=== PATIENT | female | born 1965 | race Caucasian/White ===

== ENCOUNTER → 2018-03-16 11:47 | Outpatient (CLI) | payer BC, SELFPAY ==
[2018-01-18 15:53] VITALS: BMI 39.4
[2018-03-16 13:24] LABS: AST(SGOT) 18 U/L (15-37); Alanine Aminotransfer ALT/SGPT 27 U/L (13-56); Albumin, Serum 3.9 g/dL (3.2-5.0); Alkaline Phosphatase 137 U/L (45-117); Anion Gap 9 (5-15); BUN 11 mg/dL (7-18); BUN/Creat Ratio 13.7 RATIO (10-20); Calcium,Total 8.8 mg/dL (8.5-10.1); Chloride 105 mmol/L (98-107); Cholesterol 207 mg/dL (200); EST Glomerular Filtration Rate 80 mL/min (>60); Est Glom Filt Rate - Afr Amer 97 mL/min (>60); Globulin 3.9 g/dL (2.2-4.2); Glucose 82 mg/dL (74-106); High Density Lipoprotein 56 mg/dL; Potassium 3.7 mmol/L (3.5-5.1); Protein, Total 7.8 g/dL (6.4-8.2); Sodium Level 142 mmol/L (136-145); Thyroid Stim Hormone (TSH) 2.47 uIU/mL (0.358-3.74); Triglycerides 180 mg/dL; Very Low Density Lipoprotein 36 mg/dL (5-40)
== END ==
PROVIDERS: Family Provider Family Medicine; PCP Family Medicine; Referring Provider Family Medicine; Visit Provider Family Medicine
DX: E78.00 Pure hypercholesterolemia, unspecified (principal); E03.9 Hypothyroidism, unspecified
CPT/HCPCS: 36415; 80053; 80061; 84443

== ENCOUNTER → 2018-03-29 14:42 | Outpatient (CLI) | payer BC, SELFPAY ==
--- NOTE | 2018-03-29 14:44 | BI_ITS ---
MAMMOGRAPHY - BILATERAL SCREENING REASON FOR EXAM: Female, 52 years old. Routine annual screening examination. PERTINENT HISTORY: Non-contributory. TECHNIQUE: Digital bilateral breast yesica (3D mammographic acquisition) in the CC and MLO projections. 2-D mediolateral oblique (MLO) and craniocaudad (CC) views of both breasts were obtained. CAD: Full Field Digital Mammography with Computer Added Detection was performed. COMPARISON: Comparison is made with prior outside examination dated April 06, 2010. FINDINGS: Breast Composition: There are scattered areas of fibroglandular density. There are no dominant masses or suspicious calcifications. Stable small bilateral axillary lymph nodes. No other significant abnormalities are identified. There has been no significant change since the prior study. BI/SCREENING MAMM (CAD), BILAT IMPRESSION: Stable bilateral screening mammogram. Yearly follow-up mammogram recommended. (A) ASSESSMENT CATEGORY: BIRADS Category 2: Benign. A letter regarding these results will be sent to the patient by the facility within 30 days. Approximately 10% of breast cancers are not detected by mammography. A normal mammogram should not delay biopsy of a clinically suspicious abnormality. [id number] Electronically Signed: Nikita Bean MD at 8:51 EST Tel [phone], Service support ,
== END ==
PROVIDERS: Family Provider Family Medicine; PCP Family Medicine; Visit Provider Family Medicine
DX: Z12.31 Encounter for screening mammogram for malignant neoplasm of breast (principal)
CPT/HCPCS: 77063; 77067

== ENCOUNTER → 2018-04-20 10:47 | Outpatient (CLI) | payer BC, SELFPAY ==
[2018-04-20 10:09] VITALS: BMI 38.4
--- NOTE | 2018-04-20 10:51 | RAD_ITS ---
STUDY: X-RAY - LEFT WRIST REASON FOR EXAM: Female, 52 years old. Pain following a fall. TECHNIQUE: 3 view(s) of the wrist were obtained. COMPARISON: None. FINDINGS: Nondisplaced comminuted fracture of the distal radial metaphysis with extension to the articular surface. Normal radiocarpal articulation. Normal distal radioulnar articulation. Normal carpal bones. Normal carpal articulations. Normal carpometacarpal articulation of the thumb. Normal second through fifth carpometacarpal articulations. Normal visualized metacarpal bones. Soft tissue swelling. RAD/Wrist min 3 Views IMPRESSION: Nondisplaced comminuted fracture of the distal radial metaphysis with extension of the articular surface. Soft tissue swelling. Electronically Signed: Nikita Bean MD at 11:16 EST , Service support ,
== END ==
PROVIDERS: Family Provider Family Medicine; PCP Family Medicine; Referring Provider Nurse Practitioner Family; Visit Provider Nurse Practitioner Family
DX: S69.92XA Unspecified injury of left wrist, hand and finger(s), initial encounter (principal); W19.XXXA Unspecified fall, initial encounter
CPT/HCPCS: 73110

== ENCOUNTER → 2018-04-24 09:34 | Outpatient (CLI) | payer BC, SELFPAY ==
[2018-04-24 08:17] VITALS: BMI 40.7
--- NOTE | 2018-04-24 09:37 | RAD_ITS ---
STUDY: X-RAY - LEFT RADIUS AND ULNA REASON FOR EXAM: Injury. TECHNIQUE: 2 view(s) of the forearm. COMPARISON: Radiographs 04/20/2018. FINDINGS: There is mild soft tissue swelling of the distal forearm. There is a nondisplaced slightly impacted fracture of the distal radius with a longitudinal extension into the distal radial diametaphysis. Normal visualized ulna. RAD/Forearm 2 Views IMPRESSION: Distal radial fracture. Electronically Signed: Cooper Bustillo MD at 15:21 EST Tel , Service support ,
--- NOTE | 2018-04-24 09:37 | RAD_ITS ---
STUDY: X-RAY - LEFT WRIST REASON FOR EXAM: Female, 52 years old. Follow-up fracture. TECHNIQUE: 2 view(s) of the wrist were obtained. COMPARISON: 04/20/2018. FINDINGS: No change in the distal radial metaphyseal fracture seen on previous exam. No displacement of fragments. No angulation or impaction. Essentially anatomic appearance of the bones. RAD/Wrist min 3 Views IMPRESSION: Stable distal radial fracture with no significant deformity. Electronically Signed: Epi Suarez MD at 11:32 EST , Service support ,
--- NOTE | 2018-04-30 15:24 | RAD_ITS ---
STUDY: X-RAY - LEFT ELBOW REASON FOR EXAM: Female, 52 years old. Wrist pain. History of a recent wrist fracture. TECHNIQUE: 2 view(s) of the elbow. COMPARISON: None. FINDINGS: Normal visualized humerus, radius and ulna. Normal radiocapitellar and ulnotrochlear articulations. The soft tissue structures are unremarkable. RAD/Elbow 2 Views IMPRESSION: Normal x-ray examination of the elbow. Electronically Signed: Frederick Shea MD at 7:11 EST , Service support ,
== END ==
PROVIDERS: Family Provider Family Medicine; PCP Family Medicine; Referring Provider Orthopaedic Surgery; Visit Provider Orthopaedic Surgery
DX: S62.102A Fracture of unspecified carpal bone, left wrist, initial encounter for closed fracture (principal)
CPT/HCPCS: 73070; 73090; 73110

== ENCOUNTER → 2018-05-03 10:01 | Outpatient (CLI) | payer BC, SELFPAY ==
[2018-04-24 08:17] VITALS: BMI 40.7
--- NOTE | 2018-05-03 10:02 | RAD_ITS ---
STUDY: X-RAY - LEFT WRIST REASON FOR EXAM: Pain. TECHNIQUE: 3 view(s) of the wrist were obtained. COMPARISON: Radiographs 04/24/2018. FINDINGS: There is a nondisplaced distal radial fracture without interval change. Normal radiocarpal articulation. Normal distal radioulnar articulation. Normal carpal bones. Normal carpal articulations. Normal carpometacarpal articulation of the thumb. Normal second through fifth carpometacarpal articulations. Normal visualized metacarpal bones. There is an overlying cast. RAD/Wrist min 3 Views IMPRESSION: Nondisplaced distal radial fracture. Electronically Signed: Cooper Bustillo MD at 13:38 EST Tel , Service support ,
== END ==
PROVIDERS: Family Provider Family Medicine; PCP Family Medicine; Referring Provider Orthopaedic Surgery; Visit Provider Orthopaedic Surgery
DX: S52.502A Unspecified fracture of the lower end of left radius, initial encounter for closed fracture (principal)
CPT/HCPCS: 73110

== ENCOUNTER → 2018-05-17 10:15 | Outpatient (CLI) | payer BC, SELFPAY ==
[2018-05-03 10:17] VITALS: BMI 40.7
--- NOTE | 2018-05-17 10:16 | RAD_ITS ---
STUDY: X-RAY - LEFT WRIST REASON FOR EXAM: Female, 52 years old. Follow-up TECHNIQUE: 3 view(s) of the wrist were obtained. COMPARISON: May 03, 2018 FINDINGS: The fiberglass cast externally stabilized and the previously noted fracture of the distal radius has been removed. There is evidence of healing of nondisplaced fracture of the distal radius. The distal ulna and carpal bones remain within normal limits. There are degenerative changes of the first carpometacarpal joint. RAD/Wrist min 3 Views IMPRESSION: A healing nondisplaced fracture of the distal radius. Degenerative changes involving the first carpometacarpal joint. Electronically Signed: Nabor Rivera MD at 5:07 EST Tel , Service support ,
== END ==
PROVIDERS: Family Provider Family Medicine; PCP Family Medicine; Referring Provider Orthopaedic Surgery; Visit Provider Orthopaedic Surgery
DX: S52.502A Unspecified fracture of the lower end of left radius, initial encounter for closed fracture (principal)
CPT/HCPCS: 73110

== ENCOUNTER → 2018-06-07 10:20 | Outpatient (CLI) | payer BC, SELFPAY ==
[2018-06-07 10:15] VITALS: BMI 40.7
--- NOTE | 2018-06-07 10:23 | RAD_ITS ---
STUDY: X-RAY - LEFT WRIST REASON FOR EXAM: Fracture follow-up. TECHNIQUE: 3 view(s) of the wrist were obtained. COMPARISON: Radiographs 05/17/2018. FINDINGS: There is a healing nondisplaced fracture of the distal radius. Normal radiocarpal articulation. Normal distal radioulnar articulation. Normal carpal bones. Normal carpal articulations. Normal carpometacarpal articulation of the thumb. Normal second through fifth carpometacarpal articulations. Normal visualized metacarpal bones. The soft tissue structures are unremarkable. RAD/Wrist min 3 Views IMPRESSION: Healing nondisplaced fracture of the distal radius. Electronically Signed: Cooper Bustillo MD at 15:14 EDT Tel , Service support ,
== END ==
PROVIDERS: Family Provider Family Medicine; PCP Family Medicine; Referring Provider Orthopaedic Surgery; Visit Provider Orthopaedic Surgery
DX: S52.502A Unspecified fracture of the lower end of left radius, initial encounter for closed fracture (principal); X58.XXXA Exposure to other specified factors, initial encounter; Y93.9 Activity, unspecified; Y92.9 Unspecified place or not applicable; Y99.9 Unspecified external cause status
CPT/HCPCS: 73110

== ENCOUNTER 2018-07-10 08:30 | Outpatient (RCR) | payer BC, SELFPAY ==
[2018-06-07 10:15] VITALS: BMI 40.7
--- NOTE | 2018-06-08 10:26 | HP.OTEVAL ---
Patient's Visit Information DEE MARLEY is a 52 year old F, referred to Occupational Therapy by Tyler Sheehan DO, with a diagnosis of left distal radius fx.. Date of Evaluation: 06/08/18 Occupational Therapist: MARY Gutierrez/Crissy, CHT - Subjective Subjective: This 52 year old female was seen for initial OT eval following a left distal radius fx. Pt states she had the fall on 04/20/18. PT did go to work and then they sent her home and she went to see her and refered to Dr. Clinton pt was casted until Apr, and did use wrist brace on for 2 weeks - ADLs Dressing: Pants, Socks, Shoes Fasteners: Tie shoes, Buttons, Zippers Eating: Cut food Bathing: Handle washcloth & soap Kitchen: Chop with knife, Peel fruits & vegetables, Open jars, Open bottle caps, Pour from pitcher, Take dish out of oven - Pain left wrist 3 - ROM Forearm: Right/left WNL Wrist: right 65/70 left 45/25 - Strength Corporate Director: right 50# left NT Lateral Pinch: right 14# left 8# Tripod Pinch: right 20# left 7# - Sensation Sensation Comments: sensation is tested at 2.83 bilateral - Quick DASH-Disab of Arm,Shoulder& Hand Quick DASH Score: 50.0000 - Goals Goal:: PT will demo an increase in digital content manager strength by 20# to increase independent with basic occupations of daily living to return pt to PLOF by D/C. Pt will demo an increase in lateral and tripod pinch by 2# to increase pts independent with opening baggies, containers at PLOF by D/C. Goal:: Pt will demo an increase in wrist ROM equal to unaffected wrist to return pt to PLOF with grooming, dressing and home mtg tasks by D/C. Goal:: Pt will demo understanding of joint protection and ergonomics when performing BADLs and IADLs by d/c - Rehabilitation General Assessment: Pt currently limited with functional ROM and strength decreasing pts ind with ADLs and IADLs. Pt would benefit from skilled OT services 2x week for 6 weeks to return pt to PLOF. Rehabilitation Potential: Good - Anticipated Interventions Anticipated Interventions: A/AAROM/PROM, Strengthening, Modalities, Orthoses, Joint Protection/Energy Conservation, Ergonomic Education - Visit Plan Frequency: 2x /Week Duration: 6 Weeks TEXT: Thank you for the opportunity to evaluate your patient. For Medicare and Medicare HMO plans, please review the plan of care and approve it. It will need to be FAXED BACK to us at [phone] for Medicare purposes. Please let me know if there are questions or concerns regarding this plan of care. Physician Signature: Date:
--- NOTE | 2018-06-27 08:15 | HP.OTREVAL ---
Tyler Sheehan, DO, It has been my pleasure to treat DEE MARLEY over the last 3 visits for left distal radius fx.. Please see the progress note below for an update on the occupational therapy plan of care! Subjective: pt states she feels her ROM is returning well- states she still has a funny feeling along the radial side of her thumb from CMC distal (numbness) only when she touches the radial side of her thumb. Objective/Function: wrist ext 60/50. with passive stretch pt demo 60* flex. pt cont. to gain ROM. left mycology teacher 15#. left lateral pinch 10#. left tripod pinch 8#. pt states she is using her left hand for more daily occupations- pt demo good gains in ROM but would benefit from PRE if approved by dr. pt has total therapy visits approved at this time. Plan Frequency: 2x /Week Duration: 6 Weeks Plan: cont with ROM and new measurments- pt to see next mon. will ask for ok for PRE Goals - Goals Goal:: PT will demo an increase in mycology teacher strength by 20# to increase independent with basic occupations of daily living to return pt to PLOF by D/C. Pt will demo an increase in lateral and tripod pinch by 2# to increase pts independent with opening baggies, containers at PLOF by D/C. Goal:: Pt will demo an increase in wrist ROM equal to unaffected wrist to return pt to PLOF with grooming, dressing and home mtg tasks by D/C. Goal:: Pt will demo understanding of joint protection and ergonomics when performing BADLs and IADLs by d/c Anticipated Interventions Anticipated Interventions: A/AAROM/PROM, Strengthening, Modalities, Orthoses, Joint Protection/Energy Conservation, Ergonomic Education Please do not hesitate to contact me at [phone] by phone or if you have questions or concerns regarding this new plan of care! Sincerely, Korina Saeed, FLORINAR/L, CHT
--- NOTE | 2018-10-17 16:18 | HP.OTDCSUM_ITS ---
HP - OT D/C Summary It has been my pleasure to treat DEE MARLEY under orders from Tyler Sheehan DO, for the diagnosis of left distal radius fx. for a total of 6 visit(s). Please see the following information for a summary of their discharge status. - Overall Improvement % Improvement: 95 - Objective Objective/Function: left 40#. left lateral pinch 14#. left tripod pinch 12#. left 55/45. left forearm sup/pron WNL - Goals Patient Goals: Regain Mobility, Regain Strength, Return to Work, Use Hand/Wrist/Arm Normally Again Goal:: PT will demo an increase in overlock sewing machine operator strength by 20# to increase independent with basic occupations of daily living to return pt to PLOF by D/C. Pt will demo an increase in lateral and tripod pinch by 2# to increase pts independent with opening baggies, containers at PLOF by D/C. Goal:: Pt will demo an increase in wrist ROM equal to unaffected wrist to return pt to PLOF with grooming, dressing and home mtg tasks by D/C. Goal:: Pt will demo understanding of joint protection and ergonomics when performing BADLs and IADLs by d/c - Plan Plan: cont with BTE - D/C Information Discharge Comments: pt has not scheduled further apts and due to time lapse in care pt D/C 10/17/18 If there are questions or concerns regarding this patient's occupational therapy, please fell free to call me at [phone]. Thank you for the referral of this patient. Sincerely, Korina Saeed, OTR/L, CHT
== END 2018-07-10 19:00 | disposition home or self-care (01) ==
LOC: OT 08:30
PROVIDERS: Family Provider Family Medicine; PCP Family Medicine; Referring Provider Orthopaedic Surgery; Visit Provider Orthopaedic Surgery
DX: S52.509D Unspecified fracture of the lower end of unspecified radius, subsequent encounter for closed fracture with routine healing (principal)
CPT/HCPCS: 97110; 97140; 97166; 97530

== ENCOUNTER → 2019-02-04 13:00 | Outpatient (CLI) | payer BC, SELFPAY ==
[2019-01-30 16:43] VITALS: BMI 40.7
--- NOTE | 2019-02-04 13:01 | US_ITS ---
STUDY: ULTRASOUND OF THE FEMALE PELVIS - COMPLETE REASON FOR EXAM: Female, 53 years old. Postmenopausal bleeding. LMP: Postmenopausal. TECHNIQUE: Transvaginal TECHNICAL QUALITY: Adequate. COMPARISON: None. FINDINGS: The uterus is anteverted and is in a midline position. The uterus measures 8.8 x 5.8 x 4.6 cm. Normal uterine cervix. The endometrium measures 26.8 mm in thickness, and is heterogeneous (striated). There is no demonstrated endometrial mass. There is no demonstrated myometrial mass. I.U.D. - The patient does not have an I.U.D. The bilateral ovaries are not visualized. There is no fluid in the cul-de-sac. US/Transvaginal Non- IMPRESSION: Significant thickening of the endometrium with heterogeneous appearance raising the concern of endometrial hyperplasia versus carcinoma. Clinical correlation recommended along with SENIOR MICROSOFT CONSULTANT consultation. Nonvisualized bilateral ovaries. If indicated, these findings may be more adequately characterized with MRI of the pelvis in nonacute setting. Electronically Signed: Tiffany Martinez MD at 5:56 EST , Service support ,
== END ==
PROVIDERS: Family Provider Family Medicine; PCP Family Medicine; Referring Provider Family Medicine; Visit Provider Family Medicine
DX: N95.0 Postmenopausal bleeding (principal)
CPT/HCPCS: 76830

== ENCOUNTER → 2019-02-15 09:59 | Outpatient (CLI) | payer BC, SELFPAY ==
[2019-01-30 16:43] VITALS: BMI 40.7
[2019-02-15 12:37] LABS: AST(SGOT) 20 U/L (15-37); Alanine Aminotransfer ALT/SGPT 31 U/L (13-56); Albumin, Serum 3.7 g/dL (3.2-5.0); Alkaline Phosphatase 123 U/L (45-117); Anion Gap 7 (5-15); BUN 10 mg/dL (7-18); BUN/Creat Ratio 13.1 RATIO (10-20); Calcium,Total 8.7 mg/dL (8.5-10.1); Chloride 106 mmol/L (98-107); Cholesterol 195 mg/dL (200); Creatinine, Serum 0.76 mg/dL (0.55-1.02); EST Glomerular Filtration Rate 85 mL/min (>60); Est Glom Filt Rate - Afr Amer 103 mL/min (>60); Globulin 3.7 g/dL (2.2-4.2); Glucose 85 mg/dL (74-106); High Density Lipoprotein 60 mg/dL; Potassium 3.6 mmol/L (3.5-5.1); Protein, Total 7.4 g/dL (6.4-8.2); Sodium Level 140 mmol/L (136-145); Thyroid Stim Hormone (TSH) 3.46 uIU/mL (0.358-3.74); Triglycerides 216 mg/dL; Very Low Density Lipoprotein 43 mg/dL (5-40)
== END ==
PROVIDERS: Family Provider Family Medicine; PCP Family Medicine; Referring Provider Family Medicine; Visit Provider Family Medicine
DX: E78.00 Pure hypercholesterolemia, unspecified (principal); E03.9 Hypothyroidism, unspecified
CPT/HCPCS: 36415; 80053; 80061; 84443

== ENCOUNTER → 2019-04-01 15:37 | Outpatient (CLI) | payer BC, SELFPAY ==
[2019-01-30 16:43] VITALS: BMI 40.7
--- NOTE | 2019-04-01 15:38 | BI_ITS ---
MAMMOGRAPHY - BILATERAL SCREENING REASON FOR EXAM: Female, 53 years old. Routine annual screening examination. PERTINENT HISTORY: Non-contributory. TECHNIQUE: Digital bilateral breast lili (3D mammographic acquisition) in the CC and MLO projections. 2-D mediolateral oblique (MLO) and craniocaudad (CC) views of both breasts were obtained. CAD: Full Field Digital Mammography with Computer Added Detection was performed. COMPARISON: Comparison is made with prior study dated March 29, 2018. FINDINGS: Breast Composition: There are scattered areas of fibroglandular density. There are no dominant masses or suspicious calcifications. Stable benign-appearing bilateral axillary lymph nodes. No other significant abnormalities are identified. There has been no significant change since the prior study. BI/SCREEN MAMM (CAD) W/LILI BILAT IMPRESSION: Stable bilateral screening mammogram. Yearly follow-up mammogram recommended. (A) ASSESSMENT CATEGORY: BIRADS Category 2: Benign. A letter regarding these results will be sent to the patient by the facility within 30 days. Approximately 10% of breast cancers are not detected by mammography. A normal mammogram should not delay biopsy of a clinically suspicious abnormality. [id number] Electronically Signed: Nikita Bean, at 8:26 EST , Service support ,
== END ==
PROVIDERS: Family Provider Family Medicine; PCP Family Medicine; Referring Provider Family Medicine; Visit Provider Family Medicine
DX: Z12.31 Encounter for screening mammogram for malignant neoplasm of breast (principal)
CPT/HCPCS: 77063; 77067

== ENCOUNTER → 2019-04-03 13:49 | Outpatient (CLI) | payer BC, SELFPAY ==
[2019-04-03 10:36] VITALS: BMI 43.4
--- NOTE | 2019-04-03 15:31 | RAD_ITS ---
STUDY: X-RAY - RIGHT ANKLE REASON FOR EXAM: Female, 53 years old. Right ankle pain for 2 weeks. No known injury. TECHNIQUE: view(s) of the ankle. COMPARISON: None. FINDINGS: Normal visualized distal tibia and fibula. Normal medial and lateral malleoli. Normal tibiotalar articulation and ankle mortise. Inferior calcaneal spur. The visualized subtalar, talonavicular, calcaneocuboid and tarsal articulations are normal. The soft tissue structures are unremarkable. RAD/Ankle min 3 Views IMPRESSION: No acute abnormality of the right ankle. Electronically Signed: Israel Joel MD at 16:49 EST , Service support ,
[2019-04-05 15:16] LABS: HPV APTIMA, High Risk Negative (Negative)
== END ==
PROVIDERS: Family Provider Family Medicine; PCP Family Medicine; Referring Provider Family Medicine; Visit Provider Nurse Practitioner Women's Health
DX: M21.6X1 Other acquired deformities of right foot (principal); Z12.4 Encounter for screening for malignant neoplasm of cervix
CPT/HCPCS: 73610; 87624; 88175; G0145

== ENCOUNTER 2019-04-30 05:40 | Day surgery (SDC) | payer BC, SELFPAY ==
[2019-04-15 09:42] VITALS: BMI 40.7
--- NOTE | 2019-04-15 09:42 | HP_ITS ---
Intake Vital Signs 04/15/19 BMI 40.7 04/15/19 Height 5 ft 4 in 04/15/19 Weight: 248 lb 04/15/19 BMI 42.5 04/15/19 BP 139/101 H 04/15/19 Blood Pressure Location Rt brachial 04/15/19 Position Sitting 04/15/19 Respiration 18 04/15/19 Pulse 65 04/15/19 Pulse Source Monitor 04/15/19 Temp 98.1 F 04/15/19 Temp Source Oral 04/15/19 Pulse Oximetry (%) 97 04/15/19 Oxygen Delivery Method room air Intake Visit Reasons: fam. hx malig neopl. digestive organs-egd/c-scope Chief Complaint: c-scope consult Clerk Of Superior Court Required: No Is patient in pain?: No Allergies Penicillins Allergy (Severe, Verified 04/15/19 09:39) Unknown latex Allergy (Intermediate, Verified 04/15/19 09:39) Unknown Medications multivitamin 1 tab PO DAILY 01/18/18 [History Confirmed 04/15/19] furosemide 20 mg tablet 20 mg PO DAILY PRN tab 01/30/19 [History Confirmed 04/15/19] atorvastatin 20 mg tablet 20 mg PO DAILY #90 tab 03/18/19 [Rx Confirmed 04/15/19] levothyroxine 25 mcg tablet 25 mcg PO DAILY #90 tab 03/18/19 [Rx Confirmed 04/15/19] cholecalciferol (vitamin D3) 2,000 unit tablet 2,000 unit PO DAILY 04/03/19 [History Confirmed 04/15/19] famotidine 20 mg tablet 20 mg PO DAILY 04/03/19 [History Confirmed 04/15/19] [facility] Medical History (Updated 04/15/19 @ 09:37 by Nikky Jain) Family history of colon cancer (Chronic) Ankle pain, right (Acute) Thickened endometrium (Acute) Post-menopause bleeding (Chronic) BV (bacterial vaginosis) (Acute) Hypothyroid (Chronic) Gastritis (Resolved) High cholesterol (Chronic) Gastrointestinal complaints (Chronic) Family history of colon cancer (Acute) Fracture of left wrist (Acute) Surgical History History of tonsillectomy (Acute) Family History Father Arthritis Myocardial infarction Heart disease Mother Myocardial infarction Heart disease Osteoporosis Brother Colon cancer Sister Depression Suicide attempt Grandmother CVA (cerebral vascular accident) Uncle Melanoma Lung cancer Social History (Updated 04/15/19 @ 09:42 by Carlton Mckeon MD) Smoking Status: Never smoker alcohol intake: never substance use type: does not use caffeine: No what type of physical activity do you participate in: none seatbelt use: always do you feel safe at home: Yes additional social history: -Patient works at [employer] HPI HPI HPI: DEE MARLEY, is a 53 F who presents to the office today for HPI HPI Surgical H&P: Yes HPI: DEE MARLEY, is a 53 F who presents to the office today for screening colonoscopy. The patient has never had a colonoscopy in the past. She reports that her brother was recently diagnosed with stage IV colon cancer. He was 67 years old at diagnosis. She has no other family history of colon cancer. She denies any abdominal pain or blood in her stool. ROS General General: No weight change, appetite, fatigue, colon cancer, breast cancer or weakness HEENT HEENT: No difficulty swallowing, eye injury, eye surgery, swollen glands or hoarseness Endo Endocrine: No thyroid disease, diabetes mellitus, thyroid cancer, Hair loss, heat intolerance or cold intolerance Skin Skin: No rash or changing moles Breast Breast: No left breast lump, right breast lump, nipple discharge, breast pain, abnormal mammogram, abnormal US or breast enlargement Musc Musculoskeletal: Yes arthritis; no back problems, rheumatoid arthritis, gout or joint pain Cardio Cardiovascular: No murmur, pacemaker, heart disease, atrial fibrillation, high blood pressure, heart attack, heart stent, palpitations, shortness of breat with exertion or chest pain Psych Psychiatric: No depression, anxiety or hearing voices Resp Respiratory: No shortness of breath, No sleep apnea, No cough, No COPD, No asthma, No emphysema, No wheezing Gastro Gastrointestinal: No abdominal pain, No nausea or vomiting, No diarrhea, No constipation, No blood in stool, Yes acid reflux, Yes hemorrhoids, No ulcers, No gallbladder problem, No black,tarry stools Connor Hematologic: No blood thinners, No blood disorders, No bleeding, No anemia, No blood clots Neuro Neurologic: No system reviewed and no additional complaints, except as docu, No as per HPI, No abnormal walking, No abnormal hearing, No abnormal movements, No abnormal speech, No behavioral changes, No burning sensations, No confusion, No seizure-like activity, No unsteadiness, No dizziness, No localized weakness, No frequent falls, No headache(s), No lack of coordination, No loss of vision, No memory loss, No numbness, No other visual disturbances, No radiating pain, No restless legs, No sensory deficit, No fainting, No tingling, No tremor(s), No weakness, No other Exam Const General: cooperative Orientation: alert, oriented x3 Chest Breast Palpation: No nipple discharge Resp Effort & Inspection: normal respiratory effort Auscultation: clear to auscultation bilaterally Cardio Rate: regular rate Rhythm: regular rhythm Heart Sounds: no murmurs GI Inspection: non-distended Palpation: soft, nontender Assessment & Plan Problems 1. Family history of colon cancer Z80.0 2. Screen for colon cancer Z12.11 Plan Patient has a family history of colon cancer in her brother at age 67. Patient has never had a colonoscopy in the past. She denies any abdominal pain or blood in her stool. I will plan for screening colonoscopy. Due to the patient's brother's age at diagnosis she should still be on a 10-year interval if nothing is found. I explained endoscopy in detail to the patient. I explained the risks including but not limited to stroke or heart attack with anesthesia, perforation of the GI tract, bleeding, infection. I explained that any of these could necessitate further emergency surgery. The patient understands and all questions were answered sufficiently. The patient wishes to proceed with procedure. Carlton Mckeon MD Pager: [facility] [address] [place] [address], [address] [place] [address] Office: Orders Orders: Colonoscopy Today Z80.0 Coding Level of Care Code Off vis,new,level 3 Diagnoses Family history of colon cancer Z80.0 Screen for colon cancer Z12.11 04/15/19 0942 <Electronically signed by Carlton lyles MD> Date _ Carlton Mckeon MD
[2019-04-25 15:04] VITALS: BMI 40.7
[2019-04-30] VITALS (7 sets, daily range): BP systolic 119–136; BP diastolic 62–86; PULSE 61–73; RESP 16–18; TEMP 36.3–36.6; O2SAT 98–100; BMI 40.6
--- NOTE | 2019-04-30 | IMM_PTH ---
PATIENT: DEE MARLEY LOC: [facility] [place] U#:[id number] AGE/SX: 53/F ROOM: RE04/30/[address]: Dr. Gege Amin MD : 1965 BED: DIS: 04/30/2019 SPEC #: [id number] RECD: 05/01/19 12:50 STATUS: LINH REQ #: [id number] CONSUELO: 04/30/19 00:[address]: Gege Amin DEPT: IMMUNOHISTOCHEMISTRY RECD BY: Anushka Hernández ENTERED: 05/01/19 12:51 SP TYPE: IMMUNO OTHR DR: Dr. Avila Romo, DO Tissues: Endometrium, NOS Procedures: MSH2 (add) MLH-1 (add) MSH6 (add) Anti-PMS2 (add) CEA (add) KI-67 (add) P53 (add) Vimentin (add) Pankeratin (add) ER (initial) PHYSICIAN & INSTITUTION [facility] [id number] SPECIMEN INFORMATION: Tissue Source: Endometrial contents Clinical Info: Thickened endometrium; postmenopausal bleeding Specimen Number: [id number] CPT code: 21912, 65651 x10 METHODOLOGY: Deparaffinized sections of prefer/formalin-fixed tissue or PAP/DQ stained slides are incubated with monoclonal/polyclonal antibodies/oligonucleotide probes. Localization is made via biotin free immunoperoxidase method. Appropriate controls are performed and reacted as expected. Results on target cell population are indicated in the following table: RESULTS: ANTIBODY / CLONE RESULT ER (6F11) positive AE1-3 (AE1/AE3/PCK26) positive Vimentin (V9) positive CK19 (A53-B/A2.26) positive CEA (11-7/TF-3HB-1) negative MLH1 (M1) positive MSH2 (25D12) positive MSH6 (44) positive PMS2 (WHH4510) positive P53 (DO-7) negative Ki-67 (30-9) positive, low These tests were developed and their performance characteristics determined by [facility]. They may not have been cleared or approved by the U.S. Food and Drug Administration. The FDA has determined that such clearance or approval is not necessary. The above immunohistochemical/dualISH markers are ordered and reviewed by the Pathologist. INTERPRETATION: Endometrium, curettage: Endometrial adenocarcinoma. No evidence of microsatellite instability. AM:rachel 05/02/19
--- NOTE | 2019-04-30 03:29 | HP.PCM_ITS ---
- Problem List (1) Thickened endometrium Status: Acute (2) Post-menopause bleeding Status: Chronic Comment: Plan D&C, hysteroscopy with Dr. Amin Referred Dr. Bob Romo History and Physical Date of Admission: 04/30/19 Intake Vital Signs 04/25/19 Height 5 ft 4 in 04/25/19 Weight: 246 lb 8 oz 04/25/19 BMI 42.3 04/25/19 BP 128/82 H Intake Visit Reasons: Hysteroscopy DC/Symphion Chief Complaint: Preop D&C with symphion Director Sales Support Required: No Is patient in pain?: No Allergies Penicillins Allergy (Severe, Verified 04/25/19 15:04) Unknown latex Allergy (Intermediate, Verified 04/25/19 15:04) Unknown Medications multivitamin 1 tab PO DAILY 01/18/18 [History Confirmed 04/24/19] furosemide 20 mg tablet 20 mg PO DAILY PRN tab 01/30/19 [History Confirmed 04/25/19] atorvastatin 20 mg tablet 20 mg PO DAILY #90 tab 03/18/19 [Rx Confirmed 04/25/19] levothyroxine 25 mcg tablet 25 mcg PO DAILY #90 tab 03/18/19 [Rx Confirmed 04/25/19] cholecalciferol (vitamin D3) 50 mcg (2,000 unit) tablet 2,000 unit PO DAILY 04/03/19 [History Confirmed 04/25/19] famotidine 20 mg tablet 20 mg PO DAILY 04/03/19 [History Confirmed 04/25/19] Is last menstrual period known: No Post menopausal: No Patient : No : No PFSH Medical History Family history of colon cancer (Chronic) Ankle pain, right (Acute) Thickened endometrium (Acute) Post-menopause bleeding (Chronic) BV (bacterial vaginosis) (Acute) Hypothyroid (Chronic) Gastritis (Resolved) High cholesterol (Chronic) Gastrointestinal complaints (Chronic) Family history of colon cancer (Acute) Fracture of left wrist (Acute) Surgical History History of tonsillectomy (Acute) Family History Father Arthritis Myocardial infarction Heart disease Mother Myocardial infarction Heart disease Osteoporosis Brother Colon cancer Sister Depression Suicide attempt Grandmother CVA (cerebral vascular accident) Uncle Melanoma Lung cancer Social History (Updated 04/30/19 @ 02:27 by Gege Amin MD) Smoking Status: Never smoker alcohol intake: never substance use type: does not use caffeine: No what type of physical activity do you participate in: none seatbelt use: always do you feel safe at home: Yes additional social history: -Patient works at [employer] HPI Hysteroscopy DC/Symphion: Details: DEE MARLEY is a 53 year old who presents for postmenopausal bleeding and thickened endometrium, cervical stenosis. Female Reproductive History Menopausal Symptoms: No night sweats Pregancy History 0 Elective abortions Hx Para Spontaneous abortions Hx # Term Pregnancies Ectopic pregnancies Hx # Pregnancies Multiple births # of living children ROS Const Constitutional: Denies fatigue, night sweats, weight gain or weight loss ENT ENT: Reports system reviewed and no additional complaints, except as docu Cardio Card: Denies chest pain Resp Resp: Denies cough or dyspnea GI GI: Reports as per HPI; denies abdominal pain, constipation, nausea or vomiting : Denies nipple discharge, urinary frequency, urinary incontinence, urinary hesitancy, urinary urgency, vaginal discharge, vaginal dryness, vaginal odor or vaginal itching Musc Musc: Denies joint pain, back pain or muscle weakness Skin Skin/Breast: Denies hair loss, change in hair, dry skin, breast lump, breast pain, breast skin changes or nipple discharge Neuro Neuro: Reports system reviewed and no additional complaints, except as docu Psych Psych: Reports system reviewed and no additional complaints, except as docu Endo Endo: Denies cold intolerance, excessive sweating, heat intolerance or increased thirst Connor/Lymph Hematologic/Lymphatic: Denies easy bleeding, Denies easy bruising, Denies enlarged lymph nodes Exam Const General: cooperative, healthy appearing, comfortable, no acute distress, well developed Orientation: alert HENMT Head: normal to inspection, normocephalic Ears: hearing grossly normal bilaterally, external ears normal Nose: external nose normal, nares normal Face and sinus: normal facial exam Neck Neck: normal visual inspection, no lymphadenopathy Thyroid: thyroid normal Chest Chest palpation & inspection: normal inspection of the chest Resp Effort & Inspection: normal respiratory effort Auscultation: clear to auscultation bilaterally Cardio Rate: regular rate Rhythm: regular rhythm Heart Sounds: S1 normal, S2 normal GI Inspection: normal to inspection, non-distended Palpation: soft, no hepatosplenomegaly Musc Other: gross motor intact no deficits, full bilateral strength Skin General: no rashes or lesions noted Neuro General: alert, awake, moves all extremities, no focal motor deficits Motor: muscle tone normal throughout Extrem General: normal to inspection, no pedal edema Psych Appearance: grossly normal Mental Status: mental status grossly normal Affect: normal affect Speech and Movement: speech and movement normal Assessment & Plan Problems 1. Thickened endometrium R93.89 2. Post-menopause bleeding N95.0 Plan D&C, hysteroscopy with Dr. Amin Referred Dr. Bob Romo Plan After discussing the patient's diagnosis and treatment plan options, patient wishes to proceed with surgical management. I have discussed with the patient the risks, benefits, and alternatives of the procedure which include but are not limited to risks of anesthesia, bleeding, infection, possible damage to bowel, bladder, or surrounding vasculature which could lead to additional surgery to evaluate any complications. Patient agrees to procedure and wishes to proceed. Coding Level of Care Code Off vis,est,level 4 Diagnoses Thickened endometrium R93.89 Post-menopause bleeding N95.0 UPDATE- I have seen the patient and performed any clinically relevant updates to the history and physical exam. Gege Amin MD
[2019-04-30 06:08] LABS: Internal QC Validated? YES +Cl - CLEAR BKGD; Pregnancy, Urine Negative Negative
[2019-04-30] MEDS: Lactated Ringers 1,000 ML 125 ML IV ×2 (06:15→08:36)
[2019-04-30 06:21] LABS: Hematocrit 43.6 % (37-47); Hemoglobin 14.5 g/dL (12.0-15.0); Mean Corp Hgb Conc 33.3 g/dL (32-36); Mean Corpuscular Hgb 30.7 pg (27.0-32.0); Mean Corpuscular Volume 92.2 fL (81-99); Mean Platelet Vol. 9.1 fl (6.2-12.0); Platelet Count 275 K/mm3 (150-450); RBC Distribution Width CV 12.3 % (11.6-14.6); RBC Distribution Width SD 41.9 fl (35.1-43.9); Red Blood Count 4.73 M/mm3 (4.2-5.4); White Blood Count 6.6 K/mm3 (4.4-11.0)
--- NOTE | 2019-04-30 07:30 | EMB_PTH ---
PATIENT: DEE MARLEY LOC: [facility] [place] U#:[id number] AGE/SX: 53/F ROOM: RE04/30/[address]: Dr. Gege Amin MD : 1965 BED: DIS: 04/30/2019 SPEC #: [id number] RECD: 04/30/19 13:59 STATUS: LINH MICAHRalph #: [id number] CONSUELO: 04/30/19 07:[address]: Gege Amin DEPT: SURGICAL PATHOLOGY RECD BY: Maximo Carr ENTERED: 04/30/19 14:30 SP TYPE: ENDOM BX/C OTHR DR: Dr. Avila Romo, DO Tissues: Endometrium, NOS Procedures: Surgery Specimen Level IV HEADER OPERATION: Hysteroscopy, D & C Symphion PRE-OP DIAGNOSIS: Thickened endometrium R93.89, postmenopause bleeding N95.0 TISSUE SUBMITTED: Endometrial contents MICROSCOPIC DIAGNOSIS Endometrium, curettings: Endometrial adenocarcinoma, FIGO grade 1-2. See comment. AM:rachel 05/01/19 COMMENT Immunohistochemistry ([id number]) supports the above diagnosis. Case has been reviewed in consultation with Dr. Perez who concurs with the above diagnosis. IDC:HÉCTOR MICROSCOPIC DESCRIPTION Slides are reviewed. GROSS DESCRIPTION Received in fixative is one container labeled with the patient's name and designated endometrial contents. The specimen consists of multiple irregular fragments of malik soft tissue mixed with mucoid tissue that in aggregate measure 5 x 3 x 1.2 cm. The entire specimen is submitted in seven cassettes. / HÉCTOR:rachel 04/30/19 TC:0 CPT: 25428
--- NOTE | 2019-04-30 08:19 | PCM.OPRPT ---
Problem List (1) Thickened endometrium Status: Acute (2) Post-menopause bleeding Status: Chronic Comment: Plan D&C, hysteroscopy with Dr. Amin Referred Dr. Bob Romo Report of Operation Date of Procedure: 04/30/19 Pre-Operative Diagnosis: thickened endometrial lining Post-Operative Diagnosis: same Surgery/Procedure Performed:: d and c hysterosocpy symphion Description of Surgical Findings:: very thickened irregular lining filled with tissue Type of Anesthesia:: Local MAC Special Medications: none Specimen's removed: none Drains: none Estimated Blood Loss (mL): minimal Fluids Replaced: crystalloid Description of Procedure: Patient was taken to the OR and placed under MAC local anesthesia was prepped and draped in normal sterile fashion in the dorsolithotomy position. A cervical block was performed and cervix dilated to allow passage of a symphion resectoscope instrument. Progressive passes were made with the symphion to clear the uterine lining and remove the visible abnormalities. The lining was incredibly thickened and abnormal appearing with some fibrous components to it. Minimal blood loss was seen. Large amount of tissue was removed. A direct curettage was performed afterwards then. Fluid balance was 1250 cc. All instruments removed from the vagina and the patient was awoken and taken recovery in stable condition Grafts/Implants Used: none - Complications none - Admit VTE Documentation VTE Present on Admission: No Multi Select Codes - Urinary/Genital Urinary/Genital CPT Codes: 59033 Hysteroscopic myomectomy - resection of thick fibrous tissue with symphion device
--- NOTE | 2019-04-30 08:24 | PCM.DC.D&C ---
Discharge Diet: No Restrictions Discharge Activity: Return to Normal Activity, May Shower, May Take a Tub Bath Allergies/Adverse Reactions: Allergies Penicillins Allergy (Severe, Verified 04/30/19 06:04) Unknown latex Allergy (Intermediate, Verified 04/30/19 06:04) Unknown Medications to take at Discharge multivitamin 1 tab PO DAILY 01/18/18 furosemide 20 mg tablet 20 mg PO DAILY PRN tab 01/30/19 atorvastatin 20 mg tablet 20 mg PO DAILY #90 tab 03/18/19 levothyroxine 25 mcg tablet 25 mcg PO DAILY #90 tab 03/18/19 cholecalciferol (vitamin D3) 50 mcg (2,000 unit) tablet 2,000 unit PO DAILY 04/03/19 famotidine 20 mg tablet 20 mg PO DAILY 04/03/19 Primary Care Physician: Avila Romo DO [Primary Care Provider] - Test Results: Test results from this visit will be discussed in further detail at your follow-up appointment, if applicable. Please Follow Up With: Gege Amin MD - [phone]
== END 2019-04-30 09:30 | disposition home or self-care (01) ==
LOC: SDC 05:41 → AC 05:42
PROVIDERS: PCP Family Medicine; Referring Provider Obstetrics & Gynecology; Visit Provider Obstetrics & Gynecology
PROC: 0UB98ZZ Excision of Uterus, Via Natural or Artificial Opening Endoscopic (ICD-10-PCS; CPT 58558; principal; 2019-04-30 07:15)
DX: C54.1 Malignant neoplasm of endometrium (principal); E03.9 Hypothyroidism, unspecified; E78.00 Pure hypercholesterolemia, unspecified; K21.9 Gastro-esophageal reflux disease without esophagitis; Z86.2 Personal history of diseases of the blood and blood-forming organs and certain disorders involving the immune mechanism; Z87.19 Personal history of other diseases of the digestive system; Z79.899 Other long term (current) drug therapy
CPT/HCPCS: 00952; 58558; 81025; 85027; 86850; 86900; 86901; 88305; 88341; 88342; J7120

== ENCOUNTER 2019-05-10 07:27 | Day surgery (SDC) | payer BC, SELFPAY ==
[2019-04-15 09:42] VITALS: BMI 40.7
--- NOTE | 2019-04-15 10:54 | HP_ITS ---
Intake Vital Signs 04/15/19 BMI 40.7 04/15/19 Height 5 ft 4 in 04/15/19 Weight: 248 lb 04/15/19 BMI 42.5 04/15/19 BP 139/101 H 04/15/19 Blood Pressure Location Rt brachial 04/15/19 Position Sitting 04/15/19 Respiration 18 04/15/19 Pulse 65 04/15/19 Pulse Source Monitor 04/15/19 Temp 98.1 F 04/15/19 Temp Source Oral 04/15/19 Pulse Oximetry (%) 97 04/15/19 Oxygen Delivery Method room air Intake Visit Reasons: fam. hx malig neopl. digestive organs-egd/c-scope Chief Complaint: c-scope consult Toe Closing Machine Tender Required: No Is patient in pain?: No Allergies Penicillins Allergy (Severe, Verified 04/15/19 09:39) Unknown latex Allergy (Intermediate, Verified 04/15/19 09:39) Unknown Medications multivitamin 1 tab PO DAILY 01/18/18 [History Confirmed 04/15/19] furosemide 20 mg tablet 20 mg PO DAILY PRN tab 01/30/19 [History Confirmed 04/15/19] atorvastatin 20 mg tablet 20 mg PO DAILY #90 tab 03/18/19 [Rx Confirmed 04/15/19] levothyroxine 25 mcg tablet 25 mcg PO DAILY #90 tab 03/18/19 [Rx Confirmed 04/15/19] cholecalciferol (vitamin D3) 2,000 unit tablet 2,000 unit PO DAILY 04/03/19 [History Confirmed 04/15/19] famotidine 20 mg tablet 20 mg PO DAILY 04/03/19 [History Confirmed 04/15/19] FOR[facility]LY [facility], [facility] Medical History (Updated 04/15/19 @ 09:37 by Nikky Jain) Family history of colon cancer (Chronic) Ankle pain, right (Acute) Thickened endometrium (Acute) Post-menopause bleeding (Chronic) BV (bacterial vaginosis) (Acute) Hypothyroid (Chronic) Gastritis (Resolved) High cholesterol (Chronic) Gastrointestinal complaints (Chronic) Family history of colon cancer (Acute) Fracture of left wrist (Acute) Surgical History History of tonsillectomy (Acute) Family History Father Arthritis Myocardial infarction Heart disease Mother Myocardial infarction Heart disease Osteoporosis Brother Colon cancer Sister Depression Suicide attempt Grandmother CVA (cerebral vascular accident) Uncle Melanoma Lung cancer Social History (Updated 04/15/19 @ 09:42 by Carlton Mckoen MD) Smoking Status: Never smoker alcohol intake: never substance use type: does not use caffeine: No what type of physical activity do you participate in: none seatbelt use: always do you feel safe at home: Yes additional social history: -Patient works at [employer] HPI HPI HPI: DEE MARLEY, is a 53 F who presents to the office today for HPI HPI Surgical H&P: Yes HPI: DEE MARLEY, is a 53 F who presents to the office today for screening colonoscopy. The patient has never had a colonoscopy in the past. She reports that her brother was recently diagnosed with stage IV colon cancer. He was 67 years old at diagnosis. She has no other family history of colon cancer. She denies any abdominal pain or blood in her stool. ROS General General: No weight change, appetite, fatigue, colon cancer, breast cancer or weakness HEENT HEENT: No difficulty swallowing, eye injury, eye surgery, swollen glands or hoarseness Endo Endocrine: No thyroid disease, diabetes mellitus, thyroid cancer, Hair loss, heat intolerance or cold intolerance Skin Skin: No rash or changing moles Breast Breast: No left breast lump, right breast lump, nipple discharge, breast pain, abnormal mammogram, abnormal US or breast enlargement Musc Musculoskeletal: Yes arthritis; no back problems, rheumatoid arthritis, gout or joint pain Cardio Cardiovascular: No murmur, pacemaker, heart disease, atrial fibrillation, high blood pressure, heart attack, heart stent, palpitations, shortness of breat with exertion or chest pain Psych Psychiatric: No depression, anxiety or hearing voices Resp Respiratory: No shortness of breath, No sleep apnea, No cough, No COPD, No asthma, No emphysema, No wheezing Gastro Gastrointestinal: No abdominal pain, No nausea or vomiting, No diarrhea, No constipation, No blood in stool, Yes acid reflux, Yes hemorrhoids, No ulcers, No gallbladder problem, No black,tarry stools Connor Hematologic: No blood thinners, No blood disorders, No bleeding, No anemia, No blood clots Neuro Neurologic: No system reviewed and no additional complaints, except as docu, No as per HPI, No abnormal walking, No abnormal hearing, No abnormal movements, No abnormal speech, No behavioral changes, No burning sensations, No confusion, No seizure-like activity, No unsteadiness, No dizziness, No localized weakness, No frequent falls, No headache(s), No lack of coordination, No loss of vision, No memory loss, No numbness, No other visual disturbances, No radiating pain, No restless legs, No sensory deficit, No fainting, No tingling, No tremor(s), No weakness, No other Exam Const General: cooperative Orientation: alert, oriented x3 Chest Breast Palpation: No nipple discharge Resp Effort & Inspection: normal respiratory effort Auscultation: clear to auscultation bilaterally Cardio Rate: regular rate Rhythm: regular rhythm Heart Sounds: no murmurs GI Inspection: non-distended Palpation: soft, nontender Assessment & Plan Problems 1. Family history of colon cancer Z80.0 2. Screen for colon cancer Z12.11 Plan Patient has a family history of colon cancer in her brother at age 67. Patient has never had a colonoscopy in the past. She denies any abdominal pain or blood in her stool. I will plan for screening colonoscopy. Due to the patient's brother's age at diagnosis she should still be on a 10-year interval if nothing is found. I explained endoscopy in detail to the patient. I explained the risks including but not limited to stroke or heart attack with anesthesia, perforation of the GI tract, bleeding, infection. I explained that any of these could necessitate further emergency surgery. The patient understands and all questions were answered sufficiently. The patient wishes to proceed with procedure. Carlton Mckeon MD Pager: [facility] [address] [place] [address], [address] [place] [address] Office: Orders Orders: Colonoscopy Today Z80.0 Coding Level of Care Code Off vis,new,level 3 Diagnoses Family history of colon cancer Z80.0 Screen for colon cancer Z12.11 04/15/19 0942 <Electronically signed by Carlton lyles MD> Date _ Carlton Mckeon MD I have re-examined the patient. There are no clinical changes since date of exam.
[2019-05-03 16:13] VITALS: BMI 40.6
[2019-05-10] VITALS (7 sets, daily range): BP systolic 102–141; BP diastolic 61–81; PULSE 59–90; RESP 16–20; TEMP 36.3–36.9; O2SAT 97–100; BMI 40.1
[2019-05-10 07:54] LABS: Internal QC Validated? YES +Cl - CLEAR BKGD; Pregnancy, Urine Negative Negative
[2019-05-10] MEDS: Lactated Ringers 1,000 ML 100 ML IV (08:11)
--- NOTE | 2019-05-10 08:33 | OP.COLON_ITS ---
Patient Name: Julieth Alicia Procedure Date: 05/10/2019 8:01 AM Date of : 1965 Age: 53 Procedure: Colonoscopy Indications: Screening in patient at increased risk: Colorectal cancer in brother 60 or older Providers: Carlton Mckeon MD Referring MD: Avila Romo Medicines: Monitored Anesthesia Care Patient Profile: This is a 53 year old female. Refer to note in patient chart for documentation of history and physical. Last Colonoscopy: none. The patient's first colonoscopy is today. Complications: No immediate complications. Estimated blood loss: None. Procedure: Pre-Anesthesia Assessment: - Prior to the procedure, a History and Physical was performed, and patient medications and allergies were reviewed. The patient's tolerance of previous anesthesia was also reviewed. The risks and benefits of the procedure and the sedation options and risks were discussed with the patient. All questions were answered, and informed consent was obtained. Prior Anticoagulants: The patient has taken no previous anticoagulant or antiplatelet agents. ASA Grade Assessment: I - A normal, healthy patient. After reviewing the risks and benefits, the patient was deemed in satisfactory condition to undergo the procedure. After I obtained informed consent, the scope was passed under direct vision. Throughout the procedure, the patient's blood pressure, pulse, and oxygen saturations were monitored continuously. The colonoscope was introduced through the anus and advanced to the cecum, identified by appendiceal orifice and ileocecal valve. The colonoscopy was performed without difficulty. The patient tolerated the procedure well. The quality of the bowel preparation was good. Scope In: 8:16:32 AM Scope Withdrawal Time 0 hours 6 minutes 21 seconds Scope Out: 8:27:33 AM Total Procedure Duration Time 0 hours 11 minutes 1 second Findings: The entire examined colon appeared normal on direct and retroflexion views. Impression: - The entire examined colon is normal on direct and retroflexion views. - No specimens collected. Recommendation: - Discharge patient to home. - Resume previous diet. - Continue present medications. - Repeat colonoscopy in 10 years for screening purposes. Procedure Code(s): --- Professional --- 26759, Colonoscopy, flexible; diagnostic, including collection of specimen(s) by brushing or washing, when performed (separate procedure) Diagnosis Code(s): --- Professional --- Z80.0, Family history of malignant neoplasm of digestive organs CPT copyright 2017 [employer]. All rights reserved. The codes documented in this report are preliminary and upon video effects editor review may be revised to meet current compliance requirements. Carlton Mckeon MD 05/10/2019 8:32:57 AM This report has been signed electronically. Number of Addenda: 0 Note Initiated On: 05/10/2019 8:01 AM
--- NOTE | 2019-05-10 08:33 | OP.CCLET_ITS ---
05/10/2019 Avila Romo Re : Colonoscopy procedure for Julieth Alicia Dear Dr. Romo This procedure was performed on Friday, May 10, 2019. My impressions and recommendations are as follows: Impressions : - The entire examined colon is normal on direct and retroflexion views. - No specimens collected. Recommendations : - Discharge patient to home. - Resume previous diet. - Continue present medications. - Repeat colonoscopy in 10 years for screening purposes. My findings are described in the full procedure note, which is enclosed. If I can be of further assistance, please feel free to contact me at Doctor phone number(s): , Work: . Sincerely, Carlton Mckeon MD 05/10/2019 8:32:57 AM This report has been signed electronically.
== END 2019-05-10 10:01 | disposition home or self-care (01) ==
LOC: EN 07:28 → AC 07:29
PROVIDERS: Anesthesiology; PCP Family Medicine; Referring Provider Family Medicine; Visit Provider Surgery
PROC: 0DJD8ZZ Inspection of Lower Intestinal Tract, Via Natural or Artificial Opening Endoscopic (ICD-10-PCS; CPT 45378; principal; 2019-05-10 08:25)
DX: Z12.11 Encounter for screening for malignant neoplasm of colon (principal); Z80.0 Family history of malignant neoplasm of digestive organs; E03.9 Hypothyroidism, unspecified; E78.00 Pure hypercholesterolemia, unspecified; K21.9 Gastro-esophageal reflux disease without esophagitis; Z86.2 Personal history of diseases of the blood and blood-forming organs and certain disorders involving the immune mechanism; Z87.19 Personal history of other diseases of the digestive system; Z79.899 Other long term (current) drug therapy
CPT/HCPCS: 45378; 81025; J7120; A4216

== ENCOUNTER → 2019-12-05 | Outpatient (CLI) | payer BC, SELFPAY ==
[2019-10-15 16:14] VITALS: BMI 40.1
== END | disposition home or self-care (01) ==
LOC: LABSPEC 16:47
PROVIDERS: Referring Provider Family Medicine; Visit Provider Family Medicine
DX: Z11.59 Encounter for screening for other viral diseases (principal)
CPT/HCPCS: 87635; U0003

== ENCOUNTER → 2019-12-19 | Outpatient (CLI) | payer BC, SELFPAY ==
[2019-10-15 16:14] VITALS: BMI 40.1
== END | disposition home or self-care (01) ==
LOC: LABSPEC 11:23
PROVIDERS: Visit Provider Family Medicine
DX: Z11.59 Encounter for screening for other viral diseases (principal)
CPT/HCPCS: 87635; U0003

== ENCOUNTER → 2020-01-02 | Outpatient (CLI) | payer BC, SELFPAY ==
[2019-10-15 16:14] VITALS: BMI 40.1
== END | disposition home or self-care (01) ==
LOC: LABSPEC 01-03 07:47
PROVIDERS: Referring Provider Family Medicine; Visit Provider Family Medicine
DX: Z11.59 Encounter for screening for other viral diseases (principal)
CPT/HCPCS: 87635; U0003

== ENCOUNTER → 2020-01-16 | Outpatient (CLI) | payer BC, SELFPAY ==
[2019-10-15 16:14] VITALS: BMI 40.1
== END | disposition home or self-care (01) ==
LOC: LABSPEC 09:46
PROVIDERS: Referring Provider Family Medicine; Visit Provider Family Medicine
DX: Z03.818 Encounter for observation for suspected exposure to other biological agents ruled out (principal)
CPT/HCPCS: 87635; U0003

== ENCOUNTER → 2020-01-30 | Outpatient (CLI) | payer BC, SELFPAY ==
[2019-10-15 16:14] VITALS: BMI 40.1
== END | disposition home or self-care (01) ==
LOC: LABSPEC 12:30
PROVIDERS: Referring Provider Family Medicine; Visit Provider Family Medicine
DX: Z03.818 Encounter for observation for suspected exposure to other biological agents ruled out (principal)
CPT/HCPCS: 87635; U0003

== ENCOUNTER → 2020-06-09 15:39 | Outpatient (CLI) | payer BC, SELFPAY ==
[2020-06-09 15:11] VITALS: BMI 43.6
[2020-06-09 16:47] LABS: Absolute Lymphocyte Count 1.65 X10^3/uL (0.83-4.51); Absolute Neutrophil Count 5.4 X10^3/uL (2.0-7.7); Basophil# 0.02 X10^3/uL; Basophil% 0.3 % (0-1); Eosinophil# 0.09 X10^3/uL; Eosinophils% 1.2 % (0-5); Hematocrit 41.1 % (37-47); Hemoglobin 13.5 g/dL (12.0-15.0); Lymphocyte # 1.65 X10^3/ul (4.0); Lymphocyte % 21.2 % (19-41); Mean Corp Hgb Conc 32.8 g/dL (32-36); Mean Corpuscular Volume 94.3 fL (81-99); Mean Platelet Vol. 9.4 fl (6.2-12.0); Monocyte# 0.62 X10^3/uL; NRBC Flagged by Analyzer 0 % (0-5); Neutrophil # 5.35 X10^3/uL (2.7-7.7); Neutrophil % 68.8 % (47-70); Platelet Count 301 K/mm3 (150-450); RBC Distribution Width CV 12.4 % (11.6-14.6); RBC Distribution Width SD 43.3 fl (35.1-43.9); Red Blood Count 4.36 M/mm3 (4.2-5.4); White Blood Count 7.8 K/mm3 (4.4-11.0)
[2020-06-09 17:13] LABS: Anion Gap 5 (5-15); BUN 12 mg/dL (7-18); BUN/Creat Ratio 15.6 RATIO (10-20); Chloride 105 mmol/L (98-107); Cholesterol 214 mg/dL (200); Creatinine, Serum 0.77 mg/dL (0.55-1.02); EST Glomerular Filtration Rate 84 mL/min (>60); Est Glom Filt Rate - Afr Amer 101 mL/min (>60); Glucose 88 mg/dL (74-106); High Density Lipoprotein 65 mg/dL; Potassium 3.5 mmol/L (3.5-5.1); Sodium Level 141 mmol/L (136-145); Thyroid Stim Hormone (TSH) 3.81 uIU/mL (0.358-3.74); Triglycerides 241 mg/dL; Very Low Density Lipoprotein 48 mg/dL (5-40)
== END ==
PROVIDERS: PCP Family Medicine; Referring Provider Physician Assistant; Visit Provider Physician Assistant
DX: E03.9 Hypothyroidism, unspecified (principal); E78.00 Pure hypercholesterolemia, unspecified
CPT/HCPCS: 36415; 80048; 80061; 84443; 85025

== ENCOUNTER → 2020-12-31 11:56 | Outpatient (CLI) | payer BC, SELFPAY ==
[2020-12-31 14:53] LABS: Absolute Lymphocyte Count 1.59 X10^3/uL (0.83-4.51); Absolute Neutrophil Count 4.4 X10^3/uL (2.0-7.7); Basophil# 0.03 X10^3/uL; Basophil% 0.5 % (0-1); Eosinophil# 0.08 X10^3/uL; Eosinophils% 1.2 % (0-5); Hematocrit 41.8 % (37-47); Hemoglobin 13.7 g/dL (12.0-15.0); Lymphocyte # 1.59 X10^3/ul (0.83-4.51); Lymphocyte % 24.5 % (19-41); Mean Corp Hgb Conc 32.8 g/dL (32-36); Mean Corpuscular Hgb 30.6 pg (27.0-32.0); Mean Corpuscular Volume 93.5 fL (81-99); Mean Platelet Vol. 9.6 fl (6.2-12.0); Monocyte# 0.34 X10^3/uL; Monocyte% 5.2 % (0-10); NRBC Flagged by Analyzer 0 % (0-5); Neutrophil # 4.43 X10^3/uL (2.7-7.7); Neutrophil % 68.3 % (47-70); Platelet Count 306 K/mm3 (150-450); RBC Distribution Width CV 12.6 % (11.6-14.6); RBC Distribution Width SD 43.3 fl (35.1-43.9); Red Blood Count 4.47 M/mm3 (4.2-5.4); White Blood Count 6.5 K/mm3 (4.4-11.0)
[2020-12-31 15:01] LABS: Erythrocyte Sedimentation Rate 14 mm/hr (0-30)
[2020-12-31 15:08] LABS: Vitamin D,25 Hydroxy 40.3 ng/mL
[2020-12-31 15:10] LABS: ALB/GLOB Ratio 0.9 RATIO (0.9-2.4); AST(SGOT) 13 U/L (15-37); Alanine Aminotransfer ALT/SGPT 28 U/L (13-56); Albumin, Serum 3.7 g/dL (3.2-5.0); Alkaline Phosphatase 126 U/L (45-117); Anion Gap 4 (5-15); BUN 10 mg/dL (7-18); BUN/Creat Ratio 14.1 RATIO (10-20); CRP 6.22 mg/L (0.0-3.0); Chloride 106 mmol/L (98-107); Creatinine, Serum 0.71 mg/dL (0.55-1.02); EST Glomerular Filtration Rate 92 mL/min (>60); Est Glom Filt Rate - Afr Amer 111 mL/min (>60); Globulin 3.9 g/dL (2.2-4.2); Glucose 98 mg/dL (74-106); Potassium 3.4 mmol/L (3.5-5.1); Protein, Total 7.6 g/dL (6.4-8.2); Rheumatoid Factor < 10.0 IU/mL (<15); Sodium Level 139 mmol/L (136-145); Uric Acid 5.1 mg/dL (2.6-6.0)
[2020-12-31 15:13] LABS: Hemoglobin A1c 5.5 % (3.8-5.6)
[2021-01-05 08:06] LABS: CCP IgG Antibodies 7 units (0-19)
[2021-01-05 17:08] LABS: ANTINUCLEAR ANTIBODIES DIRECT Negative (Negative)
== END ==
PROVIDERS: PCP Family Medicine; Referring Provider Podiatrist; Visit Provider Podiatrist
DX: M19.071 Primary osteoarthritis, right ankle and foot (principal); M19.072 Primary osteoarthritis, left ankle and foot; M76.821 Posterior tibial tendinitis, right leg
CPT/HCPCS: 36415; 80053; 82306; 83036; 84550; 85025; 85652; 86038; 86140; 86200; 86431

== ENCOUNTER → 2021-08-02 | Outpatient (CLI) | payer OTHER, SELFPAY ==
[2021-08-02 15:48] LABS: AST(SGOT) 17 U/L (15-37); Alanine Aminotransfer ALT/SGPT 25 U/L (13-56); Albumin, Serum 3.7 g/dL (3.2-5.0); Alkaline Phosphatase 121 U/L (45-117); Anion Gap 7 (5-15); BUN 11 mg/dL (7-18); BUN/Creat Ratio 15.1 RATIO (10-20); Calcium,Total 8.9 mg/dL (8.5-10.1); Chloride 107 mmol/L (98-107); Cholesterol 176 mg/dL (200); Creatinine, Serum 0.73 mg/dL (0.55-1.02); EST Glomerular Filtration Rate 88 mL/min (>60); Est Glom Filt Rate - Afr Amer 107 mL/min (>60); Globulin 3.7 g/dL (2.2-4.2); Glucose 93 mg/dL (74-106); High Density Lipoprotein 60 mg/dL; Potassium 3.7 mmol/L (3.5-5.1); Protein, Total 7.4 g/dL (6.4-8.2); Sodium Level 141 mmol/L (136-145); Thyroid Stim Hormone (TSH) 1.49 uIU/mL (0.358-3.74); Triglycerides 146 mg/dL; Very Low Density Lipoprotein 29 mg/dL (5-40)
== END | disposition home or self-care (01) ==
LOC: BIMLAB 12:16
PROVIDERS: PCP Family Medicine; Referring Provider Family Medicine; Visit Provider Family Medicine
DX: E03.9 Hypothyroidism, unspecified (principal); E78.00 Pure hypercholesterolemia, unspecified
CPT/HCPCS: 36415; 80053; 80061; 84443

== ENCOUNTER → 2022-01-04 | Outpatient (CLI) | payer OTHER, SELFPAY ==
--- NOTE | 2022-01-04 16:35 | RAD_ITS ---
STUDY: X-RAY - RIGHT KNEE REASON FOR EXAM: Female, 56 years old. Right knee pain. TECHNIQUE: 4 view(s) of the knee. COMPARISON: None. FINDINGS: Normal visualized distal femur. Normal visualized proximal tibia and fibula. Normal proximal tibiofibular articulation. There is no acute fracture, dislocation or destructive osseous pathology. There is moderate degenerative arthrosis of the medial femorotibial compartment with moderate joint space narrowing. Normal lateral femorotibial compartment. There is mild degenerative arthrosis of the patellofemoral articulation. There is no demonstrated joint effusion. The soft tissue structures are unremarkable. RAD/Knee 4 or More Views IMPRESSION: Degenerative arthrosis. Electronically Signed: Adi Dickinson DO at 18:57 EDT ,
== END | disposition home or self-care (01) ==
PROVIDERS: PCP Family Medicine; Referring Provider Nurse Practitioner Family; Visit Provider Nurse Practitioner Family
DX: M25.561 Pain in right knee (principal)
CPT/HCPCS: 73564

== ENCOUNTER → 2022-12-13 | Outpatient (CLI) | payer OTHER, SELFPAY ==
[2022-12-13 12:52] LABS: ALB/GLOB Ratio 0.9 RATIO (0.9-2.4); AST(SGOT) 13 U/L (15-37); Alanine Aminotransfer ALT/SGPT 28 U/L (13-56); Albumin, Serum 3.6 g/dL (3.2-5.0); Alkaline Phosphatase 122 U/L (45-117); Anion Gap 7 (5-15); BUN 15 mg/dL (7-18); BUN/Creat Ratio 20.6 RATIO (10-20); Calcium,Total 9.1 mg/dL (8.5-10.1); Chloride 106 mmol/L (98-107); Cholesterol 184 mg/dL (200); Creatinine, Serum 0.73 mg/dL (0.55-1.02); EST Glomerular Filtration Rate 88 mL/min (>60); Est Glom Filt Rate - Afr Amer 107 mL/min (>60); Globulin 3.9 g/dL (2.2-4.2); Glucose 94 mg/dL (74-106); High Density Lipoprotein 60 mg/dL; Potassium 4.5 mmol/L (3.5-5.1); Protein, Total 7.5 g/dL (6.4-8.2); Sodium Level 139 mmol/L (136-145); Thyroid Stim Hormone (TSH) 2.47 uIU/mL (0.358-3.74); Triglycerides 232 mg/dL; Very Low Density Lipoprotein 46 mg/dL (5-40)
== END | disposition home or self-care (01) ==
LOC: BIMLAB 10:42
PROVIDERS: PCP Family Medicine; Visit Provider Family Medicine
DX: E78.00 Pure hypercholesterolemia, unspecified (principal); E03.9 Hypothyroidism, unspecified
CPT/HCPCS: 36415; 80053; 80061; 84443

== ENCOUNTER → 2023-02-10 | Outpatient (CLI) | payer OTHER, SELFPAY ==
--- NOTE | 2023-02-10 11:06 | BI_ITS ---
MAMMOGRAPHY - BILATERAL SCREENING REASON FOR EXAM: Female, 57 years old. Routine annual screening examination. PERTINENT HISTORY: Non-contributory. TECHNIQUE: Digital bilateral breast lili (3D mammographic acquisition) in the CC and MLO projections. 2-D mediolateral oblique (MLO) and craniocaudad (CC) views of both breasts were obtained. CAD: Full Field Digital Mammography with Computer Added Detection was performed. COMPARISON: Comparison is made with prior studies generated 2019 and March 29, 2007. FINDINGS: Breast Composition: There are scattered areas of fibroglandular density. There are no dominant masses or suspicious calcifications. Stable fat-containing bilateral axillary lymph nodes. No other significant abnormalities are identified. There has been no significant change since the prior study. BI/SCRN MAMM (CAD)W/LILI BILAT IMPRESSION: Stable bilateral screening mammogram. Yearly follow-up mammogram recommended. (A) ASSESSMENT CATEGORY: BIRADS Category 2: Benign. A letter regarding these results will be sent to the patient by the facility within 30 days. Approximately 10% of breast cancers are not detected by mammography. A normal mammogram should not delay biopsy of a clinically suspicious abnormality. [id number] Electronically Signed: Nikita Bean MD at 9:49 EST ,
== END | disposition home or self-care (01) ==
LOC: OPBI 11:02
PROVIDERS: PCP Family Medicine; Referring Provider Family Medicine; Visit Provider Family Medicine
DX: Z12.31 Encounter for screening mammogram for malignant neoplasm of breast (principal)
CPT/HCPCS: 77063; 77067

== ENCOUNTER → 2023-04-07 | Outpatient (CLI) | payer OTHER, SELFPAY ==
--- OUTSIDE RECORDS SUMMARY | 2023-04-07 07:08 | XMS RPT_ITS | CCD ---
Author Name Unknown Address [address] [place] [address] Organization [facility] Care Team Providers Care Log Rafter Name Role Phone KASHIF ARNETT Unavailable Unavailable KRISTI ROMO Unavailable Unavailable KASHIF ARNETT Unavailable Unavailable KRISTI ROMO Unavailable Unavailable Kristi Romo R Primary Care Provider Allergies Allergy Classification Reported Allergen(s) Allergy Type Date of Onset Reaction(s) Facility (1 source) Latex Propensity to adverse reactions to drug 05-06-2019 [place] (1 source) Penicillins Propensity to adverse reactions to drug 05-06-2019 [place] Medications Current Medications Medication Drug Class(es) Dates Sig (Normalized) Sig (Original) ALPRAZolam 0.25 mg disintegrating oral tablet (1 source) Benzodiazepine Start: 05-21-2019 ALPRAZolam (NIRAVAM) dissolvable tablet 0.25 mg atorvastatin 20 mg oral tablet (1 source) HMG-CoA Reductase Inhibitor take 1 tablet by mouth once daily atorvastatin (LIPITOR) 20 MG tablet Take 20 mg by mouth daily 0 Active calcium chloride 0.0014 meq/ml / potassium chloride 0.004 meq/ml / sodium chloride 0.103 meq/ml / sodium lactate 0.028 meq/ml injectable solution (1 source) Start: 05-21-2019 lactated ringers infusion cholecalciferol 2000 unt oral capsule (1 source) Vitamin D Cholecalciferol (VITAMIN D3) 50 MCG (1999) CAPS Take by mouth 0 Active 1 ml diphenhydrAMINE hydrochloride 50 mg/ml cartridge (1 source) Histamine-1 Receptor Antagonist Start: 05-21-2019 End: 05-21-2019 diphenhydrAMINE (BENADRYL) injection 12.5 mg famotidine 20 mg oral tablet (2 sources) Histamine-2 Receptor Antagonist Start: 05-21-2019 famotidine (PEPCID) tablet 20 mg Completed/Discontinued Medications Medication Drug Class(es) Dates Sig (Normalized) Sig (Original) acetaminophen 500 mg oral tablet (1 source) Start: 05-21-2019 End: 05-21-2019 acetaminophen (TYLENOL) tablet 1,000 mg gabapentin 300 mg oral capsule (1 source) Anti-epileptic Agent Start: 05-21-2019 End: 05-21-2019 gabapentin (NEURONTIN) capsule 300 mg Problems Active Problems Problem Classification Problem Date Documented Da te Episodic/Chronic Residual codes; unclassified (1 source) H/O: hysterectomy; Translations: [S/P hysterectomy] Episodic Past or Other Problems Problem Classification Problem Date Documented Da te Episodic/Chronic Other gastrointestinal disorders (2 sources) Diarrhea, unspecified; Translations: [Diarrhea, unspecified] Onset: 12-14-2016 Episodic Results Test Name Value Interpretation Reference Range [facility] Vital Signs Date Time Vital Sign Value Performing Clinician Faci litarron 05-21-2019 13:30-0500 BP Diastolic 76 mm[Hg] Micheal JorgensenPratik [place] 05-21-2019 13:30-0500 BP Systolic 133 mm[Hg] Micheal JorgesnenArrayCommPratik [place] 05-21-2019 13:30-0500 Pulse (Heart Rate) 73 /min Micheal Beauchamp [place], [place] 05-21-2019 13:30-0500 Pulse Oximetry 94 % Micheal JorgensenArrayCommPratik [place] 05-21-2019 13:30-0500 Respiratory Rate 16 /min [place] 05-21-2019 11:15-0500 Body Temperature 98.49 [degF] Micheal Shine [place] 05-21-2019 05:52-0500 BMI (Body Mass Index) 41.2 kg/m2 Micheal Jorgensen[place]Comm[place]atik [place] 05-21-2019 05:52-0500 Body weight 108.86 kg Micheal JorgensenArrayCommPratik [place] 05-21-2019 05:52-0500 Height 162.6 cm Micheal JorgensenPratik [place] Encounters Encounter Date Encounter Type Care Provider Facility Start: 05-21-2019 End: 05-21-2019 Subsequent hospital visit by physician Micheal Shine Work Phone: [facility] General Surgery Procedures Date Procedure Procedure Detail Performing Clinician Start: 05-21-2019 OPERATIVE REPORT 3m Sca nning Start: 05-21-2019 Ecg routine ecg w/le ast 12 lds w/i&r Renaldo R Carmona Work Phone: Start: 05-21-2019 Basic metabolic pane l calcium total Renaldo R Carmona Work Phone: Start: 05-21-2019 Blood typing serolog ic abo Micheal Shine Work Phone: Start: 05-21-2019 Urine test visual color cmprsn meths Renaldo R Carmona Work Phone: Plan of Treatment Date Care Activity Detail Author Start: 05-20-2020 Creatinine monitoring Creatinine mon itoring [place] Start: 05-20-2020 Potassium monitoring Potassium monit [place]ing [place] Start: 06-11-2019 End: 06-11-2019 Office Visit 06/11/2019 Office Visit Gynecologic Oncology Micheal Shine MD [address] [place] [address] [facility] [place] 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 Start: 11-18-2018 Influenza vaccination Flu vaccine (# 1) [place] Start: 08-17-2017 Breast cancer screen Breast cancer s creen [place] Start: 08-17-2017 Colon cancer screen colonoscopy Colon cancer screen colonoscopy [place] Start: 08-17-2017 Shingles Vaccine (1 of 2) Shingles Vaccine (1 of 2) [place] Start: 2007 Diabetes screen Diabetes screen [place], [place] Start: 08-17-1988 Cervical cancer screen Cervical canc er screen [place] Start: 08-17-1982 HIV screen HIV screen [place], [place] Start: 08-17-1978 DTaP/Tdap/Td vaccine (1 - Tdap) DTaP/Tdap/Td vaccine (1 - Tdap) [place] Start: 08-17-1977 Lipid screen Lipid screen [place], [place] End: 05-21-2019 Blood glucose - POCT Blood glucose - POCT Point of Care Testing STAT One Time for 1 Occurrences starting 05/21/2019 until 05/21/2019 [place] Payers Date Payer Category Payer Unknown BCBS BCBS - [place] P PO xxxxxxxxxxxx 2019-Present [address] [place] [address] xxxxxxxxxxxx [id number] 2016 Unknown [id number] Social History Date Type Detail Facility Start: 05-21-2019 Tobacco smoking stat [facility] Never smoker [place] Start: 05-21-2019 Alcohol intake Ex-drinker (finding) [place] Sex Assigned At Not on file [place] Progress note 02-01-2021 Note Date & Type Note Facility 02-01-2021 Note HNO ID: [id number] Author: RT Tunde(Romeo) Service: ? Author Type: Technologist Type: Progress Notes Filed: 02/01/2021 8:16 AM Note Text: Radiology Service Progress Note PATIENT NAME: Julieth Marley DATE OF SERVICE: February 01, 2021 TIME: 8:16 AM PATIENT IDENTITY VERIFICATION COMPLETED USING TWO (2) IDENTIFIERS: Name and Date of confirmed by patient verbally. FALL SCREENING: Has the patient had 2 falls in the last year or 1 fall with injury or currently using an Ambulatory Assistive Device (Walker, Cane, Wheelchair, Crutches, etc.)? No PATIENT GENDER DATA: Female. status: : No status: NO. 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 Julieth Marley Date of : 1965 [id number] ? Pre-operative Diagnosis: Endometrial cancer, BMI >40 ? Post-operative Diagnosis: Same ? Procedure: Robotic hysterectomy, bilateral salpingo-oophorectomy, bilateral pelvic sentinel lymphadenectomy ? Anesthesia: General and TAP block ? Surgeons/Assistants: Amelie Jorgensen ? Estimated Blood Loss: 50 ? Complications: None apparent ? Specimens: Was Obtained: pelvic washing, uterus/cervix/bilateral tubes and ovaries, bilateral pelvic sentinel lymph nodes Disposition: Stable to the PACU. Findings: Grossly normal external genitalia, vagina and cervix. The uterus was normal size. There was no obvious extra-uterine spread of disease. Grossly normal upper abdomen. Tubes and ovaries were normal in appearance. Bilateral pelvic sentinel lymph nodes were identified that were grossly normal in appearance. Description of procedure: After informed, written consent was obtained, the patient was identified in the preoperative holding (more content not included)... Discharge Instructions * Instructions* Patrick Pina MD - 05/21/2019 Please follow your post operative care instructions given to you by your Slab Miller Operator Oncologist's office at your pre operative visit. Please call the office with questions or concerns and be sure to follow up at your scheduled post operative visit. documented in this encounter History of Present Illness * Angelina Mcpherson RN - 05/21/2019 2:00 PM EST D/C instructions reviewed with the patient. Instructed to read instructions given to her from Dr. Galindo office when she gets home. Pt did verbalize understanding. * Angelina Mcpherson RN - 05/21/2019 12:04 PM EST Family at bedside. * Matilde Pickett RN - 05/21/2019 11:28 AM EST Pt assisted up to bathroom with stand by assist. Pt voided small amount. Scant vaginal bleeding noted. Water and dianelys vilma given to pt. Family called back to bedside. * Angelina Mcpherson RN - 05/21/2019 9:46 AM EST Pts boyfrienwolfgang Bender updated documented in this encounter Assessments Diagnosis S/P hysterectomy- Primary Acquired absence of both cervix and uterus Additional Source Comments INFORMATION SOURCE (unrecogn ized section and content) DATE CREATED AUTHOR AUTHOR'S ORGANIZ ATION 05/28/2019 [facility] DATE CREATED AUTHOR AUTHOR'S ORGANIZ ATION 10/07/2019 [facility] DATE CREATED AUTHOR AUTHOR'S ORGANIZ ATION 04/26/2021 [facility] FOR RECORDS PERTAINING TO PATIENTS WHO ARE OR HAVE BEEN ENROLLED IN A CHEMICAL DEPENDENCY/SUBSTANCEABUSE PROGRAM, SOME INFORMATION MAY BE OMITTED. This clinical summary was aggregated from multiple sources. Caution should be exercised in using it in the provision of clinical care. This summary normalizes information from multiple sources, and as a consequence, information in this document may materially change the coding, format and clinical context of patient data. In addition, data may be omitted in some cases. CLINICAL DECISIONS SHOULD BE BASED ON THE PRIMARY CLINICAL RECORDS. [employer] [facility]. provides no warranty or guarantee of the accuracy or completeness of information in this document.
--- NOTE | 2023-04-07 15:57 | STRESSREP_ITS ---
Stress Test Report Exercise myocardial perfusion stress test. 57-year-old lady with a history of chest pain Stress protocol: Resting EKG demonstrates normal sinus rhythm with a rate of 71 bpm resting blood pressure is 122/84 mmHg. The patient exercised according to the regular Miguel protocol for a total duration of 3 minutes attaining a maximum heart rate of 153 bpm which was 92% of maximum predicted heart rate; the maximum workload was 4.6 metabolic equivalents. At rest there were no ST or T wave changes noted to suggest ischemia and at peak exercise upsloping ST changes only were noted which did not meet the criteria for ischemia. No clinical angina was noted the test was terminated due to the target heart rate being achieved/fatigue. The peak b lood pressure was 204/90 mmHg. Rate-pressure product was 31,200. Hypertensive response to exercise was noted even at a low workload Myocardial perfusion protocol. 14.9 mCi of technetium 99m sestamibi was injected at rest. The patient exercised according to regular Miguel protocol for total duration of 3 minutes and at peak exercise 44.4 mCi of technetium 99m sestamibi was injected stress images were obtained stress and rest images were reconstructed in comparing the short axis vertical long and horizontal long axis. Gated images were also obtained. Perfusion SPECT analysis: Review of the stress images demonstrate normal uptake of tracer noted in all areas of the myocardium. The resting images similarly demonstrate normal uptake of tracer noted in all areas of the myocardium. No areas of reversibility are noted to suggest ischemia no previous infarct was noted. Gated SPECT analysis: The gated ejection fraction is 76%. Conclusion: Normal exercise myocardial perfusion stress test at a low workload Preserved ejection fraction. Hypertensive response to exercise in the low workload may affect sensitivity for detection of ischemia
== END | disposition home or self-care (01) ==
LOC: CVS 07:05
PROVIDERS: PCP Family Medicine; Referring Provider Physician Assistant; Visit Provider Physician Assistant
DX: R06.09 Other forms of dyspnea (principal)
CPT/HCPCS: 78452; 93017; A9500; A4216

== ENCOUNTER → 2023-07-28 | Outpatient (CLI) | payer OTHER, SELFPAY | END | disposition home or self-care (01) | LOC: LABSPEC 13:06 | PROVIDERS: PCP Family Medicine; Referring Provider Physician Assistant; Visit Provider Physician Assistant | DX: R19.7 Diarrhea, unspecified (principal) | CPT/HCPCS: 87177; 87209; 87493; 87506 ==

== ENCOUNTER → 2023-10-06 | Outpatient (CLI) | payer OTHER, SELFPAY ==
--- NOTE | 2023-10-06 13:01 | ECHOD_ITS ---
Reason For Study: SHORTNESS OF BREATH Procedure This was a 2D Doppler, Color Flow transthoracic echocardiogram. Exam performed in department. Left Ventricle Normal LV size. Left ventricular systolic function is normal. The left ventricular ejection fraction is 60 %. No regional wall motion abnormalities noted. Right Ventricle Normal RV size. Normal systolic function. Atria Normal left atrium. Normal right atrium. Mitral Valve Normal mitral valve. Tricuspid Valve Normal tricuspid valve. Mild tricuspid valve insufficiency. Pulmonary artery systolic pressure is 22 mmHg. Aortic Valve Trisinus/trileaflet aortic valve. Pulmonic Valve Normal pulmonic valve. Great Vessels Normal aortic root. The pulmonary artery is normal size. Inferior vena cava collapse with respiration. Pericardium/Pleural No pericardial effusion. MMode/2D Measurements & Calculations LVIDd: 4.9 cm IVSd: 0.85 cm LVOT diam: 1.9 cm LVIDs: 2.6 cm LVPWd: 1.0 cm LVOT area: 2.9 cm2 RVDd: 3.3 cm FS: 46.4 % Ao root diam: 2.6 cm LAV(MOD-bp): 60.6 ml LVAd ap4: 22.0 cm2 LAV(MOD-bp) Indexed: 28.3 ml/m2 LVLd ap4: 7.3 cm LAV(MOD-sp2): 68.7 ml EDV(MOD-sp4): 54.4 ml LAV(MOD-sp4): 51.5 ml EDV(sp4-el): 56.7 ml LVAs ap4: 12.1 cm2 LVLs ap4: 5.7 cm ESV(MOD-sp4): 21.5 ml ESV(sp4-el): 21.8 ml EF(MOD-sp4): 60.5 % EF(sp4-el): 61.6 % LVAd ap2: 24.9 cm2 SV(MOD-sp4): 32.9 ml SV(MOD-sp2): 38.5 ml LVLd ap2: 7.7 cm EDV(MOD-sp2): 65.1 ml EDV(sp2-el): 68.1 ml LVAs ap2: 14.0 cm2 LVLs ap2: 6.3 cm ESV(MOD-sp2): 26.6 ml ESV(sp2-el): 26.4 ml EF(MOD-sp2): 59.1 % SV(sp4-el): 34.9 ml LA dimension(2D): 4.1 cm LA A4 area: 18.9 cm2 RA A4 area: 10.7 cm2 TAPSE: 2.0 cm Time Measurements MV dec time: 0.18 sec Doppler Measurements & Calculations MV E max jose: 87.5 cm/sec Lat Peak E' Jose: 13.5 cm/sec Med Peak E' Jose: 11.0 cm/sec MV A max jose: 78.3 cm/sec E/E' lat: 6.5 E/E' med: 7.9 MV E/A: 1.1 Ao V2 max: 150.2 cm/sec LV V1 max: 134.9 cm/sec MV dec slope: 496.5 cm/sec2 Ao max P.0 mmHg LV V1 max P.3 mmHg Ao V2 mean: 100.8 cm/sec LV V1 mean P.5 mmHg Ao mean P.6 mmHg LV V1 mean: 87.1 cm/sec Ao V2 VTI: 29.6 cm LV V1 VTI: 28.4 cm AV (velocity ratio): 0.96 MAGGI(I,D): 2.8 cm2 MAGGI(V,D): 2.6 cm2 SV(LVOT): 83.0 ml PA V2 max: 106.2 cm/sec TR max jose: 218.6 cm/sec PA max PG (full): 1.8 mmHg TR max P.1 mmHg ECHO/Echo Complete Interpretation Summary Normal LV size. Left ventricular systolic function is normal. The left ventricular ejection fraction is 60 %. Structurally normal valves. Ordering Physician: Ariel Vivar Referring Physician: Bob Romo M.D. Performed By: Sandrita Zavala RDCS
== END | disposition home or self-care (01) ==
LOC: CVS 13:01
PROVIDERS: PCP Family Medicine; Referring Provider Internal Medicine Cardiovascular Disease; Visit Provider Internal Medicine Cardiovascular Disease
DX: R06.02 Shortness of breath (principal)
CPT/HCPCS: 93306

== ENCOUNTER → 2023-11-06 | Outpatient (CLI) | payer OTHER, SELFPAY ==
[2023-11-06 16:47] LABS: Hematocrit 36.8 % (37-47); Hemoglobin 12.1 g/dL (12.0-15.0); Mean Corp Hgb Conc 32.9 g/dL (32-36); Mean Corpuscular Hgb 32.3 pg (27.0-32.0); Mean Corpuscular Volume 98.1 fL (81-99); Mean Platelet Vol. 8.9 fl (6.2-12.0); Platelet Count 200 K/mm3 (150-450); RBC Distribution Width CV 12.6 % (11.6-14.6); RBC Distribution Width SD 45.2 fl (35.1-43.9); Red Blood Count 3.75 M/mm3 (4.2-5.4)
[2023-11-06 17:33] LABS: AST(SGOT) 21 U/L (15-37); Alanine Aminotransfer ALT/SGPT 26 U/L (13-56); Albumin, Serum 3.5 g/dL (3.2-5.0); Alkaline Phosphatase 135 U/L (45-117); Anion Gap 5 (5-15); BUN 14 mg/dL (7-18); BUN/Creat Ratio 20.4 RATIO (10-20); Chloride 107 mmol/L (98-107); Creatinine, Serum 0.69 mg/dL (0.55-1.02); EST Glomerular Filtration Rate 94 mL/min (>60); Est Glom Filt Rate - Afr Amer 114 mL/min (>60); Globulin 3.4 g/dL (2.2-4.2); Glucose 101 mg/dL (74-106); Potassium 3.5 mmol/L (3.5-5.1); Protein, Total 6.9 g/dL (6.4-8.2); Sodium Level 142 mmol/L (136-145)
== END | disposition home or self-care (01) ==
PROVIDERS: PCP Family Medicine; Referring Provider Obstetrics & Gynecology; Visit Provider Obstetrics & Gynecology
DX: C54.1 Malignant neoplasm of endometrium (principal); Z92.3 Personal history of irradiation
CPT/HCPCS: 36415; 80053; 85027

== ENCOUNTER → 2023-12-28 | Outpatient (CLI) | payer OTHER, SELFPAY ==
[2023-12-28 14:58] LABS: Absolute Lymphocyte Count 0.36 X10^3/uL (0.83-4.51); Absolute Neutrophil Count 3.7 X10^3/uL (2.0-7.7); Basophil# 0.02 X10^3/uL; Basophil% 0.4 % (0-1); Eosinophil# 0.09 X10^3/uL; Hematocrit 38.8 % (37-47); Hemoglobin 12.3 g/dL (12.0-15.0); Lymphocyte # 0.36 X10^3/ul (0.83-4.51); Mean Corp Hgb Conc 31.7 g/dL (32-36); Mean Corpuscular Hgb 31.1 pg (27.0-32.0); Mean Platelet Vol. 8.7 fl (6.2-12.0); Monocyte# 0.32 X10^3/uL; Monocyte% 7.1 % (0-10); NRBC Flagged by Analyzer 0 % (0-5); Neutrophil # 3.71 X10^3/uL (2.7-7.7); Neutrophil % 82.3 % (47-70); POSITIVE DIFFERENTIAL YES; Platelet Count 230 K/mm3 (150-450); RBC Distribution Width CV 12.8 % (11.6-14.6); RBC Distribution Width SD 45.8 fl (35.1-43.9); Red Blood Count 3.96 M/mm3 (4.2-5.4); White Blood Count 4.5 K/mm3 (4.4-11.0)
[2023-12-28 15:26] LABS: ALB/GLOB Ratio 1.1 RATIO (0.9-2.4); AST(SGOT) 23 U/L (15-37); Alanine Aminotransfer ALT/SGPT 33 U/L (13-56); Albumin, Serum 3.8 g/dL (3.2-5.0); Alkaline Phosphatase 117 U/L (45-117); Anion Gap 6 (5-15); BUN 14 mg/dL (7-18); Calcium,Total 9.6 mg/dL (8.5-10.1); Chloride 105 mmol/L (98-107); Creatinine, Serum 0.74 mg/dL (0.55-1.02); EST Glomerular Filtration Rate 87 mL/min (>60); Est Glom Filt Rate - Afr Amer 105 mL/min (>60); Globulin 3.6 g/dL (2.2-4.2); Glucose 96 mg/dL (74-106); Potassium 3.6 mmol/L (3.5-5.1); Protein, Total 7.4 g/dL (6.4-8.2); Sodium Level 138 mmol/L (136-145)
[2023-12-30 08:19] LABS: Cancer Antigen 125 5.8 U/mL (0.0-38.1)
== END | disposition home or self-care (01) ==
LOC: LAB 14:02
PROVIDERS: PCP Family Medicine; Referring Provider Nurse Practitioner Family; Visit Provider Nurse Practitioner Family
DX: C54.1 Malignant neoplasm of endometrium (principal)
CPT/HCPCS: 36415; 80053; 85025; 86304

== ENCOUNTER → 2024-02-27 | Outpatient (CLI) | payer BC, SELFPAY ==
[2024-02-27 15:43] LABS: Mucous, Urine 0 SEEN /hpf (<or=2+); Red Blood Cells-Urine 0 SEEN /hpf (0-5)
[2024-02-27 17:24] LABS: Color, Urine Yellow (Yellow); Glucose, Dipstick Normal (Normal); Ketone-Dipstick Negative (Negative); Leukocyte Esterase-Dipstick 25 /ul (Negative); Nitrite-Dipstick Negative (Negative); Occult Blood-Urine Negative /ul (Negative); Protein-Dipstick Negative (Negative); Specific Gravity, Urine 1.015 (1.002-1.030); Urine Bilirubin Dipstick Negative (Negative); Urine Clarity Sl. Cloudy (Clear); Urine Urobilinogen Normal (Normal)
[2024-02-27 17:38] LABS: Cholesterol 189 mg/dL (200); High Density Lipoprotein 54 mg/dL; Triglycerides 236 mg/dL; Very Low Density Lipoprotein 47 mg/dL (5-40)
[2024-02-27 17:56] LABS: Bacteria RARE /hpf (None Seen); Squamous Epithelial Cells - UA 0-5 SEEN /hpf (5-10); White Blood Cells 10-25 SEEN /hpf (0-5)
== END | disposition home or self-care (01) ==
LOC: BIMLAB 15:29
PROVIDERS: PCP Family Medicine; Referring Provider Family Medicine; Visit Provider Family Medicine
DX: E03.9 Hypothyroidism, unspecified (principal); R30.0 Dysuria; E78.00 Pure hypercholesterolemia, unspecified
CPT/HCPCS: 36415; 80061; 81001; 84443

== ENCOUNTER → 2024-07-08 | Outpatient (CLI) | payer BC, SELFPAY ==
[2024-07-08 10:36] LABS: Absolute Lymphocyte Count 0.57 X10^3/uL (0.83-4.51); Absolute Neutrophil Count 3.8 X10^3/uL (2.0-7.7); Basophil# 0.02 X10^3/uL; Basophil% 0.4 % (0-1); Eosinophil# 0.07 X10^3/uL; Eosinophils% 1.4 % (0-5); Hematocrit 36.6 % (37-47); Hemoglobin 12.5 g/dL (12.0-15.0); Lymphocyte # 0.57 X10^3/ul (0.83-4.51); Lymphocyte % 11.8 % (19-41); Mean Corp Hgb Conc 34.2 g/dL (32-36); Mean Corpuscular Hgb 31.5 pg (27.0-32.0); Mean Corpuscular Volume 92.2 fL (81-99); Mean Platelet Vol. 8.9 fl (6.2-12.0); Monocyte# 0.41 X10^3/uL; Monocyte% 8.5 % (0-10); NRBC Flagged by Analyzer 0 % (0-5); Neutrophil # 3.75 X10^3/uL (2.7-7.7); Neutrophil % 77.3 % (47-70); POSITIVE DIFFERENTIAL YES; Platelet Count 235 K/mm3 (150-450); RBC Distribution Width CV 13.2 % (11.6-14.6); RBC Distribution Width SD 44.4 fl (35.1-43.9); Red Blood Count 3.97 M/mm3 (4.2-5.4); White Blood Count 4.9 K/mm3 (4.4-11.0)
[2024-07-08 12:42] LABS: ALB/GLOB Ratio 1.4 RATIO (0.9-2.4); AST(SGOT) 19 U/L (<=31); Alanine Aminotransfer ALT/SGPT 16 U/L (<=34); Alkaline Phosphatase 128 U/L (35-104); Anion Gap 11 (5-15); BUN 14 mg/dL (4-19); BUN/Creat Ratio 18.9 RATIO (10-20); Calcium,Total 9.4 mg/dL (7.6-11.0); Carbon Dioxide 25.7 mmol/L (21.0-32.0); Chloride 105 mmol/L (98-108); Creatinine, Serum 0.74 mg/dL (0.70-1.20); EST Glomerular Filtration Rate 95 (>60); Globulin 2.8 g/dL (2.2-4.2); Glucose 105 mg/dL (70-99); Potassium 4.1 mmol/L (3.3-5.1); Protein, Total 6.8 g/dL (5.9-8.4); Sodium Level 142 mmol/L (133-145); Total Bilirubin 0.31 mg/dL (0.00-1.30)
[2024-07-09 04:07] LABS: Cancer Antigen 125 3.2 U/mL (0.0-38.1)
== END | disposition home or self-care (01) ==
PROVIDERS: PCP Family Medicine; Referring Provider Nurse Practitioner Family; Visit Provider Nurse Practitioner Family
DX: C54.1 Malignant neoplasm of endometrium (principal)
CPT/HCPCS: 36415; 80053; 85025; 86304

== ENCOUNTER → 2024-08-14 | Outpatient (CLI) | payer BC, SELFPAY ==
[2024-08-14 17:13] LABS: Absolute Lymphocyte Count 0.62 X10^3/uL (0.83-4.51); Absolute Neutrophil Count 4.7 X10^3/uL (2.0-7.7); Basophil# 0.03 X10^3/uL; Basophil% 0.5 % (0-1); Eosinophil# 0.17 X10^3/uL; Eosinophils% 2.8 % (0-5); Hematocrit 38.4 % (37-47); Hemoglobin 12.7 g/dL (12.0-15.0); Lymphocyte # 0.62 X10^3/ul (0.83-4.51); Lymphocyte % 10.3 % (19-41); Mean Corp Hgb Conc 33.1 g/dL (32-36); Mean Corpuscular Hgb 31.6 pg (27.0-32.0); Mean Corpuscular Volume 95.5 fL (81-99); Mean Platelet Vol. 9.1 fl (6.2-12.0); Monocyte# 0.45 X10^3/uL; Monocyte% 7.5 % (0-10); NRBC Flagged by Analyzer 0 % (0-5); Neutrophil # 4.72 X10^3/uL (2.7-7.7); Neutrophil % 78.6 % (47-70); Platelet Count 256 K/mm3 (150-450); RBC Distribution Width CV 13.2 % (11.6-14.6); RBC Distribution Width SD 46.3 fl (35.1-43.9); Red Blood Count 4.02 M/mm3 (4.2-5.4)
== END | disposition home or self-care (01) ==
LOC: LAB 15:27
PROVIDERS: PCP Family Medicine; Referring Provider Student in an Organized Health Care Education/Training Program; Visit Provider Student in an Organized Health Care Education/Training Program
DX: K62.5 Hemorrhage of anus and rectum (principal)
CPT/HCPCS: 36415; 85025

== ENCOUNTER → 2024-08-30 | Outpatient (CLI) | payer BC, SELFPAY | END | disposition home or self-care (01) | LOC: LAB 13:17 | PROVIDERS: PCP Family Medicine; Referring Provider Student in an Organized Health Care Education/Training Program; Visit Provider Student in an Organized Health Care Education/Training Program | DX: K62.5 Hemorrhage of anus and rectum (principal) | CPT/HCPCS: 83993 ==

== ENCOUNTER 2024-09-04 05:48 | Day surgery (SDC) | payer BC, SELFPAY ==
--- NOTE | 2024-08-29 13:50 | PAT.ANE_ITS ---
Pre-Assessment Diagnosis/Proposed Procedure Planned Operative Procedure(s): COLONOSCOPY Anesthesia History Anesthesia History - specification consultant: Anesthesia History - specification consultant Hx Hospitalization No 08/29/24 13:28 Any Problems With Anesthesia No 08/29/24 13:28 Cholinesterase deficiency No 08/29/24 13:28 You/Your Family Experience No 08/29/24 13:28 fever (hyperthermia) with Relationship Recent Exposure to Contagious No 05/18/20 15:50 Disease Does patient have nerve No 08/29/24 13:28 stimulator Patient instructed to have device shut off --Does patient have Pacemaker or ICD? When Was Last Pacemaker Check QUESTION #4 FULL TEXT: You/Your Family Experience fever (hyperthermia) with Anesthesia Last Oral Intake Last Oral intake: Last Oral Intake NPO since Meds taken in AM with sips of water? Meds patient instructed to take am of surgery PONV PONV - specification consultant: PONV - specification consultant Female Yes 08/29/24 13:28 HX of Motion Sickness No 08/29/24 13:28 HX of N/V After Surgery No 08/29/24 13:28 Non-Smoker Yes 08/29/24 13:28 Duration of Surgery greater No 08/29/24 13:28 than 60 minutes Number of Risk Factors 2 08/29/24 13:28 PONV Score Moderate Risk 08/29/24 13:28 Height & Weight Height & Weight: Anesthesia: Height & Weight Height 5 ft 4 in 07/08/24 10:40 Respiratory Assessment Respiratory Assessment - specification consultant: Respiratory Tract Infection Hx - specification consultant Hx Respiratory Tract Infection No 08/29/24 13:28 STOP Sleep Apnea STOP Sleep Apnea - specification consultant: STOP Sleep Apnea - specification consultant Hx Hypertension No 08/29/24 13:28 Hx Sleep Apnea No 08/29/24 13:28 CPAP BIPAP Do you snore loudly (louder No 08/29/24 13:28 than talking or can be heard Do you often feel tired/ No 08/29/24 13:28 fatigued/ sleepy during daytime? Has anyone observed you stop No 08/29/24 13:28 breathing during sleep? STOP Results Negative 08/29/24 13:28 QUESTION #5 FULL TEXT : Do you snore loudly (louder than talking or can be heard through closed doors)? 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 Specify any problems Hx of Preganancy in last 3 No 08/29/24 13:28 Months Nurse Filling Out Transfusion VCHRISTIN 08/29/24 13:28 & Questions: Date: 08/29/24 08/29/24 13:28 Time: 13:29 08/29/24 13:28 Patient unable to answer at this time (ie. confused, unrespo /Reproduction History /Reproductive History - specification consultant: /Reproductive Hx- specification consultant Hx Now No 08/29/24 13:28 Gestational Age (in weeks): EDC: Hx Hx Para Hx Section SAB No 08/29/24 13:28 [facility] Medical History (Updated 08/29/24 @ 13:28 by Gisella Enciso) Wears glasses Post-menopausal Cancer Thyroid disease Arthritis Gastric reflux Non-smoker Shortness of breath on exertion Leg cramps History of pain when walking History of edema History of echocardiogram History of stress test Cardiology follow-up encounter Diarrhea Vagina neoplasm Dyspnea on exertion Left arm pain Eczema Posterior right knee pain Fatigue Urinary incontinence Endometrial cancer Thickened endometrium BV (bacterial vaginosis) Hypothyroid Gastritis High cholesterol Home Medications ?Medication ?Instructions ?Recorded ?Last Taken ?Type multivitamin 1 tab PO DAILY 01/18/18 Unkn own History cholecalciferol (vitamin D3) 50 2,000 unit PO DAILY Unknown History mcg (2,000 unit) tablet famotidine 20 mg tablet (Pepcid) 40 mg PO QHS 04/03/19 04/30/19 05:00 History mv-min-vit C-ascorb 1 tab PO DAILY 12/13/22 Unkn own History Ry-Hoq-Bxk-herb #124 333 mg-1.7 mg chewable tablet (Airborne (ascorbate sodium)) levothyroxine 50 mcg tablet 50 mcg PO DAILY #90 tabs 0 05/17/24 Unknown Rx sertraline 50 mg tablet 50 mg PO QDAY #90 tabs 05/22 Unknown Rx vibegron 75 mg tablet (Gemtesa) 75 mg PO QDAY 07/03/24 Unknown History ezetimibe 10 mg tablet (Zetia) 10 mg PO QDAY #90 tabs 08/13/24 Unknown Rx acetaminophen 650 mg 650 mg PO Q12H PRN pain 08/18 05/14 Unknown History tablet,extended release (8 Hour Pain Reliever) coenzyme Q10 100 mg capsule 200 mg PO DAILY 08/29/24 U nknown History (CoQ-10) loperamide 2 mg capsule 4 mg PO DAILY 08/29/24 Unkno wn History (Anti-Diarrheal (loperamide)) phenazopyridine 200 mg tablet 200 mg PO TID PRN PRN bl adder 08/29/24 Unknown History muscle dysfunction Allergy/AdvReac Type Severity Reaction Status Date / Time Penicillins Allergy Severe Unknown Verified 08/29/24 13:15 latex Allergy Intermediate Unknown Verified 08/29/24 13:15 Family History Father Arthritis Myocardial infarction Heart disease Mother Myocardial infarction Heart disease Osteoporosis Brother Colon cancer Sister Depression Suicide attempt Grandmother CVA (cerebral vascular accident) Uncle Melanoma Lung cancer Surgical History (Updated 08/29/24 @ 13:28 by Gisella Enciso) Hx of colonoscopy Status post complete hysterectomy History of bilateral oophorectomy History of [facility] History of tonsillectomy Social History Smoking Status: Never smoker alcohol intake: never substance use type: does not use caffeine: No what type of physical activity do you participate in: none seatbelt use: always do you feel safe at home: Yes additional social history: -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 EF 60%. Normal function size Consult pertinent findings: Cardiology 09/06/2023. Shortness of breath. Check echocardiogram to assess ventricular function. Most likely due to physical deconditioning. Recommendation Anesthesia Recommendation Anesthesia recommendation: OPTIMIZED for anesthesia
--- OUTSIDE RECORDS SUMMARY | 2024-09-04 05:51 | XMS RPT_ITS | CCD ---
Author Organization [facility] Providers Care Customer Service Advocate Name Role Phone KASHIF ARNETT Unavailable Unavailable KRISTI DAIGLE Unavailable Unavailable KASHIF ARNETT Unavailable Unavailable KRISTI DAIGLE Unavailable Unavailable Kristi Daigle Primary Care Provider [phone] Dr. Kristi Daigle Primary Care Provider [phone] Dr. Kristi Daigle Attending Provider Dr. Kristi Daigle Referring Provider Dr. Kristi Daigle Primary Care Provider [phone] Dr. Kristi Daigle Referring Provider Lulu MARQUEZ, DIPLOMATIC OFFICER-C Ishmael Attending Provider [phone] Dr. Kristi Daigle Primary Care Provider Dr. Kristi Daigle Attending Provider Dr. Kristi Daigle Referring Provider Dr. Kristi Daigle Primary Care Provider [phone] Dr. Kristi Daigle Attending Provider Dr. Kristi Daigle Referring Provider [phone] CAROLE Del Angel Attending Provider [phone] CAROLE Del Angel Referring Provider [phone] CAROLE Del Angel Other Provider Dr. Ariel Vivar Attending Provider Kristi Daigle Primary Care Provider [phone] Rl GALLEGOS, Sravan Douglas Unavailable Beth Cox MD Unavailable KRISTI DAIGLE Primary Care Unavailable KENNY, BETH Attending Unavailable BROWN, KRISTI Primary Care Unavailable CB MAYNARD Referring Unavailable KENNY, BETH Attending Unavailable BROWN, KRISTI Primary Care Unavailable BROWN, KRISTI Primary Care Unavailable KENNY, BETH Referring Unavailable KENNY, BETH Attending Unavailable BROWN, KRISTI Primary Care Unavailable KENNY, BETH Referring Unavailable BROWN, KRISTI Primary Care Unavailable LASKEY-DANNY, SRAVAN Referring Unavailable BROWN, KRISTI Primary Care Unavailable KENNY, BETH Attending Unavailable BROWN, KRISTI Primary Care Unavailable JOSLYN-JOSE DELGADOIN Attending Unavailable TRACYKEY-DANNY, SRAVAN Admitting Unavailable BROWN, KRISTI Primary Care Unavailable KENNY, BETH Referring Unavailable BROWN, KRISTI Primary Care Unavailable KENNY, BETH Referring Unavailable KENNY, BETH Attending Unavailable BROWN, KRISTI Primary Care Unavailable KENNY, BETH Referring Unavailable KENNY, BETH Attending Unavailable BROWN, KRISTI Primary Care Unavailable KENNY, BETH Referring Unavailable BROWN, KRISTI Primary Care Unavailable KENNY, BETH Referring Unavailable BROWN, KRISTI Primary Care Unavailable KENNY, BETH Referring Unavailable BROWN, KRISTI Primary Care Unavailable KENNY, BETH Referring Unavailable KENNY, BETH Attending Unavailable BROWN, KRISTI Primary Care Unavailable KENNY, BETH Referring Unavailable BROWN, KRISTI Primary Care Unavailable KENNY, BETH Referring Unavailable BROWN, KRISTI Primary Care Unavailable KENNY, BETH Referring Unavailable KENNY, BETH Attending Unavailable BROWN, KRITSI Primary Care Unavailable KENNY, BETH Referring Unavailable KENNY, BETH Attending Unavailable BROWN, KRISTI Primary Care Unavailable JOSLYN-JOSE DELGADOIN Attending Unavailable BROWN, KRISTI Primary Care Unavailable YING, GEGE Referring Unavailable LASKEY-DANNY, SRAVAN Attending Unavailable BROWN, KRISTI Primary Care Unavailable KENNY, BETH Referring Unavailable KENNY, BETH Attending Unavailable BROWN, KRISTI Primary Care Unavailable KENNY, BETH Referring Unavailable BROWN, KRISTI Primary Care Unavailable LASKEY-JOSE DELGADOIN Attending Unavailable BROWN, KRISTI Primary Care Unavailable LASKEY-MORAKAR, SRAVAN Attending Unavailable BROWN, KRISTI Primary Care Unavailable KENNY, BETH Attending Unavailable Dr. Kristi Daigle DO Primary Care Provider Dr. Kristi Daigle DO Attending Provider [phone] Dr. Kristi Daigle DO Referring Provider Evie DIPLOMATIC OFFICER-C Magaly Attending Provider Evie DIPLOMATIC OFFICER-C, Magaly Referring Provider Dr. Best Maynard DO Attending Provider Dr. Tyler Masters MD Attending Provider Darcy Hubbard Attending Provider Darcy Hubbard Referring Provider Brown, Kristi R Primary Care Unavailable CbAriel jacobsen Attending Unavailable Brown, Kristi R Primary Care Unavailable Fabian DIPLOMATIC OFFICER, Janel Attending Unavailable Evie DIPLOMATIC OFFICER, Magaly Referring Unavailable Evie DIPLOMATIC OFFICER, Magaly Attending Unavailable Brown, Kristi R Primary Care Unavailable Brown, Kristi R Primary Care Unavailable Sravan Jorgensen Referring Unavailable Sravan Jorgensen Attending Unavailable Brown, Kristi R Primary Care Unavailable Brown, Kristi R Referring Unavailable Ariel Vivar Attending Unavailable Best Maynard Attending Unavailable Brown, Kristi R Primary Care Unavailable Brown, Kristi R Referring Unavailable Brown, Kristi R Primary Care Unavailable Darcy Hernandez Referring Unavailable Dracy Hernandez Attending Unavailable Brown, Kristi R Primary Care Unavailable Cb, Culver Referring Unavailable CbAriel jacobsen Attending Unavailable Brown, Kristi R Attending Unavailable Brown, Kristi R Referring Unavailable Brown, Kristi R Primary Care Unavailable Brown, Kristi R Primary Care Unavailable Evie DIPLOMATIC OFFICER, Magaly Referring Unavailable Evie DIPLOMATIC OFFICER, Magaly Attending Unavailable Best Maynard Attending Unavailable Brown, Kristi R Primary Care Unavailable Brown, Kristi R Attending Unavailable Brown, Kristi R Referring Unavailable Brown, Kristi R Primary Care Unavailable Arley Pham Attending Unavailable Brown, Kristi R Primary Care Unavailable Best Maynard Referring Unavailable Best Maynard Attending Unavailable Brown, Kristi R Primary Care Unavailable Tyler Masters Consulting Unavailable Brown, Kristi R Primary Care Unavailable Darcy Hernandez Referring Unavailable Darcy Hernandez Attending Unavailable Brown, Kristi R Attending Unavailable Brown, Kristi R Referring Unavailable Brown, Kristi R Primary Care Unavailable Brown, Kristi R Referring Unavailable Brown, Kristi R Attending Unavailable Brown, Kristi R Primary Care Unavailable Brown, Kristi R Primary Care Unavailable Brown, Kristi R Referring Unavailable Tyler Masters Attending Unavailable Brown, Kristi R Primary Care Unavailable Brown, Kristi R Referring Unavailable Darcy Hernandez Attending Unavailable Best Maynard Attending Unavailable Brown, Kristi R Primary Care Unavailable Kristi Daigle Referring Unavailable Kristi Daigle Referring Unavailable Magaly Case NP Attending Unavailable Kristi Daigle Primary Care Unavailable Allergies Allergy Classification Reported Allergen(s) Allergy Type Date of Onset Reaction(s) Facility Latex (11 sources) Latex Substance Allergy 7 Itching [facility] Penicillins (antibiotic) (11 sources) Penicillins Drug Allergy 5 [facility] (9 sources) Latex Propensity to adverse reactions to drug 0 Unknown [place] (2 sources) Penicillins Propensity to adverse reactions to drug 0 Unknown [place] (7 sources) Penicillins Allergy to substance 2 Unknown [facility] (20 sources) Latex Allergy to substance 7 Itching [facility] (20 sources) Penicillins Drug Allergy 5 [facility] (1 source) Latex Drug allergy (disorder) 5 [facility] Repository (1 source) Penicillins Drug allergy (disorder) 5 [facility] Rep[facility] Medications Current Medications Medication Drug Class(es) Dates Sig (Normalized) Sig (Original) 8 hr acetaminophen 650 mg extended release oral tablet (20 sources) Start: 08-29-2024 take 1 tablet by mouth every twelve hours as needed for pain Acetaminophen (8 Hour Pain Reliever) 650 mg tablet extended release Active 650 mg PO Q12H as needed for pain August 29, 2024 12:00am Start: 05-23-2023 End: 06-02-2023 take 1 tablet by mouth every six hours as needed for pain acetaminophen (Tylenol Extra Strength) 500 MG tablet Take 1 tablet (500 mg) by mouth every 6 hours as needed for mild pain (1-3) for up to 10 days. 30 tablet 0 05/23/2023 06/02/2023 Start: 05-21-2019 End: 05-21-2019 acetaminophen (TYLENOL) tabl et 1,000 mg Acetaminophen (T YLENOL ARTHRITIS PAIN PO) Take by mouth Nightly. Active Acetaminophen (T YLENOL ARTHRITIS PAIN PO) Take by mouth Nightly. 0 Active ALPRAZolam 0.25 mg disintegrating oral tablet (1 source) Benzodiazepine Start: 05-21-2019 ALPRAZolam (NIRAVAM) dissolvable tablet 0.25 mg calcium chloride 0.0014 meq/ml / potassium chloride 0.004 meq/ml / sodium chloride 0.103 meq/ml / sodium lactate 0.028 meq/ml injectable solution (1 source) Start: 05-21-2019 lactated ringers infusion cholecalciferol 0.05 mg oral tablet (20 sources) Vitamin D Start: 04-03-2019 take 1 tablet by mouth once daily Cholecalciferol (Vitamin D3) 2,000 unit tablet Active 2000 U PO DAILY April 03, 2019 1:00am take 1 tablet by carolyn th once daily cholecalciferol (Vitamin D3) 25 MCG (1000 UT) tablet Take 3,000 Units by mouth daily. Active End: 05-22-2023 cholecalciferol (Vitamin D-3 ) 50 MCG (2000 UT) capsule Take by mouth. 0 05/22/2023 Discontinued (Dose adjustment) 1 ml diphenhydrAMINE hydrochloride 50 mg/ml cartridge (1 source) Histamine-1 Receptor Antagonist Start: 05-21-2019 End: 05-21-2019 diphenhydrAMINE (BENADRYL) injection 12.5 mg ezetimibe 10 mg oral tablet (3 sources) Dietary Cholesterol Absorption Inhibitor Start: 08-13-2024 take 1 tablet by mouth once daily Ezetimibe (Zetia) 10 mg tablet Active 10 mg PO daily August 13, 2024 12:00am famotidine 20 mg oral tablet (20 sources) Histamine-2 Receptor Antagonist Start: 04-03-2019 take 2 tablets by mouth at bedtime Famotidine (Pepcid) 20 mg tablet Active 40 mg PO AT BEDTIME April 03, 2019 1:00am Start: 04-03-2019 take 1 tablet by carolyn th once daily Famotidine (Pepcid) 20 mg tablet Active 20 mg PO DAILY April 03, 2019 1:00am 2 ml fentaNYL 0.05 mg/ml injection (2 sources) Opioid Agonist Start: 05-21-2019 fentaNYL (SUBL IMAZE) injection 25 mcg Start: 05-21-2019 fentaNYL (SUBL IMAZE) injection 50 mcg 1 ml hydrALAZINE hydrochloride 20 mg/ml injection (1 source) Arteriolar Vasodilator Start: 05-21-2019 hydrALAZINE (APRESOLINE) injection 5 mg 1 ml HYDROmorphone hydrochloride 1 mg/ml cartridge (2 sources) Opioid Agonist Start: 05-21-2019 HYDROmorphone (DILAUDID) injection 0.5 mg Start: 05-21-2019 HYDROmorphone (DILAUDID) injection 0.25 mg 4 ml labetalol hydrochloride 5 mg/ml cartridge (1 source) beta-Adrenergic Cecilia Start: 05-21-2019 labetalol (NORMODYNE;TRANDATE) injection 5 mg 10 ml lidocaine hydrochloride 10 mg/ml injection (1 source) Antiarrhythmic, Amide Local Anesthetic Start: 05-21-2019 End: 05-21-2019 lidocaine PF 1 % injection 1 mL loperamide hydrochloride 2 mg oral capsule (1 source) Opioid Agonist Start: 08-29-2024 Loperamide (Anti-Diarrheal (Loperamide)) 2 mg capsule Active 4 mg PO DAILY August 29, 2024 12:00am 1 ml meperidine hydrochloride 25 mg/ml cartridge (1 source) Opioid Agonist Start: 05-21-2019 meperidine (DEMEROL) injection 12.5 mg Multiple Vitamins-Minerals (AIRBORNE PO) (1 source) Multiple Vitamin s-Minerals (AIRBORNE PO) Take by mouth as needed 0 Active Multiple Vitamins-Minerals (MULTIVITAMIN ADULT PO) (1 source) Multiple Vitamin s-Minerals (MULTIVITAMIN ADULT PO) Take by mouth 0 Active MULTIPLE VITAMINS-MINERALS ER PO (20 sources) MULTIPLE VITAMIN S-MINERALS ER PO Take by mouth if needed. Active MULTIPLE VITAMIN S-MINERALS ER PO Take by mouth if needed. 0 Active multivitamin chewable tablet (5 sources) Start: 01-18-2018 take 1 tablet by mouth once daily multivitamin chewable tablet Active 1 TABLET PO DAILY January 18, 2018 3:44pm Start: 01-18-2018 take 1 tablet by carolyn th once daily multivitamin chewable tablet Active 1 TABLET PO DAILY January 17, 2018 11:00pm Start: 01-18-2018 take 1 tablet by carolyn th once daily multivitamin chewable tablet Active 1 TABLET PO DAILY January 18, 2018 12:00am Multivitamin tablet,chewable (3 sources) Start: 01-18-2018 Multivitamin t ablet,chewable Active 1 {tbl} PO DAILY January 18, 2018 12:00am Mo-Js-Vyvn-Dibbv-Uuz-Oef-Hc1 24 (Airborne (Ascorbate Sodium)) 333-1.7 mg tablet,chewable (6 sources) Start: 12-13-2022 Qw-Xb-Lgbk-Asb xq-Kzj-Pbj-Hc124 (Airborne (Ascorbate Sodium)) 333-1.7 mg tablet,chewable Active 1 {tbl} PO DAILY December 13, 2022 12:00am Start: 12-13-2022 Ro-Rt-Icbv-Asb yt-Tcg-Oha-Hc124 (Airborne (Ascorbate Sodium)) 333-1.7 mg tablet,chewable Active {tbl} PO DAILY December 13, 2022 12:00am Start: 12-13-2022 take 1 tablet by carolyn th once daily Hj-Ib-Bsol-Qiprt-Hor-Iyj-Hc124 (Airborne (Ascorbate Sodium)) 333-1.7 mg tablet,chewable Active TABLET PO DAILY December 12, 2022 11:00pm Start: 12-13-2022 take 1 tablet by carolyn once daily Vn-Nr-Mbhm-Xfusp-Xfd-Dyu-Hc124 (Airborne (Ascorbate Sodium)) 333-1.7 mg tablet,chewable Active TABLET PO DAILY December 13, 2022 12:00am NON FORMULARY (20 sources) NON FORMULARY ev kae morning (before breakfast). airborne Active NON FORMULARY ev kae morning (before breakfast). airborne 0 Active 2 ml ondansetron 2 mg/ml injection (1 source) Serotonin-3 Receptor Antagonist Start: 05-21-2019 End: 05-21-2019 ondansetron (ZOFRAN) injection 4 mg oxyCODONE hydrochloride 5 mg oral tablet (4 sources) Opioid Agonist Start: 05-23-2023 End: 05-28-2023 take 1 tablet by mouth every six hours as needed for pain oxyCODONE (Roxicodone) 5 MG immediate release tablet Indications: Acute postoperative pain Take 1 tablet (5 mg) by mouth every 6 hours as needed for moderate pain (4-6) or severe pain (7-10) for up to 5 days. 5 tablet 0 05/23/2023 05/28/2023 Active Start: 05-21-2019 End: 05-28-2019 take 1 tablet by mouth every six hours as needed for pain, then take 1 tablet by mouth as needed for pain oxyCODONE (ROXICODONE) 5 MG immediate release tablet Indications: S/P hysterectomy Take 1 tablet by mouth every 6 hours as needed for Pain for up to 7 days. Intended supply: 3 days. Take lowest dose possible to manage pain 25 tablet 0 05/21/2019 05/28/2019 Active Start: 05-21-2019 End: 05-21-2019 oxyCODONE (ROXICODONE) immed iate release tablet 5 mg phenazopyridine hydrochloride 200 mg oral tablet (20 sources) Start: 08-29-2024 take 1 tablet by mouth three times daily as needed Phenazopyridine 200 mg tablet Active 200 mg PO 3 TIMES DAILY NEEDED as needed for bladder muscle dysfunction August 29, 2024 12:00am Start: 08-30-2023 End: 04-05-2024 take 1 tablet by mouth three times daily as needed for muscle spasms phenazopyridine (Pyridium) 200 MG tablet Take 1 tablet (200 mg) by mouth 3 times daily as needed for bladder spasms. 60 tablet 11/03/2023 04/05/2024 Discontinued (Therapy completed) Start: 08-15-2023 End: 05-22-2024 take 1 tablet by mouth three times daily as needed Phenazopyridine 200 mg tablet Discontinued 200 mg PO THREE TIMES A DAY as needed for pain August 15, 2023 12:00am May 22, 2024 5:21pm take one tab PO tid for dysuria End: 08-30-2023 Phenazopyridine HCl (AZO TAB S PO) Take by mouth as needed. 0 08/30/2023 Discontinued (Therapy completed) Phenazopyridine HCl (AZO TABS PO) Take by mouth as needed. 0 Active 1 ml promethazine hydrochloride 25 mg/ml injection (1 source) Phenothiazine Start: 05-21-2019 End: 05-21-2019 promethazine (PHENERGAN) injection 6.25 mg sertraline 50 mg oral tablet (3 sources) Serotonin Reuptake Inhibitor Start: 05-22-2024 take 1 tablet by mouth once daily Sertraline 50 mg tablet Active 50 mg PO daily May 22, 2024 1:00am 3 ml sodium chloride 9 mg/ml injection (2 sources) Start: 05-21-2019 sodium chloride flush 0.9 % injection 10 mL ubidecarenone 100 mg oral capsule (1 source) Start: 08-29-2024 Coenzyme Q10 (Coq-10) 100 mg capsule Active 200 mg PO DAILY August 29, 2024 12:00am Vibegron (3 sources) Start: 07-03-2024 take 1 tablet by mouth once daily Vibegron (Gemtesa) 75 mg tablet Active 75 mg PO daily July 03, 2024 12:00am Completed/Discontinued Medications Medication Drug Class(es) Dates Sig (Normalized) Sig (Original) atorvastatin 40 mg oral tablet (20 sources) HMG-CoA Reductase Inhibitor Start: 06-10-2020 End: 08-14-2024 take 1 tablet by mouth once daily Atorvastatin 40 mg tablet Discontinued 40 mg PO DAILY June 29, 2023 4:05pm February 27, 2024 4:22pm Start: 01-18-2018 End: 04-05-2024 take 1 tablet by mouth once daily Atorvastatin 20 mg tablet Discontinued 20 mg PO DAILY March 18, 2019 8:03pm June 09, 2020 3:45pm atropine sulfate 0.025 mg / diphenoxylate hydrochloride 2.5 mg oral tablet (20 sources) Anticholinergic, Cholinergic Muscarinic Antagonist, Antidiarrheal Start: 08-09-2023 End: 05-22-2024 take 1 tablet by mouth twice daily as needed for diarrhea Diphenoxylate-Atropine (Lomotil) 2.5-0.025 mg tablet Discontinued 1 {tbl} PO TWICE A DAY as needed for diarrhea August 09, 2023 12:00am May 22, 2024 5:21pm take one tab PO bid for diarrhea fluconazole 150 mg oral tablet (8 sources) Azole Antifungal Start: 07-27-2023 End: 09-06-2023 Fluconazole 150 mg tablet Discontinued 150 mg PO Every 3 Days July 27, 2023 12:00am September 06, 2023 3:30pm may repeat second dose 72 hrs after first dose if symptoms persist furosemide 20 mg oral tablet (20 sources) Loop Diuretic Start: 01-18-2018 End: 07-22-2021 take 1 tablet by mouth once daily as needed for edema Furosemide (Lasix) 20 mg tablet Discontinued 20 mg PO DAILY as needed for edema January 30, 2019 5:41pm July 22, 2021 4:38pm take 1 tablet by mouth twice salomon ly furosemide (LASIX) 20 MG tablet Take 20 mg by mouth 2 times daily 0 Active gabapentin 300 mg oral capsule (1 source) Anti-epileptic Agent Start: 05-21-2019 End: 05-21-2019 gabapentin (NEURONTIN) capsule 300 mg ibuprofen 600 mg oral tablet (20 sources) Nonsteroidal Anti-inflammatory Drug Start: 05-23-2023 End: 06-22-2023 take 1 tablet by mouth every six hours as needed for pain ibuprofen 600 MG tablet Take 1 tablet (600 mg) by mouth every 6 hours as needed for mild pain (1-3). 60 tablet 0 05/23/2023 06/22/2023 Start: 05-21-2019 take 1 tablet by carolyn th four times daily as needed for pain ibuprofen (ADVIL;MOTRIN) 400 MG tablet Take 1 tablet by mouth 4 times daily as needed for Pain 60 tablet 0 05/21/2019 Active Start: 04-20-2018 End: 01-30-2019 take 1 tablet by mouth three times daily as needed for pain Ibuprofen 600 mg tablet Discontinued 600 mg PO THREE TIMES A DAY as needed for pain April 20, 2018 1:00am January 30, 2019 5:41pm iopamidol (Isovue-370) 76 % injection 100 mL (2 sources) Start: 06-15-2023 End: 06-15-2023 iopamidol (Isovue-370) 76 % injection 100 mL levothyroxine sodium 0.05 mg oral tablet (20 sources) l-Thyroxi ne Start: 06-10-2020 End: 05-17-2024 take 1 tablet by mouth once daily Levothyroxine 50 mcg tablet Discontinued 50 ug PO DAILY September 22, 2023 4:33pm February 27, 2024 4:22pm Start: 01-18-2018 End: 05-19-2023 take 1 tablet by mouth once daily Levothyroxine (Synthroid) 25 mcg tablet Discontinued 25 ug PO DAILY March 18, 2019 8:03pm June 09, 2020 3:45pm meloxicam 7.5 mg oral tablet (7 sources) Nonsteroidal Anti-inflammatory Drug Start: 01-04-2022 End: 05-15-2023 take 1 tablet by mouth twice daily as needed for pain Meloxicam 7.5 mg tablet Discontinued 7.5 mg PO TWICE A DAY as needed for pain 60 January 04, 2022 12:00am May 15, 2023 3:01pm metroNIDAZOLE 0.0075 mg/mg vaginal gel (8 sources) Nitroimidazole Antimicrobial Start: 01-30-2019 End: 04-03-2019 Metronidazole (Metrogel Vaginal) 0.75 % gel Discontinued 1 NMA VAGINAL DAILY 70 5 January 30, 2019 1:00am April 03, 2019 11:33am pimecrolimus 10 mg/ml topical cream (6 sources) Calcineurin Inhibitor Immunosuppressant Start: 12-13-2022 End: 02-08-2023 Pimecrolimus (Elidel) 1 % cream Discontinued 1 NMA TOPICAL TWICE A DAY 60 December 13, 2022 12:00am February 08, 2023 4:26pm potassium chloride 20 meq extended release oral tablet (20 sources) Start: 07-28-2023 End: 08-27-2023 take 1 tablet by mouth once daily Potassium Chloride 20 mEq tablet extended release Discontinued 20 meq PO DAILY 30 30 July 28, 2023 12:00am August 26, 2023 12:00am August 27, 2023 12:06am End: 04-05-2024 potassium chloride CR (Klor- Con M20) 20 MEQ ER tablet Take 20 mEq by mouth daily. Do not crush or chew. 04/05/2024 Discontinued (Therapy completed) raNITIdine 150 mg oral tablet (20 sources) Histamine-2 Receptor Antagonist Start: 01-30-2019 End: 04-03-2019 take 1 tablet by mouth twice daily Ranitidine Hcl (Zantac) 150 mg tablet Discontinued 150 mg PO TWICE A DAY 120 February 06, 2019 9:25am April 03, 2019 3:40pm Start: 01-18-2018 End: 01-30-2019 take 1 tablet by mouth once daily Ranitidine Hcl (Zantac) 150 mg tablet Discontinued 150 mg PO DAILY 180 January 18, 2018 4:16pm January 30, 2019 5:41pm saccharomyces boulardii 250 mg oral capsule (3 sources) Start: 08-02-2023 End: 02-27-2024 take 1 capsule by mouth twice daily Saccharomyces Boulardii (Daily Probiotic (S. 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 PET/CT on 06/27/2023 reviewed, no hypermetabolic activity.Declined chemotherapy. Completed salvage radiation therapy and brachytherapy. On observation. Comes for follow up.No clincal evidence of disease. CA125 pending. possible recurrence- vaginal lesion seen on exam 05/15- immediate referral to pharmacy clerk onc for full evaluation and management.s/p hyst with Dr Jorgensen 05/09 no chemo/radtn. original recommendation to FU every 3-4 months x2 years, every 6 months for 3 years. Disorders of lipid metabolism (13 sources) Hypercholesterolemia; Translations: [Pure hypercholesterolemia, unspecified] Onset: 4 Chronic Gastritis and duodenitis (8 sources) Gastritis; Translations: [Gastritis, unspecified, without bleeding] 10-15-2019 Episodic Gastrointestinal hemorrhage (7 sources) Gastrointestinal hemorrhage; Translations: [Hemorrhage of anus and rectum] Onset: 5 08-14-2024 Episodic Genitourinary symptoms and ill-defined conditions (12 sources) Urinary incontinence; Translations: [Unspecified urinary incontinence] Onset: 5 10-19-2019 Chronic Comment on above: Dr Snyder consult Inflammatory diseases of female pelvic organs (8 sources) Bacterial vaginosis; Translations: [Acute vaginitis] 10-15-2019 Episodic Menopausal disorders (8 sources) Postmenopausal bleeding; Translations: [Postmenopausal bleeding] 10-15-2019 Chronic Comment on above: Plan D&C, hysterosco py with Dr. AminReferred Dr. 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] 05-22-2023 Episodic Other connective tissue disease (5 sources) Pain in left arm; Translations: [Pain in left arm] 02-08-2023 Episodic Other connective tissue disease (2 sources) Pain in left arm; Translations: [Pain in limb] 02-08-2023 Episodic Other connective tissue disease (6 sources) Pain in lower limb; Translations: [Pain in leg, unspecified] 07-03-2024 Episodic Other female genital disorders (1 source) Vaginal lesion; Translations: [Other specified noninflammatory disorders of vagina] 05-19-2023 Episodic Other gastrointestinal disorders (4 sources) Diarrhea, unspecified; Translations: [Diarrhea, unspecified] Onset: Episodic Other gastrointestinal disorders (8 sources) Gastrointestinal symptom; Translations: [Other specified symptoms and signs involving the digestive system and abdomen] 10-15-2019 Episodic Other gastrointestinal disorders (12 sources) Diarrhea; Translations: [Diarrhea, unspecified] 07-03-2024 Episodic Other lower respiratory disease (5 sources) Dyspnea on exertion; Translations: [Other forms of dyspnea] 02-08-2023 Episodic Other lower respiratory disease (3 sources) Dyspnea; Translations: [Shortness of breath] 09-06-2023 Episodic Other non-traumatic joint disorders (8 sources) Ankle pain; Translations: [Pain in right ankle and joints of right foot] 10-15-2019 Episodic Other non-traumatic joint disorders (8 sources) Pain in right knee; Translations: [Posterior right knee pain] Episodic Other screening for suspected conditions (not mental disorders or infectious disease) (8 sources) Endometrium thickened; Translations: [Abnormal findings on diagnostic imaging of other specified body structures] 10-15-2019 Chronic Residual codes; unclassified (1 source) H/O: hysterectomy; Translations: [S/P hysterectomy] Episodic Residual codes; unclassified (8 sources) Family history of cancer of colon; Translations: [Family history of malignant neoplasm of digestive organs] 10-15-2019 Episodic Residual codes; unclassified (1 source) Postoperative state; Translations: [Other specified postprocedural states] 06-08-2023 Episodic Residual codes; unclassified (2 sources) Personal history of irradiation; Translations: [Personal history of irradiation] Onset: 5 Episodic Secondary malignancies (5 sources) Secondary malignant neoplasm of vagina; 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] 05-19-2023 Chronic Secondary malignancies (2 sources) Secondary malignant neoplasm of genital organs; 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 (HCC)] Onset: 4 Chronic Thyroid disorders (14 sources) Hypothyroidism; Translations: [Hypothyroidism, unspecified] Onset: 4 Chronic Unclassified (2 sources) Cylinder sizing and CT SIM Onset: 4 Unclassified (2 sources) Endometrial Cancer; Translations: [Endometrial Cancer] Onset: 4 Past or Other Problems Problem Classification Problem Date Documented Date Episodic/Chronic Genitourinary symptoms and ill-defined conditions (11 sources) Dysuria; Translations: [Dysuria] Onset: 02-27-2024 04-05-2024 Episodic Malaise and fatigue (10 sources) Fatigue; Translations: [Other fatigue] Onset: 09-06-2023 Episodic Other lower respiratory disease (3 sources) Other forms of dyspnea; Translations: [Other respiratory abnormalities] Onset: 09-06-2023 02-08-2023 Episodic Other lower respiratory disease (1 source) Shortness of breath; Translations: [Shortness of breath] Onset: 10-19-2023 Episodic Other nervous system disorders (2 sources) Other acute postprocedural pain; Translations: [Other acute postprocedural pain] Onset: 05-23-2023 Episodic Residual codes; unclassified (2 sources) Other specified postprocedural states; Translations: [Other specified postprocedural states] Onset: 06-08-2023 Episodic Results Test Name Value Interpretation Reference Range Facility MR/PATRamona 08-29-2024 /[facility] Medical Records Department [address] [place] [address] PAT - Anesthesia 08/29/24 1350 MR#: [id number] Acct: [id number] Name: JULIETH MARLEY Rep #: [id number] : 1965 59 From: Rasta Nixon MD PCP: Dr. Kristi Daigle, DO Status:PRE SDC Y Race: C Location: EN Pre-Assessment Diagnosis/Proposed Procedure Planned Operative Procedure(s): COLONOSCOPY Anesthesia History Anesthesia History - rheologist: Anesthesia History - rheologist Hx Hospitalization No 08/29/24 13:28 Any Problems With Anesthesia No 08/29/24 13:28 Cholinesterase deficiency No 08/29/24 13:28 You/Your Family Experience No 08/29/24 13:28 fever (hyperthermia) with Relationship Recent Exposure to Contagious No 05/18/20 15:50 Disease Does patient have nerve No 08/29/24 13:28 stimulator Patient instructed to have device shut off --Does patient have Pacemaker or ICD? When Was Last Pacemaker Check QUESTION #4 FULL TEXT: You/Your Family Experience fever (hyperthermia) with Anesthesia Last Oral Intake Last Oral intake: Last Oral Intake NPO since Meds taken in AM with sips of water? Meds patient instructed to take am of surgery PONV PONV - rheologist: PONV - rheologist Female Yes 08/29/24 13:28 HX of Motion Sickness No 08/29/24 13:28 HX of N/V After Surgery No 08/29/24 13:28 Non-Smoker Yes 08/29/24 13:28 Duration of Surgery greater No 08/29/24 13:28 than 60 minutes Number of Risk Factors 2 08/29/24 13:28 PONV Score Moderate Risk 08/29/24 13:28 Height Weight Height Weight: Anesthesia: Height Weight Height 5 ft 4 in 07/08/24 10:40 Respiratory Assessment Respiratory Assessment - rheologist: Respiratory Tract Infection Hx - rheologist Hx Respiratory Tract Infection No 08/29/24 13:28 STOP Sleep Apnea STOP Sleep Apnea - rheologist: STOP Sleep Apnea - rheologist Hx Hypertension No 08/29/24 13:28 Hx Sleep Apnea No 08/29/24 13:28 CPAP BIPAP Do you snore loudly (louder No 08/29/24 13:28 than talking or can be heard Do you often feel tired/ No 08/29/24 13:28 fatigued/ sleepy during daytime? Has anyone observed you stop No 08/29/24 13:28 breathing during sleep? STOP Results Negative 08/29/24 13:28 QUESTION #5 FULL TEXT : Do you snore loudly (louder than talking or can be heard through closed doors)? Tobacco Use History Tobacco Use History - rheologist: Tobacco Use History - rheologist Tobacco Use Smoking Status Never smoker 08/29/24 13:28 Hx Tobacco Use No 08/29/24 13:28 Years Smoking Packs Smoked per Day Smoking Cessation Date was within the last 15 years Hx Smoking Cessation Date Hx Smoking Cessation Counseling Hematologic Medial History Hematologic Hx - rheologist: Hematologic Medical Hx - quantitative consultant Hx of Blood Transfusion No 08/29/24 13:28 Hx of Transfusion in last 3 No 08/29/24 13:28 Months Date of Last Transfusion (if within last 3 months) Ever experience any problems No 08/29/24 13:28 with transfusion(s)? Specify any problems Hx of Preganancy in last 3 No 08/29/24 13:28 Months Nurse Filling Out Transfusion VCHRISTIN 08/29/24 13:28 Questions: Date: 08/29/24 08/29/24 13:28 Time: 13:29 08/29/24 13:28 Patient unable to answer at this time (ie. confused, unrespo /Reproduction History /Reproductive History - rheologist: /Reproductive Hx- rheologist Hx Now No 08/29/24 13:28 Gestational Age (in weeks): EDC: Hx Hx Para Hx Section SAB No 08/29/24 13:28 PFSH Medical History (Updated 08/29/24 @ 13:28 by Gisella Enciso) Wears glasses Post-menopausal Cancer Thyroid disease Arthritis Gastric reflux Non-smoker Shortness of breath on exertion Leg cramps History of pain when walking History of edema History of echocardiogram History of stress test Cardiology follow-up encounter Diarrhea Vagina neoplasm Dyspnea on exertion Left arm pain Eczema Posterior right knee pain Fatigue Urinary incontinence Endometrial cancer Thickened endometrium BV (bacterial vaginosis) Hypothyroid Gastritis High cholesterol Home Medications ???Medication ???Instructions ???Recorded ???Last Taken ???Type multivitamin 1 tab PO DAILY 01/18/18 Unknown Hi story cholecalciferol (vitamin D3) 50 2,000 unit PO DAILY 04/03/19 Unkno wn History mcg (2,000 unit) tablet famotidine 20 mg tablet (Pepcid) 40 mg PO QHS 04/03/19 04/30/19 05: 00 History mv-min-vit C-ascorb 1 tab PO DAILY 12/13/22 Unknown Hi s (more content not included)... Normal [facility] Absolute lymphocyte countOrd ered By: Darcytony Hernandez on 08-14-2024 Lymphocytes Auto (Unsp spec) [#/Vol] 0.62 10*3/uL Low 0.83-4.51 [facility] Absolute neutrophil countOrd ered By: Darcytony Hernandez on 08-14-2024 Neutrophils (Bld) [#/Vol] 4.7 10*3/uL 2.0-7.7 [facility] Automated lymphocyte count a s percentage of total leukocytesOrdered By: Darcy Hernandez on 08-14-2024 Lymphocytes/100 WBC Auto (Unsp spec) 10.3 % Low 19-41 [facility] Basophil percentageOrdered B y: Darcy Hernandez on 08-14-2024 Basophils/100 WBC (Bld) 0.5 % 0-1 [facility] CBC W/Diff, Automatedon 07-19 Absolute Lymph 0.62 X10 3/uL Low 0.83-4.51 [facility] Comment on above: Performed By: #### L 100.0100 ####[facility] [address] [facility], [address] Absolute Neut 4.7 X10 3/uL Normal 2.0-7.7 [facility] Comment on above: Performed By: #### L 100.0100 ####[facility] [address] [facility] [facility] [address] [place], [address] Basophils/100 WBC (Bld) 0.5 % Normal 0-1 [facility] Comment on above: Performed By: #### L 100.0100 ####[facility] [address] [place], [address] Eosinophils/100 WBC (Bld) 2.8 % Normal 0-5 [facility] Comment on above: Performed By: #### L 100.0100 ####[facility] [address] [place], [address] Erythrocyte distribution width (RBC) [Ratio] 13.2 % Normal 11.6-14.6 [facility] Comment on above: Performed By: #### L 100.0100 ####[facility] [address] [place], [address] Hematocrit (Bld) [Volume fraction] 38.4 % Normal 37-47 [facility] Comment on above: Performed By: #### L 100.0100 ####[facility] [address] [place], [address] Hemoglobin (Bld) [Mass/Vol] 12.7 g/dL Normal 12.0-15.0 [facility] Comment on above: Performed By: #### L 100.0100 ####[facility] [address] [place], [address] IG% 0.300 Normal 0.0-0.9 [facility] Comment on above: Result Comment: IG% - Immature Granulocytes (promyelocytes, myelocytes and metamyelocytes) > 1% indicates that a LEFT SHIFT is Present. Performed By: #### L 100.0100 ####[facility] [address] [place], [address] Lymphocytes/100 WBC (Bld) 10.3 % Low 19-41 [facility] Comment on above: Performed By: #### L 100.0100 ####[facility] [address] [place], [address] MCH (RBC) [Entitic mass] 31.6 pg Normal 27.0-32.0 [facility] Comment on above: Performed By: #### L 100.0100 ####[facility] [address] [place], [address] MCHC (RBC) [Mass/Vol] 33.1 g/dL Normal 32-36 [facility] Comment on above: Performed By: #### L 100.0100 ####[facility] [address] [place], [address] MCV (RBC) [Entitic vol] 95.5 fL Normal 81-99 [facility] Comment on above: Performed By: #### L 100.0100 ####[facility] [address] [place], [address] Monocytes/100 WBC (Bld) 7.5 % Normal 0-10 [facility] Comment on above: Performed By: #### L 100.0100 ####[facility] [address] [place], [address] Neutrophils/100 WBC (Bld) 78.6 % High 47-70 [facility] Comment on above: Performed By: #### L 100.0100 ####[facility] [address] [place], [address] Nucleated RBC (Bld) [#/Vol] 0 10*3/uL Normal 0-5 [facility] Comment on above: Performed By: #### L 100.0100 ####[facility] [address] [place], [address] Platelet mean volume (Bld) [Entitic vol] 9.1 fL Normal 6.2-12.0 [facility] Comment on above: Performed By: #### L 100.0100 ####[facility] [address] [place], [address] Platelets (Bld) [#/Vol] 256 10*3/uL Normal 150-450 [facility] Comment on above: Performed By: #### L 100.0100 ####[facility] [address] [place], [address] RBC (Bld) [#/Vol] 4.02 10*6/uL Low 4.2-5.4 [facility] Comment on above: Performed By: #### L 100.0100 ####[facility] [address] [place], [address] RDW SD 46.3 fl High 35.1-43.9 [facility] Comment on above: Performed By: #### L 100.0100 ####[facility] [address] [place], [address] WBC (Bld) [#/Vol] 6.0 10*3/uL Normal 4.4-11.0 [facility] Comment on above: Performed By: #### L 100.0100 ####[facility] [address] [place], [address] Eosinophil percentageOrdered By: Darcy Hernandez on 08-14-2024 Eosinophils/100 WBC (Bld) 2.8 % 0-5 [facility] Erythrocyte distribution wid th ratioOrdered By: Darcy Hernandez on 08-14-2024 Erythrocyte distribution width (RBC) [Ratio] 13.2 % 11.6-14.6 [facility] Erythrocyte distribution wid th standard deviationOrdered By: Darcy Hernandez on 08-14-2024 Erythrocyte distribution width (RBC) [Ratio] 46.3 fl High 35.1-43.9 [facility] Gastroenterology Visit Repor ton 08-14-[address] [facility] [address] [place] [address] OFFICE VISIT Date of Service: 08/14/24 MR#: [id number] Acct: [id number] Name: JULIETH MARLEY Rep #: [id number] : 1965 Provider: CAROLE Bruce Age/Sex: 58/F [place] [facility]: Signed Intake Vital Signs 07/08/24 10:40 Height 5 ft 4 in Intake Visit Reasons: Blood in stool Chief Complaint: BRBPR Allergies Penicillins Allergy (Severe, Verified 07/08/24 10:43) Unknown latex Allergy (Intermediate, Verified 07/08/24 10:43) Unknown Medications ???Medication ???Instructions ???Recorded ???Confirmed ???Type multivitamin 1 tab PO DAILY 01/18/18 08/14/24 H istory cholecalciferol (vitamin D3) 50 2,000 unit PO DAILY 04/03/1908/14 History mcg (2,000 unit) tablet famotidine 20 mg tablet (Pepcid) 20 mg PO DAILY 04/03/19 08/14/24 H istory mv-min-vit C-ascorb tab PO DAILY 12/13/22 08/14/24 His tory So-Szf-Ngz-herb #124 333 mg-1.7 mg chewable tablet (Airborne (ascorbate sodium)) levothyroxine 50 mcg tablet 50 mcg PO DAILY #90 tabs 05/17/24 08/14/24 Rx sertraline 50 mg tablet 50 mg PO QDAY #90 tabs 05/22/24 Rx vibegron 75 mg tablet (Gemtesa) 75 mg PO QDAY 07/03/24 08/14/24 Hi story ezetimibe 10 mg tablet (Zetia) 10 mg PO QDAY #90 tabs 08/13/24 Rx PFSH Medical History Diarrhea Vagina neoplasm Dyspnea on exertion Left arm pain Eczema Posterior right knee pain Fatigue Urinary incontinence Endometrial cancer Thickened endometrium BV (bacterial vaginosis) Hypothyroid Gastritis High cholesterol Surgical History Status post complete hysterectomy History of bilateral oophorectomy History of LAVH History of tonsillectomy Family History Father Arthritis Myocardial infarction Heart disease Mother Myocardial infarction Heart disease Osteoporosis Brother Colon cancer Sister Depression Suicide attempt Grandmother CVA (cerebral vascular accident) Uncle Melanoma Lung cancer Social History Smoking Status: Never smoker alcohol intake: never substance use type: does not use caffeine: No what type of physical activity do you participate in: none seatbelt use: always do you feel safe at home: Yes additional social history: -Patient works at [employer] HPI HPI Chief Complaint: BRBPR Details: JULIETH MARLEY, is a 58 F who presents to the office today for establishment with [facility]. Pt has a PMHx of endometrial cancer s/p total hysterectomy and radiation. She is cancer free today. Pt endorsing BRPBR over the past few months. She at first thought it may have been hemorrhoids but it continued. She does not have blood with every bowel movement. When she does she will fill the bowel. She alternates between loose stools and constipation. SHe will have a bm daily but has to strain when she is constipated. She feels she may have IBS as she notices she can get loose stools when she is nervous. Of note she does recall having severe diarrhea and some bleeding during her treatment with radiation. Last colonoscopy in Apr 2019 after her diagnosis of endometrial cancer. ROS Const Constitutional: Positive for fatigue; No fever(s) or weight change ENT ENT: No difficulty swallowing Cardio Cardiology: Positive for leg pain with exertion Gastro GI: Positive for abdominal pain, bloating, change in bowel habits, constipation, diarrhea, heartburn, excessive flatus and Blood in stool; No belching, change in stool character, coffee ground emesis, cramping, difficulty swallowing, feeling full early, incontinent of stools, Vomiting blood/hematemesis, loose stools, Black,tarry stools, nausea/dyspepsia, pain with swallowing, vomiting or other Musc Musculoskeletal: Positive for abnormal gait, joint pain, joint swelling, muscle cramps, muscle weakness, stiffness, Arthritis, sciatica, leg pain at night and leg pain with exertion Skin Skin: No yellowing of the eye or itchy eyes Neuro Neurology: Positive for abnormal gait Psych Psychiatric: Positive for anxiety and Positive for depression Endo Endocrine: Positive for fatigue; No weight change Aller/Imm Allergy/Immunologic: No itchy eyes Connor/Lymp Hematologic/Lymphatic: Positive for easy bleeding; No easy bruising Exam Const General: cooperative and comfortable Orientation: alert Resp Effort Inspection: normal respiratory effort Cardio Rate: regular rate Rhythm: regular rhythm GI Inspection: normal to inspection Auscultation: normal bowel sounds Palpation: soft, no guarding and n (more content not included)... Normal [facility] Hematocrit Auto (Bld) [Volum e fraction]Ordered By: Darcy Hernandez on 08-14-2024 Hematocrit (Bld) [Volume fraction] 38.4 % 37-47 [facility] Hemoglobin measurementOrdere d By: Darcy Hrenandez on 08-14-2024 Hemoglobin (Bld) [Mass/Vol] 12.7 g/dL 12.0-15.0 [facility] Immature granulocytes/100 WB C Auto (Bld)Ordered By: Darcy Hernandez on 08-14-2024 Immature granulocytes/100 WBC (Bld) 0.300 % 0.0-0.9 [facility] Comment on above: IG% - Immature Granu locytes (promyelocytes, myelocytes and metamyelocytes) > 1% indicates that a LEFT SHIFT is Present. MCV (mean corpuscular volume ) determinationOrdered By: Darcy Hernandez on 08-14-2024 MCV (RBC) [Entitic vol] 95.5 fL 81-99 [facility] Mean corpuscular hemoglobin (MCH) determinationOrdered By: Darcy Hernandez on 08-14-2024 MCH (RBC) [Entitic mass] 31.6 pg 27.0-32.0 [facility] Mean corpuscular hemoglobin concentration (MCHC) determinationOrdered By: Darcy Hernandez on 08-14-2024 MCHC (RBC) [Mass/Vol] 33.1 g/dL 32-36 [facility] Mean platelet volume determi nationOrdered By: Darcy Hernandez on 08-14-2024 Platelet mean volume (Bld) [Entitic vol] 9.1 fL 6.2-12.0 [facility] Monocyte percentageOrdered B y: Darcy Hernandez on 08-14-2024 Monocytes/100 WBC (Bld) 7.5 % 0-10 [facility] Neutrophil percentageOrdered By: Darcy Hernandez on 08-14-2024 Neutrophils/100 WBC (Bld) 78.6 % High 47-70 [facility] Nucleated red blood cell per centageOrdered By: Darcy Hernandez on 08-14-2024 Nucleated RBC/100 WBC (Bld) [Ratio] 0 % 0-5 [facility] Platelet countOrdered By: Maxine Hernandez on 08-14-2024 Platelets (Bld) [#/Vol] 256 10*3/uL 150-450 [facility] RBC Auto (Bld) [#/Vol]Ordere d By: Darcy Hernandez on 08-14-2024 RBC (Bld) [#/Vol] 4.02 10*6/uL Low 4.2-5.4 [facility] White blood cell (WBC) count Ordered By: Darcy Hernandez on 08-14-2024 WBC (Bld) [#/Vol] 6.0 10*3/uL 4.4-11.0 [facility] Cancer Antigen 125on 025 CA 125 3.2 U/mL Normal 0.0-38.1 [facility] Comment on above: Result Comment: [employer] Electrochemiluminescence Immunoassay (ECLIA) Values obtained with different assay methods or kits cannot be used interchangeably. Results cannot be interpreted as absolute evidence of the presence or absence of malignant disease. Performed at: [address] [id number] Commercial Singer: Denis Pineda PhD, Phone: [phone] Performed By: #### L 500.4050, L100.0100, L3100.5000 #### [facility] [address] [place], [address] Absolute lymphocyte countOrd ered By: Magaly Case on 07-08-2024 Lymphocytes Auto (Unsp spec) [#/Vol] 0.57 10*3/uL Low 0.83-4.51 [facility] Absolute neutrophil countOrd ered By: Magaly Case on 07-08-2024 Neutrophils (Bld) [#/Vol] 3.8 10*3/uL 2.0-7.7 [facility] Anion gap in Serum or Plasma Ordered By: Magaly Case on 07-08-2024 Anion gap [Moles/Vol] 11 mmol/L 5-15 [facility] Automated lymphocyte count a s percentage of total leukocytesOrdered By: Magaly Case on 07-08-2024 Lymphocytes/100 WBC Auto (Unsp spec) 11.8 % Low 19-41 [facility] BUN/creatinine ratioOrdered By: Magaly Case on 07-08-2024 Urea nitrogen/Creatinine [Mass ratio] 18.9 mg/mg 10-20 [facility] Basophil percentageOrdered B y: Magaly ArmasEvie on 07-08-2024 Basophils/100 WBC (Bld) 0.4 % 0-1 [facility] Bilirubin, totalOrdered By: Magaly AramsEvie on 07-08-2024 Bilirubin [Mass/Vol] 0.31 mg/dL 0.00-1.30 [facility] CBC W/Diff, Automatedon 06-19 Absolute Lymph 0.57 X10 3/uL Low 0.83-4.51 [facility] Comment on above: Performed By: #### L 500.4050, L100.0100, L3100.5000 #### [facility] [address] [place], [address] Absolute Neut 3.8 X10 3/uL Normal 2.0-7.7 [facility] Comment on above: Performed By: #### L 500.4050, L100.0100, L3100.5000 #### [facility] [address] [place], [address] Basophils/100 WBC (Bld) 0.4 % Normal 0-1 [facility] Comment on above: Performed By: #### L 500.4050, L100.0100, L3100.5000 #### [facility] [address] [place], [address] Eosinophils/100 WBC (Bld) 1.4 % Normal 0-5 [facility] Comment on above: Performed By: #### L 500.4050, L100.0100, L3100.5000 #### [facility] [address] [place], [address] Erythrocyte distribution width (RBC) [Ratio] 13.2 % Normal 11.6-14.6 [facility] Comment on above: Performed By: #### L 500.4050, L100.0100, L3100.5000 #### [facility] [address] [place], [address] Hematocrit (Bld) [Volume fraction] 36.6 % Low 37-47 [facility] Comment on above: Performed By: #### L 500.4050, L100.0100, L3100.5000 #### [facility] [address] [place], [address] Hemoglobin (Bld) [Mass/Vol] 12.5 g/dL Normal 12.0-15.0 [facility] Comment on above: Performed By: #### L 500.4050, L100.0100, L3100.5000 #### [facility] [address] [facility] [place], [address] IG% 0.600 Normal 0.0-0.9 [facility] Comment on above: Result Comment: IG% - Immature Granulocytes (promyelocytes, myelocytes and metamyelocytes) > 1% indicates that a LEFT SHIFT is Present. Performed By: #### L 500.4050, L100.0100, L3100.5000 #### [facility] [address] [place], [address] Lymphocytes/100 WBC (Bld) 11.8 % Low 19-41 [facility] Comment on above: Performed By: #### L 500.4050, L100.0100, L3100.5000 #### [facility] [address] [place], [address] MCH (RBC) [Entitic mass] 31.5 pg Normal 27.0-32.0 [facility] Comment on above: Performed By: #### L 500.4050, L100.0100, L3100.5000 #### [facility] [address] [place], [address] MCHC (RBC) [Mass/Vol] 34.2 g/dL Normal 32-36 [facility] Comment on above: Performed By: #### L 500.4050, L100.0100, L3100.5000 #### [facility] [address] [place], [address] MCV (RBC) [Entitic vol] 92.2 fL Normal 81-99 [facility] Comment on above: Performed By: #### L 500.4050, L100.0100, L3100.5000 #### [facility] [address] [place], [address] Monocytes/100 WBC (Bld) 8.5 % Normal 0-10 [facility] Comment on above: Performed By: #### L 500.4050, L100.0100, L3100.5000 #### [facility] [address] [place], [address] Neutrophils/100 WBC (Bld) 77.3 % High 47-70 [facility] Comment on above: Performed By: #### L 500.4050, L100.0100, L3100.5000 #### [facility] [address] [place], [address] Nucleated RBC (Bld) [#/Vol] 0 10*3/uL Normal 0-5 [facility] Comment on above: Performed By: #### L 500.4050, L100.0100, L3100.5000 #### [facility] [address] [place], [address] Platelet mean volume (Bld) [Entitic vol] 8.9 fL Normal 6.2-12.0 [facility] Comment on above: Performed By: #### L 500.4050, L100.0100, L3100.5000 #### [facility] [address] [place], [address] Platelets (Bld) [#/Vol] 235 10*3/uL Normal 150-450 [facility] Comment on above: Performed By: #### L 500.4050, L100.0100, L3100.5000 #### [facility] [address] [place], [address] RBC (Bld) [#/Vol] 3.97 10*6/uL Low 4.2-5.4 [facility] Comment on above: Performed By: #### L 500.4050, L100.0100, L3100.5000 #### [facility] [address] [place], [address] RDW SD 44.4 fl High 35.1-43.9 [facility] Comment on above: Performed By: #### L 500.4050, L100.0100, L3100.5000 #### [facility] [address] [place], [address] WBC (Bld) [#/Vol] 4.9 10*3/uL Normal 4.4-11.0 [facility] Comment on above: Performed By: #### L 500.4050, L100.0100, L3100.5000 #### [facility] [address] [place], [address] Cancer antigen 125 (CA-125) measurementOrdered By: Magaly Case on 07-08-2024 Cancer antigen 125 (CA-125) measurement 3.2 U/mL 0.0-38.1 [facility] Comment on above: [facility] [place] ectrochemiluminescence Immunoassay(ECLIA)Values obtained with different assay methods or kits cannotbe used interchangeably. Results cannot be interpreted asabsolute evidence of the presence or absence of malignantdisease.Performed at: [facility] [id number] Director: Denis Pineda PhD, Phone: [phone] Carbon dioxide, total [Moles /volume] in Central venous bloodOrdered By: Magaly Case on 07-08-2024 CO2 [Moles/Vol] 25.7 mmol/L 21.0-32.0 [facility] Chloride assayOrdered By: Amandeep Case on 07-08-2024 Chloride [Moles/Vol] 105 mmol/L 98-108 [facility] Comprehensive Metabolic Prof ilon 07-08-2024 Albumin [Mass/Vol] 4.0 g/dL Normal 3.5-5.0 [facility] Comment on above: Performed By: #### L 500.4050, L100.0100, L3100.5000 #### [facility] [address] [place], [address] Albumin/Globulin [Mass ratio] 1.4 {ratio} Normal 0.9-2.4 [facility] Comment on above: Performed By: #### L 500.4050, L100.0100, L3100.5000 #### [facility] [address] [place], [address] ALK PHOS 128 U/L High 35-104 [facility] Comment on above: Performed By: #### L 500.4050, L100.0100, L3100.5000 #### [facility] [address] [place], [address] ALT [Catalytic activity/Vol] 16 U/L Normal <=34 [facility] Comment on above: Performed By: #### L 500.4050, L100.0100, L3100.5000 #### [facility] [address] [place], [address] AST [Catalytic activity/Vol] 19 U/L Normal <=31 [facility] Comment on above: Performed By: #### L 500.4050, L100.0100, L3100.5000 #### [facility] [address] [place], [address] Bilirubin [Mass/Vol] 0.31 mg/dL Normal 0.00-1.30 [facility] Comment on above: Performed By: #### L 500.4050, L100.0100, L3100.5000 #### [facility] [address] [place], [address] BUN/CRE 18.9 RATIO Normal 10-20 [facility] Comment on above: Performed By: #### L 500.4050, L100.0100, L3100.5000 #### [facility] [address] [place], [address] Calcium [Mass/Vol] 9.4 mg/dL Normal 7.6-11.0 [facility] Comment on above: Performed By: #### L 500.4050, L100.0100, L3100.5000 #### [facility] [address] [place], [address] Chloride [Moles/Vol] 105 mmol/L Normal 98-108 [facility] Comment on above: Performed By: #### L 500.4050, L100.0100, L3100.5000 #### [facility] [address] [place], [address] CO2 [Moles/Vol] 25.7 mmol/L Normal 21.0-32.0 [facility] Comment on above: Performed By: #### L 500.4050, L100.0100, L3100.5000 #### [facility] [address] [place], [address] Creatinine [Mass/Vol] 0.74 mg/dL Normal 0.70-1.20 [facility] Comment on above: Performed By: #### L 500.4050, L100.0100, L3100.5000 #### [facility] [address] [place], [address] GAP 11 Normal 5-15 [facility] Comment on above: Performed By: #### L 500.4050, L100.0100, L3100.5000 #### [facility] [address] [place], [address] GFR/1.73 sq M.predicted among non-blacks MDRD (S/P/Bld) [Vol rate/Area] 95 mL/min/{1.73_m2} Normal >60 [facility] Comment on above: Result Comment: mL/m in/1.73m2 CKD-EPI Creatinine Equation (2020) Performed By: #### L 500.4050, L100.0100, L3100.5000 #### [facility] [address] [place], [address] Globulin (S) [Mass/Vol] 2.8 g/dL Normal 2.2-4.2 [facility] Comment on above: Performed By: #### L 500.4050, L100.0100, L3100.5000 #### [facility] [address] [place], [address] Glucose [Mass/Vol] 105 mg/dL High 70-99 [facility] Comment on above: Performed By: #### L 500.4050, L100.0100, L3100.5000 #### [facility] [address] [place], [address] Potassium [Moles/Vol] 4.1 mmol/L Normal 3.3-5.1 [facility] Comment on above: Performed By: #### L 500.4050, L100.0100, L3100.5000 #### [facility] [address] [place], [address] Sodium [Moles/Vol] 142 mmol/L Normal 133-145 [facility] Comment on above: Performed By: #### L 500.4050, L100.0100, L3100.5000 #### [facility] [address] [place], [address] T PROT 6.8 g/dL Normal 5.9-8.4 [facility] Comment on above: Performed By: #### L 500.4050, L100.0100, L3100.5000 #### [facility] [address] [place], [address] Urea nitrogen [Mass/Vol] 14 mg/dL Normal 4-19 [facility] Comment on above: Performed By: #### L 500.4050, L100.0100, L3100.5000 #### [facility] [address] [place], [address] Eosinophil percentageOrdered By: Magaly Case on 07-08-2024 Eosinophils/100 WBC (Bld) 1.4 % 0-5 [facility] Erythrocyte distribution wid th ratioOrdered By: Magaly Case on 07-08-2024 Erythrocyte distribution width (RBC) [Ratio] 13.2 % 11.6-14.6 [facility] Erythrocyte distribution wid th standard deviationOrdered By: Magaly Case on 07-08-2024 Erythrocyte distribution width (RBC) [Ratio] 44.4 fl High 35.1-43.9 [facility] Glomerular filtration rate ( GFR) estimation/1.73 sq m using serum, plasma, or whole bOrdered By: Magaly Case on 07-08-2024 GFR/1.73 sq M.predicted among non-blacks MDRD (S/P/Bld) [Vol rate/Area] 95 mL/min/{1.73_m2} >60 [facility] Comment on above: mL/min/1.73m2 CKD-EP I Creatinine Equation (2020) Hematocrit Auto (Bld) [Volum e fraction]Ordered By: Magaly Case on 07-08-2024 Hematocrit (Bld) [Volume fraction] 36.6 % Low 37-47 [facility] Hemoglobin measurementOrdere d By: Magaly Case on 07-08-2024 Hemoglobin (Bld) [Mass/Vol] 12.5 g/dL 12.0-15.0 [facility] Immature granulocytes/100 WB C Auto (Bld)Ordered By: Magaly Case on 07-08-2024 Immature granulocytes/100 WBC (Bld) 0.600 % 0.0-0.9 [facility] Comment on above: IG% - Immature Granu locytes (promyelocytes, myelocytes and metamyelocytes) > 1% indicates that a LEFT SHIFT is Present. Laboratory - Chemistry and C hemistry - challengeOrdered By: Magaly Case on 07-08-2024 AST [Catalytic activity/Vol] 19 U/L <32 [facility] MCV (mean corpuscular volume ) determinationOrdered By: Magaly Case on 07-08-2024 MCV (RBC) [Entitic vol] 92.2 fL 81-99 [facility] Mean corpuscular hemoglobin (MCH) determinationOrdered By: Magaly ArmasEvie on 07-08-2024 MCH (RBC) [Entitic mass] 31.5 pg 27.0-32.0 [facility] Mean corpuscular hemoglobin concentration (MCHC) determinationOrdered By: Magaly ArmasEvie on 07-08-2024 MCHC (RBC) [Mass/Vol] 34.2 g/dL 32-36 [facility] Mean platelet volume determi nationOrdered By: Magaly Case on 07-08-2024 Platelet mean volume (Bld) [Entitic vol] 8.9 fL 6.2-12.0 [facility] Monocyte percentageOrdered B y: Magaly Case on 07-08-2024 Monocytes/100 WBC (Bld) 8.5 % 0-10 [facility] Neutrophil percentageOrdered By: [facility] on 07-08-2024 Neutrophils/100 WBC (Bld) 77.3 % High 47-70 [facility] Nucleated red blood cell per centageOrdered By: Magaly Evie on 07-08-2024 Nucleated RBC/100 WBC (Bld) [Ratio] 0 % 0-5 [facility] Oncology Visit Reporton 06-19 Oncology Visit Report [facility] [place] [facility] [address] [place] [address] OFFICE VISIT Date of Service: 07/08/24 1039 MR#: [id number] Acct: [id number] Name: JULIETH MARLEY Rep #: [id number] : 1965 From: Tyler Masters MD Age/Sex: 58/F Location: [facility] Status: Signed HPI Subjective Date of Service 07/08/24 Chief Complaint F/u for endometrial cancer. History of Present Illness 58-year-old woman was diagnosed with endometrial cancer stage IA, she had total hysterectomy and BSO in May 2019. She had vaginal bleed and was found to have vaginal cuff mass. Biopsy on 05/19/2023 showed endometrial adenocarcinoma, MMR negative. She underwent partial vaginectomy on 05/23/2023, pathology showed squamous vaginal mucosa with involvement by well-differentiated endometrial carcinoma, endometrioid type, positive for ER/[place]. CT on 06/15/2023 showed 1.5cm nodule posterior to R lower abdominal rectus sheath. Declined chemotherapy with radiation therapy. PET/CT obtained 06/27/23 showed no evidence of recurrent or metastatic disease. Completed salvage radiation therapy 07/10/23-08/11/23 and brachytherapy afterward. She is on observation. Comes for follow up. Feels well. [facility] Medical History Diarrhea Vagina neoplasm Dyspnea on exertion Left arm pain Eczema Posterior right knee pain Fatigue Urinary incontinence Endometrial cancer Thickened endometrium BV (bacterial vaginosis) Hypothyroid Gastritis High cholesterol Surgical History Status post complete hysterectomy History of bilateral oophorectomy History of [facility] History of tonsillectomy Family History Father Arthritis Myocardial infarction Heart disease Mother Myocardial infarction Heart disease Osteoporosis Brother Colon cancer Sister Depression Suicide attempt Grandmother CVA (cerebral vascular accident) Uncle Melanoma Lung cancer Social History Smoking Status: Never smoker alcohol intake: never substance use type: does not use caffeine: No what type of physical activity do you participate in: none seatbelt use: always do you feel safe at home: Yes additional social history: -Patient works at [employer] Eyes Eyes: Reports systems reviewed and no addt'l complaints, except as documented ENT HEENT: Reports systems reviewed and no addt'l complaints, except as documented Cardiovascular Cardiovascular: Reports systems reviewed and no addt'l complaints, except as documented Respiratory/Chest Respiratory/Chest: Reports systems reviewed and no addt'l complaints, except as documented Gastrointestinal Gastrointestinal: Reports systems reviewed and no addt'l complaints, except as documented Genitourinary Genitourinary: Reports systems reviewed and no addt'l complaints, except as documented Musculoskeletal Musculoskeletal: Reports systems reviewed and no addt'l complaints, except as documented Integumentary Integumentary: Reports systems reviewed and no addt'l complaints, except as documented Neurologic Neurologic: Reports systems reviewed and no addt'l complaints, except as documented Psychiatric Psychiatric: Reports systems reviewed and no addt'l complaints, except as documented Endocrine Endocrinology: Reports systems reviewed and no addt'l complaints, except as documented Hematologic/Lymphatic Hematologic/Lymphatic: Reports systems reviewed and no addt'l complaints, except as documented Allergic/Immunologic Allergic/Immunologic: Reports systems reviewed and no addt'l complaints, except as documented Intake Vital Signs 12/28/23 15:09 07/03/24 16:02 07/08/24 10:09 07/08/24 10:40 07/08/24 10:40 Height 5 ft 4 in 5 ft 4 in 5 ft 4 in 5 ft 4 in Weight: 113.908 kg 113.908 kg BMI 43.1 BP 108/71 Blood Pressure Location Rt brachial Position Sitting Respiration 16 Pulse 72 Pulse Source Monitor Temp 97.6 F L Temperature Source Temporal Artery Pulse Oximetry (%) 94 Oxygen Delivery Method room air Intake Is patient in pain?: No Allergies Penicillins Allergy (Severe, Verified 07/08/24 10:43) Unknown latex Allergy (Intermediate, Verified 07/08/24 10:43) Unknown Medications ???Medication ???Instructions ???Recorded ???Confirmed ???Type multivitamin 1 tab PO DAILY 01/18/18 07/08/24 H istory cholecalciferol (vitamin D3) 50 2,000 unit PO DAILY 04/03/1907/08 History mcg (2,000 unit) tablet famotidine 20 mg tablet (Pepcid) 20 mg PO DAILY 04/03/19 07/08/24 H istory mv-min-vit C-ascorb tab PO DAILY 12/13/22 07/08/24 His tory Nw-Ojy-Eui-herb #124 333 mg-1.7 mg chewable (more content not included)... Normal [facility] Platelet countOrdered By: Ty ra Case on 07-08-2024 Platelets (Bld) [#/Vol] 235 10*3/uL 150-450 [facility] Potassium measurement (mass/ volume)Ordered By: Magaly Case on 07-08-2024 Potassium (Unsp spec) [Mass/Vol] 4.1 mmol/L 3.3-5.1 [facility] RBC Auto (Bld) [#/Vol]Ordere d By: Magaly Case on 07-08-2024 RBC (Bld) [#/Vol] 3.97 10*6/uL Low 4.2-5.4 [facility] Radiation Oncology Visiton 0 07-08-2024 Radiation Oncology Visit [facility] [address] [place] [address] OFFICE VISIT Date of Service: 07/08/24 1004 MR#: [id number] Acct: [id number] Name: JULIETH MARLEY Rep #: [id number] : 1965 From: Best Maynard DO Age/Sex: 58/F Location: [facility] Status: Signed Intake Vital Signs 12/28/23 15:09 07/03/24 16:02 07/08/24 10:09 Height 5 ft 4 in 5 ft 4 in 5 ft 4 in Weight: 251 lb 2 oz BMI 43.1 BP 108/71 Blood Pressure Location Rt brachial Position Sitting Respiration 16 Pulse 72 Pulse Source Monitor Temp 97.6 F L Temperature Source Temporal Artery Pulse Oximetry (%) 94 Oxygen Delivery Method room air Intake Visit Reasons: 6 MONTH F/U ENDOMETRIAL Is patient in pain?: No Allergies Penicillins Allergy (Severe, Verified 07/08/24 10:08) Unknown latex Allergy (Intermediate, Verified 07/08/24 10:08) Unknown Medications ???Medication ???Instructions ???Recorded ???Confirmed ???Type multivitamin 1 tab PO DAILY 01/18/18 07/08/24 H istory cholecalciferol (vitamin D3) 50 2,000 unit PO DAILY 04/03/1907/08 History mcg (2,000 unit) tablet famotidine 20 mg tablet (Pepcid) 20 mg PO DAILY 04/03/19 07/08/24 H istory mv-min-vit C-ascorb tab PO DAILY 12/13/22 07/08/24 His tory Hv-Gfm-Ejf-herb #124 333 mg-1.7 mg chewable tablet (Airborne (ascorbate sodium)) atorvastatin 40 mg tablet 40 mg PO DAILY #90 tabs 02/27/24 0 07/08/24 Rx levothyroxine 50 mcg tablet 50 mcg PO DAILY #90 tabs 05/17/24 07/08/24 Rx sertraline 50 mg tablet 50 mg PO QDAY #90 tabs 05/22/24 Rx vibegron 75 mg tablet (Gemtesa) 75 mg PO QDAY 07/03/24 07/08/24 Hi story PFSH PFSH Medical History Diarrhea Vagina neoplasm Dyspnea on exertion Left arm pain Eczema Posterior right knee pain Fatigue Urinary incontinence Endometrial cancer Thickened endometrium BV (bacterial vaginosis) Hypothyroid Gastritis High cholesterol Home Medications ???Medication ???Instructions ???Recorded ???Last Taken ???Type multivitamin 1 tab PO DAILY 01/18/18 Unknown Hi story cholecalciferol (vitamin D3) 50 2,000 unit PO DAILY 04/03/19 Unkno wn History mcg (2,000 unit) tablet famotidine 20 mg tablet (Pepcid) 20 mg PO DAILY 04/03/19 04/30/19 0 5:00 History mv-min-vit C-ascorb tab PO DAILY 12/13/22 Unknown Hist ory Lf-Hxy-Ctk-herb #124 333 mg-1.7 mg chewable tablet (Airborne (ascorbate sodium)) atorvastatin 40 mg tablet 40 mg PO DAILY #90 tabs 02/27/24 U nknown Rx levothyroxine 50 mcg tablet 50 mcg PO DAILY #90 tabs 05/17/24 Unknown Rx sertraline 50 mg tablet 50 mg PO QDAY #90 tabs 05/22/24 Un known Rx vibegron 75 mg tablet (Gemtesa) 75 mg PO QDAY 07/03/24 Unknown His tory Allergy/AdvReac Type Severity Reaction Status Date / Time Penicillins Allergy Severe Unknown Verified 07/08/24 10:08 latex Allergy Intermediate Unknown Verified 07/08/24 10:08 Family History Father Arthritis Myocardial infarction Heart disease Mother Myocardial infarction Heart disease Osteoporosis Brother Colon cancer Sister Depression Suicide attempt Grandmother CVA (cerebral vascular accident) Uncle Melanoma Lung cancer Surgical History Status post complete hysterectomy History of bilateral oophorectomy History of [facility] History of tonsillectomy Social History Smoking Status: Never smoker alcohol intake: never substance use type: does not use caffeine: No what type of physical activity do you participate in: none seatbelt use: always do you feel safe at home: Yes additional social history: -Patient works at [employer] Diagnosis: Julieth Marley is a 58 year-old female diagnosed with FIGO stage IA (pT1a pN0 (sn) Mx) grade 2 endometrioid adenocarcinoma status post endometrial biopsy (04/30/2019), completion of total hysterectomy and bilateral salpingo-oophorectomy (May 2019), now with recurrent disease status post evaluation and biopsy (05/21/2023), local resection of vaginal recurrent disease (05/23/2023), CT C/A/P (06/15/2023) and PET scan (06/27/2023). From 07/10/2023 ??? 08/11/2023 she completed adjuvant radiation, she then completed adjuvant brachytherapy on 08/30/2023. History of Present Illness: 04/30/2019: Patient completed endometrial biopsy.??? Pathology demonstrated FIGO grade 1???2 endometrial adenocarcinoma. May 2019: Patient completed total hysterectomy and bilateral salpingo-oophorectomy.??? Pathology demonstrated FIGO grade 2 endometrioid adenocarcinoma with 1 mm depth of invasion (myometrial thickness is 13 mm), n (more content not included)... Normal [facility] Serum creatinine measurement (mass/volume)Ordered By: Magaly Case on 07-08-2024 Creatinine [Mass/Vol] 0.74 mg/dL 0.70-1.20 [facility] Serum globulin measurementOr dered By: Magaly Case on 07-08-2024 Globulin (S) [Mass/Vol] 2.8 g/dL 2.2-4.2 [facility] Serum glucose measurement (m ass/volume)Ordered By: Magaly Csae on 07-08-2024 Glucose [Mass/Vol] 105 mg/dL High 70-99 [facility] Serum or plasma alanine dexter otransferase (ALT) measurementOrdered By: Magaly Case on 07-08-2024 ALT [Catalytic activity/Vol] 16 U/L <35 [facility] Serum or plasma albumin cornell urement (mass/volume)Ordered By: Magaly Case on 07-08-2024 Albumin [Mass/Vol] 4.0 g/dL 3.5-5.0 [facility] Serum or plasma albumin/glob ulin mass ratioOrdered By: Magayl Case on 07-08-2024 Albumin/Globulin [Mass ratio] 1.4 {ratio} 0.9-2.4 [facility] Serum or plasma alkaline yari sphatase measurementOrdered By: Magaly Case on 07-08-2024 ALP [Catalytic activity/Vol] 128 U/L High 35-104 [facility] Serum or plasma calcium cornell urement (mass/volume)Ordered By: Magaly Case on 07-08-2024 Calcium [Mass/Vol] 9.4 mg/dL 7.6-11.0 [facility] Serum or plasma urea nitroge n measurement (mass/volume)Ordered By: Magaly Case on 07-08-2024 Urea nitrogen [Mass/Vol] 14 mg/dL 4-19 [facility] Sodium levelOrdered By: Magaly Case on 07-08-2024 Sodium [Moles/Vol] 142 mmol/L 133-145 [facility] Total proteinOrdered By: Clotilde Case on 07-08-2024 Protein [Mass/Vol] 6.8 g/dL 5.9-8.4 [facility] White blood cell (WBC) count Ordered By: Magaly Case on 07-08-2024 WBC (Bld) [#/Vol] 4.9 10*3/uL 4.4-11.0 [facility] Internal Medicine Office Vis mansoor 07-03-2024 Internal Medicine Office Visit [facility] [address] [place] [address] [place] [address] OFFICE VISIT Date of Service: 07/03/24 MR#: [id number] Acct: [id number] Name: JULIETH MARLEY Rep #: [id number] : 1965 Provider: Dr. Kristi monae, DO Age/Sex: 58/F Location: [facility] Status: Signed Intake Vital Signs 05/22/24 16:18 07/03/24 16:02 Height 5 ft 4 in 5 ft 4 in Weight: 253 lb 6 oz 252 lb BMI 43.4 43.2 BP 126/78 H 114/66 Blood Pressure Location Lt brachial Lt brachial Position Sitting Sitting Respiration 16 14 Pulse 84 83 Pulse Source Monitor Monitor Temp 96 F L 97.4 F L Temp Source Temporal Temporal Pulse Oximetry (%) 96 97 Oxygen Delivery Method room air room air Intake Visit Reasons: 6 WK FU Chief Complaint: Recheck on depression and problems with frequent loose stools. [employer] Operator Required: No Is patient in pain?: No Allergies Penicillins Allergy (Severe, Verified 07/03/24 15:53) Unknown latex Allergy (Intermediate, Verified 07/03/24 15:53) Unknown Medications ???Medication ???Instructions ???Recorded ???Confirmed ???Type multivitamin 1 tab PO DAILY 01/18/18 07/03/24 H istory cholecalciferol (vitamin D3) 50 2,000 unit PO DAILY 04/03/1907/03 History mcg (2,000 unit) tablet famotidine 20 mg tablet (Pepcid) 20 mg PO DAILY 04/03/19 07/03/24 H istory mv-min-vit C-ascorb tab PO DAILY 12/13/22 07/03/24 His tory Nv-Vlc-Hji-herb #124 333 mg-1.7 mg chewable tablet (Airborne (ascorbate sodium)) atorvastatin 40 mg tablet 40 mg PO DAILY #90 tabs 02/27/24 0 07/03/24 Rx levothyroxine 50 mcg tablet 50 mcg PO DAILY #90 tabs 05/17/24 07/03/24 Rx sertraline 50 mg tablet 50 mg PO QDAY #90 tabs 05/22/24 Rx vibegron 75 mg tablet (Gemtesa) 75 mg PO QDAY 07/03/24 07/03/24 Hi story Nurse's Note: Pt is here to f/u on sertraline. Denies any side effects and thinks she notices a difference in her mood. States she is still having diarrhea, which is ongoing states she thinks it could be ibs. Seems to be worse when she has something to do and is stressing. Is not treating w/ anything currently. Food and drinks do not make a difference. States that she is having on average a few bouts of diarrhea a week. States she did have some blood monday but was going a lot more. Denies abdominal pain/cramping but does state since radiation she has had a strange bilateral lower quadrant feeling. Denies nausea, loss of appetite or vomiting. [facility] Medical History (Updated 07/03/24 @ 16:[address] Kristi Daigle, ) Diarrhea Vagina neoplasm Dyspnea on exertion Left arm pain Eczema Posterior right knee pain Fatigue Urinary incontinence Endometrial cancer Thickened endometrium BV (bacterial vaginosis) Hypothyroid Gastritis High cholesterol Surgical History Status post complete hysterectomy History of bilateral oophorectomy History of [facility] History of tonsillectomy Family History Father Arthritis Myocardial infarction Heart disease Mother Myocardial infarction Heart disease Osteoporosis Brother Colon cancer Sister Depression Suicide attempt Grandmother CVA (cerebral vascular accident) Uncle Melanoma Lung cancer Social History Smoking Status: Never smoker alcohol intake: never substance use type: does not use caffeine: No what type of physical activity do you participate in: none seatbelt use: always do you feel safe at home: Yes additional social history: -Patient works at [employer] Questionnaire PQH-9 BMS Over the last 2 weeks, how often have you been bothered by any of the following problems? 1. Little interest or pleasure in doing things: not at all 2. Feeling down, depressed, or hopeless: several days 3. Trouble falling or staying asleep, or sleeping too much: nearly every day 4. Feeling tired or having little energy: nearly every day 5. Poor appetite or overeating: nearly every day 6. Feeling bad about yourself - or that you are a failure or have let yourself and your family down: several days 7. Trouble concentrating on things, such as reading the newspaper or watching television: not at all 8. Moving or speaking so slowly that other people could have noticed? - Or the opposite - being so fidgety or restless that you have been moving around a lot more than usual: not at all 9. Thoughts that you would be better off or of hurting yourself in some way: not at all Total score: 11 If you checked off any problems, how difficult have these problems made it for you to do your work, take care of things at home, or get along with other people?: not difficu (more content not included)... Normal [facility] Internal Medicine Office Vis mansoor 05-22-2024 Internal Medicine Office Visit [facility] [place] [address] [place] [address] OFFICE VISIT Date of Service: 05/22/24 MR#: [id number] Acct: [id number] Name: JULIETH MARLEY Rep #: [id number] : 1965 Provider: Dr. Kristi monae, DO Age/Sex: 58/F Location: 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 Accompanied by: Self Is patient in pain?: No Allergies Penicillins Allergy (Severe, Verified 05/22/24 16:15) Unknown latex Allergy (Intermediate, Verified 05/22/24 16:15) Unknown Medications ???Medication ???Instructions ???Recorded ???Confirmed ???Type multivitamin 1 tab PO DAILY 01/18/18 05/22/24 H istory cholecalciferol (vitamin D3) 50 2,000 unit PO DAILY 04/03/1905/22 History mcg (2,000 unit) tablet famotidine 20 mg tablet (Pepcid) 20 mg PO DAILY 04/03/19 05/22/24 H istory mv-min-vit C-ascorb tab PO DAILY 12/13/22 05/22/24 His tory Gb-Kbw-Htm-herb #124 333 mg-1.7 mg chewable tablet (Airborne (ascorbate sodium)) atorvastatin 40 mg tablet 40 mg PO DAILY #90 tabs 02/27/24 0 05/22/24 Rx levothyroxine 50 mcg tablet 50 mcg PO DAILY #90 tabs 05/17/24 05/22/24 Rx sertraline 50 mg tablet 50 mg PO QDAY #90 tabs 05/22/24 Rx Have you fallen in the past year?: No PFSH Medical History Vagina neoplasm Dyspnea on exertion Left arm pain Eczema Posterior right knee pain Fatigue Urinary incontinence Endometrial cancer Thickened endometrium BV (bacterial vaginosis) Hypothyroid Gastritis High cholesterol Surgical History Status post complete hysterectomy History of bilateral oophorectomy History of LAV History of tonsillectomy Family History Father Arthritis Myocardial infarction Heart disease Mother Myocardial infarction Heart disease Osteoporosis Brother Colon cancer Sister Depression Suicide attempt Grandmother CVA (cerebral vascular accident) Uncle Melanoma Lung cancer Social History Smoking Status: Never smoker alcohol intake: never substance use type: does not use caffeine: No what type of physical activity do you participate in: none seatbelt use: always do you feel safe at home: Yes additional social history: -Patient works at [employer] [facility] HPI Chief Complaint: anxiety Details: JULIETH MARLEY, is a 58 F who presents to the office today for anxiety and depression. This patient has been through the loss of her spouse and the separation from her boyfriend. She said uterine cancer with recurrence of uterine cancer. 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 At this point in time she is just struggling with keeping things together. She says she sleeps for short burst and gets awake and cannot go to sleep. She has trouble making decisions something she is always had trouble doing but it is even worse now. And she just feels like she is going in circles and cannot see her way through. She says she is always felt like somebody who could encourage herself enough to get through the day but she is feeling less and less like that. ROS Const Constitutional: No body ache, excessive sweating, fatigue, fever(s), frequent falls, headache(s), snoring, weakness, weight change, sleep problems or change in appetite Eyes Eyes: No blurry vision, change in vision, eye pain or Light sensitivity ENT ENT: No abnormal hearing, ear or mastoid pain, tinnitus, nasal congestion, headache(s), neck pain or sore throat Resp Respiratory: No cough, shortness of breath, snoring or wheezing Cardio Cardiology: No chest pain at rest, chest pain with exertion, excessive sweating, shortness of breath, dyspnea on exertion, lightheadedness, orthopnea or palpitations Gastro GI: No abdominal pain, change in bowel habits, constipation, cramping, diarrhea, nausea/dyspepsia or vomiting Genitourinary-Female: No burning urination, painful urination, urinary incontinence, urinary frequency, blood in urine, abnormal periods or pelvic pain Musc Musculoskeletal: No abnormal gait, joint pain, back pain, limited range of motion, neck pain, numbness, stiffnes (more content not included)... [facility] 36on 04-05-2024 [address] Faxed with Airtime to Dr. Snyder at [phone] [facility] 36 ----- Message from Romeo Shine MD sent at 04/05/2024 10:48 AM EST ----- Can you fax this note and the referral to Dr. Sherry Snyder in [place]? Thank you! [address] [place] [address] [facility] E-mail: [email or web address] [facility] [address] Maynard at [phone] via [employer]. Confirmation scanned within media [facility] 36 ----- Message from Romeo Shine MD sent at 04/05/2024 10:49 AM EST ----- Also please fax to [facility] in [place]. Thanks! 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 Family History Problem Relation Age of Onset Heart attack Mother Osteoporosis Mother High Blood Pressure Mother Heart disease Mother Miscarriages / Stillbirths Mother Stroke Mother Heart attack Father Heart disease Father Arthritis Father Diabetes Father Other Sister Comments: suicide attempt Depression Sister Skin cancer Sister Arthritis Sister Colon cancer Brother Brain cancer Brother Cancer Brother Skin cancer Mother's Sister Skin cancer Mother's Brother Diabetes Maternal Grandmother Stroke Maternal Grandmother Cancer Sister Depression Sister Miscarriages / Stillbirths Sister Diabetes Sister Hypertension Sister Family Status - Relation Status Age at Mother Father Sister Alive Brother Mother's Sister Alive Mother's Brother Maternal Grandmother Sister Sister Level of Service:[address] [place] OFFICE/OUTPATIENT ESTABLISHED LOW MDM 20 MIN Reason for Visit and Comments: Endometrial Cancer [562] - Recurrent endometrial cancer -surveillance of disease. [facility] Progress Noteon 04-05-2024 Progress Note Chief Complaint Patient presents with Endometrial Cancer Recurrent endometrial cancer -surveillance of disease. HISTORY OF THE PRESENT ILLNESS: Julieth Marley is a pleasant 58 y.o. female with recurrent endometrial cancer. Patient underwent robotic endometrial cancer staging in May 2019. Final pathology showed stage Ia, FIGO grade 2, -LVSI, endometrioid endometrial adenocarcinoma. Patient did not have high-intermediate risk of recurrence and therefore no adjuvant treatment was indicated. Discussed surveillance. Patient was planning on following up with Dr. Amin for surveillance but she was lost to follow up. She presented with intermittent vaginal bleeding present for several months. On examination there was a mass at the vaginal apex, vascular and cauliflower-like, friable. Underwent partial radical vaginectomy 05/23/2023 which confirmed recurrent, well differentiated endometrial adenocarcinoma. pMMR proteins. 95% ER+. 06/15/23 CT C/A/P showed 1.5cm soft tissue density nodule posterior to right lower abdominal rectus sheath that is nonspecific but could represent a small peritoneal tumor implant. No other retroperitoneal, omental, mesenteric mass/nodule identified. No evidence of other mass, lymphadenopathy, or metastatic disease. PET/CT 06/26 negative for metastatic disease. Treated with EBRT 4500 cGy in [address] Maynard from 07/10/2023-08/11/2023. Received adjuvant vaginal cylinder brachytherapy consisting of 30 Stratton delivered over 5 fractions, twice weekly, utilizing a 3cm cylinder to 10cm length prescribed to surface. Dr. Cox. She received her final fraction on 08/30/2023. Interval history: The patient presents to the office today for routine surveillance of disease. She has been doing well since her last visit. Denies headaches, vision changes, chest pain, shortness of breath. Denies abdominal or pelvic pain. Reports ongoing pain with urination that has been present since completion of her adjuvant brachytherapy. Not urinating more frequently. No hematuria. Doesn't feel like she completely empties her bladder. More dribbling. Does experience gushes of urine/urinary incontinence. Unable to determine associated factors - such as leakage on the way to the restroom, keys in the door, etc. Was on pyridium in the past but this didn't really help. Tried azo and cranberry juice without improvement. Denies vaginal bleeding or discharge. Had diarrhea with the radiation and that has improved but now lactose intolerant. Changed her mild and this helped. Has follow up with Dr. Maynard 06/2024. Past Medical History: Diagnosis Date Arthritis BV (bacterial vaginosis) Cancer (CMS/HCC) (HCC) Endometrial cancer (CMS/HCC) ([facility]) Fissure, anal Gastritis GERD (gastroesophageal reflux disease) History of stress test 2023 Hyperlipidemia Hypothyroidism PMB (postmenopausal bleeding) Thickened endometrium Past Surgical History: Procedure Laterality Date COLONOSCOPY HYSTERECTOMY b/l salpingo oophorectomy, lymph node sampling; DR. SRAVAN MARTIN OTHER SURGICAL HISTORY 05/23/2023 Cystoscopy with partial vaginectomy TONSILLECTOMY (HISTORICAL) Obstetrical History: Family History Problem Relation Name Age of Onset Heart attack Mother Nancy Osteoporosis Mother Nancy High Blood Pressure Mother Nancy Heart disease Mother Nancy Miscarriages / Stillbirths Mother Nancy Stroke Mother Nancy Heart attack Father Khurram Heart disease Father Khurram Arthritis Father Khurram Diabetes Father Khurram Other ([id number]) Sister Analia suicide attempt Depression Sister Analia Skin cancer Sister Analia Arthritis Sister Analia Colon cancer Brother Khurram Brain cancer Brother Khurram Cancer Brother Khurram Skin cancer Mother's Sister Skin cancer Mother's Brother Diabetes Maternal Grandmother Yael Stroke Maternal Grandmother Yael Cancer Sister Chela Depression Sister Chela Miscarriages / Stillbirths Sister Chela Diabetes Sister Vijaya Hypertension Sister Vijaya Social History Socioeconomic History Marital status: Spouse name: Not on file Number of children: Not on file Years of education: Not on file Highest education level: Not on file Occupational History Not on file Tobacco Use Smoking status: Never Smokeless tobacco: Never Vaping Use Vaping status: Never Used Substance and Sexual Activity Alcohol use: Not Currently Drug use: Never Sexual activity: Not Currently Partners: Male control/protection: Abstinence, Post-menopausal Other Topics Concern Not on file Social History Narrative Not on file Social Drivers of Health Financial Resource Strain: Not on file Food Insecurity: Not on file Transportation Needs: Not on file Physical Activity: Not on file Stress: Not on file Social Connections: Not on file Intimate Partner Violence: Not on file Housing Stability: Not on file Current Outpatient Medication (more content not included)... Normal [facility] Internal Medicine Office Vis mansoor 02-27-2024 Internal Medicine Office Visit [facility] [address] [place] [id number] OFFICE VISIT Date of Service: 02/27/24 MR#: [id number] Acct: [id number] Name: JULIETH MARLEY Rep #: [id number] : 1965 Provider: Dr. Kristi Finley own, DO Age/Sex: 58/F Location: 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 Accompanied by: Self Is patient in pain?: No Allergies Penicillins Allergy (Severe, Verified 02/27/24 15:00) Unknown latex Allergy (Intermediate, Verified 02/27/24 15:00) Unknown Medications ???Medication ???Instructions ???Recorded ???Confirmed ???Type multivitamin 1 tab PO DAILY 01/18/18 02/27/24 History cholecalciferol (vitamin D3) 50 2,000 unit PO DAILY 04/03/19 02/27/24 History mcg (2,000 unit) tablet famotidine 20 mg tablet (Pepcid) 20 mg PO DAILY 04/03/19 02/27/24 History mv-min-vit C-ascorb tab PO DAILY 12/13/22 02/27/24 History Yd-Yjz-Tmd-herb #124 333 mg-1.7 mg chewable tablet (Airborne (ascorbate sodium)) diphenoxylate-atropine 2.5 1 tab PO BID PRN diarrhea #30 tabs 08/09/23 02/27/24 Rx mg-0.025 mg tablet (Lomotil) phenazopyridine 200 mg tablet 200 mg PO TID PRN pain #30 tabs 08/15/23 02/27/24 Rx atorvastatin 40 mg tablet 40 mg PO DAILY #90 tabs 02/27/24 02/27/24 Rx levothyroxine 50 mcg tablet 50 mcg PO DAILY #90 tabs 02/27/24 02/27/24 Rx PFSH Medical History Vagina neoplasm Dyspnea on exertion Left arm pain Eczema Posterior right knee pain Fatigue Urinary incontinence Endometrial cancer Thickened endometrium BV (bacterial vaginosis) Hypothyroid Gastritis High cholesterol Surgical History Status post complete hysterectomy History of bilateral oophorectomy History of LAV History of tonsillectomy Family History Father Arthritis Myocardial infarction Heart disease Mother Myocardial infarction Heart disease Osteoporosis Brother Colon cancer Sister Depression Suicide attempt Grandmother CVA (cerebral vascular accident) Uncle Melanoma Lung cancer Social History Smoking Status: Never smoker alcohol intake: never substance use type: does not use caffeine: No what type of physical activity do you participate in: none seatbelt use: always do you feel safe at home: Yes additional social history: -Patient works at [employer] HPI HPI Chief Complaint: follow up Details: JULIETH MARLEY, is a 58 F who presents to the office today for ROS Const Constitutional: No body ache, chills, excessive sweating, fatigue, fever(s), frequent falls, headache(s), snoring, weakness or change in appetite Eyes Eyes: No blurry vision, change in vision, eye pain or Light sensitivity ENT ENT: No abnormal hearing, ear or mastoid pain, tinnitus, nasal congestion, headache(s), neck pain or sore throat Resp Respiratory: No cough, shortness of breath, snoring or wheezing Cardio Cardiology: No chest pain at rest, chest pain with exertion, excessive sweating, dyspnea on exertion, lightheadedness, orthopnea or palpitations Gastro GI: No abdominal pain, change in bowel habits, constipation, cramping, diarrhea, nausea/dyspepsia or vomiting Genitourinary-Female: No burning urination, painful urination, urinary incontinence or urinary frequency Musc Musculoskeletal: No abnormal gait, joint pain, back pain, limited range of motion, muscle weakness, neck pain or numbness Skin Skin: No dry skin, redness, lesions, itchy eyes, rash or wounds Neuro Neurology: No abnormal gait, abnormal hearing, weakness, frequent falls, headache(s), memory loss or numbness Psych Psychiatric: No anxiety, No change in appetite, No depression, No memory loss and No Thoughts of harming yourself/Others Endo Endocrine: No cold intolerance, excessive sweating, fatigue, flushing, heat intolerance, increased thirst/drinking or increased hunger Aller/Imm Allergy/Immunologic: No itchy eyes, seasonal allergy symptoms, hives or wheezing Connor/Lymp Hematologic/Lymphatic: No easy bleeding or easy bruising Coding Level of Care Code Off vis,est,level 3 Diagnoses Acquired hypothyroidism E03.9 Hypothyroidism type: acquired High cholesterol E78.00 Dysuria R30.0 Assessment and Plan Asse (more content not included)... Normal [facility] Lipid Profileon 02-27-2024 Cholesterol [Mass/Vol] 189 mg/dL Normal 200 [facility] Comment on above: Result Comment: <200 mg/dL Desirable 200-240 mg/dL Borderline >240 mg/dL High Risk Performed By: #### L 500.4100, L501.9520 ####[facility] [address] [place], [address] Cholesterol in HDL [Mass/Vol] 54 mg/dL Normal [facility] Comment on above: Result Comment: The drugs N-Acetylcysteine and Metamizole may falsely depress this assay. Reference Range HDL <40 mg/dL Low HDL Cholesterol HDL >or= 60 mg/dL High HDL Cholesterol Performed By: #### L 500.4100, L501.9520 ####[facility] [address] [place], [address] Cholesterol in LDL [Mass/Vol] 88 mg/dL Normal 0-130 [facility] Comment on above: Performed By: #### L 500.4100, L501.9520 ####[facility] [address] [place], [address] Cholesterol in VLDL [Mass/Vol] 47 mg/dL High 5-40 [facility] Comment on above: Performed By: #### L 500.4100, L501.9520 ####[facility] [address] [place], [address] Triglyceride [Mass/Vol] 236 mg/dL High [facility] Comment on above: Result Comment: The drugs N-Acetylcysteine and Metamizole may falsely depress this assay. Serum Triglycerides Reference Interval Normal <150 mg/dL Borderline high 150 - 199 mg/dL High 200 - 499 mg/dL Very High > or = 500 mg/dL Performed By: #### L 500.4100, L501.9520 ####[facility] [address] [place], [address] Thyroid Stim Hormone (TSH)on 02-27-2024 TSH 2.330 uIU/mL Normal 0.358-3.740 [facility] Comment on above: Performed By: #### L 500.4100, L501.9520 ####[facility] [address] [place], [address] Urinalysis, Completeon 02-26 BACTERIA RARE Normal None Seen [facility] Comment on above: Order Comment: KENYATTA CTOR TO SPECIFY Performed By: #### L 400.0001 ####[facility] [address] [place], [address] EPI,SQUAMOUS 0-5 SEEN Normal 5-10 [facility] Comment on above: Order Comment: KENYATTA CTOR TO SPECIFY Performed By: #### L 400.0001 ####[facility] [address] [place], [address] WBC 10-25 SEEN Normal 0-5 [facility] Comment on above: Order Comment: KENYATTA CTOR TO SPECIFY Performed By: #### L 400.0001 ####[facility] [address] [place], [address] Mucus Ql (Urine sed) 0 SEEN Normal [facility] Comment on above: Order Comment: KENYATTA CTOR TO SPECIFY Performed By: #### L 400.0001 ####[facility] [address] [place], [address] RBC 0 SEEN Normal 0-5 [facility] Comment on above: Order Comment: KENYATTA CTOR TO SPECIFY Performed By: #### L 400.0001 ####[facility] [address] [place], [address] Cancer Antigen 125on 12-29- 024 CA 125 5.8 U/mL Normal 0.0-38.1 [facility] Comment on above: Result Comment: [employer] Electrochemiluminescence Immunoassay (ECLIA) Values obtained with different assay methods or kits cannot be used interchangeably. Results cannot be interpreted as absolute evidence of the presence or absence of malignant disease. Performed at: [address] [id number] Commercial Singer: Denis Pineda PhD, Phone: [phone] Performed By: #### L 500.4050, L100.0100, L3100.5000 ####[facility] [address] [place], [address] CBC W/Diff, Automatedon 12-18 0-2024 Absolute Lymph 0.36 X10 3/uL Low 0.83-4.51 [facility] Comment on above: Performed By: #### L 500.4050, L100.0100, L3100.5000 ####[facility] [address] [place], [address] Absolute Neut 3.7 X10 3/uL Normal 2.0-7.7 [facility] Comment on above: Performed By: #### L 500.4050, L100.0100, L3100.5000 ####[facility] [address] [place], [address] Basophils/100 WBC (Bld) 0.4 % Normal 0-1 [facility] Comment on above: Performed By: #### L 500.4050, L100.0100, L3100.5000 ####[facility] [address] [place], [address] Eosinophils/100 WBC (Bld) 2.0 % Normal 0-5 [facility] Comment on above: Performed By: #### L 500.4050, L100.0100, L3100.5000 ####[facility] [address] [place], [address] Erythrocyte distribution width (RBC) [Ratio] 12.8 % Normal 11.6-14.6 [facility] Comment on above: Performed By: #### L 500.4050, L100.0100, L3100.5000 ####[facility] [address] [place], [address] Hematocrit (Bld) [Volume fraction] 38.8 % Normal 37-47 [facility] Comment on above: Performed By: #### L 500.4050, L100.0100, L3100.5000 ####[facility] [address] [place], [address] Hemoglobin (Bld) [Mass/Vol] 12.3 g/dL Normal 12.0-15.0 [facility] Comment on above: Performed By: #### L 500.4050, L100.0100, L3100.5000 ####[facility] [address] [place], [address] IG% 0.200 Normal 0.0-0.9 [facility] Comment on above: Result Comment: IG% - Immature Granulocytes (promyelocytes, myelocytes and metamyelocytes) > 1% indicates that a LEFT SHIFT is Present. Performed By: #### L 500.4050, L100.0100, L3100.5000 ####[facility] [address] [place], [address] Lymphocytes/100 WBC (Bld) 8.0 % Low 19-41 [facility] Comment on above: Performed By: #### L 500.4050, L100.0100, L3100.5000 ####[facility] [address] [place], [address] MCH (RBC) [Entitic mass] 31.1 pg Normal 27.0-32.0 [facility] Comment on above: Performed By: #### L 500.4050, L100.0100, L3100.5000 ####[facility] [address] [place], [address] MCHC (RBC) [Mass/Vol] 31.7 g/dL Low 32-36 [facility] Comment on above: Performed By: #### L 500.4050, L100.0100, L3100.5000 ####[facility] [address] [place], [address] MCV (RBC) [Entitic vol] 98.0 fL Normal 81-99 [facility] Comment on above: Performed By: #### L 500.4050, L100.0100, L3100.5000 ####[facility] [address] [place], [address] Monocytes/100 WBC (Bld) 7.1 % Normal 0-10 [facility] Comment on above: Performed By: #### L 500.4050, L100.0100, L3100.5000 ####[facility] [address] [place], [address] Neutrophils/100 WBC (Bld) 82.3 % High 47-70 [facility] Comment on above: Performed By: #### L 500.4050, L100.0100, L3100.5000 ####[facility] [address] [place], [address] Nucleated RBC (Bld) [#/Vol] 0 10*3/uL Normal 0-5 [facility] Comment on above: Performed By: #### L 500.4050, L100.0100, L3100.5000 ####[facility] [address] [place], [address] Platelet mean volume (Bld) [Entitic vol] 8.7 fL Normal 6.2-12.0 [facility] Comment on above: Performed By: #### L 500.4050, L100.0100, L3100.5000 ####[facility] [address] [place], [address] Platelets (Bld) [#/Vol] 230 10*3/uL Normal 150-450 [facility] Comment on above: Performed By: #### L 500.4050, L100.0100, L3100.5000 ####[facility] [address] [place], [address] RBC (Bld) [#/Vol] 3.96 10*6/uL Low 4.2-5.4 [facility] Comment on above: Performed By: #### L 500.4050, L100.0100, L3100.5000 ####[facility] [address] [place], [address] RDW SD 45.8 fl High 35.1-43.9 [facility] Comment on above: Performed By: #### L 500.4050, L100.0100, L3100.5000 ####[facility] [address] [place], [address] WBC (Bld) [#/Vol] 4.5 10*3/uL Normal 4.4-11.0 [facility] Comment on above: Performed By: #### L 500.4050, L100.0100, L3100.5000 ####[facility] [address] [place], [address] [facility] Metabolic [facility] 12-28-2023 Albumin [Mass/Vol] 3.8 g/dL Normal 3.2-5.0 [facility] Comment on above: Performed By: #### L 500.4050, L100.0100, L3100.5000 ####[facility] [address] [place], [address] Albumin/Globulin [Mass ratio] 1.1 {ratio} Normal 0.9-2.4 [facility] Comment on above: Performed By: #### L 500.4050, L100.0100, L3100.5000 ####[facility] [address] [place], [address] ALK P 117 U/L Normal 45-117 [facility] Comment on above: Performed By: #### L 500.4050, L100.0100, L3100.5000 ####[facility] [address] [place], [address] ALT [Catalytic activity/Vol] 33 U/L Normal 13-56 [facility] Comment on above: Performed By: #### L 500.4050, L100.0100, L3100.5000 ####[facility] [address] [place], [address] AST [Catalytic activity/Vol] 23 U/L Normal 15-37 [facility] Comment on above: Performed By: #### L 500.4050, L100.0100, L3100.5000 ####[facility] [address] [place], [address] Bilirubin [Mass/Vol] 0.40 mg/dL Normal 0.20-1.00 [facility] Comment on above: Result Comment: For patients on eltrombopag therapy, use of Dimension [place] TBIL is not recommended. Performed By: #### L 500.4050, L100.0100, L3100.5000 ####[facility] [address] [place], [address] BUN/CRE 19.0 RATIO Normal 10-20 [facility] Comment on above: Performed By: #### L 500.4050, L100.0100, L3100.5000 ####[facility] [address] [place], [address] CA,Total 9.6 mg/dL Normal 8.5-10.1 [facility] Comment on above: Performed By: #### L 500.4050, L100.0100, L3100.5000 ####[facility] [address] [place], [address] Chloride [Moles/Vol] 105 mmol/L Normal 98-107 [facility] Comment on above: Performed By: #### L 500.4050, L100.0100, L3100.5000 ####[facility] [address] [place], [address] CO2 [Moles/Vol] 28.0 mmol/L Normal 21.0-32.0 [facility] Comment on above: Performed By: #### L 500.4050, L100.0100, L3100.5000 ####[facility] [address] [place], [address] Creatinine [Mass/Vol] 0.74 mg/dL Normal 0.55-1.02 [facility] Comment on above: Result Comment: The validity of the calculated GFR GFRAA in patients over 70 years has not been determined. Clinical correlation is essential. Performed By: #### L 500.4050, L100.0100, L3100.5000 ####[facility] [address] [place], [address] EST GFR - AA 105 mL/min Normal >60 [facility] Comment on above: Result Comment: Afri can Guamanian GFR Calc Performed By: #### L 500.4050, L100.0100, L3100.5000 ####[facility] [address] [place], [address] GAP 6 Normal 5-15 [facility] Comment on above: Performed By: #### L 500.4050, L100.0100, L3100.5000 ####[facility] [address] [place], [address] GFR/1.73 sq M.predicted among non-blacks MDRD (S/P/Bld) [Vol rate/Area] 87 mL/min/{1.73_m2} Normal >60 [facility] Comment on above: Result Comment: Non- GFR Calc Performed By: #### L 500.4050, L100.0100, L3100.5000 ####[facility] [address] [place], [address] Globulin (S) [Mass/Vol] 3.6 g/dL Normal 2.2-4.2 [facility] Comment on above: Performed By: #### L 500.4050, L100.0100, L3100.5000 ####[facility] [address] [place], [address] Glucose [Mass/Vol] 96 mg/dL Normal 74-106 [facility] Comment on above: Performed By: #### L 500.4050, L100.0100, L3100.5000 ####[facility] [address] [place], [address] Potassium [Moles/Vol] 3.6 mmol/L Normal 3.5-5.1 [facility] Comment on above: Performed By: #### L 500.4050, L100.0100, L3100.5000 ####[facility] [address] [place], [address] Sodium [Moles/Vol] 138 mmol/L Normal 136-145 [facility] Comment on above: Performed By: #### L 500.4050, L100.0100, L3100.5000 ####[facility] [address] [place], [address] T PROT 7.4 g/dL Normal 6.4-8.2 [facility] Comment on above: Performed By: #### L 500.4050, L100.0100, L3100.5000 ####[facility] [address] [place], [address] Urea nitrogen [Mass/Vol] 14 mg/dL Normal 7-18 [facility] Comment on above: Performed By: #### L 500.4050, L100.0100, L3100.5000 ####[facility] [address] [place], [address] Oncology Visit Reporton 12-18 Oncology Visit Report [facility] [address] [place] [address] OFFICE VISIT Date of Service: 12/28/23 1507 MR#: [id number] Acct: [id number] Name: AYAKAJULIETHStella RODAS Rep #: [id number] : 1965 From: Magaly Case NP DIPLOMATIC OFFICER -C Age/Sex: 58/F Location: [facility] Status: Signed HPI Subjective Date of Service 12/28/23 Chief Complaint follow up endometrial ca History of Present Illness 58-year-old woman was diagnosed with endometrial cancer stage IA, she had total hysterectomy and BSO in May 2019. She had vaginal bleed and was found to have vaginal cuff mass. Biopsy on 05/19/2023 showed endometrial adenocarcinoma, MMR negative. She underwent partial vaginectomy on 05/23/2023, pathology showed squamous vaginal mucosa with involvement by well-differentiated endometrial carcinoma, endometrioid type, positive for ER/[place]. CT on 06/15/2023 showed 1.5cm nodule posterior to R lower abdominal rectus sheath. Declined chemotherapy with radiation therapy. PET/CT obtained 06/27/23 showed no evidence of recurrent or metastatic disease. Completed salvage radiation therapy 07/10/23-08/11/23 and brachytherapy afterward. Interval History The patient is presenting to clinic for a planned 6 month follow up. Reports diarrhea related to radiation has since resolved. Met with radiation oncology earlier today and underwent pelvic exam. Scheduled to see pharmacy clerk onc in March. Specifically denies weight loss, chest pain, palpitations, cough, shortness of breath, abdominal/pelvic pain, vaginal bleeding/discharge, swelling or pain of her extremities PFSH Medical History Vagina neoplasm Dyspnea on exertion Left arm pain Eczema Posterior right knee pain Fatigue Urinary incontinence Endometrial cancer Thickened endometrium BV (bacterial vaginosis) Hypothyroid Gastritis High cholesterol Surgical History Status post complete hysterectomy History of bilateral oophorectomy History of [facility] History of tonsillectomy Family History Father Arthritis Myocardial infarction Heart disease Mother Myocardial infarction Heart disease Osteoporosis Brother Colon cancer Sister Depression Suicide attempt Grandmother CVA (cerebral vascular accident) Uncle Melanoma Lung cancer Social History Smoking Status: Never smoker alcohol intake: never substance use type: does not use caffeine: No what type of physical activity do you participate in: none seatbelt use: always do you feel safe at home: Yes additional social history: -Patient works at [employer] ROS ROS Narrative Negative except as documented in the interval HPI Intake Vital Signs 09/18/23 15:29 12/28/23 14:44 12/28/23 15:07 12/28/23 15:09 Height 5 ft 4 in 5 ft 4 in 5 ft 4 in Weight: 246 lb 7 oz 246 lb 7 oz BMI 42.3 BP 105/68 Blood Pressure Location Rt brachial Position Sitting Respiration 18 Pulse 68 Pulse Source Monitor Temp 97.5 F L Temperature Source Temporal Artery Pulse Oximetry (%) 97 Oxygen Delivery Method room air Intake Is patient in pain?: No Allergies Penicillins Allergy (Severe, Verified 12/28/23 14:46) Unknown latex Allergy (Intermediate, Verified 12/28/23 14:46) Unknown Central Venous Access Central Venous Access: No Laboratory Results 12/28/23 06/16/23 14:06 11:20 WBC 4.5 Hgb 12.3 Hct 38.8 Plt Count 230 Absolute Neuts (auto) 3.7 Sodium 138 Potassium 3.6 Chloride 105 BUN 14 Creatinine 0.74 Total Bilirubin 0.40 AST 23 ALT 33 Alkaline Phosphatase 117 Albumin 3.8 CA 125 Antigen Pending 4.7 Exam Physical Exam Const alert, oriented x3 and no apparent distress HEENT normocephalic Eyes conjunctivae normal and no scleral icterus Neck no lymphadenopathy and supple Lymph Lymphatic: no lymphadenopathy noted Resp normal respiratory effort and clear to auscultation bilaterally Cardio regular rate, regular rhythm, S1 normal heart sound and S2 normal heart sound GI normal to inspection, nondistended, normoactive bowel sounds Inspection: central obesity Back/Spine no CVA tenderness and thoracic and lumbar spine normal to inspection Extremity no clubbing, cyanosis or edema Skin no rashes or lesions noted Neuro oriented x3, CN's II-XII intact bilaterally and moves all extremities Psych mental status grossly normal Coding Level of Care Code Off vis,est,level 4 Exam Problem Focused Diagnoses Recurrent carcinoma of endometrium C54.1 Assessment and Plan Assessment and Plan (1) Recurrent carcinoma of (more content not included)... Normal [facility] Radiation Oncology Visiton 1 Radiation Oncology Visit [facility] [place] [facility] [place] [address] OFFICE VISIT Date of Service: 12/28/23 1441 MR#: [id number] Acct: [id number] Name: JULIETH MARLEY Rep #: [id number] : 1965 From: Best Maynard DO Age/Sex: 58/F Location: [facility] Status: Signed Intake Vital Signs 09/18/23 15:29 12/28/23 14:44 Height 5 ft 4 in 5 ft 4 in Weight: 246 lb 7 oz BMI 42.3 BP 105/68 Blood Pressure Location Rt brachial Position Sitting Respiration 18 Pulse 68 Pulse Source Monitor Temp 97.5 F L Temperature Source Temporal Artery Pulse Oximetry (%) 97 Oxygen Delivery Method room air Intake Visit Reasons: 3 MONTH F/U ENDOMETRIAL Is patient in pain?: No Allergies Penicillins Allergy (Severe, Verified 12/28/23 14:46) Unknown latex Allergy (Intermediate, Verified 12/28/23 14:46) Unknown Medications ???Medication ???Instructions ???Recorded ???Confirmed ???Type multivitamin 1 tab PO DAILY 01/18/18 12/28/23 History cholecalciferol (vitamin D3) 50 2,000 unit PO DAILY 04/03/19 12/28/23 History mcg (2,000 unit) tablet famotidine 20 mg tablet (Pepcid) 20 mg PO DAILY 04/03/19 12/28/23 History mv-min-vit C-ascorb tab PO DAILY 12/13/22 12/28/23 History Gp-Myb-Lsm-herb #124 333 mg-1.7 mg chewable tablet (Airborne (ascorbate sodium)) atorvastatin 40 mg tablet 40 mg PO DAILY #90 tabs 06/29/23 12/28/23 Rx Saccharomyces boulardii 250 mg 250 mg PO BID 08/02/23 12/28/23 History capsule (Daily Probiotic (S. boulardii)) diphenoxylate-atropine 2.5 1 tab PO BID PRN diarrhea #30 tabs 08/09/23 12/28/23 Rx mg-0.025 mg tablet (Lomotil) phenazopyridine 200 mg tablet 200 mg PO TID PRN pain #30 tabs 08/15/23 12/28/23 Rx levothyroxine 50 mcg tablet 50 mcg PO DAILY #90 tabs 09/22/23 12/28/23 Rx PFSH PFSH Medical History Vagina neoplasm Dyspnea on exertion Left arm pain Eczema Posterior right knee pain Fatigue Urinary incontinence Endometrial cancer Thickened endometrium BV (bacterial vaginosis) Hypothyroid Gastritis High cholesterol Home Medications ???Medication ???Instructions ???Recorded ???Last Taken ???Type multivitamin 1 tab PO DAILY 01/18/18 Unknown History cholecalciferol (vitamin D3) 50 2,000 unit PO DAILY 04/03/19 Unknown History mcg (2,000 unit) tablet famotidine 20 mg tablet (Pepcid) 20 mg PO DAILY 04/03/19 04/30/19 05:00 History mv-min-vit C-ascorb tab PO DAILY 12/13/22 Unknown History Uh-Uqe-Aoq-herb #124 333 mg-1.7 mg chewable tablet (Airborne (ascorbate sodium)) atorvastatin 40 mg tablet 40 mg PO DAILY #90 tabs 06/29/23 Unknown Rx Saccharomyces boulardii 250 mg 250 mg PO BID 08/02/23 Unknown History capsule (Daily Probiotic (S. boulardii)) diphenoxylate-atropine 2.5 1 tab PO BID PRN diarrhea #30 tabs 08/09/23 Unknown Rx mg-0.025 mg tablet (Lomotil) phenazopyridine 200 mg tablet 200 mg PO TID PRN pain #30 tabs 08/15/23 Unknown Rx levothyroxine 50 mcg tablet 50 mcg PO DAILY #90 tabs 09/22/23 Unknown Rx Allergy/AdvReac Type Severity Reaction Status Date / Time Penicillins Allergy Severe Unknown Verified 12/28/23 14:46 latex Allergy Intermediate Unknown Verified 12/28/23 14:46 Family History Father Arthritis Myocardial infarction Heart disease Mother Myocardial infarction Heart disease Osteoporosis Brother Colon cancer Sister Depression Suicide attempt Grandmother CVA (cerebral vascular accident) Uncle Melanoma Lung cancer Surgical History Status post complete hysterectomy History of bilateral oophorectomy History of [facility] History of tonsillectomy Social History Smoking Status: Never smoker alcohol intake: never substance use type: does not use caffeine: No what type of physical activity do you participate in: none seatbelt use: always do you feel safe at home: Yes additional social history: -Patient works at [employer] Diagnosis: Julieth Marley is a 58 year-old female diagnosed with FIGO stage IA (pT1a pN0 (sn) Mx) grade 2 endometrioid adenocarcinoma status post endometrial biopsy (04/30/2019), completion of total hysterectomy and bilateral salpingo-oophorectomy (May 2019), now with recurrent disease status post evaluation and biopsy (05/21/2023), local resection of vaginal recurrent disease (05/23/2023), CT C/A/P (06/15/2023) and PET scan (06/27/2023). From 07/10/2023 ??? 08/11/2023 she completed adjuvant radiation, she then completed adjuvant brachytherapy on 08/30/2023. History of Present Illness: 04/30/2019: Patient completed endometrial biopsy.??? Pathology de (more content not included)... Normal [facility] 36on 11-07-2023 36 Notified kayleen lab s look good. She is aware that she can try immodium following the package directions. Instructed to call the office if that does not work and we can call in lomotil. Normal [facility] CBC-Complete Blood Cnt No Di ffon 11-06-2023 Erythrocyte distribution width (RBC) [Ratio] 12.6 % Normal 11.6-14.6 [facility] Comment on above: Performed By: #### L 500.4050, L100.0500 ####[facility] [address] [place], [address] Hematocrit (Bld) [Volume fraction] 36.8 % Low 37-47 [facility] Comment on above: Performed By: #### L 500.4050, L100.0500 ####[facility] [address] [place], [address] Hemoglobin (Bld) [Mass/Vol] 12.1 g/dL Normal 12.0-15.0 [facility] Comment on above: Performed By: #### L 500.4050, L100.0500 ####[facility] [address] [place], [address] MCH (RBC) [Entitic mass] 32.3 pg High 27.0-32.0 [facility] Comment on above: Performed By: #### L 500.4050, L100.0500 ####[facility] [address] [place], [address] MCHC (RBC) [Mass/Vol] 32.9 g/dL Normal 32-36 [facility] Comment on above: Performed By: #### L 500.4050, L100.0500 ####[facility] [address] [place], [address] MCV (RBC) [Entitic vol] 98.1 fL Normal 81-99 [facility] Comment on above: Performed By: #### L 500.4050, L100.0500 ####[facility] [address] [place], [address] Platelet mean volume (Bld) [Entitic vol] 8.9 fL Normal 6.2-12.0 [facility] Comment on above: Performed By: #### L 500.4050, L100.0500 ####[facility] [address] [place], [address] Platelets (Bld) [#/Vol] 200 10*3/uL Normal 150-450 [facility] Comment on above: Performed By: #### L 500.4050, L100.0500 ####[facility] [address] [place], [address] RBC (Bld) [#/Vol] 3.75 10*6/uL Low 4.2-5.4 [facility] Comment on above: Performed By: #### L 500.4050, L100.0500 ####[facility] [address] [place], [address] RDW SD 45.2 fl High 35.1-43.9 [facility] Comment on above: Performed By: #### L 500.4050, L100.0500 ####[facility] [address] [place], [address] WBC (Bld) [#/Vol] 6.0 10*3/uL Normal 4.4-11.0 [facility] Comment on above: Performed By: #### L 500.4050, L100.0500 ####[facility] [address] [place], [address] Comprehensive Metabolic Prof ilon 11-06-2023 Albumin [Mass/Vol] 3.5 g/dL Normal 3.2-5.0 [facility] Comment on above: Performed By: #### L 500.4050, L100.0500 ####[facility] [address] [place], [address] Albumin/Globulin [Mass ratio] 1.0 {ratio} Normal 0.9-2.4 [facility] Comment on above: Performed By: #### L 500.4050, L100.0500 ####[facility] [address] [place], [address] ALK P 135 U/L High 45-117 [facility] Comment on above: Performed By: #### L 500.4050, L100.0500 ####[facility] [address] [place], [address] ALT [Catalytic activity/Vol] 26 U/L Normal 13-56 [facility] Comment on above: Performed By: #### L 500.4050, L100.0500 ####[facility] [address] [place], [address] AST [Catalytic activity/Vol] 21 U/L Normal 15-37 [facility] Comment on above: Performed By: #### L 500.4050, L100.0500 ####[facility] [address] [place], [address] Bilirubin [Mass/Vol] 0.40 mg/dL Normal 0.20-1.00 [facility] Comment on above: Result Comment: For patients on eltrombopag therapy, use of Dimension [place] TBIL is not recommended. Performed By: #### L 500.4050, L100.0500 ####[facility] [address] [place], [address] BUN/CRE 20.4 RATIO High 10-20 [facility] Comment on above: Performed By: #### L 500.4050, L100.0500 ####[facility] [address] [place], [address] CA,Total 9.0 mg/dL Normal 8.5-10.1 [facility] Comment on above: Performed By: #### L 500.4050, L100.0500 ####[facility] [address] [place], [address] Chloride [Moles/Vol] 107 mmol/L Normal 98-107 [facility] Comment on above: Performed By: #### L 500.4050, L100.0500 ####[facility] [address] [place], [address] CO2 [Moles/Vol] 30.0 mmol/L Normal 21.0-32.0 [facility] Comment on above: Performed By: #### L 500.4050, L100.0500 ####[facility] [address] [place], [address] Creatinine [Mass/Vol] 0.69 mg/dL Normal 0.55-1.02 [facility] Comment on above: Result Comment: The validity of the calculated GFR GFRAA in patients over 70 years has not been determined. Clinical correlation is essential. Performed By: #### L 500.4050, L100.0500 ####[facility] [address] [place], [address] EST GFR - AA 114 mL/min Normal >60 [facility] Comment on above: Result Comment: Afri can Gu[place]ian GFR Calc Performed By: #### L 500.4050, L100.0500 ####[facility] [address] [place], [address] GAP 5 Normal 5-15 [facility] Comment on above: Performed By: #### L 500.4050, L100.0500 ####[facility] [address] [place], [address] GFR/1.73 sq M.predicted among non-blacks MDRD (S/P/Bld) [Vol rate/Area] 94 mL/min/{1.73_m2} Normal >60 [facility] Comment on above: Result Comment: Non- GFR Calc Performed By: #### L 500.4050, L100.0500 ####[facility] [address] [place], [address] Globulin (S) [Mass/Vol] 3.4 g/dL Normal 2.2-4.2 [facility] Comment on above: Performed By: #### L 500.4050, L100.0500 ####[facility] [address] [place], [address] Glucose [Mass/Vol] 101 mg/dL Normal 74-106 [facility] Comment on above: Result Comment: Fast ing Glucose result from 100 to 125 mg/dL suggests IMPAIRED HOMEOSTASIS per A.D.A. criteria. Performed By: #### L 500.4050, L100.0500 ####[facility] [address] [place], [address] Potassium [Moles/Vol] 3.5 mmol/L Normal 3.5-5.1 [facility] Comment on above: Performed By: #### L 500.4050, L100.0500 ####[facility] [address] [place], [address] Sodium [Moles/Vol] 142 mmol/L Normal 136-145 [facility] Comment on above: Performed By: #### L 500.4050, L100.0500 ####[facility] [address] [place], [address] T PROT 6.9 g/dL Normal 6.4-8.2 [facility] Comment on above: Performed By: #### L 500.4050, L100.0500 ####[facility] [address] [place], [address] Urea nitrogen [Mass/Vol] 14 mg/dL Normal 7-18 [facility] Comment on above: Performed By: #### L 500.4050, L100.0500 ####[facility] [address] 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 Family History Problem Relation Age of Onset Heart attack Mother Osteoporosis Mother High Blood Pressure Mother Heart disease Mother Miscarriages / Stillbirths Mother Stroke Mother Heart attack Father Heart disease Father Arthritis Father Diabetes Father Other Sister Comments: suicide attempt Depression Sister Skin cancer Sister Arthritis Sister Colon cancer Brother Brain cancer Brother Cancer Brother Skin cancer Mother's Sister Skin cancer Mother's Brother Diabetes Maternal Grandmother Stroke Maternal Grandmother Cancer Sister Depression Sister Miscarriages / Stillbirths Sister Diabetes Sister Hypertension Sister Family Status - Relation Status Age at Mother Father Sister Alive Brother Mother's Sister Alive Mother's Brother Maternal Grandmother Sister Sister Level of Service:46477 [place] OFFICE/OUTPATIENT ESTABLISHED SF MDM 10 MIN Reason for Visit and Comments: Follow-up [[id number]] - Pt is having diarrhea. Pt recently had COVID. Pt is taking pyridium due to painful urination. No vaginal concerns. Pt states she is sore down there, she has not been using the dilator. [facility] Progress Noteon 11-03-2023 Progress Note Chief Complaint Patient presents with Follow-up Pt is having diarrhea. Pt recently had COVID. Pt is taking pyridium due to painful urination. No vaginal concerns. Pt states she is sore down there, she has not been using the dilator. HISTORY OF THE PRESENT ILLNESS: Julieth Marley is a pleasant 58 y.o. female with recurrent endometrial cancer. Patient underwent robotic endometrial cancer staging in May 2019. Final pathology showed: DIAGNOSIS: A. RIGHT SENTINEL LYMPH NODE, EXCISION - NEGATIVE FOR MALIGNANCY (0/1) B. UTERUS, HYSTERECTOMY - ENDOMETRIOID ADENOCARCINOMA. SEE BELOW. C. LEFT SENTINEL LYMPH NODE , EXCISION - NEGATIVE FOR MALIGNANCY (0/1) SPECIMEN Procedure: Total hysterectomy and bilateral salpingo-oophorectomy Specimen Integrity: Intact TUMOR Tumor Site: Endometrium Histologic Type: Endometrioid carcinoma, NOS Histologic Grade: FIGO grade 2 Myometrial Invasion: Present Depth of Myometrial Invasion (Millimeters): 1 mm Myometrial Thickness (Millimeters): 13 mm Percentage of Myometrial Invasion: <50 % Uterine Serosa Involvement: Not identified Lower Uterine Segment Involvement: Not identified Cervical Stromal Involvement: Not identified Other Tissue / Organ Involvement: Not identified Peritoneal Ascitic Fluid: Not submitted / unknown Lymphovascular Invasion: Not identified LYMPH NODES Lymph Node Status: All lymph nodes negative for tumor cells Total Number of Pelvic Nodes Examined: 2 Number of Pelvic [place]port Nodes Examined: 2 Total Number of Para-aortic Nodes Examined: 0 Number of Para-aortic [place]port Nodes Examined: 0 PATHOLOGIC STAGE CLASSIFICATION (pTNM, AJCC 8th Edition) Note: Reporting of pT, pN, and (when applicable) pM categories is based on information available to the pathologist at the time the report is issued. As per the AJCC (Chapter 1, 8th Ed.) it is the managing physician's responsibility to establish the final pathologic stage based upon all pertinent information, including but potentially not limited to this pathology report. Primary Tumor (pT): pT1a Primary Tumor (pT): pT1a: Tumor limited to endometrium or invading less than half the myometrium Regional Lymph Nodes Modifier: (sn) Regional Lymph Nodes (pN): pN0 Regional Lymph Nodes (pN): pN0: No regional lymph node metastasis FIGO STAGE FIGO Stage: IA ADDITIONAL FINDINGS Additional Findings: None identified Again, this was consistent with a stage Ia, FIGO grade 2, negative lymphovascular space invasion endometrioid endometrial adenocarcinoma. Patient did not need to high-intermediate risk of recurrence and therefore no adjuvant treatment was indicated. Discussed surveillance. Patient was planning on following up with Dr. Amin for surveillance but she was lost to follow up. She presented with intermittent vaginal bleeding present for several months. Started very light, pink. Sometimes it is once a week with wiping. Occasionally on the pad. On examination there was a mass at the vaginal apex, vascular and cauliflower-like, friable. Reports that her bladder is weaker. Will occasionally have a gushing. Has an urge and then gush. Worse when she is nervous. Denies leakage with cough, laugh, sneeze, etc. Denies blood in her urine. Interval history: The patient presents to the office today for postoperative evaluation. She underwent partial radical vaginectomy. Final pathology: Final Diagnosis SIMPLE PARTIAL VAGINECTOMY - SQUAMOUS VAGINAL MUCOSA WITH INVOLVEMENT BY WELL DIFFERENTIATED ENDOMETRIAL CARCINOMA, ENDOMETRIOID TYPE. COMMENT: The lesion stains positively for ER, OH, PAX8, and vimentin. The cells are negative for WT-1. P53 demonstrates wild-type staining. The findings are consistent with endometrial origin. pMMR proteins. Interval History: Recently seen by Dr. Cox, radiation oncology, after completion of radiation. She was treated with adjuvant vaginal cylinder brachytherapy consisting of 30 Stratton delivered over 5 fractions, twice weekly, utilizing a 3cm cylinder to 10cm length prescribed to surface. She received her final fraction on 08/30/2023. Radiation induced diarrhea. Diarrhea got worse again after covid. Had 4-5 episodes this am. Does report feeling like she has low energy. Is back on pyridium for bladder irritation. Stopped taking motrin because that caused irritation to her stomach. Denies vaginal bleeding or discharge. Past Medical History: Diagnosis Date Arthritis BV (bacterial vaginosis) Cancer (CMS/HCC) (HCC) Endometrial cancer (CMS/HCC) (HCC) Fissure, anal Gastritis GERD (gastroesophageal reflux disease) History of stress test 2023 Hyperlipidemia Hypothyroidism PMB (postmenopausal bleeding) Thickened endometrium Past Surgical History: Procedure Laterality Date COLONOSCOPY HYSTERECTOMY b/l salpingo oophorectomy, lymph node sampling; [facility] OTHER SURGICAL HISTORY 05/23/2023 Cystoscopy (more content not included)... [facility] 36on 10-30-[address] Cox and she suggests to take the Pyridium for the painful urination if it is helping. Just stopped Ibuprofen yesterday and stomach still has some upset. OK to use Imodium for diarrhea. Patient has already seen Dr. Cornelio Bloom and sees Dr. Jorgensen this Monday. Told her to try Tums or Mylanta for irritation. Verbalized understanding. [facility] 36 ----- Message from Yi Portillo sent at 10/30/2023 3:45 PM EDT ----- Pt called and states she has been taking ibuprofen for painful urination and it did help but it has been tearing her stomach up so she quit taking it. She states she started taking Pyridium again and it helps. She was asking what she can take for her stomach. She said she does have diarrhea but she has had it for 5months through radiation. She also said she recently had covid. Please advise. [facility] confirmed. [facility] Echo Completeon 10-06-2023 Echo Complete [facility] [address] [place] [address] Echo Complete 10/06/23 1309 MR#: [id number] Acct: [id number] Name: JULIETH MARLEY Rep #: [id number] : 1965 58 From: Ariel Vivar MD Attending Dr: Dr. Ariel Vivar MD Status: SUGAR GAVIN Ordering Dr: Ariel Vivar MD Date: 10/06/23 Location: [facility] Sex: F C Admitted: Reason For Study: SHORTNESS OF BREATH Procedure This was a 2D Doppler, Color Flow transthoracic echocardiogram. Exam performed in department. Left Ventricle Normal LV size. Left ventricular systolic function is normal. The left ventricular ejection fraction is 60 %. No regional wall motion abnormalities noted. Right Ventricle Normal RV size. Normal systolic function. Atria Normal left atrium. Normal right atrium. Mitral Valve Normal mitral valve. Tricuspid Valve Normal tricuspid valve. Mild tricuspid valve insufficiency. Pulmonary artery systolic pressure is 22 mmHg. Aortic Valve Trisinus/trileaflet aortic valve. Pulmonic Valve Normal pulmonic valve. Great Vessels Normal aortic root. The pulmonary artery is normal size. Inferior vena cava collapse with respiration. Pericardium/Pleural No pericardial effusion. MMode/2D Measurements Calculations LVIDd: 4.9 cm IVSd: 0.85 cm LVOT diam: 1.9 cm LVIDs: 2.6 cm LVPWd: 1.0 cm LVOT area: 2.9 cm2 RVDd: 3.3 cm FS: 46.4 % ___ Ao root diam: 2.6 cm LAV(MOD-bp): 60.6 ml LVAd ap4: 22.0 cm2 LAV(MOD-bp) Indexed: 28.3 ml/m2 LVLd ap4: 7.3 cm LAV(MOD-sp2): 68.7 ml EDV(MOD-sp4): 54.4 ml LAV(MOD-sp4): 51.5 ml EDV(sp4-el): 56.7 ml LVAs ap4: 12.1 cm2 LVLs ap4: 5.7 cm ESV(MOD-sp4): 21.5 ml ESV(sp4-el): 21.8 ml EF(MOD-sp4): 60.5 % EF(sp4-el): 61.6 % ___ LVAd ap2: 24.9 cm2 SV(MOD-sp4): 32.9 ml SV(MOD-sp2): 38.5 ml LVLd ap2: 7.7 cm EDV(MOD-sp2): 65.1 ml EDV(sp2-el): 68.1 ml LVAs ap2: 14.0 cm2 LVLs ap2: 6.3 cm ESV(MOD-sp2): 26.6 ml ESV(sp2-el): 26.4 ml EF(MOD-sp2): 59.1 % ___ SV(sp4-el): 34.9 ml LA dimension(2D): 4.1 cm LA A4 area: 18.9 cm2 ___ RA A4 area: 10.7 cm2 TAPSE: 2.0 cm Time Measurements MV dec time: 0.18 sec Doppler Measurements Calculations MV E max willard: 87.5 cm/sec Lat Peak E' Willard: 13.5 cm/sec Med Peak E' Willard: 11.0 cm/sec MV A max willard: 78.3 cm/sec E/E' lat: 6.5 E/E' med: 7.9 MV E/A: 1.1 ___ Ao V2 max: 150.2 cm/sec LV V1 max: 134.9 cm/sec MV dec slope: 496.5 cm/sec2 Ao max P.0 mmHg LV V1 max P.3 mmHg Ao V2 mean: 100.8 cm/sec LV V1 mean P.5 mmHg Ao mean P.6 mmHg LV V1 mean: 87.1 cm/sec Ao V2 VTI: 29.6 cm LV V1 VTI: 28.4 cm AV (velocity ratio): 0.96 MAGGI(I,D): 2.8 cm2 MAGGI(V,D): 2.6 cm2 ___ SV(LVOT): 83.0 ml PA V2 max: 106.2 cm/sec TR max willard: 218.6 cm/sec PA max PG (full): 1.8 mmHg TR max P.1 mmHg ECHO/Echo Complete Interpretation Summary Normal LV size. Left ventricular systolic function is normal. The left ventricular ejection fraction is 60 %. Structurally normal valves. Ordering Physician: Ariel Vivar Referring Physician: Bob Daigle M.D. Performed By: Sandrita Zavala RDCS 10/09/23 0654 Date Ariel Vivar MD CC: Dr. Ariel Vivar MD; Dr. 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: Signed [facility] Encounteron 024 Hospital Encounter [id number] Julieth Marley 1965 F Date Provider Department Center 10/04/2023 [id number] COX [facility] RAD ON None Family History Problem Relation Age of Onset Heart attack Mother Osteoporosis Mother High Blood Pressure Mother Heart attack Father Heart disease Father Arthritis Father Other Sister Comments: suicide attempt Depression Sister Skin cancer Sister Colon cancer Brother Brain cancer Brother Skin cancer Mother's Sister Skin cancer Mother's Brother Family Status - Relation Status Age at Mother Father Sister Alive Brother Mother's Sister Alive Mother's Brother Level of Service:60692 [place] OFFICE/OUTPT VISIT,PROCEDURE ONLY Reason for Visit and Comments: Follow-up [[id number]] [facility] Nursing Noteon 10-04-2023 Nursing Note Pt here at [facility] with Kenny for F/U with Dr. Cox. Pt states appetite and sleeping are WNL. No issues with skin to tx area. Denies vaginal bleeding or spotting. No vaginal discharge. Pt states when she urinates there is some burning with urination. Pt stopped taking pyridium las week. Pt was having diarrhea for 3 months but now it's becoming more formed. Vaginal dilator teaching reviewed. Pt verbalized understanding. Per Dr. Cox medium size dilator given. [facility] Progress Noteon 10-04-2023 Progress Note RADIATION ONCOLOGY F OLLOW UP PATIENT: Julieth Marley DATE OF SERVICE: 10/04/2023 : 1965 AGE: 58 y.o. PRIMARY SITE AND HISTOPATHOLOGY: Problem List Items Addressed This Visit None Cancer Staging No matching staging information was found for the patient. HISTORY OF PRESENT ILLNESS: Julieth Marley is a 57 y.o. who presents with grade 2 FIGO Stage IA endometrial cancer s/p TH-BSO 05/2019, now with vaginal recurrence s/p partial vaginectomy and external beam radiation in [place], now s/p vaginal cylinder brachytherapy. She was treated with adjuvant vaginal cylinder brachytherapy consisting of 30 Stratton delivered over 5 fractions, twice weekly, utilizing a 3cm cylinder to 10cm length prescribed to surface. She received her final fraction on 08/30/2023. INTERVAL HISTORY: Ms. Marley has been doing well and reports that her diarrhea has improved significantly, now having formed stools. She continues to have dysuria that is improving, and she has stopped using pyridium. She otherwise continues to work and denies any pain or bleeding. She has seen Dr. Maynard and next follow-up with Dr. Jorgensen 11/02. PAST MEDICAL HISTORY: Past Medical History: Diagnosis Date Arthritis BV (bacterial vaginosis) Cancer (CMS/HCC) (HCC) Endometrial cancer (CMS/HCC) (HCC) Gastritis GERD (gastroesophageal reflux disease) History of stress test 2023 Hyperlipidemia Hypothyroidism PMB (postmenopausal bleeding) Thickened endometrium PAST SURGICAL HISTORY: Past Surgical History: Procedure Laterality Date COLONOSCOPY HYSTERECTOMY b/l salpingo oophorectomy, lymph node sampling; [facility] OTHER SURGICAL HISTORY 05/23/2023 Cystoscopy with partial vaginectomy TONSILLECTOMY (HISTORICAL) ALLERGIES: Allergies as of 10/04/2023 - Reviewed 10/04/2023 Allergen Reaction Noted Penicillins 01/07/2005 Latex Itching 05/11/2006 MEDICATIONS: Current Outpatient Medications Medication Sig Dispense Refill Acetaminophen (TYLENOL ARTHRITIS PAIN PO) Take by mouth Nightly. atorvastatin (Lipitor) 20 MG tablet Take 20 mg by mouth daily. atorvastatin (Lipitor) 40 MG tablet Take 40 mg by mouth Nightly. cholecalciferol (Vitamin D3) 25 MCG (1000 UT) tablet Take 3,000 Units by mouth daily. famotidine (Pepcid) 20 MG tablet Take 40 mg by mouth Nightly. levothyroxine (Synthroid, Levoxyl) 50 MCG tablet every morning (before breakfast). MULTIPLE VITAMINS-MINERALS ER PO Take by mouth if needed. NON FORMULARY every morning (before breakfast). airborne diphenoxylate-atropine (Lomotil) 2.5-0.025 MG tablet Take 1 tablet by mouth 2 times daily as needed for diarrhea. phenazopyridine (Pyridium) 200 MG tablet Take 1 tablet (200 mg) by mouth 3 times daily as needed for bladder spasms. (Patient not taking: Reported on 10/04/2023) 60 tablet 0 potassium chloride CR (Klor-Con M20) 20 MEQ ER tablet Take 20 mEq by mouth daily. Do not crush or chew. No current facility-administered medications for this encounter. REVIEW OF SYSTEMS: See HPI ECOG Performance Status: 0 Objective PHYSICAL EXAM: BP 138/76 Pulse 82 Temp 96.9 ?F (36.1 ?C) Resp 20 Ht 5' 4 (1.626 m) Wt 249 lb 4.8 oz (113 kg) SpO2 100% BMI 42.79 kg/m? /Pain Score: 0 - No pain /Fatigue Assessment: Able to perform daily activities Physical Exam General: alert, no apparent distress, cooperative with exam HEENT: normocephalic, extraocular movements intact, oropharynx clear Cardiac: well-perfused extremities Pulmonary: no respiratory distress Neuro: alert and oriented, thought content appropriate, clear speech Psych: normal mood and affect Branch Service Leader: deferred IMPRESSION: Julieth Marley is a 58 y.o. who presents with grade 2 FIGO Stage IA endometrial cancer s/p TH-BSO 05/2019, now with vaginal recurrence s/p partial vaginectomy and external beam radiation in [place], now s/p vaginal cylinder brachytherapy. PLAN: Tolerated brachytherapy well and improving from side effects of treatment course. - Dilator and education given - Continue follow-up with Branch Service Leader Onc - Return to clinic as needed Beth Cox MD [facility] Department of Radiation Oncology is an Accredited Facility of the [employer] ([employer]). This document was completed utilizing speech recognition software. Grammatical errors, random word insertions, pronoun errors, and incomplete sentences are an occasional consequence of this system due to software limitations, ambient noise, and hardware issues. Any formal questions or concerns about the content, text or information contained within the body of this dictation should be directly addressed to the provider for clarification. [facility] 09-19-2023 36 LVM to schedule foll ow up with Dr Jorgensen. [facility] [id number] 36 Name of Caller: Julieth Contact Reason for Appointment: Patient stated she recently finished radiation and was suggested to scheduled a follow up appointment with Dr. Shine. Please call patient back to advise. Office Name: [facility] [place] [employer] [facility] [facility] Medication Refills need, if any: N/A Medication Name: N/A [facility] Radiation Oncology Visiton 0 09-18-2023 Radiation Oncology Visit [facility] [address] [place] [address] OFFICE VISIT Date of Service: 09/18/23 1523 MR#: [id number] Acct: [id number] Name: JULIETH MARLEY Rep #: [id number] : 1965 From: Best Maynard DO Age/Sex: 58/F Location: [facility] Status: Signed Intake Vital Signs 08/09/23 13:41 09/06/23 15:25 09/18/23 15:29 Height 5 ft 4 in 5 ft 4 in 5 ft 4 in Weight: 248 lb 8 oz 245 lb 4 oz BMI 42.6 42.0 BP 114/67 103/69 Blood Pressure Location Lt brachial Rt brachial Position Sitting Sitting Respiration 16 18 Pulse 79 79 Pulse Source Monitor Monitor Temp 97.7 F L Temperature Source Temporal Artery Pulse Oximetry (%) 92 Oxygen Delivery Method room air Intake Visit Reasons: 1 MONTH F/U POST RT Is patient in pain?: No Allergies Penicillins Allergy (Severe, Verified 09/18/23 15:28) Unknown latex Allergy (Intermediate, Verified 09/18/23 15:28) Unknown Medications ???Medication ???Instructions ???Recorded ???Confirmed ???Type multivitamin 1 tab PO DAILY 01/18/18 09/18/23 History cholecalciferol (vitamin D3) 50 2,000 unit PO DAILY 04/03/19 09/18/23 History mcg (2,000 unit) tablet famotidine 20 mg tablet (Pepcid) 20 mg PO DAILY 04/03/19 09/18/23 History levothyroxine 50 mcg tablet 50 mcg PO DAILY #90 tabs 12/13/22 09/18/23 Rx mv-min-vit C-ascorb tab PO DAILY 12/13/22 09/18/23 History Ju-Vnj-Mph-herb #124 333 mg-1.7 mg chewable tablet (Airborne (ascorbate sodium)) atorvastatin 40 mg tablet 40 mg PO DAILY #90 tabs 06/29/23 09/18/23 Rx Saccharomyces boulardii 250 mg 250 mg PO BID 08/02/23 09/18/23 History capsule (Daily Probiotic (S. boulardii)) diphenoxylate-atropine 2.5 1 tab PO BID PRN diarrhea #30 tabs 08/09/23 09/18/23 Rx mg-0.025 mg tablet (Lomotil) phenazopyridine 200 mg tablet 200 mg PO TID PRN pain #30 tabs 08/15/23 09/18/23 Rx PFSH PFSH Medical History Vagina neoplasm Dyspnea on exertion Left arm pain Eczema Posterior right knee pain Fatigue Urinary incontinence Endometrial cancer Thickened endometrium BV (bacterial vaginosis) Hypothyroid Gastritis High cholesterol Home Medications ???Medication ???Instructions ???Recorded ???Last Taken ???Type multivitamin 1 tab PO DAILY 01/18/18 Unknown History cholecalciferol (vitamin D3) 50 2,000 unit PO DAILY 04/03/19 Unknown History mcg (2,000 unit) tablet famotidine 20 mg tablet (Pepcid) 20 mg PO DAILY 04/03/19 04/30/19 05:00 History levothyroxine 50 mcg tablet 50 mcg PO DAILY #90 tabs 12/13/22 Unknown Rx mv-min-vit C-ascorb tab PO DAILY 12/13/22 Unknown History Th-Uts-Eqi-herb #124 333 mg-1.7 mg chewable tablet (Airborne (ascorbate sodium)) atorvastatin 40 mg tablet 40 mg PO DAILY #90 tabs 06/29/23 Unknown Rx Saccharomyces boulardii 250 mg 250 mg PO BID 08/02/23 Unknown History capsule (Daily Probiotic (S. boulardii)) diphenoxylate-atropine 2.5 1 tab PO BID PRN diarrhea #30 tabs 08/09/23 Unknown Rx mg-0.025 mg tablet (Lomotil) phenazopyridine 200 mg tablet 200 mg PO TID PRN pain #30 tabs 08/15/23 Unknown Rx Allergy/AdvReac Type Severity Reaction Status Date / Time Penicillins Allergy Severe Unknown Verified 09/18/23 15:28 latex Allergy Intermediate Unknown Verified 09/18/23 15:28 Family History Father Arthritis Myocardial infarction Heart disease Mother Myocardial infarction Heart disease Osteoporosis Brother Colon cancer Sister Depression Suicide attempt Grandmother CVA (cerebral vascular accident) Uncle Melanoma Lung cancer Surgical History Status post complete hysterectomy History of bilateral oophorectomy History of LAVH History of tonsillectomy Social History Smoking Status: Never smoker alcohol intake: never substance use type: does not use caffeine: No what type of physical activity do you participate in: none seatbelt use: always do you feel safe at home: Yes additional social history: -Patient works at [employer] Diagnosis: Julieth Marley is a 57 year-old female diagnosed with FIGO stage IA (pT1a pN0 (sn) Mx) grade 2 endometrioid adenocarcinoma status post endometrial biopsy (04/30/2019), completion of total hysterectomy and bilateral salpingo-oophorectomy (May 2019), now with recurrent disease status post evaluation and biopsy (05/21/2023), local resection of vaginal recurrent disease (05/23/2023), CT C/A/P (06/15/2023) and PET scan (06/27/2023). From 07/10/2023 ??? 08/11/2023 she completed adjuvant radiation, she then completed adjuvant brachytherapy on 08/30/2023. History of Pr (more content not included)... Normal [facility] 12 Lead EKG performed by [facility] on 09-06-2023 12 Lead EKG performed by [id number] [place] [address] 12 Lead EKG performed by [facility] 09/06/23 1525 MR#: [id number] Acct: [id number] Name: JULIETH MARLEY Rep #: [id number] : 1965 58 From: Ariel Vivar MD Attending Dr: Dr. Ariel Vivar MD Status: DEP A MB Ordering Dr: Ariel Vivar MD Date: 09/06/23 [place] [facility] [place] Sex: F C Admitted: [facility]/12 Lead EKG performed by [facility] ECG Report Interpretation Sinus Rhythm WITHIN NORMAL LIMITSElectronically signed on 09/12/2023 at 07:45 by Ariel Vivar [employer] Version [id number] 09/12/23 0750 Date Ariel Vivar MD CC: Dr. 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 [place] [address] OFFICE VISIT Date of Service: 09/06/23 MR#: [id number] Acct: [id number] Name: JULIETH MARLEY Rep #: [id number] : 1965 Provider: Dr. Ariel Vivar MD Age/Sex: 58/F Location: [facility] Status: Signed HPI HPI History of Present Illness Details: 58-year-old lady with no previous cardiac history but a history of endometrial carcinoma status post surgery and radiation and brachytherapy was scheduled to have a stress test done in March. She said that she underwent a stress test due to shortness of breath. She was noted to have a hypertensive response to exercise on the stress test at 4.6 metabolic equivalents. There was no obvious ischemia but her blood pressure does go up to 204/90 mmHg. No chest pain was noted. She was referred to cardiology for further evaluation and management. She has had no dizziness or diaphoresis near syncope or syncope she does have some shortness of breath with exertion. Her physical exam demonstrates clear lung crum regular rate and rhythm and no pedal edema her electrocardiogram demonstrates sinus rhythm with a rate of 87 bpm and her blood pressure is normal. 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 Accompanied by: Self Allergies Penicillins Allergy (Severe, Verified 09/06/23 15:29) Unknown latex Allergy (Intermediate, Verified 09/06/23 15:29) Unknown Medications ???Medication ???Instructions ???Recorded ???Confirmed ???Type multivitamin 1 tab PO DAILY 01/18/18 09/06/23 History cholecalciferol (vitamin D3) 50 2,000 unit PO DAILY 04/03/19 09/06/23 History mcg (2,000 unit) tablet famotidine 20 mg tablet (Pepcid) 20 mg PO DAILY 04/03/19 09/06/23 History levothyroxine 50 mcg tablet 50 mcg PO DAILY #90 tabs 12/13/22 09/06/23 Rx mv-min-vit C-ascorb tab PO DAILY 12/13/22 09/06/23 History Cz-Nzc-Obv-herb #124 333 mg-1.7 mg chewable tablet (Airborne (ascorbate sodium)) atorvastatin 40 mg tablet 40 mg PO DAILY #90 tabs 06/29/23 09/06/23 Rx Saccharomyces boulardii 250 mg 250 mg PO BID 08/02/23 09/06/23 History capsule (Daily Probiotic (S. boulardii)) diphenoxylate-atropine 2.5 1 tab PO BID PRN diarrhea #30 tabs 08/09/23 09/06/23 Rx mg-0.025 mg tablet (Lomotil) phenazopyridine 200 mg tablet 200 mg PO TID PRN pain #30 tabs 08/15/23 09/06/23 Rx PFSH Medical History Vagina neoplasm Dyspnea on exertion Left arm pain Eczema Posterior right knee pain Fatigue Urinary incontinence Endometrial cancer Thickened endometrium BV (bacterial vaginosis) Hypothyroid Gastritis High cholesterol Surgical History Status post complete hysterectomy History of bilateral oophorectomy History of LAVH History of tonsillectomy Family History Father Arthritis Myocardial infarction Heart disease Mother Myocardial infarction Heart disease Osteoporosis Brother Colon cancer Sister Depression Suicide attempt Grandmother CVA (cerebral vascular accident) Uncle Melanoma Lung cancer Social History Smoking Status: Never smoker alcohol intake: never substance use type: does not use caffeine: No what type of physical activity do you participate in: none seatbelt use: always do you feel safe at home: Yes additional social history: -Patient works at [employer] ROS Const Const: Negative for fatigue, weakness, headache(s), daytime sleepiness or difficulty sleeping ENT ENT: Negative for headache(s), dizziness or Nosebleed/epistaxis Cardio Chest Pain: No Palpitations: Yes (fluttering) Edema: Bilateral (BLE) Resp Respiratory: Positive for SOB with activity; Negative for SOB at rest, SOB orthopnea SOB lying down or Cough GI GI: Negative nausea, vomiting or heartburn Neuro Neuro: Negative for dizziness, lightheadedness, near syncope, headache(s) or weakness Endo Endo: Negative for fatigue Cardiology Exam Const Appearance: cooperative, healthy appearing, no acute distress, well developed and well groomed Nutritional Appearance: average body habitus and well nourished Orientation: alert, a (more content not included)... Normal [facility] Hospital Encounteron 024 Hospital Encounter [id number] Julieth Marley 1965 F Date Provider Department Center 08/30/2023 [id number] COX None Family History Problem Relation Age of Onset Heart attack Mother Osteoporosis Mother High Blood Pressure Mother Heart attack Father Heart disease Father Arthritis Father Other Sister Comments: suicide attempt Depression Sister Skin cancer Sister Colon cancer Brother Brain cancer Brother Skin cancer Mother's Sister Skin cancer Mother's Brother Family Status - Relation Status Age at Mother Father Sister Alive Brother Mother's Sister Alive Mother's Brother [facility] Progress Noteon 08-30-2023 Progress Note Orders received from Dr. Cox to send RX for Pyridium and Diflucan to patient's pharmacy. Orders pended and routed to Dr. Cox for approval. [facility] RADCOMPNOTEon 08-30-2023 RADCOMPNOTE RADIATION ONCOLOGY TREATMENT SUMMARY PATIENT: Julieth Marley DATE OF SERVICE: 08/30/2023 : 1965 AGE: 58 y.o. PRIMARY SITE AND HISTOPATHOLOGY: Problem List Items Addressed This Visit None Cancer Staging No matching staging information was found for the patient. HISTORY OF PRESENT ILLNESS: Julieth Marley is a 57 y.o. who presents with grade 2 FIGO Stage IA endometrial cancer s/p TH-BSO 05/2019, now with vaginal recurrence s/p partial vaginectomy and external beam radiation in [place], now s/p vaginal cylinder brachytherapy. She was treated with adjuvant vaginal cylinder brachytherapy consisting of 30 Stratton delivered over 5 fractions, twice weekly, utilizing a 3cm cylinder to 10cm length prescribed to surface. She received her final fraction on 08/30/2023. STATUS OF PATIENT AT THE FINISH OF THE TREATMENT: Overall, the patient tolerated treatment well without required interruption. She was without significant complaint. DISPOSITION: At the completion of therapy, she was provided with detailed follow-up instructions, including continued follow-up with Dr. Jorgensen. She will see me in 4 weeks following treatment. Beth Cox MD [facility] Department of Radiation Oncology is an Accredited Facility of the [employer] (A[employer]). This document was completed utilizing speech recognition software. Grammatical errors, random word insertions, pronoun errors, and incomplete sentences are an occasional consequence of this system due to software limitations, ambient noise, and hardware issues. Any formal questions or concerns about the content, text or information contained within the body of this dictation should be directly addressed to the provider for clarification. Normal [facility] CT SIMULATION WO CONTRAST - RADIATION ONCOLOGYon 08-20-2023 CT SIMULATION WO CONTRAST - RADIATION ONCOLOGY Patient Name: JULIETH MARLEY : 1965 Exam Date/Time: 08/17/2023 11:28 Procedure: CT SIMULATION WO CONTRAST - RADIATION ONCOLOGY Ordering Provider: COX BECKY Reason For Exam: ENDOMETRIAL CARCINOMA CLINICAL INFORMATION: Endometrial cancer. Radiation-therapy planning CT. 2 mm axial cuts are obtained through the pelvis without IV or oral contrast. Dose reduction was employed with automated exposure control. The examination is compared to a previous study dated 06/13/2023. FINDINGS: A vaginal probe is in place. Small iliac chain lymph nodes are present. The bladder wall is normal. No free fluid is seen within the pelvis. Air and stool are noted in nondistended loops of colon to the level of the rectum. A normal-appearing appendix is noted. The osseous structures are unremarkable. IMPRESSION: 1. Radiation-therapy planning CT. 2. Very small iliac chain lymph nodes. 3. No free fluid. Report Dictated on Electronically Signed By: Abhinav Marin MD Electronically Signed Date/Time: 08/20/2023 11:37 AM EDT [facility] Nursing Noteon 08-17-2023 Nursing Note Pt here today for cy breanna sizing and CT SIM with Dr. Cox. Pt states she was started on medication for dysuria. Pt also takes AZO OTC as needed. Pt states the dysuria has improved with the medication. Pt is also on medication for diarrhea. Pt denies any vaginal bleeding or discharge. Consent for XRT signed. Brachytherapy teaching done with pt. Pt verbalized understanding. Pt set up for pelvic exam and cylinder sizing. 10:50 am- Assisted Dr. Cox with pelvic exam and cylinder sizing. Pt tolerated well. 3cm cylinder chosen by Dr. Cox. CT SIM aware. Normal [facility] Hospital Encounteron 024 Hospital Encounter [id number] Julieth Marley 1965 F Date Provider Department Center 06/21/2023 [id number]-OFDBETH COX [facility] None Family History Problem Relation Age of Onset Heart attack Mother Osteoporosis Mother High Blood Pressure Mother Heart attack Father Heart disease Father Arthritis Father Other Sister Comments: suicide attempt Depression Sister Skin cancer Sister Colon cancer Brother Brain cancer Brother Skin cancer Mother's Sister Skin cancer Mother's Brother Family Status - Relation Status Age at Mother Father Sister Alive Brother Mother's Sister Alive Mother's Brother Level of Service:31478 [place] OFFICE/OUTPATIENT NEW HIGH MDM 60 MINUTES Reason for Visit and Comments: Consult [484] [facility] Nursing Noteon 06-21-2023 Nursing Note The patient is here at [facility] for a new consult with Dr. Cox. She denies pain at the current time and states she is healing well from surgery. The patient denies any previous history of chemotherapy or radiation therapy. The patient denies having a pacemaker or any other implanted devices. She states her appetite is WNL, energy level is fair, and she is not sleeping well which is not a new occurrence. She states she has a PET scan scheduled for 06/27/23. The RN gave and reviewed a Cancer [place] binder with the patient. The patient verbalized understanding. Normal [facility] 36on 06-19-2023 36 Spoke with patient regarding PET Starting radiation July 02. We had initially ordered a PET that was denied by the patient's insurance. Now with the indeterminate findings on CT imaging, a PET scan is indicated. It sounds like Dr. Maynard's office has also ordered a PET scan. I called his office to let him know about the CT findings so their office can submit this additional information to insurance for PET authorization. Normal [facility] CT CHEST ABDOMEN PELVIS W CO NTRASTon 06-19-2023 CT CHEST ABDOMEN PELVIS W CONTRAST Patient Name: JULIETH MARLEY : 1965 Exam Date/Time: 06/15/2023 10:13 Procedure: CT CHEST ABDOMEN PELVIS W CONTRAST Ordering Provider: SHINE ROBIN Reason For Exam: Uterine/cervical cancer, staging CLINICAL INFORMATION: Preoperative recurrent endometrial carcinoma. Vaginal bleeding. Prior hysterectomy. CT CHEST WITH INTRAVENOUS CONTRAST: Contrast: Isovue-370, [address] images were obtained from the thoracic inlet to the diaphragm following intravenous contrast with axial, coronal and sagittal 2-D reconstructions. Dose reduction was employed with automated exposure control. There is no prior examination at this institution for comparison. No parenchymal mass or nodule is seen in either lung. No pleural effusion or parenchymal consolidation. There are several small focal areas of convex mucosal thickening in the posterior pleura of the left lower lobe, extremely nonspecific. There are no other abnormal pleural or parenchymal densities. No mediastinal or hilar lymphadenopathy or mass is seen. There is no axillary or supraclavicular fossa mass or lymphadenopathy. Osseous structures of the thorax are intact. There are no osteolytic or osteoblastic bone lesions. There is mild multilevel degenerative disc disease of the mid and lower thoracic spine. IMPRESSION: 1. No evidence of parenchymal lung mass or mediastinal/hilar lymphadenopathy. 2. Several extremely nonspecific small focal areas of convex posterior thickening. 3. No other significant abnormal pleural or parenchymal densities. CT ABDOMEN AND PELVIS WITH INTRAVENOUS CONTRAST: Contrast: Isovue 370, [address] ABDOMEN: Volume acquisition CT images are obtained from the diaphragm to the iliac crests following oral and intravenous contrast with axial, coronal and sagittal 2-D reconstructions. Dose reduction was employed with automated exposure control. There is no prior examination at this institution for comparison. The liver, spleen, pancreas and kidneys are unremarkable in size, configuration and density. The right kidney is malrotated. There is no hydronephrosis. There is no abnormality of the gallbladder. There is no adrenal gland nodule or enlargement. There is an ovoid up to 1.5 cm soft tissue density nodule posterior to the right lower abdominal rectus sheath which is nonspecific but could be a small peritoneal tumor implant (series 4, image 83 and series 9, image 24). No other retroperitoneal, omental or mesenteric mass/nodule is identified. There is no visible abnormality of the stomach, small or large bowel. There is no ascites or retroperitoneal lymphadenopathy. No other focal mass, fluid collection or inflammatory changes are identified. There is no abnormality of the abdominal aorta. The lumbar vertebra and posterior elements are intact. No osteolytic or osteoblastic bone lesions are identified. There is suggestion of a disc bulge or small protrusion at L2-L3. CT PELVIS: Volume acquisition CT images were obtained from the iliac crests to the symphysis pubis following oral and intravenous contrast with axial, coronal and sagittal 2-D reconstructions. Dose reduction was employed with automated exposure control. There is no prior examination at this institution for comparison. Some of the images through the pelvis are degraded by artifact of uncertain etiology possibly body habitus and contact with the gantry. There is a well distended unopacified urinary bladder without calcified calculus, wall thickening or other visible abnormality. The uterus is surgically absent. There is no evidence of residual or recurrent malignancy in the surgical bed. No other focal mass or fluid collection is seen. There is no iliac or inguinal lymphadenopathy. No ascites or inflammatory changes are identified. IMPRESSION: 1. Up to 1.5 cm soft tissue density nodule posterior to the right lower abdominal rectus sheath possibly a small peritoneal tumor implant. 2. No evidence of other mass, lymphadenopathy or metastatic disease. 3. Suggestion of L2-L3 disc bulge or small protrusion. Report Dictated on Electronically Signed By: Romulo Leal MD Electronically Signed Date/Time: 06/19/2023 11:34 AM EDT PO CONTRAST REDICAT VAG BLEEDING RESTAGING UTERINE/ CERVICAL CA SX: HYSTER Normal [facility] 36on 06-08-2023 36 S: Patient spoke weston h CAC nurse regarding post op question regarding bath B: Onset of symptoms/concern today A: Patient had CYSTOSCOPY, SIMPLE PARTIAL VAGINECTOMY ROBOTIC (XI) VAGINECTOMY PARTIAL REMOVAL OF VAGINAL WALL on 05/23/23 with general anesthesia with Provider Joslyn. Denies further symptoms. Patient question when she can take a bath. Last office visit today with Provider Joslyn. R: Care advise provided that showers are preferred over bath with in the first 6 weeks. Patient understands care advice. No further needs at this time. Patient instructed to call back with new or worsening symptoms. Reason for Disposition General activity, questions about Protocols used: Post-Op Symptoms and [id number] [facility] 36 I have already discu ssed this patient with Dr. Maynard. Thanks! [facility] [address] Cuevas on's office calling. Patient is scheduled with them tomorrow morning. Please contact Dr. Maynard at [phone] to further discuss patient, thank you [facility] Office Visiton 06-08-2023 Follow-up visit [id number] Julieth Marley 1965 F Date Provider Department Center 06/08/2023 [id number], ROBIN*[facility] [employer] [facility] None Family History Problem Relation Age of Onset Heart attack Mother Osteoporosis Mother High Blood Pressure Mother Heart attack Father Heart disease Father Arthritis Father Other Sister Comments: suicide attempt Depression Sister Colon cancer Brother Brain cancer Brother Family Status - Relation Status Age at Mother Father Sister Brother Level of Service:[id number] [place] OFFICE/OUTPT VISIT,PROCEDURE ONLY Reason for Visit and Comments: Post-op Visit [559] - No concerns [facility] Progress Noteon 06-08-2023 Progress Note Chief Complaint Patient presents with Post-op Visit No concerns HISTORY OF THE PRESENT ILLNESS: Julieth Marley is a pleasant 57 y.o. female with recurrent endometrial cancer. Patient underwent robotic endometrial cancer staging in May 2019. Final pathology showed: DIAGNOSIS: A. RIGHT SENTINEL LYMPH NODE, EXCISION - NEGATIVE FOR MALIGNANCY (0/1) B. UTERUS, HYSTERECTOMY - ENDOMETRIOID ADENOCARCINOMA. SEE BELOW. C. LEFT SENTINEL LYMPH NODE , EXCISION - NEGATIVE FOR MALIGNANCY (0/1) SPECIMEN Procedure: Total hysterectomy and bilateral salpingo-oophorectomy Specimen Integrity: Intact TUMOR Tumor Site: Endometrium Histologic Type: Endometrioid carcinoma, NOS Histologic Grade: FIGO grade 2 Myometrial Invasion: Present Depth of Myometrial Invasion (Millimeters): 1 mm Myometrial Thickness (Millimeters): 13 mm Percentage of Myometrial Invasion: <50 % Uterine Serosa Involvement: Not identified Lower Uterine Segment Involvement: Not identified Cervical Stromal Involvement: Not identified Other Tissue / Organ Involvement: Not identified Peritoneal Ascitic Fluid: Not submitted / unknown Lymphovascular Invasion: Not identified LYMPH NODES Lymph Node Status: All lymph nodes negative for tumor cells Total Number of Pelvic Nodes Examined: 2 Number of Pelvic [place] Nodes Examined: 2 Total Number of Para-aortic Nodes Examined: 0 Number of Para-aortic [place] Nodes Examined: 0 PATHOLOGIC STAGE CLASSIFICATION (pTNM, AJCC 8th Edition) Note: Reporting of pT, pN, and (when applicable) pM categories is based on information available to the pathologist at the time the report is issued. As per the AJCC (Chapter 1, 8th Ed.) it is the managing physician's responsibility to establish the final pathologic stage based upon all pertinent information, including but potentially not limited to this pathology report. Primary Tumor (pT): pT1a Primary Tumor (pT): pT1a: Tumor limited to endometrium or invading less than half the myometrium Regional Lymph Nodes Modifier: (sn) Regional Lymph Nodes (pN): pN0 Regional Lymph Nodes (pN): pN0: No regional lymph node metastasis FIGO STAGE FIGO Stage: IA ADDITIONAL FINDINGS Additional Findings: None identified Again, this was consistent with a stage Ia, FIGO grade 2, negative lymphovascular space invasion endometrioid endometrial adenocarcinoma. Patient did not need to high-intermediate risk of recurrence and therefore no adjuvant treatment was indicated. Discussed surveillance. Patient was planning on following up with Dr. Amin for surveillance but she was lost to follow up. She recently presented with intermittent vaginal bleeding present for several months. Started very light, pink. Sometimes it is once a week with wiping. Occasionally on the pad. On examination there was a mass at the vaginal apex, vascular and cauliflower-like, friable. Reports that her bladder is weaker. Will occasionally have a gushing. Has an urge and then gush. Worse when she is nervous. Denies leakage with cough, laugh, sneeze, etc. Denies blood in her urine. Interval history: The patient presents to the office today for postoperative evaluation. She underwent partial radical vaginectomy. Final pathology: Final Diagnosis SIMPLE PARTIAL VAGINECTOMY - SQUAMOUS VAGINAL MUCOSA WITH INVOLVEMENT BY WELL DIFFERENTIATED ENDOMETRIAL CARCINOMA, ENDOMETRIOID TYPE. COMMENT: The lesion stains positively for ER, [place], PAX8, and vimentin. The cells are negative for WT-1. P53 demonstrates wild-type staining. The findings are consistent with endometrial origin. pMMR proteins. Set up to see Dr. Maynard for radiation. See his tomorrow. Insurance denied PET scan. CT chest, abdomen and pelvis ordered. Scheduled for next at [facility]. Is having some constipation. Taking miralax once a day. Having regular bowel movements with the miralax. Past Medical History: Diagnosis Date Arthritis BV (bacterial vaginosis) Cancer (CMS/HCC) (HCC) Endometrial cancer (CMS/HCC) (HCC) Gastritis GERD (gastroesophageal reflux disease) History of stress test 2023 Hyperlipidemia Hypothyroidism PMB (postmenopausal bleeding) Thickened endometrium Past Surgical History: Procedure Laterality Date COLONOSCOPY HYSTERECTOMY b/l salpingo oophorectomy, lymph node sampling; [facility] OTHER SURGICAL HISTORY 05/23/2023 Cystoscopy with partial vaginectomy TONSILLECTOMY (HISTORICAL) Obstetrical History: Family History Problem Relation Name Age of Onset Heart attack Mother Osteoporosis Mother High Blood Pressure Mother Heart attack Father Heart disease Father Arthritis Father Other ([id number]) Sister suicide attempt Depression Sister Colon cancer Brother Brain cancer Brother Social History Socioeconomic History Marital status: Spouse name: Not on file Number of children: Not on file Years of education: Not (more content not included)... Normal [facility] Progress Noteon 05-26-2023 Progress Note Included restriction s in letter and faxed it number provided [facility] 36on 05-24-2023 36 [place]. Insurance. I wi ll put in an order for CT chest, abdomen and pelvis. If anything comes back as abnormal on that scan we should be able to get a PET scan approved. Thanks! Normal [facility] 36 PET/CT denied becaus e no other images were done. Please advise. [facility] Nursing Noteon 05-23-2023 Nursing Note Patient ambulated in hallway and tolerated well. Peripheral IV removed without complication. Patient denies pain. Denies dizziness and nausea. Discharge medications delivered to patient at bedside by pharmacy and taken with patient on discharge. All belongings taken with patient on discharge. [facility] Nursing Note Discharge instructio ns reviewed with patient. All questions answered. Patient verbalized understanding of instructions received. Discharge packet given to patient. Normal [facility] Nursing Note Family/visitor at be dside with patient. [facility] Op Noteon 05-23-2023 Op Note Date: 05/23/2023 Locat ion: [facility] OR Name: Julieth Marley, : 1965, Diagnosis Pre-op Diagnosis * Malignant neoplasm of endometrium (HCC) [C54.1] Post-op Diagnosis * Malignant neoplasm of endometrium (HCC) [C54.1] Procedures CYSTOSCOPY, SIMPLE PARTIAL VAGINECTOMY 82882 - [place] CYSTOURETHROSCOPY ROBOTIC (XI) VAGINECTOMY PARTIAL REMOVAL OF VAGINAL WALL 25042 - [place] VAGINECTOMY PARTIAL REMOVAL VAGINAL WALL Surgeons * Sravan Shine - Primary Procedure Summary Anesthesia: General ASA: III Estimated Blood Loss: Minimal Drains: * None in log * Specimens ID Source Type Tests Collected By Collected At Frozen? Priority Lab ID 1 Vagina Tissue TISSUE EXAM Sarvan Shine MD 05/23/23 1705 No [id number] Description: SIMPLE PARTIAL VAGINECTOMY Staff: Dock Builder: Margarita Desai RN; Israel Hook RN Scrub Person: Lovely Yan Tech: Janel Paul Findings: Examination under anesthesia revealed normal external genitalia. The uterus and cervix were surgically absent. There was a raised, firm, hyperemic lesion involving the anterior vagina. The lesion began approximately 3 cm from the ureteral orifice in the midline of the anterior vagina. The lesion was approximately 1 and half centimeters in length and 1 cm in width. The entire incision was approximately 3 cm in length. There were no other lesions in the vagina concerning for malignancy. On cystoscopic examination, there was no evidence of involvement of the bladder or the urethra. Complications: None apparent; patient tolerated the procedure well. Specimens Collected: Order Name Source Comment Collection Info Order Time TISSUE EXAM Vagina Pre-op diagnosis: Malignant neoplasm of endometrium (HCC) [C54.1] Collected By: Sravan Shine MD 05/23/2023 5:06 PM Wound Class: Class II: Clean-Contaminated Blood Products: None Prophylactic Antibiotics: Procedure appropriate prophylactic antibiotic(s) given within 1 hour of surgical incision (two hours if receiving Vancomycin or flouroquinolone) Description of the procedure in detail: After informed, written consent was obtained, the patient was identified in the preoperative holding area and taken to the operating room where anesthesia was found to be adequate. She was then prepped and draped in the usual sterile fashion in the dorsolithotomy position with David stirrups. Care was taken to neither hyperextend or Hyperflex the patient's hips or knees. A surgical timeout was performed. I began the procedure by doing cystoscopy in the standard fashion. The cystoscope was inserted under direct visualization and the bladder was backfilled with normal saline. Inspection of the bladder revealed no evidence of disease involving the trigone of the bladder. The dome was normal in appearance. There was bilateral peristalsis and efflux from the ureteral orifices. I inspected the urethra as I was removing the cystoscope. There was no evidence of involvement of the posterior urethra. The bladder was then drained. A weighted speculum was placed in the patient's posterior vagina and a right angle retractor anteriorly in order to visualize the lesion described above. The planned resection site was injected with 1% lidocaine with epinephrine. An elliptical incision was made around the lesion with care to obtain negative surgical margins. This was done with the 15 blade scalpel. The scalpel was then used to dissect the specimen from the underlying side of the vaginal mucosa. The surgical site was irrigated and all areas of bleeding were cauterized. The submucosa was reapproximated with buried interrupted sutures of 2-0 Vicryl. The vaginal mucosa was reapproximated with interrupted stitches of 3-0 Vicryl. The surgical site was irrigated and hemostasis was assured. The patient tolerated the procedure well. Sponge, lap, needle and instrument counts were correct x 2. The patient was awakened and taken the recovery room in stable condition. She did receive preoperative antibiotics in accordance with SCIP guidelines. She received DVT prophylaxis in the form of serial compression devices during the surgery. Disclaimer: This note was dictated by speech recognition. I apologize for minor errors in director property which may be present. [facility] Op Note Date: 05/23/2023 Locat ion: [facility] OR Name: Julieth Marley, : 1965, Diagnosis Pre-op Diagnosis * Malignant neoplasm of endometrium (HCC) [C54.1] Post-op Diagnosis * Malignant neoplasm of endometrium (HCC) [C54.1] Procedures CYSTOSCOPY, SIMPLE PARTIAL VAGINECTOMY 21076 - [place] CYSTOURETHROSCOPY ROBOTIC (XI) VAGINECTOMY PARTIAL REMOVAL OF VAGINAL WALL 22017 - [place] VAGINECTOMY PARTIAL REMOVAL VAGINAL WALL Surgeons * Sravan Shine - Primary Procedure Summary Anesthesia: General ASA: III Estimated Blood Loss: Minimal Drains: * None in log * Specimens ID Source Type Tests Collected By Collected At Frozen? Priority Lab ID 1 Vagina Tissue TISSUE EXAM Sravan Shine MD 05/23/23 1705 No [id number] Description: SIMPLE PARTIAL VAGINECTOMY Staff: Dock Builder: Margarita Desai RN; Israel Hook RN Scrub Person: Lovely Yan Tech: Janel Paul Findings: See dictated report Complications: None apparent; patient tolerated the procedure well. Specimens Collected: Order Name Source Comment Collection Info Order Time TISSUE EXAM Vagina Pre-op diagnosis: Malignant neoplasm of endometrium (HCC) [C54.1] Collected By: Sravan Shine MD 05/23/2023 5:06 PM Wound Class: Class II: Clean-Contaminated Blood Products: None Prophylactic Antibiotics: Procedure appropriate prophylactic antibiotic(s) given within 1 hour of surgical incision (two hours if receiving Vancomycin or flouroquinolone) [facility] PREPROCINSon 05-22-2023 PREPROCINS Medication List Accurate as of May 22, 2023 9:11 AM. Always use your most recent med list. * atorvastatin 20 MG tablet Commonly known as: Lipitor Notes to patient: Pt does not take-adjustment in dose. * atorvastatin 40 MG tablet Commonly known as: Lipitor Medication Adjustments for Surgery: Take night before surgery cholecalciferol 25 MCG (1000 UT) tablet Commonly known as: Vitamin D3 Medication Adjustments for Surgery: Hold morning of surgery famotidine 20 MG tablet Commonly known as: Pepcid Medication Adjustments for Surgery: Take night before surgery levothyroxine 50 MCG tablet Commonly known as: Synthroid, Levoxyl Medication Adjustments for Surgery: Take morning of surgery MULTIPLE VITAMINS-MINERALS ER PO Medication Adjustments for Surgery: Hold morning of surgery NON FORMULARY Medication Adjustments for Surgery: Hold morning of surgery TYLENOL ARTHRITIS PAIN PO Notes to patient: May take the night before surgery as you normally do if needed. * This list has 2 medication(s) that are the same as other medications prescribed for you. Read the directions carefully, and ask your doctor or other care provider to review them with you. Additional Instructions: GEOTHERMAL SYSTEM INSTALLER AND PARKING IN THE MAIN DECK ARE FREE DAY OF SURGERY. PARKING IN THE DECK-- AFTER PARKING TAKE THE ELEVATOR TO LEVEL ONE AND TAKE THE BRIDGE TO THE HOSPITAL. GO TO THE RIGHT AND GO AROUND THE CORNER TO THE SAME DAY SURGERY DESK AND CHECK IN THERE. IF GOING IN THE MAIN ENTRANCE-- TURN LEFT AND GO DOWN THE OLMSTEAD TO THE H ELEVATORS AND TAKE THEM TO ONE, LEFT OFF THE ELEVATOR AND GO AROUND TO THE SAME DAY DESK AND CHECK IN. You may take your prescription pain medication. You may take Tylenol for pain. NO Motrin, ibuprofen or Advil for 24 hours prior to surgery or longer if instructed by your surgeon. NO Aleve or Naprosyn for 5 days prior to surgery or longer if instructed by your surgeon. IF YOU TAKE BLOOD THINNERS OR ASPIRIN: no aspirin for 5 days prior to surgery. Follow any instructions given to you by Dr. Jorgensen. Shower with an antibacterial soap such as Dial or Safeguard the morning of surgery before coming to the hospital. No makeup, lotion, powder, deodorant or body spays. No hair products. Remove all jewelry and leave it at home. Wear loose comfortable clothing to go home in. You may brush your teeth morning of surgery. Do not wear contacts day of surgery. No marijuana (THC), smoking or alcohol for 24 hours prior to surgery. Please arrange for a responsible adult to drive you home after your surgery and that there is a responsible adult with you for 24 hours post discharge. If you have specific questions, please call your surgeon. You will receive a call the day before your surgery to verify your arrival time and date. You will be asked to arrive at least two hours prior to your scheduled surgery time. Please bring your [facility] Surgical folder and medication list with you day of surgery. We encourage you to write down any questions you may have for the surgeon, anesthesiologist, or other members of the surgical team and bring it with you the day of surgery. Please bring photo ID and insurance information. Normal [facility] 36on 05-19-2023 36 PAT: 05.22.2023 at 9 am by phone SX: 05.23.2023 at 3 pm arrival at 1 pm Post op 06.08.2023 at 1:20 pm Folder and instructions given. 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 Family History Problem Relation Age of Onset Heart attack Mother Osteoporosis Mother High Blood Pressure Mother Heart attack Father Heart disease Father Arthritis Father Other Sister Comments: suicide attempt Depression Sister Colon cancer Brother Brain cancer Brother Family Status - Relation Status Age at Mother Father Sister Brother Level of Service:91163 [place] OFFICE/OUTPATIENT NEW HIGH MDM 60 MINUTES Reason for Visit and Comments: Follow-up [208969] - Concerns of bleeding Endometrial Cancer [562] [facility] Progress Noteon 05-19-2023 Progress Note Chief Complaint Patient presents with Follow-up Concerns of bleeding Endometrial Cancer HISTORY OF THE PRESENT ILLNESS: Julieth Marley is a pleasant 57 y.o. female who presents in consultation at the request of Dr. Amin for evaluation and management of the above. Patient underwent robotic endometrial cancer staging in May 2019. Final pathology showed: DIAGNOSIS: A. RIGHT SENTINEL LYMPH NODE, EXCISION - NEGATIVE FOR MALIGNANCY (0/1) B. UTERUS, HYSTERECTOMY - ENDOMETRIOID ADENOCARCINOMA. SEE BELOW. C. LEFT SENTINEL LYMPH NODE , EXCISION - NEGATIVE FOR MALIGNANCY (0/1) SPECIMEN Procedure: Total hysterectomy and bilateral salpingo-oophorectomy Specimen Integrity: Intact TUMOR Tumor Site: Endometrium Histologic Type: Endometrioid carcinoma, NOS Histologic Grade: FIGO grade 2 Myometrial Invasion: Present Depth of Myometrial Invasion (Millimeters): 1 mm Myometrial Thickness (Millimeters): 13 mm Percentage of Myometrial Invasion: <50 % Uterine Serosa Involvement: Not identified Lower Uterine Segment Involvement: Not identified Cervical Stromal Involvement: Not identified Other Tissue / Organ Involvement: Not identified Peritoneal Ascitic Fluid: Not submitted / unknown Lymphovascular Invasion: Not identified LYMPH NODES Lymph Node Status: All lymph nodes negative for tumor cells Total Number of Pelvic Nodes Examined: 2 Number of Pelvic [place] Nodes Examined: 2 Total Number of Para-aortic Nodes Examined: 0 Number of Para-aortic [place] Nodes Examined: 0 PATHOLOGIC STAGE CLASSIFICATION (pTNM, AJCC 8th Edition) Note: Reporting of pT, pN, and (when applicable) pM categories is based on information available to the pathologist at the time the report is issued. As per the AJCC (Chapter 1, 8th Ed.) it is the managing physician's responsibility to establish the final pathologic stage based upon all pertinent information, including but potentially not limited to this pathology report. Primary Tumor (pT): pT1a Primary Tumor (pT): pT1a: Tumor limited to endometrium or invading less than half the myometrium Regional Lymph Nodes Modifier: (sn) Regional Lymph Nodes (pN): pN0 Regional Lymph Nodes (pN): pN0: No regional lymph node metastasis FIGO STAGE FIGO Stage: IA ADDITIONAL FINDINGS Additional Findings: None identified Again, this was consistent with a stage Ia, FIGO grade 2, negative lymphovascular space invasion endometrioid endometrial adenocarcinoma. Patient did not need to high-intermediate risk of recurrence and therefore no adjuvant treatment was indicated. Discussed surveillance. Patient was planning on following up with Dr. Amin for surveillance but she was lost to follow up. She recently presented with intermittent vaginal bleeding present for several months. Started very light, pink. Sometimes it is once a week with wiping. Occasionally on the pad. On examination there was a mass at the vaginal apex, vascular and cauliflower-like, friable. Reports that her bladder is weaker. Will occasionally have a gushing. Has an urge and then gush. Worse when she is nervous. Denies leakage with cough, laugh, sneeze, etc. Denies blood in her urine. Denies CP. Does report occasional shortness of breath and pain the left arm. Had a stress test and told that her heart looked good. They were concerned about her BP during the stress test. Sees cardiology 06/2023. Denies abdominal pain. Will occasionally have pain in the pelvis. Not one particular side. Short. Past Medical History: Diagnosis Date BV (bacterial vaginosis) Cancer (CMS/HCC) (HCC) Endometrial cancer (CMS/HCC) (HCC) Gastritis History of stress test 2023 Hyperlipidemia Hypothyroidism PMB (postmenopausal bleeding) Thickened endometrium Past Surgical History: Procedure Laterality Date COLONOSCOPY HYSTERECTOMY b/l salpingo oophorectomy, lymph node sampling; [facility] TONSILLECTOMY (HISTORICAL) Obstetrical History: Family History Problem Relation Name Age of Onset Heart attack Mother Osteoporosis Mother High Blood Pressure Mother Heart attack Father Heart disease Father Arthritis Father Other ([id number]) Sister suicide attempt Depression Sister Colon cancer Brother Brain cancer Brother Social History Socioeconomic History Marital status: Spouse name: Not on file Number of children: Not on file Years of education: Not on file Highest education level: Not on file Occupational History Not on file Tobacco Use Smoking status: Never Smokeless tobacco: Never Substance and Sexual Activity Alcohol use: Not Currently Drug use: Never Sexual activity: Not on file Other Topics Concern Not on file Social History Narrative Not on file Social Determinants of Health Financial Resource Strain: Not on file Food Insecurity: Not on file Transportation Needs: Not on file Physical Activity: Not on file Str (more content not included)... Normal [facility] Basophil percentageOrdered B y: Kristi Daigle on 12-13-2022 Bilirubin [Mass/Vol] 0.40 mg/dL 0.20-1.00 [facility] Comment on above: For patients on eltr ombopag therapy, use of Dimension [place] TBIL is not recommended. Chloride [Moles/Vol] 106 mmol/L 98-107 [facility] Cholesterol [Mass/Vol] 184 mg/dL <200 [facility] Comment on above: <200 mg/dL Desirable 200-240 mg/dL Borderline >240 mg/dL High Risk Glucose [Mass/Vol] 94 mg/dL 74-106 [facility] Potassium [Moles/Vol] 4.5 mmol/L 3.5-5.1 [facility] Protein [Mass/Vol] 7.5 g/dL 6.4-8.2 [facility] Sodium [Moles/Vol] 139 mmol/L 136-145 [facility] Triglyceride [Mass/Vol] 232 mg/dL <199 [facility] Comment on above: The drugs N-Acetylcy steine and Metamizole may falsely depress this assay.Serum Triglycerides Reference Interval Normal <150 mg/dL Borderline high 150 - 199 mg/dL High 200 - 499 mg/dL Very High > or = 500 mg/dL Laboratory - Chemistry and C hemistry - challengeOrdered By: Kristi Daigle on 12-13-2022 ALP [Catalytic activity/Vol] 122 U/L 45-117 [facility] ALT [Catalytic activity/Vol] 28 U/L 13-56 [facility] CO2 [Moles/Vol] 26.0 mmol/L 21.0-32.0 [facility] Globulin (S) [Mass/Vol] 3.9 g/dL 2.2-4.2 [facility] Urea nitrogen/Creatinine [Mass ratio] 20.6 mg/mg 10-20 [facility] No Panel InformationOrdered By: Kristi Daigle on 12-13-2022 Estimated GFR (MDRD) Amer 107 mL/min >60 [facility] Comment on above: GFR Calc Estimated GFR (MDRD) Non-Af Amer 88 mL/min >60 [facility] Comment on above: Non- GFR Calc Thyroid Stimulating Hormone (TSH) 2.47 uIU/mL 0.358-3.74 [facility] Serum or plasma albumin cornell urement (mass/volume)Ordered By: Kristi Daigle on 12-13-2022 Albumin [Mass/Vol] 3.6 g/dL 3.2-5.0 [facility] Serum or plasma albumin/glob ulin mass ratioOrdered By: Kristi Daigle on 12-13-2022 Albumin/Globulin [Mass ratio] 0.9 {ratio} 0.9-2.4 [facility] Serum or plasma calcium cornell urement (mass/volume)Ordered By: Kristi Daigle on 12-13-2022 Calcium [Mass/Vol] 9.1 mg/dL 8.5-10.1 [facility] Serum or plasma cholesterol in HDL measurement (mass/volume)Ordered By: Kristi Daigle on 09-26-2023 Cholesterol in HDL [Mass/Vol] 60 mg/dL >40 [facility] Comment on above: The drugs N-Acetylcy steine and Metamizole may falsely depress this assay. Reference Range HDL <40 mg/dL Low HDL Cholesterol HDL >or= 60 mg/dL High HDL Cholesterol Serum or plasma cholesterol in VLDL measurement (mass/volume)Ordered By: Kristi Daigle on 12-13-2022 Cholesterol in VLDL [Mass/Vol] 46 mg/dL 5-40 [facility] Serum or plasma creatinine m easurement (mass/volume)Ordered By: Kristi Daigle on 12-13-2022 Creatinine [Mass/Vol] 0.73 mg/dL 0.55-1.02 [facility] Comment on above: The validity of the calculated GFR & GFRAA in patients over 70 years has not been determined. Clinical correlation is essential. Serum or plasma low density lipoprotein (LDL) cholesterol measurement (mass/volume)Ordered By: Kristi Daigle on 12-13-2022 Cholesterol in LDL [Mass/Vol] 78 mg/dL 0-130 [facility] Serum or plasma urea nitroge n measurement (mass/volume)Ordered By: Kristi Daigle on 12-13-2022 Urea nitrogen [Mass/Vol] 15 mg/dL 7-18 [facility] Thin prep Papanicolaou smear with manual screeningOrdered By: Kristi Daigle on 12-13-2022 Thin prep Papanicolaou smear with manual screening 13 U/L 15-37 [facility] Thin prep Papanicolaou smear with manual screening 7 5-15 [facility] Basophil percentageon 2021 Bilirubin [Mass/Vol] 0.40 mg/dL 0.20-1.00 [facility] Work Phone: Comment on above: For patients on eltr ombopag therapy, use of Dimension [place] TBIL is not recommended. Chloride [Moles/Vol] 107 mmol/L 98-107 [facility] Work Phone: Cholesterol [Mass/Vol] 176 mg/dL <200 [facility] Work Phone: Comment on above: <200 mg/dL Desirable 200-240 mg/dL Borderline >240 mg/dL High Risk Glucose [Mass/Vol] 93 mg/dL 74-106 [facility] Work Phone: Potassium [Moles/Vol] 3.7 mmol/L 3.5-5.1 [facility] Work Phone: Protein [Mass/Vol] 7.4 g/dL 6.4-8.2 [facility] Work Phone: Sodium [Moles/Vol] 141 mmol/L 136-145 [facility] Work Phone: Triglyceride [Mass/Vol] 146 mg/dL [facility] Work Phone: Comment on above: The drugs N-Acetylcy steine and Metamizole may falsely depress this assay.Serum Triglycerides Reference Interval Normal <150 mg/dL Borderline high 150 - 199 mg/dL High 200 - 499 mg/dL Very High > or = 500 mg/dL Laboratory - Chemistry and C hemistry - challengeon 08-02-2021 ALP [Catalytic activity/Vol] 121 U/L 45-117 [facility] Work Phone: ALT [Catalytic activity/Vol] 25 U/L 13-56 [facility] Work Phone: CO2 [Moles/Vol] 27.0 mmol/L 21.0-32.0 [facility] Work Phone: Globulin (S) [Mass/Vol] 3.7 g/dL 2.2-4.2 [facility] Work Phone: Urea nitrogen/Creatinine [Mass ratio] 15.1 mg/mg 10-20 [facility] Work Phone: No Panel Informationon 08-02 Estimated GFR (MDRD) Amer 107 mL/min >60 [facility] Work Phone: Comment on above: GFR Calc Estimated GFR (MDRD) Non-Af Amer 88 mL/min >60 [facility] Work Phone: Comment on above: Non- GFR Calc Thyroid Stimulating Hormone (TSH) 1.49 uIU/mL 0.358-3.74 [facility] Work Phone: Serum or plasma albumin cornell urement (mass/volume)on 08-02-2021 Albumin [Mass/Vol] 3.7 g/dL 3.2-5.0 [facility] Work Phone: Serum or plasma albumin/glob ulin mass ratioon 08-02-2021 Albumin/Globulin [Mass ratio] 1.0 {ratio} 0.9-2.4 [facility] Work Phone: Serum or plasma calcium cornell urement (mass/volume)on 08-02-2021 Calcium [Mass/Vol] 8.9 mg/dL 8.5-10.1 [facility] Work Phone: Serum or plasma cholesterol in HDL measurement (mass/volume)on 08-02-2021 Cholesterol in HDL [Mass/Vol] 60 mg/dL [facility] Work Phone: Comment on above: The drugs N-Acetylcy steine and Metamizole may falsely depress this assay. Reference Range HDL <40 mg/dL Low HDL Cholesterol HDL >or= 60 mg/dL High HDL Cholesterol Serum or plasma cholesterol in VLDL measurement (mass/volume)on 08-02-2021 Cholesterol in VLDL [Mass/Vol] 29 mg/dL 5-40 [facility] Work Phone: Serum or plasma creatinine m easurement (mass/volume)on 08-02-2021 Creatinine [Mass/Vol] 0.73 mg/dL 0.55-1.02 [facility] Work Phone: Comment on above: The validity of the calculated GFR & GFRAA in patients over 70 years has not been determined. Clinical correlation is essential. Serum or plasma low density lipoprotein (LDL) cholesterol measurement (mass/volume)on 08-02-2021 Cholesterol in LDL [Mass/Vol] 87 mg/dL 0-130 [facility] Work Phone: Serum or plasma urea nitroge n measurement (mass/volume)on 08-02-2021 Urea nitrogen [Mass/Vol] 11 mg/dL 7-18 [facility] Work Phone: Thin prep Papanicolaou smear with manual screeningon 08-02-2021 Thin prep Papanicolaou smear with manual screening 17 U/L 15-37 [facility] Work Phone: Thin prep Papanicolaou smear with manual screening 7 15 [facility] Work Phone: MRI ANKLE WO IVCON RTon 01-18 MRI ANKLE WO IVCON RT * * *Final Report* * * DATE OF EXAM: Feb 01 2021 8:39AM WR [id number] - MRI ANKLE WO IVCON RT / PROCEDURE REASON: ankle right * * * * Physician Interpretation * * * * HISTORY: ankle right TECHNOLOGIST PROVIDED HISTORY (if applicable): TECHNIQUE: MRI ANKLE WO IVCON RT RESULT: RIGHT ankle MRI submitted, with review of radiographs from 11/12/2010. The posterior tibialis tendon is abnormally thickened with increased signal from just proximal to the malleolus to the navicular consistent with type I tear. The flexor digitorum longus and flexor hallucis longus tendons are intact, as is the Achilles. Peroneal tendons are intact. Dorsiflexors are normal. There is a small ankle effusion with mild distention of the anterior and posterior recesses. No synovitis. Grossly no articular cartilage defect. Mild distention of the bursa of Gruberi. The anterior talofibular ligament is not visualized with edema in the expected position. The calcaneofibular ligament is thickened with increased signal. The anterior-inferior tibiofibular and posterolateral ligaments are intact. The deltoid and spring ligaments are intact. There is a small plantar spur. The plantar fascia is mildly thickened posteriorly without edema. Muscle bulk and signal intensity are normal. There is no fracture. Patchy areas of mild marrow edema are seen on the fluid weighted sequences involving the talar body, anterior process of the calcaneus, adjacent cuboid and lateral cuneiform. Mild degenerative changes are seen at the articulation at the bases of the third and fourth metatarsals. The Lisfranc ligament is intact. Preserved fat in the sinus Tarsi. No abnormality in the tarsal tunnel. IMPRESSION: RIGHT ANKLE: 1. POSTERIOR TIBIALIS TEAR 2. DEFICIENT ANTERIOR TALOFIBULAR LIGAMENT WITH SPRAIN OF THE CALCANEOFIBULAR LIGAMENT 3. PLANTAR SPUR WITH CHRONIC CHANGES IN THE PLANTAR FASCIA BUT NO EVIDENCE FOR PLANTAR FASCIITIS. 4. 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 A Negative (NOT DETECTED) result does not preclude 2019-nCoV infection since the adequacy of sample collection and/or low viral burden may result in presence of viral nucleic acids below the clinical sensitivity of this test method. Negative (NOT DETECTED) result should not be used as the sole basis for treatment or other patient management decisions. Rather negative results should be combined with clinical observations, patient history, and epidemiological information to make patient management decisions. Fact sheet for providers: https://www.fda.gov/media/594130/download Fact sheet for patients: https://www.fda.gov/media/328657/download This test has received FDA Emergency Use Authorization (EUA) and has been verified by [facility] ([facility]). This test is only authorized for the duration of time that circumstances exist to justify the authorization of the emergency use of in vitro diagnostic tests for the detection of SARS-CoV-2 virus and/or diagnosis of COVID-19 infection under section 564(b)(1) of the Act, 21 U.S.C. 360bbb-3(b)(1), unless the authorization is terminated or revoked sooner. [facility] ([facility]) is certified under CLIA-88 as qualified to perform high complexity testing. This tests analytical performance characteristics have been determined by [facility]. Testing is performed at [facility] is located at [address] [place] [address] (CLIA License #[id number], CAP #[id number]). Performed By: #### C VCLA #### [facility] [address] [place] [address] COVID PCR, SCREENING CONGREG ATEon 09-10-2019 Lab Specimen Source Nasal, Nasopharyngeal Normal [facility] Comment on above: Performed By: #### C VCLA #### [facility] [address] [place] [address] Basic Metabolic Panelon Calcium [Mass/Vol] 9.7 mg/dL Normal 8.4-10.4 [facility] Comment on above: Performed By: #### B MP3 #### [facility] [address] [place] [address] Glucose [Mass/Vol] 101 mg/dL High 70-100 [facility] Comment on above: Performed By: #### B MP3 #### [facility] [facility] [address] [place] [address] Urea nitrogen [Mass/Vol] 10 mg/dL Normal 7-20 [facility] Comment on above: Performed By: #### B MP3 #### [facility] [address] [place] [address] Anion gap [Moles/Vol] 11 Normal [facility] Comment on above: Performed By: #### B MP3 #### [facility] [address] [place] [address] CO2 [Moles/Vol] 22 mmol/L Normal 22-30 [facility] Comment on above: Performed By: #### B MP3 #### [facility] [address] [place] [address] Creatinine [Mass/Vol] 0.63 mg/dL Normal 0.52-1.25 [facility] Comment on above: Performed By: #### B MP3 #### [facility] [address] [place] [address] GFR/1.73 sq M predicted among blacks MDRD (S/P/Bld) [Vol rate/Area] mL/min/{1.73_m2} Normal >60 [facility] Comment on above: Performed By: #### B MP3 #### [facility] [address] [place] [address] GFR/1.73 sq M predicted among non-blacks MDRD (S/P/Bld) [Vol rate/Area] mL/min/{1.73_m2} Normal >60 [facility] Comment on above: Result Comment: Sour ce- MDRD equation with creatinine calibration to IDMS(NKDEP) eGFR not recommended for drug dose adjustment Performed By: #### B MP3 #### [facility] [address] [place] [address] Chloride [Moles/Vol] 107 mmol/L Normal 98-107 [place], [place] Comment on above: Performed By: #### B MP3 #### [facility] [address] [place] [address] Potassium [Moles/Vol] 4.1 mmol/L Normal 3.5-5.1 [place], [place] Comment on above: Performed By: #### B MP3 #### [facility] [place] [address] [place] [address] Sodium [Moles/Vol] 139 mmol/L Normal 135-145 [place], [place] Comment on above: Performed By: #### B MP3 #### [facility] [address] [place] [address] Anion gap [Moles/Vol] 11 mmol/L [place], [place] Calcium [Mass/Vol] 9.7 mg/dL 8.4 - 10. 4 mg/dL [place], [place] CO2 [Moles/Vol] 22 mmol/L 22 - 30 mmol/L [place] Creatinine [Mass/Vol] 0.63 mg/dL 0.52 - 1.25 mg/dL [place] EGFR IF NonAfrican Guamanian >60.0 >60 mL/min [place] Comment on above: Source- MDRD equatio n with creatinine calibration to IDMS(NKDEP) eGFR not recommended for drug dose adjustment GFR/1.73 sq M predicted among blacks MDRD (S/P/Bld) [Vol rate/Area] mL/min/{1.73_m2} >60 mL/min [place], [place] Glucose [Mass/Vol] 101 mg/dL High 70 - 100 mg/dL [place] Interpretation and review of laboratory results [facility] U[facility] [Mass/Vol] 10 mg/dL 7 - 20 mg/dL [facility] Test Performed by [facility], [address] [place] [address] [place] [address] [facility] HCG,Urine Qualon 05-21-2019 Beta HCG ( test) Ql (U) Negative Normal Negative [facility] Comment on above: Result Comment: Preg dali is the most common reason for HCG in urine, although choriocarcinoma, hydatidiform mole, and certain nontropho- blastic malignancies also result in detectable urinary HCG levels. Sensitivity = 20mIU/mL. Performed By: #### H CGUR #### [address] [address] Medical Cytologyon 0 Medical Cytology [place] [address] DEPARTMENT OF PATHOLOGY AND [facility] LABORATORY MEDICINE [address] [place] [id number] FINAL MEDICAL CYTOLOGY REPORT NAME: JULIETH MARLEY : 1965 53 Y F BILLING NO.: [id number] LOCATION: [facility] PAC OUTPT 1PAC PROCEDURE 05/21/2019 69 DATE: PHYSICIAN: SRAVAN SHINE M.D. RECEIVED DATE: 05/21/2019 ATTENDING: SRAVAN SHINE M.D. REPORT DATE: 05/22/2019 COPIES TO: CLINICAL DATA: DIAGNOSIS NO MALIGNANT CELLS IDENTIFIED. SPECIMEN: PELVIC WASH PROCEDURE(S): WASHINGS GROSS DESCRIPTION: 200 ml, clear fluid, w/cytolyt Materials Prepared & Examined: Cell Blocks . . . . . . . . . . . . 1 Monolayers . . . . . . . . . . . . 1 [facility] Screened by ASHU FIGUEROA M.D. The following statement applies to all immunohistochemistry, in situ hybridization, molecular studies, and immunofluorescence testing. The use of one or more reagents in the above tests is regulated as an analyte specific reagent (ASR). These tests were developed and their performance characteristics determined by the clinical laboratories of [facility]. They have not been cleared by the US Food and Drug Administration (FDA). The FDA has determined that such clearance or approval is not necessary. All the above immunostains were performed on paraffin embedded tissue. Appropriate positive and negative controls (where applicable) were run in parallel with the patient's specimen; these controls showed expected staining pattern, with acceptable intensity of staining. Immunohistochemical assays have not been validated on decalcified tissues. Results should be interpreted with caution given the raised possibility of false negativity on decalcified specimens. Case reviewed at [facility] [address] [place] [address]. DEPARTMENT OF PATHOLOGY AND LABORATORY MEDICINE [place], [place] [address] Normal [facility] , urineon 0 Beta HCG ( test) Ql (U) Negative Negative NA [place], [place] Comment on above: is the mos t common reason for HCG in urine, although choriocarcinoma, hydatidiform mole, and certain nontropho- blastic malignancies also result in detectable urinary HCG levels. Sensitivity = 20mIU/mL. Test Performed by [facility], [address] [place] [address] [place], [place] Surgical Pathologyon 020 Surgical Pathology [id number] [facility] DEPARTMENT OF [facility] PATHOLOGY AND LABORATORY MEDICINE [address] [place] [address] FINAL SURGICAL PATHOLOGY REPORT NAME: JULIETH MARLEY : 1965 53 Y F BILLING NO.: [id number] [address] PROCEDURE 05/21/2019 DATE: SURGEON: SRAVAN SHINE M.D. RECEIVED 05/21/2019 DATE: ATTENDING: SRAVAN SHINE M.D. REPORT DATE: 05/28/2019 COPIES TO: DIAGNOSIS: A. RIGHT SENTINEL LYMPH NODE, EXCISION - NEGATIVE FOR MALIGNANCY (0/1) B. UTERUS, HYSTERECTOMY - ENDOMETRIOID ADENOCARCINOMA. SEE BELOW. C. LEFT SENTINEL LYMPH NODE , EXCISION - NEGATIVE FOR MALIGNANCY (0/1) SPECIMEN Procedure: Total hysterectomy and bilateral salpingo-oophorectomy Specimen Integrity: Intact TUMOR Tumor Site: Endometrium Histologic Type: Endometrioid carcinoma, NOS Histologic Grade: FIGO grade 2 Myometrial Invasion: Present Depth of Myometrial Invasion (Millimeters): 1 mm Myometrial Thickness (Millimeters): 13 mm Percentage of Myometrial Invasion: <50 % Uterine Serosa Involvement: Not identified Lower Uterine Segment Involvement: Not identified Cervical Stromal Involvement: Not identified Other Tissue / Organ Involvement: Not identified Peritoneal Ascitic Fluid: Not submitted / unknown Lymphovascular Invasion: Not identified LYMPH NODES Lymph Node Status: All lymph nodes negative for tumor cells Total Number of Pelvic Nodes Examined: 2 Number of Pelvic [place] Nodes Examined: 2 Total Number of Para-aortic Nodes Examined: 0 Number of Para-aortic [place] Nodes Examined: 0 PATHOLOGIC STAGE CLASSIFICATION (pTNM, AJCC 8th Edition) Note: Reporting of pT, pN, and (when applicable) pM categories is based on information available to the pathologist at the time the report is issued. As per the AJCC (Chapter 1, 8th Ed.) it is the managing physician's responsibility to establish the final pathologic stage based upon all pertinent information, including but potentially not limited to this pathology report. Primary Tumor (pT): pT1a Primary Tumor (pT): pT1a: Tumor limited to endometrium or invading less than half the myometrium Regional Lymph Nodes Modifier: (sn) Regional Lymph Nodes (pN): pN0 Regional Lymph Nodes (pN): pN0: No regional lymph node metastasis FIGO STAGE FIGO Stage: IA ADDITIONAL FINDINGS Additional Findings: None identified SMT/SMT Signature> S BLANCA CAREY M.D. CLINICAL INFORMATION: Endometrial cancer SPECIMEN: (A) SENTINEL LYMPH NODE, ALL SITES (B) UTERUS (RFN), WITH/WITHOUT TUBES AND OVARIES (C) SENTINEL LYMPH NODE, ALL SITES GROSS DESCRIPTION: A. Right sentinel lymph node Received in formalin is a piece of yellow fatty tissue measuring 3 x 2 x 1 cm. One possible lymph node is identified. This possible lymph node is bisected and submitted in cassette A1. (bits ss, 1) B. Uterus, cervix, bilateral tubes and ovaries Received in formalin is an intact hysterectomy review CAP checklist specimen measuring 8 x 9 x 3.5 cm and weighing 125 grams. The serosal surface is malik, smooth, glistening, and unremarkable. The left fallopian tube measures 5 cm in length with an average diameter of 0.8 cm. The left ovary measures 2.5 x 1.3 x 0.5 cm. The right fallopian tube measures 5 cm in average length and the right ovary measures 0.5 x 1.3 x 0.5 cm. The cervix measures 3.5 cm and is smooth glistening and has a cervical os that is slit-like and measures 0.8 cm. No cysts or lesions are identified on the serosal surface. Sectioning through reveals endometrial cavity which measure 3 cm from cornu and cornu and 5 cm to the lower intrauterine segment and the cervical canal measures 2.5 cm in length. The endometrium measures 0.2 cm in thickness and the myometrium measures 1.3 cm in thickness. The endometrium is hemorrhagic with velvety endometrial lining and what appears to be a slightly polypoid endometrial lining that could possibly represent lesion. Sectioning through these lesions on the endometrium reveals unremarkable cut surfaces without grossly identifiable invasion of the endometrium . The left ovary and fallopian tube have unremarkable cut surfaces. The serosal surface is unremarkable. The right fallopian tube and ovary has unremarkable cut surfaces. The serosal surfaces are unremarkable. [employer] sections of the specimen are submitted as follows: B1 - anterior cervix, B2 and B3 - anterior full-thickness and myometrium, B4 - posterior cervix, B5 and B6 - posterior full-thickness and myometrium, B7 - left ovary, fallopian tube and fimbriae, B8 - right fallopian tube, fimbriae, and ovary. (bits ss, 8) C. Left sentinel lymph node Received in formalin is a piece of yellow fatty tissue measuring 2 x 1 x 0.5 cm. One possible lymph node is identified in the specimen. The possible lymph node is bisected and submitted entirely in one cassette. (1 ns, 1) YRS/SMT Disclaimer: The following statement applies to all immunohistochemistry, in situ hybridization, molecular studies, and immunofluorescence testing. The use of one or more reagents in the above tests is regulated as an analyte specific reagent (ASR). These tests were developed and their performance characteristics determined by the clinical laboratories of [facility]. They have not been cleared by the US Food and Drug Administration (FDA). The FDA has determined that such clearance or approval is not necessary. All the above immunostains were performed on paraffin embedded tissue. Appropriate positive and negative controls (where applicable) were run in parallel with the patient's specimen; these controls showed expected staining pattern, with acceptable intensity of staining. Immunohistochemical assays have not been validated on decalcified tissues. Results should be interpreted with caution given the raised possibility of false negativity on decalcified specimens. Professional Performing Location: [address] [address]. DEPARTMENT OF PATHOLOGY AND LABORATORY MEDICINE [place], [place] [address] Normal [facility] TS GELon 05-21-2019 TS GEL ABO Group: B Rh, Gel: POS Antibody Screen Gel: NEG Normal [facility] Comment on above: Performed By: #### T SGL #### [facility] [address] [place] [address] [facility] TYPE AND SCREENon 05-21-2019 Sodium [Moles/Vol] B [facility], [place] Sodium [Moles/Vol] Negative [facility] Comment on above: Test Performed by [facility], [address] [place] [address] Sodium [Moles/Vol] Positive [place], [place] Comment on above: Test Performed by [facility], [address] [place] [address] Test Performed by [facility], [address] [place] [address] [facility], [place] .GFRon 05-01-2017 eGFR (non-black) mL/min/{1.73_m2} Normal [facility] ([place]) Comment on above: Result Comment: GFR Population mean for , Non- Americans Ages 20-29 = 116 mL/min/1.73 sq.m. Ages 30-39 = 107 mL/min/1.73 sq.m. Ages 40-49 = 99 mL/min/1.73 sq.m. Ages 50-59 = 93 mL/min/1.73 sq.m. Ages 60-69 = 85 mL/min/1.73 sq.m. Ages 70+ = 75 mL/min/1.73 sq.m.Chronic Kidney Disease: Less than 60 mL/min/1.73 square metersEnd Stage Renal Disease: Less than 15 mL/min/1.73 square meters Performed By: #### G FR, CMP, TSH ####[address] [place], [place] [address] eGFR (non-black) 109 ml/min/1.73sqm Normal [facility] ([place]) Comment on above: Result Comment: GFR Population mean for , Non- Americans Ages 20-29 = 116 mL/min/1.73 sq.m. Ages 30-39 = 107 mL/min/1.73 sq.m. Ages 40-49 = 99 mL/min/1.73 sq.m. Ages 50-59 = 93 mL/min/1.73 sq.m. Ages 60-69 = 85 mL/min/1.73 sq.m. Ages 70+ = 75 mL/min/1.73 sq.m.Chronic Kidney Disease: Less than 60 mL/min/1.73 square metersEnd Stage Renal Disease: Less than 15 mL/min/1.73 square meters Performed By: #### Gregory FLYNN CMP, TSH ####[address] [place], [place] [address] CMPon 05-01-2017 Alanine aminotransferase (ALT) 15 U/L Normal 10-35 [facility] ([place]) Comment on above: Performed By: #### Gregory FLYNN, CMP, TSH ####[address] [place], [place] [address] Albumin/Globulin Ratio 1.7 {ratio} Normal 1.1-2.5 A [facility] ([place]) Comment on above: Performed By: #### Gregory FLYNN, CMP, TSH ####[address] [place], [place] [address] Alk Phos 130 IU/L Normal 40-135 [facility] ([place]) Comment on above: Performed By: #### Gregory FLYNN, CMP, TSH ####[address] [place], [place] [address] Aspartate aminotransferase (AST) 13 U/L Normal 10-40 [facility] ([place]) Comment on above: Performed By: #### Gregory FLYNN, CMP, TSH ####[address] [place], [place] [address] Bili Total 0.2 mg/dL Normal 0.2-1.0 [facility] ([place]) Comment on above: Performed By: #### Gregory FLYNN, CMP, TSH ####[address] [place], [place] [address] Globulin 2.7 G/dL Normal [facility] ([place]) Comment on above: Performed By: #### Gregory FLYNN, CMP, TSH ####[address] [place], [place] [address] Glucose mass conc 90 mg/dL Normal 70-105 [facility] ([place]) Comment on above: Performed By: #### Gregory FLYNN, CMP, TSH ####[address] [place], [place] [address] Protein 7.2 G/dL Normal 6.0-8.3 [facility] ([place]) Comment on above: Performed By: #### Gregory FLYNN CMP, TSH ####[address] [place], [place] [address] BUN/Creatinine Ratio 15 ratio Normal 7-27 [facility] ([place]) Comment on above: Performed By: #### Gregory FLYNN CMP, TSH ####[address] [place], [place] [address] Calcium 9.2 mg/dL Normal 8.4-10.2 [facility] ([place]) Comment on above: Performed By: #### Gregory FLYNN CMP, TSH ####[address] [place], [place] [address] Creatinine 0.7 mg/dL Normal 0.6-1.2 [facility] ([place]) Comment on above: Performed By: #### Gregory FLYNN CMP, TSH ####[address] [place], [place] [address] Albumin 4.5 G/dL Normal 3.5-5.0 [facility] ([place]) Comment on above: Performed By: #### Gregory FLYNN CMP, TSH ####[address] [place], [place] [address] CO2 30 mmol/L High 22-29 [facility] ([place]) Comment on above: Performed By: #### Gregory FLYNN CMP, TSH ####[address] [place], [place] [address] Electrolyte Balance 10.0 mEq/L Normal [facility] ([place]) Comment on above: Performed By: #### Gregory FLYNN, CMP, TSH ####[address] [place], [place] [address] Chloride 101 mmol/L Normal 98-107 [facility] ([place]) Comment on above: Performed By: #### Gregory FLYNN, CMP, TSH ####[address] [place], [place] [address] Potassium molar conc 4.0 mmol/L Normal 3.5-5.1 [facility] ([place]) Comment on above: Performed By: #### G FR, CMP, TSH ####[address] [place], [place] [address] Sodium 141 mmol/L Normal 136-146 [facility] ([place]) Comment on above: Performed By: #### G FR, CMP, TSH ####[address] [place], [place] [address] Urea nitrogen 10.4 mg/dL Normal 7.0-18.0 [facility] ([place]) Comment on above: Performed By: #### G FR, CMP, TSH ####[address] [place], [place] [address] TSHon 05-01-2017 Thyroid stimulating hormone (TSH) 4.52 mcIU/mL High 0.27-4.20 [facility] ([place]) Comment on above: Result Comment: Abov e normal(expected)range Performed By: #### G FR, CMP, TSH ####[address] [place], [place] [address] Vital Signs Date Time Vital Sign Value Performing Clinician Facility 07-08-2024 10:40-0400 Body height 162.[address] Kristi Daigle DO Work Phone: [facility] 07-08-2024 10:40-0400 Body mass index (BMI) [Ratio] 43.1 kg/m2 Dr. Kristi Daigle DO Work Phone: [facility] 07-08-2024 10:40-0400 Body temperature 97.6 [degF] Dr. Kristi Daigle DO Work Phone: [facility] 07-08-2024 10:40-0400 Body weight 113.[address] Kristi Daigle DO Work Phone: [facility] 07-08-2024 10:40-0400 Diastolic blood pressure 71 mm[Hg] Dr. Kristi Daigle DO Work Phone: [facility] 07-08-2024 10:40-0400 Heart rate 72 /min Dr. Kristi Daigle DO Work Phone: [facility] 07-08-2024 10:40-0400 Respiratory rate 16 /min Dr. Krisit Daigle DO Work Phone: [facility] 07-08-2024 10:40-0400 SaO2% (BldA) [Mass fraction] 94 % Dr. Kristi Daigle DO Work Phone: [facility] 07-08-2024 10:40-0400 Systolic blood pressure 108 mm[Hg] Dr. Kristi Daigle DO Work Phone: [facility] 07-08-2024 10:09-0400 Body mass index (BMI) [Ratio] 43.1 kg/m2 Dr. Kristi Daigle DO Work Phone: [facility] 07-08-2024 10:09-0400 Body temperature 97.6 [degF] Dr. Kristi Daigle DO Work Phone: [facility] 07-08-2024 10:09-0400 Body weight 113.[address] Kristi Daigle DO Work Phone: [facility] 07-08-2024 10:09-0400 Diastolic blood pressure 71 mm[Hg] Dr. Kristi Daigle DO Work Phone: [facility] 07-08-2024 10:09-0400 Heart rate 72 /min Dr. Kristi Daigle DO Work Phone: [facility] 07-08-2024 10:09-0400 Respiratory rate 16 /min Dr. Kristi Daigle DO Work Phone: [facility] 07-08-2024 10:09-0400 SaO2% (BldA) [Mass fraction] 94 % Dr. Kristi Daigle DO Work Phone: [facility] 07-08-2024 10:09-0400 Systolic blood pressure 108 mm[Hg] Dr. Kristi Daigle DO Work Phone: [facility] 07-03-2024 16:02-0400 Body mass index (BMI) [Ratio] 43.2 kg/m2 Dr. Kristi Daigle DO Work Phone: [facility] 07-03-2024 16:02-0400 Body temperature 97.4 [degF] Dr. Kristi Daigle DO Work Phone: [facility] 07-03-2024 16:02-0400 Body weight 114.[address] Kristi Daigle DO Work Phone: [facility] 07-03-2024 16:02-0400 Diastolic blood pressure 66 mm[Hg] Dr. Kristi Daigle DO Work Phone: [facility] 07-03-2024 16:02-0400 Heart rate 83 /min Dr. Kristi Daigle DO Work Phone: [facility] 07-03-2024 16:02-0400 Respiratory rate 14 /min Dr. Kristi Daigle DO Work Phone: [facility] 07-03-2024 16:02-0400 SaO2% (BldA) [Mass fraction] 97 % Dr. Kristi Daigle DO Work Phone: [facility] 07-03-2024 16:02-0400 Systolic blood pressure 114 mm[Hg] Dr. Kristi Daigle DO Work Phone: [facility] 05-22-2024 16:18-0500 Body mass index (BMI) [Ratio] 43.4 kg/m2 Dr. Kristi Daigle DO Work Phone: [facility] 05-22-2024 16:18-0500 Body temperature 96 [degF] Dr. Kristi Daigle DO Work Phone: [facility] 05-22-2024 16:18-0500 Body weight 114.[address] Kristi Daigle DO Work Phone: [facility] 05-22-2024 16:18-0500 Diastolic blood pressure 78 mm[Hg] Dr. Kristi Daigle DO Work Phone: [facility] 05-22-2024 16:18-0500 Heart rate 84 /min Dr. Kristi Daigle DO Work Phone: [facility] 05-22-2024 16:18-0500 Respiratory rate 16 /min Dr. Kristi Daigle DO Work Phone: [facility] 05-22-2024 16:18-0500 SaO2% (BldA) [Mass fraction] 96 % Dr. Kristi Daigle DO Work Phone: [facility] 05-22-2024 16:18-0500 Systolic blood pressure 126 mm[Hg] Dr. Kristi Daigle DO Work Phone: [facility] 04-05-2024 10:13-0500 Body height 162.6 cm Sravan Shine MD Work Phone: [facility] 04-05-2024 10:13-0500 Body mass index (BMI) [Ratio] 43.08 kg/m2 Sravan Shine MD Work Phone: [facility] 04-05-2024 10:13-0500 Body weight 113.85 kg Sravan Shine MD Work Phone: [facility] 04-05-2024 10:13-0500 Diastolic blood pressure 83 mm[Hg] Sravan Shine MD Work Phone: [facility] 04-05-2024 10:13-0500 Heart rate 69 /min Sravan Shine MD Work Phone: [facility] 04-05-2024 10:13-0500 Systolic blood pressure 121 mm[Hg] Sravan Shine MD Work Phone: [facility] 11-03-2023 10:28-0400 Body height 162.6 cm Sravan Shine MD Work Phone: [facility] 11-03-2023 10:28-0400 Body mass index (BMI) [Ratio] 41.88 kg/m2 Sravan Shine MD Work Phone: [facility] 11-03-2023 10:28-0400 Body weight 110.68 kg Sravan Shine MD Work Phone: [facility] 11-03-2023 10:28-0400 Diastolic blood pressure 77 mm[Hg] Sravan Shine MD Work Phone: [facility] 11-03-2023 10:28-0400 Heart rate 67 /min Sravan Shine MD Work Phone: [facility] 11-03-2023 10:28-0400 Systolic blood pressure 119 mm[Hg] Sravan Shine MD Work Phone: [facility] 10-04-2023 15:23-0400 Body height 162.6 cm Beth Cox MD Work Phone: [facility] 10-04-2023 15:23-0400 Body mass index (BMI) [Ratio] 42.79 kg/m2 Beth Cox MD Work Phone: [facility] 10-04-2023 15:23-0400 Body temperature 96.91 [degF] Beth Cox MD Work Phone: [facility] 10-04-2023 15:23-0400 Body weight 113.08 kg Beth Cox MD Work Phone: [facility] 10-04-2023 15:23-0400 Diastolic blood pressure 76 mm[Hg] Beth Cox MD Work Phone: [facility] 10-04-2023 15:23-0400 Heart rate 82 /min Beth Cox MD Work Phone: [facility] 10-04-2023 15:23-0400 Respiratory rate 20 /min Beth Cox MD Work Phone: [facility] 10-04-2023 15:23-0400 SaO2% (BldA) [Mass fraction] 100 % Beth Cox MD Work Phone: [facility] 10-04-2023 15:23-0400 Systolic blood pressure 138 mm[Hg] Beth Cox MD Work Phone: [facility] 06-21-2023 10:51-0400 Body height 162.6 cm Beth Cox MD Work Phone: [facility] 06-21-2023 10:51-0400 Body mass index (BMI) [Ratio] 45.32 kg/m2 Beth Cox MD Work Phone: [facility] 06-21-2023 10:51-0400 Body temperature 97.3 [degF] Beth Cox MD Work Phone: [facility] 06-21-2023 10:51-0400 Body weight 119.75 kg Beth Cox MD Work Phone: [facility] 06-21-2023 10:51-0400 Diastolic blood pressure 76 mm[Hg] Beth Cox MD Work Phone: [facility] 06-21-2023 10:51-0400 Heart rate 78 /min Beth Cox MD Work Phone: [facility] 06-21-2023 10:51-0400 Respiratory rate 20 /min Beth Cox MD Work Phone: [facility] 06-21-2023 10:51-0400 SaO2% (BldA) [Mass fraction] 99 % Beth Cox MD Work Phone: [facility] 06-21-2023 10:51-0400 Systolic blood pressure 138 mm[Hg] Beth Cox MD Work Phone: [facility] 06-08-2023 13:29-0400 Body mass index (BMI) [Ratio] 43.6 kg/m2 Sravan Shine MD Work Phone: [facility] 06-08-2023 13:29-0400 Body weight 118.84 kg Sravan Shine MD Work Phone: [employer] [facility] 06-08-2023 13:29-0400 Diastolic blood pressure 83 mm[Hg] Sravan Shine MD Work Phone: [employer] [facility] 06-08-2023 13:29-0400 Heart rate 73 /min Sravan Shine MD Work Phone: [employer] [facility] 06-08-2023 13:29-0400 Systolic blood pressure 129 mm[Hg] Sravan Shine MD Work Phone: [facility] 05-19-2023 08:50-0500 Body mass index (BMI) [Ratio] 41.02 kg/m2 Sravan Shine MD Work Phone: [facility] 05-19-2023 08:50-0500 Body weight 108.41 kg Sravan Shine MD Work Phone: [facility] 05-19-2023 08:50-0500 Diastolic blood pressure 82 mm[Hg] Sravan Shine MD Work Phone: [facility] 05-19-2023 08:50-0500 Heart rate 74 /min Sravan Shine MD Work Phone: [facility] 05-19-2023 08:50-0500 Systolic blood pressure 133 mm[Hg] Sravan Shine MD Work Phone: [facility] 02-08-2023 15:28-0500 Body height 162.[address] Kristi Daigle Work Phone: [facility] 02-08-2023 15:28-0500 Body mass index (BMI) [Ratio] 44.8 kg/m2 Dr. Kristi Daigle Work Phone: [facility] 02-08-2023 15:28-0500 Body temperature 98.5 [degF] Dr. Kristi Daigle Work Phone: [facility] 02-08-2023 15:28-0500 Body weight 118.[address] Kristi Daigle Work Phone: [facility] 02-08-2023 15:28-0500 Diastolic blood pressure 80 mm[Hg] Dr. Kristi Daigle Work Phone: [facility] 02-08-2023 15:28-0500 Heart rate 76 /min Dr. Kristi Daigle Work Phone: [facility] 02-08-2023 15:28-0500 Respiratory rate 16 /min Dr. Kristi Daigle Work Phone: [facility] 02-08-2023 15:28-0500 SaO2% (BldA) [Mass fraction] 97 % Dr. Kristi Daigle Work Phone: [facility] 02-08-2023 15:28-0500 Systolic blood pressure 124 mm[Hg] Dr. Kristi Daigle Work Phone: [facility] 12-13-2022 10:06-0400 Body height 162.[address] Kristi Daigle Work Phone: [facility] 12-13-2022 10:06-0400 Body mass index (BMI) [Ratio] 45.1 kg/m2 Dr. Kristi Daigle Work Phone: [facility] 12-13-2022 10:06-0400 Body temperature 98.7 [degF] Dr. Kristi Daigle Work Phone: [facility] 12-13-2022 10:06-0400 Body weight 119.[address] Kristi Daigle Work Phone: [facility] 12-13-2022 10:06-0400 Diastolic blood pressure 90 mm[Hg] Dr. Kristi Daigle Work Phone: [facility] 12-13-2022 10:06-0400 Heart rate 66 /min Dr. Kristi Daigle Work Phone: [facility] 12-13-2022 10:06-0400 Respiratory rate 16 /min Dr. Krisit Daigle Work Phone: [facility] 12-13-2022 10:06-0400 SaO2% (BldA) [Mass fraction] 99 % Dr. Kristi Daigle Work Phone: [facility] 12-13-2022 10:06-0400 Systolic blood pressure 124 mm[Hg] Dr. Kristi Daigle Work Phone: [facility] 01-04-2022 15:53-0400 Body height 162.[address] Kristi Daigle Work Phone: [facility] Work Phone: 01-04-2022 15:53-0400 Body mass index (BMI) [Ratio] 43.9 kg/m2 Dr. Kristi Daigle Work Phone: [facility] Work Phone: 01-04-2022 15:53-0400 Body temperature 98.5 [degF] Dr. Kristi Daigle Work Phone: [facility] Work Phone: 01-04-2022 15:53-0400 Body weight 116.[address] Kristi Daigle Work Phone: [facility] Work Phone: 01-04-2022 15:53-0400 Diastolic blood pressure 82 mm[Hg] Dr. Kristi Daigle Work Phone: [facility] Work Phone: 01-04-2022 15:53-0400 Heart rate 88 /min Dr. Kristi Daigle Work Phone: [facility] Work Phone: 01-04-2022 15:53-0400 Respiratory rate 16 /min Dr. Kristi Daigle Work Phone: [facility] Work Phone: 01-04-2022 15:53-0400 SaO2% (BldA) [Mass fraction] 98 % Dr. Kristi Daigle Work Phone: [facility] Work Phone: 01-04-2022 15:53-0400 Systolic blood pressure 114 mm[Hg] Dr. Kristi Daigle Work Phone: [facility] Work Phone: 07-22-2021 16:42-0400 Body height 162.[address] Kristi Daigle Work Phone: [facility] Work Phone: 07-22-2021 16:42-0400 Body mass index (BMI) [Ratio] 43.9 kg/m2 Dr. Kristi Daigle Work Phone: [facility] Work Phone: 07-22-2021 16:42-0400 Body temperature 98.1 [degF] Dr. Kristi Daigle Work Phone: [facility] Work Phone: 07-22-2021 16:42-0400 Body weight 116.[address] Kristi Daigle Work Phone: [facility] Work Phone: 07-22-2021 16:42-0400 Diastolic blood pressure 76 mm[Hg] Dr. Kristi Daigle Work Phone: [facility] Work Phone: 07-22-2021 16:42-0400 Heart rate 81 /min Dr. Kristi Daigle Work Phone: [facility] Work Phone: 07-22-2021 16:42-0400 Respiratory rate 14 /min Dr. Kristi Daigle Work Phone: [facility] Work Phone: 07-22-2021 16:42-0400 SaO2% (BldA) [Mass fraction] 96 % Dr. Kristi Daigle Work Phone: [facility] Work Phone: 07-22-2021 16:42-0400 Systolic blood pressure 110 mm[Hg] Dr. Kristi Daigle Work Phone: [facility] Work Phone: 05-21-2019 13:30-0500 BP Diastolic 76 mm[Hg] [facility] [place] 05-21-2019 13:30-0500 BP Systolic 133 mm[Hg] [facility] [place] 05-21-2019 13:30-0500 Pulse (Heart Rate) 73 /min [facility] [place] 05-21-2019 13:30-0500 Pulse Oximetry 94 % Sravan Beauchamp [facility], [place] 05-21-2019 13:30-0500 Respiratory Rate 16 /min Sravan Hogan [place], [place] 05-21-2019 11:15-0500 Body Temperature 98.49 [degF] Sravan portillo- [place], [place] 05-21-2019 05:52-0500 BMI (Body Mass Index) 41.2 kg/m2 Sravan Beauchamp [facility] [place], [place] 05-21-2019 05:52-0500 Body weight 108.86 kg Sravan Beauchamp [facility], [place] 05-21-2019 05:52-0500 Height 162.6 cm Sravan Ayoub [facility] [place] Encounters Encounter Date Encounter Type Care Provider Facility Start: 08-30-2024 End: 08-30-[address] Kristi Daigle DO Work Phone: [facility] Work Phone: Start: 08-30-2024 End: 08-30-2024 Patient encounter procedure Darcy LAM -Laboratory Work Phone: Start: 08-30-2024 End: 08-30-2024 ambulatory Kristi Daigle Facility:[facility] Start: 08-14-2024 End: 08-14-[address] Kristi Daigle DO Work Phone: [facility] Work Phone: Start: 08-14-2024 End: 08-14-2024 Patient encounter procedure Darcy LAM -Laboratory Work Phone: Start: 08-14-2024 End: 08-14-2024 Patient encounter procedure Darcy LAM [facility] Work Phone: Start: 08-14-2024 End: 08-14-[address] Kristi Daigle DO Work Phone: [facility] Work Phone: Start: 08-14-2024 End: 08-14-2024 ambulatory Kristi Daigle Facility:[facility] Start: 07-08-2024 End: 07-08-2024 ambulatory Kristi Daigle Facility:[facility] Start: 07-08-2024 End: 07-08-[address] Tyler Masters MD -[facility] Work Phone: Start: 07-08-2024 End: 07-08-2024 ambulatory Magaly Evie MARQUEZ Facility:[facility] Start: 07-03-2024 End: 07-03-[address]i [facility]ters [facility] Work Phone: Start: 07-03-2024 End: 07-03-2024 ambulatory Kristi Daigle Facility:[facility] Start: 05-22-2024 End: 05-22-[address]i [facility]ters 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); Dysuria; Urinary incontinence, unspecified type Start: 04-05-2024 End: 04-05-2024 ambulatory KRISTI [facility] Start: 02-27-2024 End: 02-27-2024 ambulatory Kristi Daigle Facility:[facility] Start: 02-27-2024 End: 02-27-2024 ambulatory Kristi Romeo Demetrius Facility:[facility] Start: 12-28-2023 End: 12-28-2023 ambulatory Kristi R Demetrius Facility:[facility] Start: 12-28-2023 End: 12-28-2023 ambulatory Kristi Daigle Facility:[facility] Start: 11-06-2023 End: 11-06-2023 ambulatory Kristi R Brown Facility:[facility] Start: 11-03-2023 End: 11-03-2023 Office outpatient visit 10 minutes Sravan Shine MD Work Phone: [facility] Comment on above: Recurrent carcinoma of endometrium (HCC) (Primary Dx); S/P radiation therapy Start: 11-03-2023 End: 11-03-2023 ambulatory [facility] Start: 10-09-2023 ambulatory Kristi Walters Brown Facilit y:[facility] Start: 10-06-2023 ambulatory Kristitracy Daigle Facilit y:[facility] Start: 10-06-2023 End: 10-06-2023 ambulatory Kristi R Demetrius Facility:[facility] Start: 10-04-2023 End: 10-04-2023 Subsequent hospital visit by physician Beth Cox MD Work Phone: [facility] Comment on above: Recurrent carcinoma of endometrium (HCC) (Primary Dx) Start: 10-04-2023 End: 10-04-2023 ambulatory [facility] Start: 09-18-2023 End: 09-18-2023 ambulatory Best Maynard Facility:[facility] Start: 09-06-2023 End: 09-06-2023 ambulatory Kristitracy Daigle Facility:[facility] Start: 09-03-2023 End: 09-04-2023 ambulatory [facility] Start: 09-03-2023 End: 09-03-2023 Subsequent hospital visit by physician Billing Only Appointments Radiation Oncology [facility] Comment on above: Arrived Start: 08-30-2023 End: 08-30-2023 Michelle Cox MD Work Phone: [facility] Start: 08-28-2023 End: 08-28-2023 ambulatory [facility] Start: 08-28-2023 End: 08-28-2023 Subsequent hospital visit by physician Beth Cox MD Work Phone: [facility] Start: 08-28-2023 End: 08-28-2023 [facility] Start: 08-27-2023 End: 08-28-2023 ambulatory [facility] Start: 08-27-2023 End: 08-27-2023 Subsequent hospital visit by physician Billing Only Appointments Radiation Oncology [facility] Comment on above: Arrived Start: 08-25-2023 End: 08-25-2023 [facility] Start: 08-25-2023 End: 08-25-2023 Subsequent hospital visit by physician Beth Cox MD Work Phone: [facility] Comment on above: Arrived Start: 08-25-2023 End: 08-25-2023 [facility] Start: 08-23-2023 End: 08-23-2023 [facility] Start: 08-23-2023 End: 08-23-2023 Subsequent hospital visit by physician Beth Cox MD Work Phone: [facility] Start: 08-21-2023 End: 08-21-2023 [facility] Start: 08-21-2023 End: 08-21-2023 Subsequent hospital visit by physician Marla Scott [facility] Start: 08-20-2023 End: 08-21-2023 [facility] Start: 08-20-2023 End: 08-20-2023 Subsequent hospital visit by physician Beth Cox MD Work Phone: [facility] Comment on above: Arrived Start: 08-17-2023 End: 08-17-2023 Subsequent hospital visit by physician Beth Cox MD Work Phone: [facility] Comment on above: Endometrial sarcoma (CMS/HCC) (HCC) Start: 08-17-2023 End: 08-17-2023 ambulatory [facility] Start: 08-17-2023 End: 08-17-2023 Subsequent hospital visit by physician Beth Cox MD Work Phone: [facility] Comment on above: Arrived Start: 08-17-2023 End: 08-17-2023 ambulatory [facility] Start: 06-21-2023 End: 06-21-2023 Office outpatient new 60 minutes Beth Cox MD Work Phone: [facility] [email or web address] [facility] Comment on above: Recurrent carcinoma of endometrium (HCC) (Primary Dx) Start: 06-21-2023 End: 06-21-2023 ambulatory [facility] Start: 06-19-2023 Telephone encounter Sravan Jacinto MD Work Phone: [facility] Start: 06-15-2023 End: 06-15-2023 Subsequent hospital visit by physician [facility] Exam Room [address] [facility] [address] Comment on above: Recurrent carcinoma of endometrium (HCC); 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) Start: 06-15-2023 End: 06-15-2023 ambulatory [facility] Start: 06-14-2023 Orders Only Awais Sampson MD Work Phone: [facility] [email or web address] Comment on above: 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) Start: 06-08-2023 End: 06-08-2023 ambulatory Parul Damon RN [facility] Clinical Communication Start: 06-08-2023 End: 06-08-2023 Patient encounter procedure Sravan Shine MD Work Phone: [facility] Comment on above: Postoperative state (Primary Dx); Recurrent carcinoma of endometrium (HCC) Start: 05-29-2023 Telephone encounter Sravan Jacinto MD Work Phone: [facility] Start: 05-26-2023 Orders Only Sravan Christian MD Work Phone: [facility] Comment on above: Recurrent carcinoma of endometrium (HCC) (Primary Dx); 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) Start: 05-24-2023 Telephone encounter Sravan Jacinto MD Work Phone: [facility] Start: 05-23-2023 End: 05-23-2023 ambulatory [facility] Start: 05-22-2023 End: 05-22-2023 ambulatory [facility] Start: 05-19-2023 Telephone encounter Sravan Jacinto MD Work Phone: [facility] Comment on above: surgery scheduling ( Scheduled at [facility]) Start: 05-19-2023 End: 05-19-2023 Office outpatient new 60 minutes Sravan Shine MD Work Phone: [facility] Comment on above: Endometrial cancer ( CMS/HCC) (HCC) (Primary Dx); Vaginal lesion; Recurrent carcinoma of endometrium (HCC); 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 Kristi Daigle Work Phone: [facility] Start: 04-07-2023 End: 04-07-[address] Kristi Daigle Work Phone: [facility] Work Phone: Start: 04-07-2023 End: 04-07-[address] Kristi Daigle Work Phone: [facility]-Cardiovascular Services Work Phone: Start: 02-10-2023 End: 02-10-[address] Kristi Daigle Work Phone: [facility] Work Phone: Start: 02-10-2023 End: 02-10-[address] Kristi Daigle Work Phone: [facility]-Outpatient Breast Imaging Work Phone: Start: 02-08-2023 End: 02-08-[address] Kristi Daigle Work Phone: [facility] Work Phone: Start: 12-13-[address] Kristi Diagle Work Phone: [facility] Start: 12-13-2022 End: 12-13-[address] Kristi Daigle Work Phone: [facility] Work Phone: Start: 12-13-2022 End: 12-13-[address] Kristi Daigle Work Phone: [facility] Internal Medicine Work Phone: Start: 01-04-2022 End: 01-04-[address] Kristi Daigle Work Phone: [facility] Work Phone: Start: 01-04-2022 End: 01-04-[address] Kristi Daigle Work Phone: [facility] Internal Medicine Start: 08-02-2021 End: 08-02-[address] Kristi Daigle Work Phone: [facility] [place] Start: 07-22-2021 End: 07-22-[address] Kristi Daigle Work Phone: [facility] Internal [facility] Start: 05-21-2019 End: 05-21-2019 Subsequent hospital visit by physician Sravan Shine Work Phone: [facility] General Surgery Comment on above: S/P hysterectomy (Pr imary Dx) Start: 05-01-2017 End: 05-02-2017 Ambulatory KASHIF ARNETT Facility:[facility] Start: 12-14-2016 End: 12-19-2016 Ambulatory KASHIF TAYLORER Facility:[facility] Procedures Date Procedure Procedure Detail Performing Clinician Start: 05-19-2023 Follow-up visit Follow-up SRAVAN SHINE Start: 04-07-2023 Radionuclide imaging of perfusion of myocardium under exercise stress Dr. Kristi Daigle Work Phone: Start: 02-10-2023 End: 02-10-[address] Kristi Daigle Work Phone: Start: 01-04-[address] examination [address] knee [address] Kristi Daigle Work Phone: Start: 05-21-2019 OPERATIVE REPORT 3m Scanning Start: 05-21-2019 Ecg routine ecg w/least 12 lds w/i&r Renaldo Walters Mathew Work Phone: Start: 05-21-2019 Basic metabolic panel calcium total Renaldo R Carmona Work Phone: Start: 05-21-2019 Blood typing serologic abo Sravan Shine Work Phone: Start: 05-21-2019 Urine test visual color cmprsn meths Renaldo Walters Mathew Work Phone: History of radiation therapy S/P radiation therapy Sravan Shine MD Work Phone: History of radiation therapy S/P radiation therapy Sravan Shine MD Work Phone: History of total hysterectomy Status post complete hysterectomy Dr. Kristi Daigle DO Work Phone: Plan of Treatment Date Care Activity Detail Author Start: 08-17-2042 RSV Immunization for Adults (1 - 1-dose 75+ series) RSV Immunization for Adults (1 - 1-dose 75+ series) [facility] Start: 2027 RSV Immunization age d 60 or older (1 - 1-dose 60+ series) RSV Immunization aged 60 or older (1 - 1-dose 60+ series) [facility] Start: 10-04-2024 End: 10-04-2024 Patient encounter procedure 10/04/2024 10:40 AM EDT Office Visit [facility] Gynecologic Oncology - [place] [address] [place] [address] Sravan Shine MD [address] [facility] [address] [place], [place] [id number] [facility] Gynecologic Oncology - [place] Start: 09-04-2024 ambulatory Ambulatory Facility:[facility] Start: 08-30-2024 Protein measurement [facility] Start: 08-14-2024 CBC W Auto Different ial panel - Blood [facility] Start: 04-05-2024 End: 04-05-2024 Patient encounter procedure 04/05/2024 10:40 AM EST Office Visit [facility] [address] [place] [phone] Sravan Shine MD [address] [place] [address] [facility] Start: 02-11-2024 Screening for malign ant neoplasm of breast Mammogram [facility] Start: 11-19-2023 COVID-19 Vaccine ( season) COVID-19 Vaccine () [facility] Start: 11-19-2023 Influenza vaccination Influenza Vacc ine (#1) [facility] Start: 11-03-2023 End: 11-02-2024 CBC panel - Blood by Automated count CBC Lab Routine Recurrent carcinoma of endometrium (HCC) S/P radiation therapy Expected: 11/03/2023 (Approximate), Expires: 11/02/2024 [facility] Work Phone: Comment on above: Expected: 11/03/2023 (Approximate), Expires: 11/02/2024 Start: 11-03-2023 End: 11-02-2024 Comprehensive metabolic 1998 panel - Serum or Plasma Comprehensive metabolic panel Lab Routine Recurrent carcinoma of endometrium (HCC) S/P radiation therapy Expected: 11/03/2023 (Approximate), Expires: 11/02/2024 [facility] Comment on above: Expected: 11/03/2023 (Approximate), Expires: 11/02/2024 Start: 11-03-2023 End: 11-03-2023 Patient encounter procedure 11/03/2023 10:40 AM EDT Office Visit [facility] [address] [place] [address] Sravan Shine MD [address] [place] [address] [facility] Start: 10-04-2023 End: 10-04-2023 Patient encounter procedure 10/04/2023 3:30 PM EDT Appointment [facility] [address] [place] [phone] Beth Cox MD [address] [place] [address] [facility] Start: 09-28-2023 End: 09-28-2023 Patient encounter procedure 09/28/2023 9:00 AM EDT Appointment [facility] [address] [place] [phone] Beth Cox MD [address] [place], [place] [phone] [facility] Start: 08-30-2023 End: 08-30-2023 Patient encounter procedure [facility] Start: 08-28-2023 End: 08-28-2023 Patient encounter procedure [facility] Start: 08-25-2023 End: 08-25-2023 Patient encounter procedure [facility] Start: 08-23-2023 End: 08-23-2023 Patient encounter procedure [facility] Start: 08-21-2023 End: 08-21-2023 Patient encounter procedure [facility] Start: 06-21-2023 End: 06-21-2023 Patient encounter procedure 06/21/2023 11:00 AM EDT Appointment [facility] [address] [place] [phone] Beth Cox MD [address] [facility] [place], [place] [phone] [facility] Start: 06-16-2023 End: 06-16-2023 Patient encounter procedure 06/16/2023 9:00 AM EDT Appointment [facility] [address] [place] [address] Awais Sampson MD [address] [place] [address] [facility] Start: 06-15-2023 End: 06-15-2023 Patient encounter procedure 06/15/2023 10:15 AM EDT Appointment [facility] [address] [place] [phone] [facility] CT Start: 06-15-2023 Subsequent hospital visit by physician 06/15/2023 10:15 AM EDT Hospital Encounter [facility] CT [address] [place] [phone] [facility] CT Start: 06-08-2023 End: 06-08-2023 Patient encounter procedure 06/08/2023 1:20 PM EDT Office Visit [facility] [address] [place] [phone] Sravan Shine MD [address] [place] [address] [facility] Start: 05-24-2023 End: 05-23-2024 CT Abdomen and Pelvis WO and W contrast IV CT chest abdomen pelvis with contrast Imaging Routine Recurrent carcinoma of endometrium (HCC) Expected: 05/24/2023, Expires: 05/23/2024 [facility] Work Phone: Comment on above: Expected: 05/24/2023 , Expires: 05/23/2024 Start: 05-23-2023 End: 05-23-2023 Admission to same day surgery center 05/23/2023 3:00 PM EST - 05/23/2023 4:30 PM EST Surgery [facility] [address] [place] [phone] Sravan Shine MD [address] [place] [address] CYSTOSCOPY, SIMPLE PARTIAL VAGINECTOMY [43927 (CPT )] [facility] Comment on above: CYSTOSCOPY, SIMPLE P ARTIAL VAGINECTOMY [66170 (CPT )] Start: 05-23-2023 End: 05-23-2023 Anesthesia consultation 05/23/2023 3:00 PM EST Anesthesia Event [facility] [address] [place] [address] Miah Holder RN [facility] MAIN OR Start: 05-23-2023 End: 05-23-2023 Cystourethroscopy CYSTOSCOPY Malignant neoplasm of endometrium (HCC) 05/23/2023 3:[address] [facility] Operating Room Start: 05-23-2023 Subsequent hospital visit by physician 05/23/2023 3:00 PM EST Hospital Encounter [facility] MAIN OR [address] [place] [address] Sravan Shine MD [id number] [facility] MAIN OR Start: 05-23-2023 End: 05-23-2023 Vaginectomy partial removal vaginal wall ROBOTIC (XI) VAGINECTOMY PARTIAL REMOVAL OF VAGINAL WALL Malignant neoplasm of endometrium (HCC) 05/23/2023 3:[address] [facility] Operating Room Start: 05-22-2023 End: 05-22-2023 Admission to establishment 05/22/2023 9:00 AM EST Pre-Admission Testing [facility] Pre-Admit Testing [address] [place] [address] 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) Expected: 05/21/2023 (Approximate), Expires: 05/20/2024 [facility] Comment on above: Expected: 05/21/2023 (Approximate), Expires: 05/20/2024 Start: 05-19-2023 End: 05-18-2024 PET+CT Bone from skull base to mid-thigh W 18F-NaF IV PET/CT skull base to mid thigh Imaging Routine Endometrial cancer (CMS/HCC) Vaginal lesion Recurrent carcinoma of endometrium (CMS/HCC) 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) Expected: 05/19/2023, Expires: 05/18/2024 [facility] [employer] [facility] Work Phone: Comment on above: Expected: 05/19/2023 , Expires: 05/18/2024 Start: 11-18-2022 COVID-19 Vaccine () COVID-19 Vaccine () [facility] Start: 05-20-2020 Creatinine monitoring Creatinine mon itoring [place], [place] Start: 05-20-2020 Potassium monitoring Potassium monit [place]ing [place] Start: 06-11-2019 End: 06-11-2019 Office Visit 06/11/2019 Office Visit Gynecologic Oncology Sravan Shine MD [address] [place] [address], [address] [place] [address] [phone] [facility] [place] [facility] [facility] Oncology Start: 11-18-2018 Influenza vaccination Flu vaccine (# 1) [place], [place] Start: 08-17-2017 Breast cancer screen Breast cancer s creen [place] Start: 08-17-2017 Colon cancer screen colonoscopy Colon cancer screen colonoscopy [place] Start: 08-17-2017 Shingles Vaccine (1 of 2) Bond gles Vaccine (1 of 2) [place] Start: 08-17-2017 Zoster Vaccines (1 of 2) Zoste r Vaccines (1 of 2) [facility] Start: 2007 Diabetes screen Diabetes screen [place], [place] Start: 08-17-1988 Cervical cancer screen Cervical canc er screen [place] Start: 08-17-1986 DTaP/Tdap/Td Vaccine s (1 - Tdap) DTaP/Tdap/Td Vaccines (1 - Tdap) [facility] Start: 08-17-1986 Hepatitis B Vaccines (1 of 3 - 19+ 3-dose series) Hepatitis B Vaccines (1 of 3 - 19+ 3-dose series) [facility] Start: 08-17-1986 Pneumococcal Vaccine : 50+ Years (1 of 2 - PCV) Pneumococcal Vaccine: 50+ Years (1 of 2 - PCV) [facility] Start: 08-17-1986 Zoster Vaccines (1 of 2) Zoste r Vaccines (1 of 2) [facility] Start: 08-17-1985 Diabetes mellitus screening Diabetes Screening [facility] Start: 08-17-1985 Hepatitis C screening Hepatitis C Sc reening [facility] Start: 08-17-1982 HIV screen HIV screen [place], [place] Start: 1979 Depression Screening Depression Scre ening [facility] Start: 08-17-1978 DTaP/Tdap/Td vaccine (1 - Tdap) DTaP/Tdap/Td vaccine (1 - Tdap) [place] Start: 08-17-1977 Lipid screen Lipid screen [place], [place] Start: 08-17-1973 Pneumococcal Vaccine : Pediatrics (0 to 5 Years) and At-Risk Patients (6 to 64 Years) (1 of 2 - PCV) Pneumococcal Vaccine: Pediatrics (0 to 5 Years) and At-Risk Patients (6 to 64 Years) (1 of 2 - PCV) [facility] Start: 08-17-1968 MMR Vaccines (1 of 1 - Standard series) MMR Vaccines (1 of 1 - Standard series) [facility] Start: 02-17-1968 Examination of skin Derm Melan faviola Skin Check [facility] Start: 1967 Hepatitis B Vaccines (1 of 3 - 3-dose series) Hepatitis B Vaccines (1 of 3 - 3-dose series) [facility] Start: 1967 HIV screening HIV Screening [facility] Start: 1967 Screening for malign ant neoplasm of colon [facility] Start: 1967 Thyroid stimulating hormone measurement TSH Level [facility] End: 05-21-2019 Blood glucose - POCT Blood glucose - POCT Point of Care Testing STAT One Time for 1 Occurrences starting 05/21/2019 until 05/21/2019 [place] Comment on above: One Time for 1 Occur rences starting 05/21/2019 until 05/21/2019 Cancer Ag 125 [Units/volume] in Serum or Plasma [facility] CBC W Auto Different ial panel - Blood [facility] Comprehensive metabo lic 2000 panel - Serum or Plasma [facility] End: 06-15-2023 CT Abdomen and Pelvis WO and W contrast IV [facility] Work Phone: Comment on above: Once for 1 Occurrenc es starting 06/15/2023 until 06/15/2023 End: 08-17-2023 CT Sim [facility] Work Phone: Comment on above: Once for 1 Occurrenc es starting 08/17/2023 until 08/17/2023 EKG 12 Lead EKG 12 Lead ECG STAT 05/21/2019 6:08 AM EST [facility] E[facility]throcyte mean corpuscular volume determination [facility] Hematocrit [Volume Fraction] of Blood [facility] Hemoglobin [Mass/vol ume] in Blood [facility] Incentive spirometry Incentive s pirometry Respiratory Care Routine Q1H PRN until discontinued starting 05/21/2019 [facility] Comment on above: Q1H PRN until discon tinued starting 05/21/2019 Initiate Oxygen Ther apy Protocol Initiate Oxygen Therapy Protocol Respiratory Care Routine Daily until discontinued starting 05/21/2019 [facility] Comment on above: Daily until disconti nued starting 05/21/2019 Lactate dehydrogenas e measurement [facility] Leukocytes [#/volume ] in Blood [facility] Mean corpuscular hemoglobin concentration determination [facility] Mean corpuscular hemoglobin determination [facility] MG Breast - bilatera l Screening [facility] Neutrophil count [facility] Neutrophil percent differential count [facility] OUTSIDE PROCEDURE SCAN OUTSIDE P ROCEDURE SCAN Procedures Ordered: 06/14/2023 [facility] Comment on above: Ordered: 06/14/2023 Phase I & II - meter ed glucose Phase I & II - metered glucose Point of Care Testing Routine As Needed until discontinued starting 05/21/2019 [facility] Comment on above: As Needed until disc ontinued starting 05/21/2019 Platelets [#/volume] in Blood [facility] Protein measurement [facility] End: 05-21-2019 Protime-INR Protime-INR Lab STAT One Time for 1 Occurrences starting 05/21/2019 until 05/21/2019 [facility] Comment on above: One Time for 1 Occur rences starting 05/21/2019 until 05/21/2019 End: 05-21-2019 Pulse Oximetry Spot Check Pulse Oximetry Spot Check Respiratory Care Routine One Time for 1 Occurrences starting 05/21/2019 until 05/21/2019 [employer] [place], [place] Comment on above: One Time for 1 Occur rences starting 05/21/2019 until 05/21/2019 Rad Onc Intent to Treat Rad Onc Intent to Treat Radiation Oncology Routine 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) Ordered: 06/14/2023 [facility] Work Phone: Comment on above: Ordered: 06/14/2023 Rad Onc Intent to Treat Rad Onc Intent to Treat Radiation Oncology Routine Recurrent carcinoma of endometrium (HCC) Ordered: 06/21/2023 [facility] Work Phone: Comment on above: Ordered: 06/21/2023 Radionuclide imaging of perfusion of myocardium under exercise stress [facility] Red blood cell count [facility] Red cell distributio n width determination [facility] End: 05-21-2019 Surgical Pathology Surgical Pathology Lab Routine Once for 1 Occurrences starting 05/21/2019 until 05/21/2019 [facility] [place] Comment on above: Once for 1 Occurrenc es starting 05/21/2019 until 05/21/2019 Surgical Pathology Surgical Path ology Lab Routine 05/21/2019 8:15 AM EST [facility] [place] Tissue exam Tissue exam Path ology and Cytology Routine Endometrial cancer (CMS/HCC) (HCC) Vaginal lesion 05/19/2023 11:33 AM [facility] Break30 Immunizations Immunization Date Immunization Notes Care Provider Fa [facility] 02-21-2024 influenza, injectabl e, quadrivalent, preservative free Dr. Kristi Daigle DO Work Phone: [facility] 01-06-2023 influenza, injectabl e, quadrivalent, preservative free Dr. Kristi Daigle DO Work Phone: [facility] 01-06-2023 influenza virus vaccine, unspecified formulation Beth Cox MD Work Phone: [facility] 01-12-2022 Covid Pfizer Bivalen t Booster Dr. Kristi Daigle DO Work Phone: [facility] 12-28-2021 influenza, injectabl e, quadrivalent, preservative free Dr. Kristi Daigle DO Work Phone: [facility] 12-25-2020 influenza, injectabl e, quadrivalent, preservative free Dr. Kristi Daigle DO Work Phone: [facility] 04-16-2020 Covid (Pfizer) Dr. Kristi trujillo DO Work Phone: [facility] 03-26-2020 Covid (Pfizer) Dr. Kirsti trujillo DO Work Phone: [facility] Payers Date Payer Category Payer Blue [employer] [facility] - O ANTH BLUE CROSS Member Subscriber Plan / Payer (Effective 2024-Present) Name: Ayaka Julieth L Relation to Subscriber: Self Name: Julieth Marley Payer ID: [id number] ([facility]) Type: Commercial Address: [address] [place] [address] [id number] 2023 Self-pay [id number] 2023 Unknown [id number] 2023 Unknown [employer] [id number] 2023-Present [address] [place] [address] Commercial [id number] 2023 Unknown [id number] 2019 Unknown BCBS [place] - [place] P PO xxxxxxxxxxxx 2019-Present [address] [place] [address] xxxxxxxxxxxx [id number] 2016 Unknown [id number] Unknown [id number] Unknown [facility] [id number] Unknown [id number] 2.16.840.1.002680.3.579.2. 462 Unknown [id number] 2.16.840.1.435890.3.579.2. 462 Unknown [id number] 2.16.840.1.077205.3.579.2. 462 Unknown [id number] 2.16.840.1.897072.3.579.2. 462 Unknown [id number] 2.16.840.1.873522.3.579.2. 462 Unknown [id number] 2.16.840.1.987814.3.579.2. 462 Unknown [id number] 2.16.840.1.503765.3.579.2. 462 Unknown [id number] 2.16.840.1.583817.3.579.2. 462 Unknown [id number] 2.16.840.1.568974.3.579.2. 462 Unknown [id number] 2.16.840.1.450823.3.579.2. 462 Unknown [id number] 2.16.840.1.039870.3.579.2. 462 Unknown [id number] 2.16.840.1.191251.3.579.2. 462 Unknown [id number] 2.16.840.1.800837.3.579.2. 462 Unknown [id number] 2.16.840.1.667763.3.579.2. 462 Unknown [id number] 2.16.840.1.001034.3.579.2. 462 Unknown [id number] 2.16.840.1.698112.3.579.2. 462 Unknown [id number] 2.16.840.1.658133.3.579.2. 462 Unknown [id number] 2.16.840.1.172752.3.579.2. 462 Unknown [id number] 2.16.840.1.618890.3.579.2. 462 Unknown [id number] 2.16840.1.390008.3.579.2. 462 Unknown [id number] 2.16.840.1.752013.3.579.2. 462 Social History Date Type Detail Facility Start: 05-21-2019 End: 05-15-2023 Tobacco smoking status NHIS Never smoker [place] Start: 05-21-2019 End: 04-05-2024 Alcohol intake Ex-drinker (finding) [facility], [facility] Y Sex Assigned At Not on file [place], [place] Start: 07-22-2021 End: 02-08-2023 Tobacco smoking status SDIS Unknown if ever smoked [facility] Start: 04-24-2019 Non-smoker [facility] Start: 1965 Sex Assigned At Female [facility] Start: 05-19-2023 End: 04-05-2024 History of Social function [facility] Start: 05-19-2023 End: 04-05-2024 Tobacco use panel [facility] Start: 05-17-2023 Gender identity Identifies as female gender (finding) [facility] Start: 05-17-2023 Sexual orientation Heterosexual (fin ding) [facility] Start: 10-18-2021 Sex Female (finding) [facility] Clinical Notes 02-01-2021 to 08-14-2024 Note Date & Type Note Facility 08-14-2024 Progress note [facility] 08-14-2024 Progress note Note Date/Time August 14, 2024 3:21pm [facility] Gastroenterology [address] [place] [address] OFFICE VISIT Date of Service: 08/14/24 MR#: [id number] Acct: [id number] Name: JULIETH MARLEY Rep #: [id number] : 1965 Provider: CAROLE Bruce Age/Sex: 58/F Location: [facility] Status: Signed Intake Vital Signs 07/08/24 10:40 Height 5 ft 4 in Intake Visit Reasons: Blood in stool Chief Complaint: BRBPR Allergies Penicillins Allergy (Severe, Verified 07/08/24 10:43) Unknown latex Allergy (Intermediate, Verified 07/08/24 10:43) Unknown Medications ?Medication ?Instructions ?Recorded ?Confirmed ?Type multivitamin 1 tab PO DAILY 01/18/1807/19 History cholecalciferol (vitamin D3) 50 2,000 unit PO DAILY 08/14/24 History mcg (2,000 unit) tablet famotidine 20 mg tablet (Pepcid) 20 mg PO DAILY 08/14/24 History mv-min-vit C-ascorb tab PO DAILY 12/13/22 History Tw-Jle-Gpg-herb #124 333 mg-1.7 mg chewable tablet (Airborne (ascorbate sodium)) levothyroxine 50 mcg tablet 50 mcg PO DAILY #90 tabs 0 05/17/24 08/14/24 Rx sertraline 50 mg tablet 50 mg PO QDAY #90 tabs 05/2208/14/24 Rx vibegron 75 mg tablet (Gemtesa) 75 mg PO QDAY 07/03/24 08/14/24 History ezetimibe 10 mg tablet (Zetia) 10 mg PO QDAY #90 tabs 08/13/24 08/14/24 Rx PFSH Medical History Diarrhea Vagina neoplasm Dyspnea on exertion Left arm pain Eczema Posterior right knee pain Fatigue Urinary incontinence Endometrial cancer Thickened endometrium BV (bacterial vaginosis) Hypothyroid Gastritis High cholesterol Surgical History Status post complete hysterectomy History of bilateral oophorectomy History of LAVH History of tonsillectomy Family History Father Arthritis Myocardial infarction Heart disease Mother Myocardial infarction Heart disease Osteoporosis Brother Colon cancer Sister Depression Suicide attempt Grandmother CVA (cerebral vascular accident) Uncle Melanoma Lung cancer Social History Smoking Status: Never smoker alcohol intake: never substance use type: does not use caffeine: No what type of physical activity do you participate in: none seatbelt use: always do you feel safe at home: Yes additional social history: -Patient works at [employer] HPI HPI Chief Complaint: BRBPR Details: JULIETH MARLEY, is a 58 F who presents to the office today for establishment with [facility]. Pt has a PMHx of endometrial cancer s/p total hysterectomy and radiation. She iscancer free today. Pt endorsing BRPBR over the past few months. She at first thought it may have been hemorrhoids but it continued. She does not have blood with every bowel movement. When she does she will fill the bowel. She alternates between loose stools and constipation. SHe will have a bm daily but has to strain when she is constipated. She feels she may have IBS as she notices she can get loose stools when she is nervous. Of note she does recall having severe diarrhea and some bleeding during her treatment with radiation. Last colonoscopy in Apr 2019 afterher diagnosis of endometrial cancer. ROS Const Constitutional: Positive for fatigue; No fever(s) or weight change ENT ENT: No difficulty swallowing Cardio Cardiology: Positive for leg pain with exertion Gastro GI: Positive for abdominal pain, bloating, change in bowel habits, constipation,diarrhea, heartburn, excessive flatus and Blood in stool; No belching, change in stool character, coffee ground emesis, cramping, difficulty swallowing, feeling full early, incontinent of stools, Vomiting blood/hematemesis, loose stools, Black,tarry stools, nausea/dyspepsia, pain withswallowing, vomiting or other Musc Musculoskeletal: Positive for abnormal gait, joint pain, joint swelling, muscle cramps, muscle weakness, stiffness, Arthritis, sciatica, leg pain at night and leg pain with exertion Skin Skin: No yellowing of the eye or itchy eyes Neuro Neurology: Positive for abnormal gait Psych Psychiatric: Positive for anxiety and Positive for depression Endo Endocrine: Positive for fatigue; No weight change Aller/Imm Allergy/Immunologic: No itchy eyes Connor/Lymp Hematologic/Lymphatic: Positive for easy bleeding; No easy bruising Exam Const General: cooperative and comfortable Orientation: alert Resp Effort & Inspection: normal respiratory effort Cardio Rate: regular rate Rhythm: regular rhythm GI Inspection: normal to inspection Auscultation: normal bowel sounds Palpation: soft, no guarding and nontender Assessment and Plan Assessment and Plan (1) Bright red blood per rectum: Status: Acute (2) Diarrhea: Status: Acute Qualifiers: Diarrhea type: unspecified type Qualified Code(s): R19.7 - Diarrhea, unspecified Orders: Orders CBC W/Diff, Automated Today K62.5 - Hemorrhage of anus and rectum Calprotectin, Stool Today K62.5 - Hemorrhage of anus and rectum Patient Instructions: Julieth is a 58 yo female pt here today for evaluation of BRBPR x3 months. Pt also endorsing loose stools alternating with constipation. She has a hx of endometrial cancer s/p hysterectomy and internal and external radiation. Last radiation in july 2023. Due to her intermittent episodes of BRBPR I have concern for radiation proctitis, malignancy or hemorrhoids. Pt also with intermittent loose stools related to anxiety likely IBS. She will undergo colonoscopy to assess her lower GI tract. I will order CBC to monitor her hgb. I will also order stool testing to rule out inflammation in her colon. Pt agreeable to plan. -Colonoscopy -Calprotectin -CBC -F/u after procedure Coding Level of Care Code Off vis,new,level 4 Diagnoses Bright red blood per rectum K62.5 Diarrhea, unspecified type R19.7 Diarrhea type: unspecified type 08/14/24 3853 <Electronically signed by Darcy LAM> Date _ Darcy LAM Cosigner Signature: Date (if applicable) CC: ~ [facility] Work Phone: [phone]) 446-692503-05-2025 Evaluation note* Diagnosis Onset Date Resolution Status Admit Date Depression acute March 5th, 202 5 4:15pm Dysuria acute May 22 4:15pm Recurrent carcinoma of endometrium chronic May 22, 2024 4:15pm Depression acute July 03 3:50pm Frequent loose stools acute Jun 3:50pm Leg pain, posterior acute July 03, 2024 3:50pm Recurrent carcinoma of endometrium chronic July 08, 2024 10:00am Recurrent carcinoma of endometrium chronic July 08, 2024 10:02am Bright red blood per rectum acute August 14, 2024 2:04pm Diarrhea acute August 14, 2024 2:04pm [facility] Work Phone: 1(974) 411-397301-17-2025 Telephone encounter Note* Telephone Encounter - Francis Alvarezherbert - 04/05/2024 12:32 PM EST Faxed with confirmation to Dr. Snyder at [phone] [id number] Telephone encounter Note* Telephone Encounter - Francis Freeman - 04/05/2024 12:32 PM EST ----- Message from Sravan Shine MD sent at 04/05/2024 10:48 AM EST ----- Can you fax this note and the referral to Dr. Sherry Snyder in [place]? Thank you! [address] E-mail: [email or web address] Miscellaneous Notes* Telephone Encounter - Francis Freeman - 04/05/2024 12:32 PM EST Faxed with confirmation to Dr. Snyder at [phone] * Telephone Encounter - Francis Alvarezherbert - 04/05/2024 12:32 PM EST ----- Message from Sravan Shine MD sent at 04/05/2024 10:48 AM EST ----- Can you fax this note and the referral to Dr. Sherry Snyder in [place]? Thank you! [address] E-mail: [email or web address] documented in this encounterSLakeHealth Beachwood Medical [id number] Telephone encounter Note* Telephone Encounter - Francis Freeman - 04/05/2024 11:50 AM EST Faxed to Dr. Maynard at [phone] via [employer]. Confirmation scanned within media [id number] Telephone encounter Note* Telephone Encounter - Francis Freeman - 04/05/2024 11:50 AM EST ----- Message from Sravan Shine MD sent at 04/05/2024 10:49 AM EST ----- Also please fax to Dmitri Pinon in [place]. Thanks! [facility] [id number] Miscellaneous Notes* Telephone Encounter - Francis Freeman - 04/05/2024 11:50 AM EST Faxed to Dr. Maynard at [phone] via [employer]. Confirmation scanned within media * Telephone Encounter - Francis Alvarezherbert - 04/05/2024 11:50 AM EST ----- Message from Sravan Shine MD sent at 04/05/2024 10:49 AM EST ----- Also please fax to Dr. Maynard, Rad onc in [place]. Thanks! documented in this [facility]01-17-2025 History of Present illness Narrative* Sravan Shine MD - 04/05/2024 10:40 AM EST Chief Complaint Patient presents with Endometrial Cancer Recurrent endometrial cancer -surveillance of disease. HISTORY OF THE PRESENT ILLNESS: Julieth Marley is a pleasant 58 y.o. female with recurrent endometrial cancer. Patient underwent robotic endometrial cancer staging in May 2019. Final pathology showed stage Ia, FIGO grade 2, -LVSI, endometrioid endometrial adenocarcinoma. Patient did not have high-intermediate risk of recurrence and therefore no adjuvant treatment was indicated. Discussed surveillance. Patient was planning on following up with Dr. Amin for surveillance but she was lost to follow up. She presented with intermittent vaginal bleeding present for several months. On examination there was a mass at the vaginal apex, vascular and cauliflower-like, friable. Underwent partial radical vaginectomy 05/23/2023 which confirmed recurrent, well differentiated endometrial adenocarcinoma. pMMR proteins. 95% ER+. 06/15/23 CT C/A/P showed 1.5cm soft tissue density nodule posterior to right lower abdominal rectus sheath that is nonspecific but could represent a small peritoneal tumor implant. No other retroperitoneal, omental, mesenteric mass/nodule identified. No evidence of other mass, lymphadenopathy, or met astatic disease. PET/CT 06/26 negative for metastatic disease. Treated with EBRT 4500 cGy in [address] Maynard from 07/10/2023- 08/11/2023. Received adjuvant vaginal cylinder brachytherapy consisting of 30 Stratton delivered over 5 fractions, twice weekly, utilizing a 3cm cylinder to 10cm length prescribed to surface. Dr. Cox. She received her final fraction on 08/30/2023. Interval history: The patient presents to the office today for routine surveillance of disease. She has been doing well since her last visit. Denies headaches, vision changes, chest pain, shortness of breath. Denies abdominal or pelvic pain. Reports ongoing pain with urination that has been present since completion of her adjuvant brachytherapy. Not urinating more frequently. No hematuria. Doesn't feel like she completely empties her bladder. More dribbling. Does experience gushes of urine/urinary incontinence. Unable to determine associated factors - such as leakage on the way to the restroom, keys in the door, etc. Was on pyridium in the past but this didn't really help. Tried azo and cranberry juice without improvement. Denies vaginal bleeding or discharge. Had diarrhea with the radiation and that has improved but nowlactose intolerant. Changed her mild and this helped. Has follow up with Dr. Maynard 06/2024. Past Medical History: Diagnosis Date Arthritis BV (bacterial vaginosis) Cancer (CMS/HCC) (HCC) Endometrial cancer (CMS/HCC) (HCC) Fissure, anal Gastritis GERD (gastroesophageal reflux disease) History of stress test 2023 Hyperlipidemia Hypothyroidism PMB (postmenopausal bleeding) Thickened endometrium Past Surgical History: Procedure Laterality Date COLONOSCOPY HYSTERECTOMY b/l salpingo oophorectomy, lymph node sampling; [facility] OTHER SURGICAL HISTORY 05/23/2023 Cystoscopy with partial vaginectomy TONSILLECTOMY (HISTORICAL) Obstetrical History: Family History Problem Relation Name Age of Onset Heart attack Mother Nancy Osteoporosis Mother Nancy High Blood Pressure Mother Nancy Heart disease Mother Nancy Miscarriages / Stillbirths Mother Nancy Stroke Mother Nancy Heart attack Father Khurram Heart disease Father Khurram Arthritis Father Khurram Diabetes Father Khurram Other ([id number]) Sister Analia suicide attempt Depression Sister Analia Skin cancer Sister Analia Arthritis Sister Analia Colon cancer Brother Khurram Brain cancer Brother Khurram Cancer Brother Khurram Skin cancer Mother's Sister Skin cancer Mother's Brother Diabetes Maternal Grandmother Yael Stroke Maternal Grandmother Yael Cancer Sister Chela Depression Sister Chela Miscarriages / Stillbirths Sister Chela Diabetes Sister Vijaya Hypertension Sister Vijaya Social History Socioeconomic History Marital status: Spouse name: Not on file Number of children: Not on file Years of education: Not on file Highest education level: Not on file Occupational History Not on file Tobacco Use Smoking status: Never Smokeless tobacco: Never Vaping Use Vaping status: Never Used Substance and Sexual Activity Alcohol use: Not Currently Drug use: Never Sexual activity: Not Currently Partners: Male control/protection: Abstinence, Post-menopausal Other Topics Concern Not on file Social History Narrative Not on file Social Drivers of Health Financial Resource Strain: Not on file Food Insecurity: Not on file Transportation Needs: Not on file Physical Activity: Not on file Stress: Not on file Social Connections: Not on file Intimate Partner Violence: Not on file Housing Stability: Not on file Current Outpatient Medications on File Prior to Visit Medication Sig Dispense Refill Acetaminophen (TYLENOL ARTHRITIS PAIN PO) Take by mouth Nightly. atorvastatin (Lipitor) 40 MG tablet Take 40 mg by mouth Nightly. cholecalciferol (Vitamin D3) 25 MCG (1000 UT) tablet Take 3,000 Units by mouth daily. famotidine (Pepcid) 20 MG tablet Take 40 mg by mouth Nightly. levothyroxine (Synthroid, Levoxyl) 50 MCG tablet every morning (before breakfast). MULTIPLE VITAMINS-MINERALS ER PO Take by mouth if needed. NON FORMULARY every morning (before breakfast). airborne [DISCONTINUED] atorvastatin (Lipitor) 20 MG tablet Take 20 mg by mouth daily. [DISCONTINUED] diphenoxylate-atropine (Lomotil) 2.5-0.025 MG tablet Take 1 tablet by mouth 2 times daily as needed for diarrhea. [DISCONTINUED] phenazopyridine (Pyridium) 200 MG tablet Take 1 tablet (200 mg) by mouth 3 times daily as needed for bladder spasms. 60 tablet 0 [DISCONTINUED] potassium chloride CR (Klor-Con M20) 20 MEQ ER tablet Take 20 mEq by mouth daily. Donot crush or chew. No current facility-administered medications on file prior to visit. Allergies as of 04/05/2024 - Reviewed 04/05/2024 Allergen Reaction Noted Penicillins 01/07/2005 Latex Itching 05/11/2006 Review of Systems A 12 point review of systems was performed and is as per the history of the present illness, all other systems were reviewed and are negative. Vitals: 04/05/24 1013 BP: 121/83 Pulse: 69 Body mass index is 43.08 kg/m . Physical Exam Vitals reviewed. Constitutional: General: She is not in acute distress. Appearance: Normal appearance. She is not ill-appearing, toxic-appearing or diaphoretic. HENT: Head: Normocephalic and atraumatic. Eyes: General: No scleral icterus. Extraocular Movements: Extraocular movements intact. Cardiovascular: Rate and Rhythm: Normal rate. Pulmonary: Effort: Pulmonary effort is normal. No respiratory distress. Abdominal: General: There is no distension. Palpations: Abdomen is soft. There is no mass. Tenderness: There is no abdominal tenderness. There is no guarding or rebound. Hernia: No hernia is present. Comments: Well healed incisions. No evidence of hernia formation. Genitourinary: General: Normal vulva. Labia: Right: No rash, tenderness, lesion or injury. Left: No rash, tenderness, lesion or injury. Urethra: No prolapse, urethral pain, urethral swelling or urethral lesion. Vagina: Normal. Uterus: Absent. Comments: Vagina is shortened and narrowed consistent with her history of radiation. There are someradiation changes of the mucosa including around the left urethral meatus. No evidence of recurrentdisease. Musculoskeletal: Right lower leg: No edema. Left lower leg: No edema. Skin: General: Skin is warm and dry. Coloration: Skin is not jaundiced or pale. Findings: No erythema. Neurological: General: No focal deficit present. Mental Status: She is alert. Motor: No weakness. Coordination: Coordination normal. Gait: Gait normal. Psychiatric: Mood and Affect: Mood normal. Behavior: Behavior normal. ASSESSMENT/PLAN: Diagnosis Plan 1. Recurrent carcinoma of endometrium (HCC) 2. S/P radiation therapy 3. 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 with an isolated vaginal recurrence of FIGO grade 1 endometrioid endometrial adenocarcinoma, pMMR proteins. Treated with partial vaginectomy and adjuvant radiation (EBRT andvaginal brachytherapy). Doing well. No evidence of recurrent disease based on history or physical examination. Continue visits every 3 months for surveillance, alternating between myself and radiation oncology. The signs and symptoms of recurrence were reviewed and the patient will contact our office in the interim should any of these arise. Referral to local urologist for dysuria and urinary incontinence. The patient had an opportunity to ask questions, all of which were answered to the best of my ability. She is in agreement with the above noted plan. I spent a total time of 25 minutes reviewing previous notes, test results, obtaining history, communicating results to the patient as well as counseling the patient, documenting clinical information in the patient's electronic medical record and coordinating care for the patient. Disclaimer: This note was dictated by speech recognition. I apologize for minor errors in director property which may be present. documented in this [id number] History of Present illness Narrative* Sravan Shine MD - 11/03/2023 10:40 AM EDT Chief Complaint Patient presents with Follow-up Pt is having diarrhea. Pt recently had COVID. Pt is taking pyridium due to painful urination. No vaginal concerns. Pt states she is sore down there, she has not been using the dilator. HISTORY OF THE PRESENT ILLNESS: Julieth Marley is a pleasant 58 y.o. female with recurrent endometrial cancer. Patient underwent robotic endometrial cancer staging in May 2019. Final pathology showed: DIAGNOSIS: A. RIGHT SENTINEL LYMPH NODE, EXCISION - NEGATIVE FOR MALIGNANCY (0/1) B. UTERUS, HYSTERECTOMY - ENDOMETRIOID ADENOCARCINOMA. SEE BELOW. C. LEFT SENTINEL LYMPH NODE , EXCISION - NEGATIVE FOR MALIGNANCY (0/1) SPECIMEN Procedure: Total hysterectomy and bilateral salpingo-oophorectomy Specimen Integrity: Intact TUMOR Tumor Site: Endometrium Histologic Type: Endometrioid carcinoma, NOS Histologic Grade: FIGO grade 2 Myometrial Invasion: Present Depth of Myometrial Invasion (Millimeters): 1 mm Myometrial Thickness (Millimeters): 13 mm Percentage of Myometrial Invasion: <50 % Uterine Serosa Involvement: Not identified Lower Uterine Segment Involvement: Not identified Cervical Stromal Involvement: Not identified Other Tissue / Organ Involvement: Not identified Peritoneal Ascitic Fluid: Not submitted / unknown Lymphovascular Invasion: Not identified LYMPH NODES Lymph Node Status: All lymph nodes negative for tumor cells Total Number of Pelvic Nodes Examined: 2 Number of Pelvic [place] Nodes Examined: 2 Total Number of Para-aortic Nodes Examined: 0 Number of Para-aortic [place] Nodes Examined: 0 PATHOLOGIC STAGE CLASSIFICATION (pTNM, AJCC 8th Edition) Note: Reporting of pT, pN, and (when applicable) pM categories is based on information available to the pathologist at the time the report is issued. As per the AJCC (Chapter 1, 8th Ed.) it is the managing physician's responsibility to establish the final pathologic stage based upon all pertinent information, including but potentially not limited to this pathology report. Primary Tumor (pT): pT1a Primary Tumor (pT): pT1a: Tumor limited to endometrium or invading less than half the myometrium Regional Lymph Nodes Modifier: (sn) Regional Lymph Nodes (pN): pN0 Regional Lymph Nodes (pN): pN0: No regional lymph node metastasis FIGO STAGE FIGO Stage: IA ADDITIONAL FINDINGS Additional Findings: None identified Again, this was consistent with a stage Ia, FIGO grade 2, negative lymphovascular space invasion endometrioid endometrial adenocarcinoma. Patient did not need to high-intermediate risk of recurrence and therefore no adjuvant treatment was indicated. Discussed surveillance. [facility] but she was lost to follow up. She presented with intermittent vaginal bleeding present for several months. Started very light, pink. Sometimes it is once a week with wiping. Occasionally on the pad. On examination there was a mass at the vaginal apex, vascular and cauliflower-like, friable. Reports that her bladder is weaker. Will occasionally have a gushing. Has an urge and then gush. Worse when she is nervous. Denies leakage with cough, laugh, sneeze, etc. Denies blood in her urine. Interval history: The patient presents to the office today for postoperative evaluation. She underwent partial radical vaginectomy. Final pathology: Final Diagnosis SIMPLE PARTIAL VAGINECTOMY - SQUAMOUS VAGINAL MUCOSA WITH INVOLVEMENT BY WELL DIFFERENTIATED ENDOMETRIAL CARCINOMA, ENDOMETRIOID TYPE. COMMENT: The lesion stains positively for ER, OH, PAX8, and vimentin. The cells are negative for WT-1. P53 demonstrates wild-type staining. The findings are consistent with endometrial origin. pMMR proteins. Interval History: Recently seen by Dr. Cox, radiation oncology, after completion of radiation. She was treated with adjuvant vaginal cylinder brachytherapy consisting of 30 Stratton delivered over 5 fractions, twice weekly, utilizing a 3cm cylinder to 10cm length prescribed to surface. She received her final fraction on08/30/2023. Radiation induced diarrhea. Diarrhea got worse again after covid. Had 4-5 episodes this am. Does report feeling like she has low energy. Is back on pyridium for bladder irritation. Stopped taking motrin because that caused irritation to her stomach. Denies vaginal bleeding or discharge. Past Medical History: Diagnosis Date Arthritis BV (bacterial vaginosis) Cancer (CMS/HCC) (HCC) Endometrial cancer (CMS/HCC) (HCC) Fissure, anal Gastritis GERD (gastroesophageal reflux disease) History of stress test 2023 Hyperlipidemia Hypothyroidism PMB (postmenopausal bleeding) Thickened endometrium Past Surgical History: Procedure Laterality Date COLONOSCOPY HYSTERECTOMY b/l salpingo oophorectomy, lymph node sampling; DR. SRAVAN MARTIN OTHER SURGICAL HISTORY 05/23/2023 Cystoscopy with partial vaginectomy TONSILLECTOMY (HISTORICAL) Obstetrical History: Family History Problem Relation Name Age of Onset Heart attack Mother Nancy Osteoporosis Mother Nancy High Blood Pressure Mother Nancy Heart disease Mother Nancy Miscarriages / Stillbirths Mother Nancy Stroke Mother Nancy Heart attack Father Khurram Heart disease Father Khurram Arthritis Father Khurram Diabetes Father Khurram Other ([id number]) Sister Analia suicide attempt Depression Sister Analia Skin cancer Sister Analia Arthritis Sister Analia Colon cancer Brother Khurram Brain cancer Brother Khurram Cancer Brother Khurram Skin cancer Mother's Sister Skin cancer Mother's Brother Diabetes Maternal Grandmother Yael Stroke Maternal Grandmother Yael Cancer Sister Chela Depression Sister Chela Miscarriages / Stillbirths Sister Chela Diabetes Sister Vijaya Hypertension Sister Vijaya Social History Socioeconomic History Marital status: Spouse name: Not on file Number of children: Not on file Years of education: Not on file Highest education level: Not on file Occupational History Not on file Tobacco Use Smoking status: Never Smokeless tobacco: Never Vaping Use Vaping status: Never Used Substance and Sexual Activity Alcohol use: Not Currently Drug use: Never Sexual activity: Not Currently Partners: Male control/protection: Abstinence, Post-menopausal Other Topics Concern Not on file Social History Narrative Not on file Social Determinants of Health Financial Resource Strain: Not on file Food Insecurity: Not on file Transportation Needs: Not on file Physical Activity: Not on file Stress: Not on file Social Connections: Not on file Intimate Partner Violence: Not on file Housing Stability: Not on file Current Outpatient Medications on File Prior to Visit Medication Sig Dispense Refill Acetaminophen (TYLENOL ARTHRITIS PAIN PO) Take by mouth Nightly. atorvastatin (Lipitor) 40 MG tablet Take 40 mg by mouth Nightly. cholecalciferol (Vitamin D3) 25 MCG (1000 UT) tablet Take 3,000 Units by mouth daily. diphenoxylate-atropine (Lomotil) 2.5-0.025 MG tablet Take 1 tablet by mouth 2 times daily as neededfor diarrhea. famotidine (Pepcid) 20 MG tablet Take 40 mg by mouth Nightly. levothyroxine (Synthroid, Levoxyl) 50 MCG tablet every morning (before breakfast). MULTIPLE VITAMINS-MINERALS ER PO Take by mouth if needed. NON FORMULARY every morning (before breakfast). airborne [DISCONTINUED] phenazopyridine (Pyridium) 200 MG tablet Take 1 tablet (200 mg) by mouth 3 times daily as needed for bladder spasms. 60 tablet 0 atorvastatin (Lipitor) 20 MG tablet Take 20 mg by mouth daily. potassium chloride CR (Klor-Con M20) 20 MEQ ER tablet Take 20 mEq by mouth daily. Do not crush or chew. No current facility-administered medications on file prior to visit. Allergies as of 11/03/2023 - Reviewed 11/03/2023 Allergen Reaction Noted Penicillins 01/07/2005 Latex Itching 05/11/2006 Review of Systems A 12 point review of systems was performed and is as per the history of the present illness, all other systems were reviewed and are negative. Vitals: 11/03/23 1028 BP: 119/77 Pulse: 67 Body mass index is 41.88 kg/m . Physical Exam Vitals reviewed. Constitutional: General: She is not in acute distress. Appearance: Normal appearance. She is not ill-appearing, toxic-appearing or diaphoretic. HENT: Head: Normocephalic and atraumatic. Eyes: General: No scleral icterus. Extraocular Movements: Extraocular movements intact. Cardiovascular: Rate and Rhythm: Normal rate. Pulmonary: Effort: Pulmonary effort is normal. No respiratory distress. Abdominal: General: There is no distension. Palpations: Abdomen is soft. There is no mass. Tenderness: There is no abdominal tenderness. There is no guarding or rebound. Hernia: No hernia is present. Comments: Well healed incisions. No evidence of hernia formation. Genitourinary: General: Normal vulva. Labia: Right: No rash, tenderness, lesion or injury. Left: No rash, tenderness, lesion or injury. Urethra: No prolapse, urethral pain, urethral swelling or urethral lesion. Vagina: Normal. Uterus: Absent. Comments: Vagina is well head. Minimal changes related to radiation. No evidence of recurrent disease. Musculoskeletal: Right lower leg: No edema. Left lower leg: No edema. Skin: General: Skin is warm and dry. Coloration: Skin is not jaundiced or pale. Findings: No erythema. Neurological: General: No focal deficit present. Mental Status: She is alert. Motor: No weakness. Coordination: Coordination normal. Gait: Gait normal. Psychiatric: Mood and Affect: Mood normal. Behavior: Behavior normal. ASSESSMENT/PLAN: Diagnosis Plan 1. Recurrent carcinoma of endometrium (HCC) CBC Comprehensive metabolic panel CBC Comprehensive metabolic panel 2. S/P radiation therapy CBC Comprehensive metabolic panel CBC Comprehensive metabolic panel Julieth Marley is a 58 y.o. with recurrent and FIGO grade 1 endometrioid endometrial adenocarcinoma, proficient mismatch repair proteins. Treated with partial vaginectomy and adjuvant radiation. Tolerated treatment well. Will check labs given ongoing diarrhea. Will need imaging 3 months after completion of radiation. The patient had an opportunity to ask questions, all of which were answered to the best of my ability. She is in agreement with the above noted plan. I spent a total time of 15 minutes reviewing previous notes, test results, obtaining history, communicating results to the patient as well as counseling the patient, documenting clinical information in the patient's electronic medical record and coordinating care for the patient. Disclaimer: This note was dictated by speech recognition. I apologize for minor errors in director property which may be present. documented in this [facility]07-17-2024 History of Present illness Narrative* Beth Cox MD - 10/04/2023 3:30 PM EDT RADIATION ONCOLOGY FOLLOW UP PATIENT: Julieth Marley DATE OF SERVICE: 10/04/2023 : 1965 AGE: 58 y.o. PRIMARY SITE AND HISTOPATHOLOGY: Problem List Items Addressed This Visit None Cancer Staging No matching staging information was found for the patient. HISTORY OF PRESENT ILLNESS: Julieth Marley is a 57 y.o. who presents with grade 2 FIGO Stage IA endometrial cancer s/p -BSO 05/2019, now with vaginal recurrence s/p partial vaginectomy and external beam radiation in [place], now s/p vaginal cylinder brachytherapy. She was treated with adjuvant vaginal cylinder brachytherapy consisting of 30 Stratton delivered over 5fractions, twice weekly, utilizing a 3cm cylinder to 10cm length prescribed to surface. She received her final fraction on 08/30/2023. INTERVAL HISTORY: Ms. Marley has been doing well and reports that her diarrhea has improved significantly, now having formed stools. She continues to have dysuria that is improving, and she has stopped using pyridium. She otherwise continues to work and denies any pain or bleeding. She has seen Dr. Maynard and next follow-up with Dr. Jorgensen 11/02. PAST MEDICAL HISTORY: Past Medical History: Diagnosis Date Arthritis BV (bacterial vaginosis) Cancer (CMS/HCC) (HCC) Endometrial cancer (CMS/HCC) (HCC) Gastritis GERD (gastroesophageal reflux disease) History of stress test 2023 Hyperlipidemia Hypothyroidism PMB (postmenopausal bleeding) Thickened endometrium PAST SURGICAL HISTORY: Past Surgical History: Procedure Laterality Date COLONOSCOPY HYSTERECTOMY b/l salpingo oophorectomy, lymph node sampling; [facility] OTHER SURGICAL HISTORY 05/23/2023 Cystoscopy with partial vaginectomy TONSILLECTOMY (HISTORICAL) ALLERGIES: Allergies as of 10/04/2023 - Reviewed 10/04/2023 Allergen Reaction Noted Penicillins 01/07/2005 Latex Itching 05/11/2006 MEDICATIONS: Current Outpatient Medications Medication Sig Dispense Refill Acetaminophen (TYLENOL ARTHRITIS PAIN PO) Take by mouth Nightly. atorvastatin (Lipitor) 20 MG tablet Take 20 mg by mouth daily. atorvastatin (Lipitor) 40 MG tablet Take 40 mg by mouth Nightly. cholecalciferol (Vitamin D3) 25 MCG (1000 UT) tablet Take 3,000 Units by mouth daily. famotidine (Pepcid) 20 MG tablet Take 40 mg by mouth Nightly. levothyroxine (Synthroid, Levoxyl) 50 MCG tablet every morning (before breakfast). MULTIPLE VITAMINS-MINERALS ER PO Take by mouth if needed. NON FORMULARY every morning (before breakfast). airborne diphenoxylate-atropine (Lomotil) 2.5-0.025 MG tablet Take 1 tablet by mouth 2 times daily as neededfor diarrhea. phenazopyridine (Pyridium) 200 MG tablet Take 1 tablet (200 mg) by mouth 3 times daily as needed for bladder spasms. (Patient not taking: Reported on 10/04/2023) 60 tablet 0 potassium chloride CR (Klor-Con M20) 20 MEQ ER tablet Take 20 mEq by mouth daily. Do not crush or chew. No current facility-administered medications for this encounter. REVIEW OF SYSTEMS: See HPI ECOG Performance Status: 0 Objective PHYSICAL EXAM: BP 138/76 Pulse 82 Temp 96.9 F (36.1 C) Resp 20 Ht 5' 4 (1.626 m) Wt 249 lb 4.8 oz (113 kg) SpO2 100% BMI 42.79 kg/m /Pain Score: 0 - No pain /Fatigue Assessment: Able to perform daily activities Physical Exam General: alert, no apparent distress, cooperative with exam HEENT: normocephalic, extraocular movements intact, oropharynx clear Cardiac: well-perfused extremities Pulmonary: no respiratory distress Neuro: alert and oriented, thought content appropriate, clear speech Psych: normal mood and affect Branch Service Leader: deferred IMPRESSION: Julieth Marley is a 58 y.o. who presents with grade 2 FIGO Stage IA endometrial cancer s/p TH-BSO 05/2019, now with vaginal recurrence s/p partial vaginectomy and external beam radiation in [place], now s/p vaginal cylinder brachytherapy. PLAN: Tolerated brachytherapy well and improving from side effects of treatment course. - Dilator and education given - Continue follow-up with Branch Service Leader Onc - Return to clinic as needed Beth Cox MD [facility] Department of Radiation Oncology is an Accredited Facility of the [employer] ([employer]). This document was completed utilizing speech recognition software. Grammatical errors, random word insertions, pronoun errors, and incomplete sentences are an occasional consequence of this system due to software limitations, ambient noise, and hardware issues. Any formal questions or concerns about the content, text or information contained within the body of this dictation should be directly addressed to the provider for clarification. documented in this [id number] Nurse Note* Rae Ortiz RN - 10/04/2023 3:30 PM EDT Pt here at [facility] with Kenny for F/U with Dr. Cox. Pt states appetite and sleeping are WNL. No issues with skin to tx area. Denies vaginal bleeding or spotting. No vaginal discharge. Pt states when she urinates there is some burning with urination. Pt stopped taking pyridium las week. Pt was having diarrhea for 3 months but now it's becoming more formed. Vaginal dilator teaching reviewed. Pt verbalized understanding. Per Dr. Cox medium size dilator given. [id number] Nurse Note* Rae Ortiz RN - 10/04/2023 3:30 PM EDT Pt here at [facility] with Kenny for F/U with Dr. Cox. Pt states appetite and sleeping are WNL. No issues with skin to tx area. Denies vaginal bleeding or spotting. No vaginal discharge. Pt states when she urinates there is some burning with urination. Pt stopped taking pyridium las week. Pt was having diarrhea for 3 months but now it's becoming more formed. Vaginal dilator teaching reviewed. Pt verbalized understanding. Per Dr. Cox medium size dilator given. documented in this encounterSLake[facility] [id number] Nurse Note* Devorah Gomez RN - 08/17/2023 10:15 AM EDT Pt here today for cylinder sizing and CT SIM with Dr. Cox. Pt states she was started on medication for dysuria. Pt also takes AZO OTC as needed. Pt states thedysuria has improved with the medication. Pt is also on medication for diarrhea. Pt denies any vaginal bleeding or discharge. Consent for XRT signed. Brachytherapy teaching done with pt. Pt verbalized understanding. Pt set upfor pelvic exam and cylinder sizing. 10:50 am- Assisted Dr. Cox with pelvic exam and cylinder sizing. Pt tolerated well. 3cm cylinder chosen by Dr. Cox. CT SIM aware. [facility] [id number] Nurse Note* Devorah Gomez RN - 08/17/2023 10:15 AM EDT Pt here today for cylinder sizing and CT SIM with Dr. Cox. Pt states she was started on medication for dysuria. Pt also takes AZO OTC as needed. Pt states thedysuria has improved with the medication. Pt is also on medication for diarrhea. Pt denies any vaginal bleeding or discharge. Consent for XRT signed. Brachytherapy teaching done with pt. Pt verbalized understanding. Pt set upfor pelvic exam and cylinder sizing. 10:50 am- Assisted Dr. Cox with pelvic exam and cylinder sizing. Pt tolerated well. 3cm cylinder chosen by Dr. Cox. CT SIM aware. documented in this [facility]04-03-2024 Consult note* Beth Cox MD - 06/21/2023 11:00 AM EDT RADIATION ONCOLOGY INITIAL CONSULTATION PATIENT: Julieth Marley DATE OF SERVICE: 06/21/23 : 1965 AGE: 57 y.o. PRIMARY SITE AND HISTOPATHOLOGY: Problem List Items Addressed This Visit None Cancer Staging No matching staging information was found for the patient. HISTORY OF PRESENT ILLNESS: Julieth Marley is a 57 year old female with hx grade 2 FIGO Stage IA endometrial cancer s/p TH-BSO 05/2019, now with vaginal recurrence s/p partial vaginectomy and planned to start external beam radiationin [place], presents to discuss vaginal cylinder brachytherapy. 05/21/2019 Underwent robotic hysterectomy, bilateral salpingo-oophorectomy, bilateral pelvic sentinellymphadenectomy with Dr. Jorgensen. Surgical pathology showed grade 2 endometrioid endometrial carcinoma, 1/13mm MMI, -ANKIT, -CSI, - LVSI, 0/2 LN involved, pT1aN0. No adjuvant therapy recommended. 05/19/[address] Jorgensen for light vaginal bleeding x several months. Exam showed raised, firm, somewhat friable anterior vaginal lesion at midline 2- 3cm from introitus. Biopsy revealed superficial fragments of well-differentiated adenocarcinoma, consistent with mullerian origin and compatible with history of endometrioid adenocarcinoma. 05/23/23 Underwent simple partial vaginectomy, with exam revealing raised, firm, hyperemic lesion involving anterior vagina beginning 3cm from ureteral orifice in midline of anterior vagina, measuring 1.5 x 1cm. Incision was 3cm. Surgical pathology revealed squamous vaginal mucosa with involvement bywell differentiated endometrioid endometrial carcinoma. 06/15/23 CT C/A/P showed 1.5cm soft tissue density nodule posterior to right lower abdominal rectus sheath that is nonspecific but could represent a small peritoneal tumor implant. No other retroperitoneal, omental, mesenteric mass/nodule identified. No evidence of other mass, lymphadenopathy, or met astatic disease. PET/CT scheduled for 06/26. Established care with radiation oncologist Dr. Maynard in [place], with plan to start external beamradiation 07/02 for 5.5 weeks. Ms. Marley presents today by herself and reports healing well after surgery. 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 Denies history of radiation, chemotherapy, or implanted device. PAST MEDICAL HISTORY: Past Medical History: Diagnosis Date Arthritis BV (bacterial vaginosis) Cancer (CMS/HCC) (HCC) Endometrial cancer (CMS/HCC) (HCC) Gastritis GERD (gastroesophageal reflux disease) History of stress test 2023 Hyperlipidemia Hypothyroidism PMB (postmenopausal bleeding) Thickened endometrium PAST SURGICAL HISTORY: Past Surgical History: Procedure Laterality Date COLONOSCOPY HYSTERECTOMY b/l salpingo oophorectomy, lymph node sampling; [facility] OTHER SURGICAL HISTORY 05/23/2023 Cystoscopy with partial vaginectomy TONSILLECTOMY (HISTORICAL) OB History Para Term AB Living 0 0 0 0 0 0 SAB IAB Ectopic Multiple Live Births 0 0 0 0 0 Age at Menarche: 14 Age at menopause: 38 SOCIAL HISTORY: Social History Socioeconomic History Marital status: Spouse name: Not on file Number of children: Not on file Years of education: Not on file Highest education level: Not on file Occupational History Not on file Tobacco Use Smoking status: Never Smokeless tobacco: Never Vaping Use Vaping Use: Never used Substance and Sexual Activity Alcohol use: Not Currently Drug use: Never Sexual activity: Not on file Other Topics Concern Not on file Social History Narrative Not on file Social Determinants of Health Financial Resource Strain: Not on file Food Insecurity: Not on file Transportation Needs: Not on file Physical Activity: Not on file Stress: Not on file Social Connections: Not on file Intimate Partner Violence: Not on file Housing Stability: Not on file FAMILY HISTORY: Family History Problem Relation Name Age of Onset Heart attack Mother Osteoporosis Mother High Blood Pressure Mother Heart attack Father Heart disease Father Arthritis Father Other ([id number]) Sister suicide attempt Depression Sister Skin cancer Sister Colon cancer Brother Brain cancer Brother Skin cancer Mother's Sister Skin cancer Mother's Brother ALLERGIES: Allergies as of 06/21/2023 - Reviewed 06/21/2023 Allergen Reaction Noted Penicillins 01/07/2005 Latex Itching 05/11/2006 MEDICATIONS: Current Outpatient Medications Medication Sig Dispense Refill Acetaminophen (TYLENOL ARTHRITIS PAIN PO) Take by mouth Nightly. atorvastatin (Lipitor) 40 MG tablet Take 40 mg by mouth Nightly. cholecalciferol (Vitamin D3) 25 MCG (1000 UT) tablet Take 3,000 Units by mouth daily. famotidine (Pepcid) 20 MG tablet Take 40 mg by mouth Nightly. levothyroxine (Synthroid, Levoxyl) 50 MCG tablet every morning (before breakfast). MULTIPLE VITAMINS-MINERALS ER PO Take by mouth if needed. NON FORMULARY every morning (before breakfast). airborne atorvastatin (Lipitor) 20 MG tablet Take 20 mg by mouth daily. ibuprofen 600 MG tablet Take 1 tablet (600 mg) by mouth every 6 hours as needed for mild pain (1-3). (Patient not taking: Reported on 06/21/2023) 60 tablet 0 No current facility-administered medications for this encounter. SUMMARY OF SIGNIFICIANT X-RAY/LABORATORY FINDINGS: See HPI REVIEW OF SYSTEMS: See HPI ECOG Performance Status: 0 Objective PHYSICAL EXAM: BP 138/76 Pulse 78 Temp 97.3 F (36.3 C) Resp 20 Ht 5' 4 (1.626 m) Wt 264 lb (120 kg) SpO2 99% BMI 45.32 kg/m Pain Score: 0 - No pain Fatigue Assessment: Able to perform daily activities with rest periods Physical Exam General: alert, no apparent distress, cooperative with exam HEENT: normocephalic, extraocular movements intact, oropharynx clear Cardiac: well-perfused extremities Pulmonary: no respiratory distress Neuro: alert and oriented, thought content appropriate, clear speech Psych: normal mood and affect Branch Service Leader: deferred IMPRESSION: Julieth Marley is a 57 y.o. who presents with grade 2 FIGO Stage IA endometrial cancer s/p -BSO 05/2019, now with vaginal recurrence s/p partial vaginectomy and planned to start external beam radiation in [place], presents to discuss vaginal cylinder brachytherapy. PLAN: Discussed the role of radiation treatment and specifically the role of brachytherapy in the settingof a vaginal recurrence of endometrial primary. We will request records from [place] facility regarding external beam dosing, and we would plan for subsequent HDR vaginal cylinder brachytherapy. Given her CT restaging findings of an abdominal nodule, we discussed that the treatment plan may change pending her PET/CT findings. We discussed the logistics of HDR brachytherapy. Treatment will be a total of 3- 5 sessions, twice aweek. Planning requires a CT scan and cylinder sizing, which we will try to combine with first treatment due to patient's long commute distance. Acute toxicity could include diarrhea, urinary frequency and irritation, vulvovaginal/perineal discomfort, and fatigue. Late toxicity could arise months or even years after the completion of therapy and could include permanent changes in bowel or bladderfunction, vaginal stenosis, which can be mild to moderate or severe. Severe toxicity may include rectovaginal fistula, rectal bleeding, hematuria, or bowel obstruction, which would require further workup and/or intervention to attempt to correct. She understands that there is a risk of severe and permanent damage to any irradiated tissue, although the risk of such damage is very low. - Follow up PET/CT - Obtain outside facility records from oncology/radiation oncology We thank you for the consultation. I spent total time 60 minutes reviewing previous notes, test results, and face to face with the patient discussing the diagnosis and the treatment plan as well as documenting on the day of the visit. Beth Cox MD [facility] Department of Radiation Oncology is an Accredited Facility of the [employer] ([employer]). This document was completed utilizing speech recognition software. Grammatical errors, random word insertions, pronoun errors, and incomplete sentences are an occasional consequence of this system due to software limitations, ambient noise, and hardware issues. Any formal questions or concerns about the content, text or information contained within the body of this dictation should be directly addressed to the provider for clarification. [facility] [id number] Consult note* Beth Cox MD - 06/21/2023 11:00 AM EDT RADIATION ONCOLOGY INITIAL CONSULTATION PATIENT: Julieth Marley DATE OF SERVICE: 06/21/23 : 1965 AGE: 57 y.o. PRIMARY SITE AND HISTOPATHOLOGY: Problem List Items Addressed This Visit None Cancer Staging No matching staging information was found for the patient. HISTORY OF PRESENT ILLNESS: Julieth Marley is a 57 year old female with hx grade 2 FIGO Stage IA endometrial cancer s/p TH-BSO 05/2019, now with vaginal recurrence s/p partial vaginectomy and planned to start external beam radiationin [place], presents to discuss vaginal cylinder brachytherapy. 05/21/2019 Underwent robotic hysterectomy, bilateral salpingo-oophorectomy, bilateral pelvic sentinellymphadenectomy with Dr. Jorgensen. Surgical pathology showed grade 2 endometrioid endometrial carcinoma, 1/13mm MMI, -ANKIT, -CSI, - LVSI, 0/2 LN involved, pT1aN0. No adjuvant therapy recommended. 05/19/[address] Jorgensen for light vaginal bleeding x several months. Exam showed raised, firm, somewhat friable anterior vaginal lesion at midline 2- 3cm from introitus. Biopsy revealed superficial fragments of well-differentiated adenocarcinoma, consistent with mullerian origin and compatible with history of endometrioid adenocarcinoma. 05/23/23 Underwent simple partial vaginectomy, with exam revealing raised, firm, hyperemic lesion involving anterior vagina beginning 3cm from ureteral orifice in midline of anterior vagina, measuring 1.5 x 1cm. Incision was 3cm. Surgical pathology revealed squamous vaginal mucosa with involvement bywell differentiated endometrioid endometrial carcinoma. 06/15/23 CT C/A/P showed 1.5cm soft tissue density nodule posterior to right lower abdominal rectus sheath that is nonspecific but could represent a small peritoneal tumor implant. No other retroperitoneal, omental, mesenteric mass/nodule identified. No evidence of other mass, lymphadenopathy, or met astatic disease. PET/CT scheduled for 06/26. Established care with radiation oncologist Dr. Maynard in [place], with plan to start external beamradiation 07/02 for 5.5 weeks. Ms. Marley presents today by herself and reports healing well after surgery. 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 Denies history of radiation, chemotherapy, or implanted device. PAST MEDICAL HISTORY: Past Medical History: Diagnosis Date Arthritis BV (bacterial vaginosis) Cancer (CMS/HCC) (HCC) Endometrial cancer (CMS/HCC) ([facility]) Gastritis GERD (gastroesophageal reflux disease) History of stress test 2023 Hyperlipidemia Hypothyroidism PMB (postmenopausal bleeding) Thickened endometrium PAST SURGICAL HISTORY: Past Surgical History: Procedure Laterality Date COLONOSCOPY HYSTERECTOMY b/l salpingo oophorectomy, lymph node sampling; DR. SRAVAN MARTIN OTHER SURGICAL HISTORY 05/23/2023 Cystoscopy with partial vaginectomy TONSILLECTOMY (HISTORICAL) OB History Para Term AB Living 0 0 0 0 0 0 SAB IAB Ectopic Multiple Live Births 0 0 0 0 0 Age at Menarche: 14 Age at menopause: 38 SOCIAL HISTORY: Social History Socioeconomic History Marital status: Spouse name: Not on file Number of children: Not on file Years of education: Not on file Highest education level: Not on file Occupational History Not on file Tobacco Use Smoking status: Never Smokeless tobacco: Never Vaping Use Vaping Use: Never used Substance and Sexual Activity Alcohol use: Not Currently Drug use: Never Sexual activity: Not on file Other Topics Concern Not on file Social History Narrative Not on file Social Determinants of Health Financial Resource Strain: Not on file Food Insecurity: Not on file Transportation Needs: Not on file Physical Activity: Not on file Stress: Not on file Social Connections: Not on file Intimate Partner Violence: Not on file Housing Stability: Not on file FAMILY HISTORY: Family History Problem Relation Name Age of Onset Heart attack Mother Osteoporosis Mother High Blood Pressure Mother Heart attack Father Heart disease Father Arthritis Father Other ([phone]) Sister suicide attempt Depression Sister Skin cancer Sister Colon cancer Brother Brain cancer Brother Skin cancer Mother's Sister Skin cancer Mother's Brother ALLERGIES: Allergies as of 06/21/2023 - Reviewed 06/21/2023 Allergen Reaction Noted Penicillins 01/07/2005 Latex Itching 05/11/2006 MEDICATIONS: Current Outpatient Medications Medication Sig Dispense Refill Acetaminophen (TYLENOL ARTHRITIS PAIN PO) Take by mouth Nightly. atorvastatin (Lipitor) 40 MG tablet Take 40 mg by mouth Nightly. cholecalciferol (Vitamin D3) 25 MCG (1000 UT) tablet Take 3,000 Units by mouth daily. famotidine (Pepcid) 20 MG tablet Take 40 mg by mouth Nightly. levothyroxine (Synthroid, Levoxyl) 50 MCG tablet every morning (before breakfast). MULTIPLE VITAMINS-MINERALS ER PO Take by mouth if needed. NON FORMULARY every morning (before breakfast). airborne atorvastatin (Lipitor) 20 MG tablet Take 20 mg by mouth daily. ibuprofen 600 MG tablet Take 1 tablet (600 mg) by mouth every 6 hours as needed for mild pain (1-3). (Patient not taking: Reported on 06/21/2023) 60 tablet 0 No current facility-administered medications for this encounter. SUMMARY OF SIGNIFICIANT X-RAY/LABORATORY FINDINGS: See HPI REVIEW OF SYSTEMS: See HPI ECOG Performance Status: 0 Objective PHYSICAL EXAM: BP 138/76 Pulse 78 Temp 97.3 F (36.3 C) Resp 20 Ht 5' 4 (1.626 m) Wt 264 lb (120 kg) SpO2 99% BMI 45.32 kg/m Pain Score: 0 - No pain Fatigue Assessment: Able to perform daily activities with rest periods Physical Exam General: alert, no apparent distress, cooperative with exam HEENT: normocephalic, extraocular movements intact, oropharynx clear Cardiac: well-perfused extremities Pulmonary: no respiratory distress Neuro: alert and oriented, thought content appropriate, clear speech Psych: normal mood and affect Branch Service Leader: deferred IMPRESSION: Julieth Marley is a 57 y.o. who presents with grade 2 FIGO Stage IA endometrial cancer s/p TH-BSO 05/2019, now with vaginal recurrence s/p partial vaginectomy and planned to start external beam radiation in [place], presents to discuss vaginal cylinder brachytherapy. PLAN: Discussed the role of radiation treatment and specifically the role of brachytherapy in the settingof a vaginal recurrence of endometrial primary. We will request records from [place] facility regarding external beam dosing, and we would plan for subsequent HDR vaginal cylinder brachytherapy. Given her CT restaging findings of an abdominal nodule, we discussed that the treatment plan may change pending her PET/CT findings. We discussed the logistics of HDR brachytherapy. Treatment will be a total of 3- 5 sessions, twice aweek. Planning requires a CT scan and cylinder sizing, which we will try to combine with first treatment due to patient's long commute distance. Acute toxicity could include diarrhea, urinary frequency and irritation, vulvovaginal/perineal discomfort, and fatigue. Late toxicity could arise months or even years after the completion of therapy and could include permanent changes in bowel or bladderfunction, vaginal stenosis, which can be mild to moderate or severe. Severe toxicity may include rectovaginal fistula, rectal bleeding, hematuria, or bowel obstruction, which would require further workup and/or intervention to attempt to correct. She understands that there is a risk of severe and permanent damage to any irradiated tissue, although the risk of such damage is very low. - Follow up PET/CT - Obtain outside facility records from oncology/radiation oncology We thank you for the consultation. I spent total time 60 minutes reviewing previous notes, test results, and face to face with the patient discussing the diagnosis and the treatment plan as well as documenting on the day of the visit. Beth Cox MD [facility] Department of Radiation Oncology is an Accredited Facility of the [employer] ([employer]). This document was completed utilizing speech recognition software. Grammatical errors, random word insertions, pronoun errors, and incomplete sentences are an occasional consequence of this system due to software limitations, ambient noise, and hardware issues. Any formal questions or concerns about the content, text or information contained within the body of this dictation should be directly addressed to the provider for clarification. documented in this [facility]04-03-2024 NoteRADIATION ONCOLOGY INITIAL CONSULTATION PATIENT: Julieth Marley DATE OF SERVICE: 06/21/23 : 1965 AGE: 57 y.o. PRIMARY SITE AND HISTOPATHOLOGY: Problem List Items Addressed This Visit None Cancer Staging No matching staging information was found for the patient. HISTORY OF PRESENT ILLNESS: Julieth Marley is a 57 year old female with hx grade 2 FIGO Stage IA endometrial cancer s/p TH-BSO 05/2019, now with vaginal recurrence s/p partial vaginectomy and planned to start external beam radiation in [place], presents to discuss vaginal cylinder brachytherapy. 05/21/2019 Underwent robotic hysterectomy, bilateral salpingo-oophorectomy, bilateral pelvic sentinel lymphadenectomy with Dr. Jorgensen. Surgical pathology showed grade 2 endometrioid endometrial carcinoma, 1/13mm MMI, -ANKIT, -CSI, -LVSI, 0/2 LN involved, pT1aN0. No adjuvant therapy recommended. 05/19/[address] Jorgensen for light vaginal bleeding x several months. Exam showed raised, firm, somewhat friable anterior vaginal lesion at midline 2-3cm from introitus. Biopsy revealed superficial fragments of well-differentiated adenocarcinoma, consistent with mullerian origin and compatible with history of endometrioid adenocarcinoma. 05/23/23 Underwent simple partial vaginectomy, with exam revealing raised, firm, hyperemic lesion involving anterior vagina beginning 3cm from ureteral orifice in midline of anterior vagina, measuring 1.5 x 1cm. Incision was 3cm. Surgical pathology revealed squamous vaginal mucosa with involvement by well differentiated endometrioid endometrial carcinoma. 06/15/23 CT C/A/P showed 1.5cm soft tissue density nodule posterior to right lower abdominal rectus sheath that is nonspecific but could represent a small peritoneal tumor implant. No other retroperitoneal, omental, mesenteric mass/nodule identified. No evidence of other mass, lymphadenopathy, or metastatic disease. PET/CT scheduled for 06/26. Established care with radiation oncologist Dr. Maynard in [place], with plan to start external beam radiation 07/02 for 5.5 weeks. Ms. Marley presents today by herself and reports healing well after surgery. 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 Denies history of radiation, chemotherapy, or implanted device. PAST MEDICAL HISTORY: Past Medical History: Diagnosis Date Arthritis BV (bacterial vaginosis) Cancer (CMS/HCC) (HCC) Endometrial cancer (CMS/HCC) (HCC) Gastritis GERD (gastroesophageal reflux disease) History of stress test 2023 Hyperlipidemia Hypothyroidism PMB (postmenopausal bleeding) Thickened endometrium PAST SURGICAL HISTORY: Past Surgical History: Procedure Laterality Date COLONOSCOPY HYSTERECTOMY b/l salpingo oophorectomy, lymph node sampling; [facility] OTHER SURGICAL HISTORY 05/23/2023 Cystoscopy with partial vaginectomy TONSILLECTOMY (HISTORICAL) OB History Para Term AB Living 0 0 0 0 0 0 SAB IAB Ectopic Multiple Live Births 0 0 0 0 0 Age at Menarche: 14 Age at menopause: 38 SOCIAL HISTORY: Social History Socioeconomic History Marital status: Spouse name: Not on file Number of children: Not on file Years of education: Not on file Highest education level: Not on file Occupational History Not on file Tobacco Use Smoking status: Never Smokeless tobacco: Never Vaping Use Vaping Use: Never used Substance and Sexual Activity Alcohol use: Not Currently Drug use: Never Sexual activity: Not on file Other Topics Concern Not on file Social History Narrative Not on file Social Determinants of Health Financial Resource Strain: Not on file Food Insecurity: Not on file Transportation Needs: Not on file Physical Activity: Not on file Stress: Not on file Social Connections: Not on file Intimate Partner Violence: Not on file Housing Stability: Not on file FAMILY HISTORY: Family History Problem Relation Name Age of Onset Heart attack Mother Osteoporosis Mother High Blood Pressure Mother Heart attack Father Heart disease Father Arthritis Father Other ([phone]) Sister suicide attempt Depression Sister Skin cancer Sister Colon cancer Brother Brain cancer Brother Skin cancer Mother's Sister Skin cancer Mother's Brother ALLERGIES: Allergies as of 06/21/2023 - Reviewed 06/21/2023 Allergen Reaction Noted Penicillins 01/07/2005 Latex Itching 05/11/2006 MEDICATIONS: Current Outpatient Medications Medication Sig Dispense Refill Acetaminophen (TYLENOL ARTHRITIS PAIN PO) Take by mouth Nightly. atorvastatin (Lipitor) 40 MG tablet Take 40 mg by mouth Nightly. cholecalciferol (Vitamin D3) 25 MCG (1000 UT) tablet Take 3,000 Units by mouth daily. famotidine (Pepcid) 20 MG tablet Take 40 mg by mouth Nightly. levothyroxine (Synthroid, Levoxyl) 50 MCG tablet every morning (before breakfast). MULTIPLE VITAMINS (more content not included)...[facility] 06-21-2023 Nurse Note* Kenneth Nolen RN - 06/21/2023 11:00 AM EDT The patient is here at [facility] for a new consult with Dr. Cox. She denies pain at the current time and states she is healing well from surgery. The patient denies any previous history of chemotherapy or radiation therapy. The patient denies having a pacemaker or any other implanted devices. She states her appetite is WNL, energy level is fair, and she is not sleeping well which is not a new occurrence. She states she has a PET scan scheduled for 06/27/23. The RN gave and reviewed a [facility] [place] binder with the patient. The patient verbalized understanding. [id number] Nurse Note* Kenneth Nolen RN - 06/21/2023 11:00 AM EDT The patient is here at [facility] for a new consult with Dr. Cox. She denies pain at the current time and states she is healing well from surgery. The patient denies any previous history of chemotherapy or radiation therapy. The patient denies having a pacemaker or any other implanted devices. She states her appetite is WNL, energy level is fair, and she is not sleeping well which is not a new occurrence. She states she has a PET scan scheduled for 06/27/23. The RN gave and reviewed a [facility] [place] binder with the patient. The patient verbalized understanding. documented in this encounterSLakeHealth [facility]wood [facility] [id number] Telephone encounter Note* Telephone Encounter - Sravan Shine MD - 06/19/2023 2:50 PM EDT Spoke with patient regarding PET Starting radiation July 02. We had initially ordered a PET that was denied by the patient's insurance. Now with the indeterminate findings on CT imaging, a PET scan is indicated. It sounds like Dr. Maynard's office has also ordered a PET scan. I called his office to let him know about the CT findings so their office can submit this additional information to insurance for PET authorization. [facility] [id number] Miscellaneous Notes* Telephone Encounter - Sravan Shine MD - 06/19/2023 2:50 PM EDT Spoke with patient regarding PET Starting radiation July 02. We had initially ordered a PET that was denied by the patient's insurance. Now with the indeterminate findings on CT imaging, a PET scan is indicated. It sounds like Dr. Maynard's office has also ordered a PET scan. I called his office to let him know about the CT findings so their office can submit this additional information to insurance for PET authorization. documented in this [facility]03-21-2024 Telephone encounter Note* Telephone Encounter - Parul Damon RN - 06/08/2023 5:03 PM EDT S: Patient spoke with [facility] nurse regarding post op question regarding bath B: Onset of symptoms/concern today A: Patient had CYSTOSCOPY, SIMPLE PARTIAL VAGINECTOMY ROBOTIC (XI) VAGINECTOMY PARTIAL REMOVAL OF VAGINAL WALL on 05/23/23 with general anesthesia with Provider Joslyn. Denies further symptoms. Patientquestion when she can take a bath. Last office visit today with Provider Joslyn. R: Care advise provided that showers are preferred over bath with in the first 6 weeks. Patient understands care advice. No further needs at this time. Patient instructed to call back with new or worsening symptoms. Reason for Disposition General activity, questions about Protocols used: Post-Op Symptoms and [id number] [facility] [id number] Miscellaneous Notes* Telephone Encounter - Parul Damon RN - 06/08/2023 5:03 PM EDT S: Patient spoke with [facility] nurse regarding post op question regarding bath B: Onset of symptoms/concern today A: Patient had CYSTOSCOPY, SIMPLE PARTIAL VAGINECTOMY ROBOTIC (XI) VAGINECTOMY PARTIAL REMOVAL OF VAGINAL WALL on 05/23/23 with general anesthesia with Provider Joslyn. Denies further symptoms. Patientquestion when she can take a bath. Last office visit today with Provider Joslyn. R: Care advise provided that showers are preferred over bath with in the first 6 weeks. Patient understands care advice. No further needs at this time. Patient instructed to call back with new or worsening symptoms. Reason for Disposition General activity, questions about Protocols used: Post-Op Symptoms and [id number] documented in this [facility]03-21-2024 History of Present illness Narrative* Sravan Shine MD - 06/08/2023 1:20 PM EDT Chief Complaint Patient presents with Post-op Visit No concerns HISTORY OF THE PRESENT ILLNESS: Julieth Marley is a pleasant 57 y.o. female with recurrent endometrial cancer. Patient underwent robotic endometrial cancer staging in May 2019. Final pathology showed: DIAGNOSIS: A. RIGHT SENTINEL LYMPH NODE, EXCISION - NEGATIVE FOR MALIGNANCY (0/1) B. UTERUS, HYSTERECTOMY - ENDOMETRIOID ADENOCARCINOMA. SEE BELOW. C. LEFT SENTINEL LYMPH NODE , EXCISION - NEGATIVE FOR MALIGNANCY (0/1) SPECIMEN Procedure: Total hysterectomy and bilateral salpingo-oophorectomy Specimen Integrity: Intact TUMOR Tumor Site: Endometrium Histologic Type: Endometrioid carcinoma, NOS Histologic Grade: FIGO grade 2 Myometrial Invasion: Present Depth of Myometrial Invasion (Millimeters): 1 mm Myometrial Thickness (Millimeters): 13 mm Percentage of Myometrial Invasion: <50 % Uterine Serosa Involvement: Not identified Lower Uterine Segment Involvement: Not identified Cervical Stromal Involvement: Not identified Other Tissue / Organ Involvement: Not identified Peritoneal Ascitic Fluid: Not submitted / unknown Lymphovascular Invasion: Not identified LYMPH NODES Lymph Node Status: All lymph nodes negative for tumor cells Total Number of Pelvic Nodes Examined: 2 Number of Pelvic [place] Nodes Examined: 2 Total Number of Para-aortic Nodes Examined: 0 Number of Para-aortic [place] Nodes Examined: 0 PATHOLOGIC STAGE CLASSIFICATION (pTNM, AJCC 8th Edition) Note: Reporting of pT, pN, and (when applicable) pM categories is based on information available to the pathologist at the time the report is issued. As per the AJCC (Chapter 1, 8th Ed.) it is the managing physician's responsibility to establish the final pathologic stage based upon all pertinent information, including but potentially not limited to this pathology report. Primary Tumor (pT): pT1a Primary Tumor (pT): pT1a: Tumor limited to endometrium or invading less than half the myometrium Regional Lymph Nodes Modifier: (sn) Regional Lymph Nodes (pN): pN0 Regional Lymph Nodes (pN): pN0: No regional lymph node metastasis FIGO STAGE FIGO Stage: IA ADDITIONAL FINDINGS Additional Findings: None identified Again, this was consistent with a stage Ia, FIGO grade 2, negative lymphovascular space invasion endometrioid endometrial adenocarcinoma. Patient did not need to high-intermediate risk of recurrence and therefore no adjuvant treatment was indicated. Discussed surveillance. Patient was planning on fo llowing up with Dr. Amin for surveillance but she was lost to follow up. She recently presented with intermittent vaginal bleeding present for several months. Started very light, pink. Sometimes it is once a week with wiping. Occasionally on the pad. On examination there was a mass at the vaginal apex, vascular and cauliflower-like, friable. Reports that her bladder is weaker. Will occasionally have a gushing. Has an urge and then gush. Worse when she is nervous. Denies leakage with cough, laugh, sneeze, etc. Denies blood in her urine. Interval history: The patient presents to the office today for postoperative evaluation. She underwent partial radical vaginectomy. Final pathology: Final Diagnosis SIMPLE PARTIAL VAGINECTOMY - SQUAMOUS VAGINAL MUCOSA WITH INVOLVEMENT BY WELL DIFFERENTIATED ENDOMETRIAL CARCINOMA, ENDOMETRIOID TYPE. COMMENT: The lesion stains positively for ER, OH, PAX8, and vimentin. The cells are negative for WT-1. P53 demonstrates wild-type staining. The findings are consistent with endometrial origin. pMMR proteins. Set up to see Dr. Maynard for radiation. See his tomorrow. Insurance denied PET scan. CT chest, abdomen and pelvis ordered. Scheduled for next at [facility]. Is having some constipation. Taking miralax once a day. Having regular bowel movements with the miralax. Past Medical History: Diagnosis Date Arthritis BV (bacterial vaginosis) Cancer (CMS/HCC) (HCC) Endometrial cancer (CMS/HCC) (HCC) Gastritis GERD (gastroesophageal reflux disease) History of stress test 2023 Hyperlipidemia Hypothyroidism PMB (postmenopausal bleeding) Thickened endometrium Past Surgical History: Procedure Laterality Date COLONOSCOPY HYSTERECTOMY b/l salpingo oophorectomy, lymph node sampling; DR. SRAVAN MARTIN OTHER SURGICAL HISTORY 05/23/2023 Cystoscopy with partial vaginectomy TONSILLECTOMY (HISTORICAL) Obstetrical History: Family History Problem Relation Name Age of Onset Heart attack Mother Osteoporosis Mother High Blood Pressure Mother Heart attack Father Heart disease Father Arthritis Father Other ([id number]) Sister suicide attempt Depression Sister Colon cancer Brother Brain cancer Brother Social History Socioeconomic History Marital status: Spouse name: Not on file Number of children: Not on file Years of education: Not on file Highest education level: Not on file Occupational History Not on file Tobacco Use Smoking status: Never Smokeless tobacco: Never Vaping Use Vaping Use: Never used Substance and Sexual Activity Alcohol use: Not Currently Drug use: Never Sexual activity: Not on file Other Topics Concern Not on file Social History Narrative Not on file Social Determinants of Health Financial Resource Strain: Not on file Food Insecurity: Not on file Transportation Needs: Not on file Physical Activity: Not on file Stress: Not on file Social Connections: Not on file Intimate Partner Violence: Not on file Housing Stability: Not on file Current Outpatient Medications on File Prior to Visit Medication Sig Dispense Refill Acetaminophen (TYLENOL ARTHRITIS PAIN PO) Take by mouth Nightly. [] acetaminophen (Tylenol Extra Strength) 500 MG tablet Take 1 tablet (500 mg) by mouth every 6 hours as needed for mild pain (1-3) for up to 10 days. 30 tablet 0 atorvastatin (Lipitor) 20 MG tablet Take 20 mg by mouth daily. atorvastatin (Lipitor) 40 MG tablet Take 40 mg by mouth Nightly. cholecalciferol (Vitamin D3) 25 MCG (1000 UT) tablet Take 3,000 Units by mouth daily. famotidine (Pepcid) 20 MG tablet Take 40 mg by mouth Nightly. ibuprofen 600 MG tablet Take 1 tablet (600 mg) by mouth every 6 hours as needed for mild pain (1-3). 60 tablet 0 levothyroxine (Synthroid, Levoxyl) 50 MCG tablet every morning (before breakfast). MULTIPLE VITAMINS-MINERALS ER PO Take by mouth if needed. NON FORMULARY every morning (before breakfast). airborne No current facility-administered medications on file prior to visit. Allergies as of 06/08/2023 - Reviewed 06/08/2023 Allergen Reaction Noted Penicillins 01/07/2005 Latex Itching 05/11/2006 Review of Systems A 12 point review of systems was performed and is as per the history of the present illness, all other systems were reviewed and are negative. Vitals: 06/08/23 1329 BP: 129/83 Pulse: 73 Body mass index is 43.6 kg/m . Physical Exam Vitals reviewed. Constitutional: General: She is not in acute distress. Appearance: Normal appearance. She is not ill-appearing, toxic-appearing or diaphoretic. HENT: Head: Normocephalic and atraumatic. Eyes: General: No scleral icterus. Extraocular Movements: Extraocular movements intact. Cardiovascular: Rate and Rhythm: Normal rate. Pulmonary: Effort: Pulmonary effort is normal. No respiratory distress. Abdominal: General: There is no distension. Palpations: Abdomen is soft. There is no mass. Tenderness: There is no abdominal tenderness. There is no guarding or rebound. Hernia: No hernia is present. Comments: Well healed incisions. No evidence of hernia formation. Genitourinary: General: Normal vulva. Labia: Right: No rash, tenderness, lesion or injury. Left: No rash, tenderness, lesion or injury. Urethra: No prolapse, urethral pain, urethral swelling or urethral lesion. Vagina: Normal. Uterus: Absent. Comments: Partial vaginectomy site along the anterior vagina healing well. Musculoskeletal: Right lower leg: No edema. Left lower leg: No edema. Skin: General: Skin is warm and dry. Coloration: Skin is not jaundiced or pale. Findings: No erythema. Neurological: General: No focal deficit present. Mental Status: She is alert. Motor: No weakness. Coordination: Coordination normal. Gait: Gait normal. Psychiatric: Mood and Affect: Mood normal. Behavior: Behavior normal. ASSESSMENT/PLAN: Diagnosis Plan 1. Postoperative state 2. Recurrent carcinoma of endometrium (HCC) Julieth Marley is a 57 y.o. with recurrent and FIGO grade 1 endometrioid endometrial adenocarcinoma, proficient mismatch repair proteins. Patient will require adjuvant radiation. Referred to radiation oncology - Dr. Maynard, [facility]. CT chest, abdomen and pelvis ordered to assess for sites of metastatic disease. Doing well from a post op standpoint. No surgical restrictions. Given a copy of her pathology report for her records. The patient had an opportunity to ask questions, all of which were answered to the best of my ability. She is in agreement with the above noted plan. Disclaimer: This note was dictated by speech recognition. I apologize for minor errors in director property which may be present. documented in this [facility]03-21-2024 Miscellaneous Notes* Telephone Encounter - Sravan Shine MD - 06/08/2023 11:55 AM EDT I have already discussed this patient with Dr. Maynard. Thanks! * Telephone Encounter - Francisstella Freeman - 06/08/2023 11:00 AM EDT Cora from Dr. Maynard's office calling. Patient is scheduled with them tomorrow morning. Please contact Dr. Maynard at [phone] to further discuss patient, thank you * Telephone Encounter - Sravan Shine MD - 05/29/2023 12:44 PM EDT Discussed pathology and plan of care. Referral placed to [facility] in [place] last week.Follow up with me as scheduled, sooner should the need arise. documented in this encounterSLakeHealth Beachwood Medical [id number] Telephone encounter Note* Telephone Encounter - Sravan Shine MD - 06/08/2023 11:55 AM EDT I have already discussed this patient with Dr. Maynard. Thanks! [facility] [id number] Telephone encounter Note* Telephone Encounter - Francisstella Freeman - 06/08/2023 11:00 AM EDT Cora from Dr. Maynard's office calling. Patient is scheduled with them tomorrow morning. Please contact Dr. Maynard at [phone] to further discuss patient, thank you [facility] HospitalGaqtuu05-07-2545 NoteDiscussed pathology and plan of care. Referral placed to [facility] in [place] last week. Follow up with me as scheduled, sooner should the need arise.[facility]03-11-2024 Telephone encounter Note* Telephone Encounter - Sravan Shine MD - 05/29/2023 12:44 PM EDT Discussed pathology and plan of care. Referral placed to [facility] in [place] last week.Follow up with me as scheduled, sooner should the need arise. [facility] [id number] Miscellaneous Notes* Telephone Encounter - Sravan Shine MD - 05/29/2023 12:44 PM EDT Discussed pathology and plan of care. Referral placed to [facility] in [place] last week.Follow up with me as scheduled, sooner should the need arise. documented in this [facility]03-08-2024 NoteCalled pt informing her I sent a letter to her mychart to return to work I also faxed it to company. Informed pt She will be receiving a call from Dr Cornelio bloom for a consultation as well.[facility]03-08-2024 History of Present illness Narrative* Sravan Shine MD - 05/26/2023 8:16 AM EST Referral placed to radiation oncology - Dr. Maynard in [place]. documented in this [facility]03-08-2024 NoteReferral placed to radiation oncology - Dr. Maynard in [place].[facility]03-06-2024 Telephone encounter Note* Telephone Encounter - Sravan Shine MD - 05/24/2023 11:45 AM EST Ugh. Insurance. I will put in an order for CT chest, abdomen and pelvis. If anything comes back as abnormal on that scan we should be able to get a PET scan approved. Thanks! [facility] [id number] Miscellaneous Notes* Telephone Encounter - Sravan Shine MD - 05/24/2023 11:45 AM EST Ugh. Insurance. I will put in an order for CT chest, abdomen and pelvis. If anything comes back as abnormal on that scan we should be able to get a PET scan approved. Thanks! * Telephone Encounter - Merary Estrada - 05/24/2023 11:42 AM EST PET/CT denied because no other images were done. Please advise. documented in this encounterSLakeHealth Beachwood Medical [id number] Telephone encounter Note* Telephone Encounter - Merary Estrada - 05/24/2023 11:42 AM EST PET/CT denied because no other images were done. Please advise. [facility] [id number] NotePatient: Julieth aMrley Procedure Summary Date: 05/23/23 Room / Location: [address] Operating Room Anesthesia Start: 1639 Anesthesia Stop: 1729 Procedures: CYSTOSCOPY, SIMPLE PARTIAL VAGINECTOMY (Urethra) ROBOTIC (XI) VAGINECTOMY PARTIAL REMOVAL OF VAGINAL WALL (Abdomen) Diagnosis: Malignant neoplasm of endometrium (HCC) (Malignant neoplasm of endometrium (HCC) [C54.1]) Surgeons: Sravan Shine MD Responsible Provider: Linwood Angeles APRN - MARAL Anesthesia Type: general ASA Status: 3 Anesthesia Type: general Vitals Value Taken Time BP 137/81 05/23/231914 Temp 36.1 ?C (97 ?F) 05/23/23 1730 Pulse 73 05/23/231914 Resp 15 05/23/231914 SpO2 95 % 05/23/231914 Anesthesia Post Evaluation Patient location during evaluation: PACU Patient participation: complete - patient participated Level of consciousness: awake and alert Pain management: satisfactory to patient Airway patency: patent Dental Injury: no Cardiovascular status: acceptable, blood pressure returned to baseline and hemodynamically stable Respiratory status: acceptable and spontaneous ventilation Hydration status: euvolemic Nausea/Vomiting: controlled No notable events documented. Patient can be discharged once all PACU criteria has been met.[facility] [id number] NotePatient: Julieth Marley Procedure Summary Date: 05/23/23 Room / Location: [address] Operating Room Anesthesia Start: 163 Anesthesia Stop: 1728 Procedures: CYSTOSCOPY, SIMPLE PARTIAL VAGINECTOMY (Urethra) ROBOTIC (XI) VAGINECTOMY PARTIAL REMOVAL OF VAGINAL WALL (Abdomen) Diagnosis: Malignant neoplasm of endometrium (HCC) (Malignant neoplasm of endometrium (HCC) [C54.1]) Surgeons: Sravan Shine MD Responsible Provider: MARGARITO Gomez CRNA Anesthesia Type: general ASA Status: 3 Anesthesia Type: general Vitals Value Taken Time BP 137/81 05/23/231914 Temp 36.1 ?C (97 ?F) 05/23/23 1730 Pulse 73 05/23/231914 Resp 15 05/23/231914 SpO2 95 % 05/23/231914 Anesthesia Post Evaluation Patient location during evaluation: PACU Patient participation: complete - patient participated Level of consciousness: awake and alert Pain score: 0 Pain management: satisfactory to patient Multimodal analgesia pain management approach Airway patency: patent Two or more strategies used to mitigate risk of obstructive sleep apnea Cardiovascular status: acceptable and hemodynamically stable Respiratory status: acceptable Hydration status: acceptable No notable events documented. MIPS #430 PONV Patient received an inhalational anesthetic (4554F) Patient exhibits three or more risk factors for PONV (4556F) Patient received at leaset 2 prophylactic Rx PONV anti-emtic agents of different classes preop and/or intraop (G9775) MIPS # 424 Perioperative Temperature Management Anesthesia time was 60 minutes or longer (4255F) Anesthesai administered was General (inhalational or TIVA) or Neuraxial block (X0424) At least one body temperature greater than 95.8F/35.5C achieved within the 30 mins immediately prior to or the 15 minutes immediately following anesthesia end time (G9771) MIPS #477 Multimodal Pain Management Not emergent case Patient was administered multimodal pain management (two or more drugs and/or interventions excluding systemic opioids) in the periopeartive period occurring at some time between 6 hours prior to anesthesia start time until discharged from PACU (G2148) [facility] #404 Anesthesiology Smoking Abstinence The patient is not a current smoker (e.g. cigarette, cigar, pipe, e-cigarette/vaping/marijuana) If no stop here (XX404) I completed my handoff to the receiving clinician during which we: 1. Identified the patient 2. Identified the responsible provider 3. Reviewed the pertinent medical history 4. Discussed the surgical course 5. Reviewed intra-op anesthesia management and issues during anesthesia 6. Set expectations for post-procedure period 7. Allowed opportunity for questions and acknowledgement of understanding.[facility]03-05-2024 NoteAirway Date/Time: 05/23/2023 4:51 PM Urgency: scheduled Airway not difficult General Information and Staff Patient location during procedure: Procedural Resident/YIELD ANALYST: Linwood Angeles APRN - YIELD ANALYST Performed: YIELD ANALYST Indications and Patient Condition Indications for airway management: anesthesia and airway protection Sedation level: Asleep Preoxygenated: yes Patient position: sniffing MILS maintained throughout Mask difficulty assessment: 1 - vent by mask Final Airway Details Final airway type: endotracheal airway Successful airway: ETT Cuffed: yes Successful intubation technique: direct laryngoscopy Endotracheal tube insertion site: oral Blade: Merissa Blade size: #3 ETT size (mm): 7.0 Cormack-Lehane Classification: grade I - full view of glottis Placement verified by: chest auscultation and capnometry Measured from: lips ETT to lips (cm): 22 Number of attempts at approach: 1 Ventilation between attempts: spontaneous Number of other approaches attempted: 0[facility]03-05-2024 Note HYDRAMATIC MECHANIC Pre-Op Note Patient Name: Julieth Marley Patient : [id number] Room/Bed: OR/NONE Admission Date/Time: 05/23/2023 11:36 AM Primary Care Physician: Kristi Daigle Date: 05/23/2023 Time: 4:31 PM The patient was seen in pre-op holding. She is here for cystoscopy, simple partial vaginectomy. The procedure risks and complications were reviewed. The labs, consent, and H&P were reviewed and updated as appropriate. The patient had all of her questions answered. OBSTETRICAL HISTORY: OB History Para Term AB Living 0 0 0 0 0 0 SAB IAB Ectopic Multiple Live Births 0 0 0 0 0 PAST MEDICAL HISTORY: has a past medical history of Arthritis, BV (bacterial vaginosis), Cancer (CMS/HCC) ([facility]), Endometrial cancer (CMS/HCC) ([facility]), Gastritis, GERD (gastroesophageal reflux disease), History of stress test (2023), Hyperlipidemia, Hypothyroidism, PMB (postmenopausal bleeding), and Thickened endometrium. PAST SURGICAL HISTORY: has a past surgical history that includes Colonoscopy; Hysterectomy; and Tonsillectomy. ALLERGIES: Allergies as of 05/19/2023 - Reviewed 05/19/2023 Allergen Reaction Noted Penicillins 01/07/2005 Latex Itching 05/11/2006 MEDICATIONS: @MEDCMED@ FAMILY HISTORY: family history includes [id number] in her sister; Arthritis in her father; Brain cancer in her brother; Colon cancer in her brother; Depression in her sister; Heart attack in her father and mother; Heart disease in her father; High Blood Pressure in her mother; Osteoporosis in her mother. SOCIAL HISTORY: reports that she has never smoked. She has never used smokeless tobacco. She reports that she does not currently use alcohol. She reports that she does not use drugs. VITALS: Vitals: 05/23/23 1204 BP: (!) 141/72 Pulse: 80 Resp: 18 Temp: 36.3 ?C (97.3 ?F) TempSrc: Temporal SpO2: 98% PHYSICAL EXAM and ROS: Unchanged from Prior H&P LAB RESULTS: No visits with results within 4 Week(s) from this visit. Latest known visit with results is: No results found for any previous visit. DIAGNOSTICS: @RISRSLT@ DIAGNOSIS & PLAN: - Proceed with planned procedure: cystoscopy, simple partial vaginectomy - Consent signed, on chart. - The patient is ready for transport to the operative suite. Sravan Jorgensen MD 05/23/2023, 4:31 [facility]03-05-2024 NotePRE-PROCEDURE ROUNDING COMPLETE.[facility]03-04-2024 NotePatient: Julieth Marley Procedure Information Date/Time: 05/23/23 1500 Procedures: CYSTOSCOPY, SIMPLE PARTIAL VAGINECTOMY (Urethra) ROBOTIC (XI) VAGINECTOMY PARTIAL REMOVAL OF VAGINAL WALL (Abdomen) Location: [address] Operating Room Surgeons: Sravan Shine MD Relevant Problems No relevant active problems Past Medical History: Past Medical History: No date: Arthritis No date: BV (bacterial vaginosis) No date: Cancer (CMS/HCC) (HCC) No date: Endometrial cancer ([facility] ([facility]) No date: Gastritis No date: GERD (gastroesophageal reflux disease) 2023: History of stress test No date: Hyperlipidemia No date: Hypothyroidism No date: PMB (postmenopausal bleeding) No date: Thickened endometrium Past Surgical History: Past Surgical History: No date: COLONOSCOPY No date: HYSTERECTOMY Comment: b/l salpingo oophorectomy, lymph node sampling; [facility] No date: TONSILLECTOMY (HISTORICAL) Social History: TOBACCO: reports that she has never smoked. She has never used smokeless tobacco. ETOH: reports that she does not currently use alcohol. Social History Substance and Sexual Activity Drug Use Never Family History: Family History Problem Relation Name Age of Onset Heart attack Mother Osteoporosis Mother High Blood Pressure Mother Heart attack Father Heart disease Father Arthritis Father Other ([id number]) Sister suicide attempt Depression Sister Colon cancer Brother Brain cancer Brother Screening: Hysterectomy Clinical information reviewed: Tobacco Allergies Meds Surg Hx OB Status Physical Exam Airway Mallampati: III Neck ROM: full Mouth Open: normalendotracheal tube not in place Cardiovascular Dental dentition normal Pulmonary Abdominal Anesthesia Plan patient is NPO appropriate Any family history or previous problems with anesthesia no ASA 3 general Any family history or previous problems with anesthesia no The patient is not a current smoker. Anesthetic plan and risks discussed with patient (niece and friend). ERAS Type Short ERAS LISA Screening Labs: No results found for: WBC, HGB, HCT, MCV, PLT Lab Results Component Value Date NA 139 05/21/2019 K 4.1 05/21/2019 CL 107 05/21/2019 CO2 22 05/21/2019 BUN 10 05/21/2019 CREATININE 0.63 05/21/2019 GLUCOSE 101 (H) 05/21/2019 CALCIUM 9.7 05/21/2019 No echocardiogram results found for the past 14 days 05/21/19 (Final) Narrative Ordered by an unspecified provider.[facility] [id number] Telephone encounter Note* Telephone Encounter - Toni Galvez - 05/19/2023 9:59 AM EST PAT: 05.22.2023 at 9 am by phone SX: 05.23.2023 at 3 pm arrival at 1 pm Post op 06.08.2023 at 1:20 pm Folder and instructions given. If possible PET at [place] if not our locations is fine [id number] Miscellaneous Notes* Telephone Encounter - Toni Galvez - 05/19/2023 9:59 AM EST PAT: 05.22.2023 at 9 am by phone SX: 05.23.2023 at 3 pm arrival at 1 pm Post op 06.08.2023 at 1:20 pm Folder and instructions given. If possible PET at [place] if not our locations is fine per patient documented in this [facility]03-01-2024 History of Present illness Narrative* Sravan Shine MD - 05/19/2023 9:00 AM EST Chief Complaint Patient presents with Follow-up Concerns of bleeding Endometrial Cancer HISTORY OF THE PRESENT ILLNESS: Julieth Marley is a pleasant 57 y.o. female who presents in consultation at the request of Dr. Amin for evaluation and management of the above. Patient underwent robotic endometrial cancer stagingin May 2019. Final pathology showed: DIAGNOSIS: A. RIGHT SENTINEL LYMPH NODE, EXCISION - NEGATIVE FOR MALIGNANCY (0/1) B. UTERUS, HYSTERECTOMY - ENDOMETRIOID ADENOCARCINOMA. SEE BELOW. C. LEFT SENTINEL LYMPH NODE , EXCISION - NEGATIVE FOR MALIGNANCY (0/1) SPECIMEN Procedure: Total hysterectomy and bilateral salpingo-oophorectomy Specimen Integrity: Intact TUMOR Tumor Site: Endometrium Histologic Type: Endometrioid carcinoma, NOS Histologic Grade: FIGO grade 2 Myometrial Invasion: Present Depth of Myometrial Invasion (Millimeters): 1 mm Myometrial Thickness (Millimeters): 13 mm Percentage of Myometrial Invasion: <50 % Uterine Serosa Involvement: Not identified Lower Uterine Segment Involvement: Not identified Cervical Stromal Involvement: Not identified Other Tissue / Organ Involvement: Not identified Peritoneal Ascitic Fluid: Not submitted / unknown Lymphovascular Invasion: Not identified LYMPH NODES Lymph Node Status: All lymph nodes negative for tumor cells Total Number of Pelvic Nodes Examined: 2 Number of Pelvic [place] Nodes Examined: 2 Total Number of Para-aortic Nodes Examined: 0 Number of Para-aortic [place] Nodes Examined: 0 PATHOLOGIC STAGE CLASSIFICATION (pTNM, AJCC 8th Edition) Note: Reporting of pT, pN, and (when applicable) pM categories is based on information available to the pathologist at the time the report is issued. As per the AJCC (Chapter 1, 8th Ed.) it is the managing physician's responsibility to establish the final pathologic stage based upon all pertinent information, including but potentially not limited to this pathology report. Primary Tumor (pT): pT1a Primary Tumor (pT): pT1a: Tumor limited to endometrium or invading less than half the myometrium Regional Lymph Nodes Modifier: (sn) Regional Lymph Nodes (pN): pN0 Regional Lymph Nodes (pN): pN0: No regional lymph node metastasis FIGO STAGE FIGO Stage: IA ADDITIONAL FINDINGS Additional Findings: None identified Again, this was consistent with a stage Ia, FIGO grade 2, negative lymphovascular space invasion endometrioid endometrial adenocarcinoma. Patient did not need to high-intermediate risk of recurrence and therefore no adjuvant treatment was indicated. Discussed surveillance. Patient was planning on llowing up with Dr. Amin for surveillance but she was lost to follow up. She recently presented with intermittent vaginal bleeding present for several months. Started very light, pink. Sometimes it is once a week with wiping. Occasionally on the pad. On examination there was a mass at the vaginal apex, vascular and cauliflower-like, friable. Reports that her bladder is weaker. Will occasionally have a gushing. Has an urge and then gush. Worse when she is nervous. Denies leakage with cough, laugh, sneeze, etc. Denies blood in her urine. Denies CP. Does report occasional shortness of breath and pain the left arm. Had a stress test and told that her heart looked good. They were concerned about her BP during the stress test. Sees cardiology 06/2023. Denies abdominal pain. Will occasionally have pain in the pelvis. Not one particular side. Short. Past Medical History: Diagnosis Date BV (bacterial vaginosis) Cancer (CMS/HCC) (HCC) Endometrial cancer (CMS/HCC) (HCC) Gastritis History of stress test 2023 Hyperlipidemia Hypothyroidism PMB (postmenopausal bleeding) Thickened endometrium Past Surgical History: Procedure Laterality Date COLONOSCOPY HYSTERECTOMY b/l salpingo oophorectomy, lymph node sampling; DR. SRAVAN JORGENSEN [facility] (HISTORICAL) Obstetrical History: Family History Problem Relation Name Age of Onset Heart attack Mother Osteoporosis Mother High Blood Pressure Mother Heart attack Father Heart disease Father Arthritis Father Other ([id number]) Sister suicide attempt Depression Sister Colon cancer Brother Brain cancer Brother Social History Socioeconomic History Marital status: Spouse name: Not on file Number of children: Not on file Years of education: Not on file Highest education level: Not on file Occupational History Not on file Tobacco Use Smoking status: Never Smokeless tobacco: Never Substance and Sexual Activity Alcohol use: Not Currently Drug use: Never Sexual activity: Not on file Other Topics Concern Not on file Social History Narrative Not on file Social Determinants of Health Financial Resource Strain: Not on file Food Insecurity: Not on file Transportation Needs: Not on file Physical Activity: Not on file Stress: Not on file Social Connections: Not on file Intimate Partner Violence: Not on file Housing Stability: Not on file Current Outpatient Medications on File Prior to Visit Medication Sig Dispense Refill atorvastatin (Lipitor) 20 MG tablet Take 20 mg by mouth daily. atorvastatin (Lipitor) 40 MG tablet Take 40 mg by mouth daily. cholecalciferol (Vitamin D-3) 50 MCG (2000 UT) capsule Take by mouth. famotidine (Pepcid) 20 MG tablet Take 40 mg by mouth Nightly. levothyroxine (Synthroid, Levoxyl) 50 MCG tablet MULTIPLE VITAMINS-MINERALS ER PO Take by mouth if needed. [DISCONTINUED] levothyroxine (Synthroid, Levoxyl) 25 MCG tablet Take 25 mcg by mouth daily. No current facility-administered medications on file prior to visit. Allergies as of 05/19/2023 - Reviewed 05/19/2023 Allergen Reaction Noted Penicillins 01/07/2005 Latex Itching 05/11/2006 Review of Systems A 12 point review of systems was performed and is as per the history of the present illness, all other systems were reviewed and are negative. Vitals: 05/19/23 0850 BP: 133/82 Pulse: 74 Body mass index is 41.02 kg/m . Physical Exam Vitals reviewed. Constitutional: General: She is not in acute distress. Appearance: Normal appearance. She is not ill-appearing, toxic-appearing or diaphoretic. HENT: Head: Normocephalic and atraumatic. Eyes: General: No scleral icterus. Extraocular Movements: Extraocular movements intact. Cardiovascular: Rate and Rhythm: Normal rate. Pulmonary: Effort: Pulmonary effort is normal. No respiratory distress. Abdominal: General: There is no distension. Palpations: Abdomen is soft. There is no mass. Tenderness: There is no abdominal tenderness. There is no guarding or rebound. Hernia: No hernia is present. Comments: Well healed incisions. No evidence of hernia formation. Genitourinary: General: Normal vulva. Labia: Right: No rash, tenderness, lesion or injury. Left: No rash, tenderness, lesion or injury. Urethra: No prolapse, urethral pain, urethral swelling or urethral lesion. Vagina: Normal. Uterus: Absent. Comments: Surgically absent uterus/cervix/adnexa. About 2-3 cm from the introitus, there was a raised, firm, somewhat friable, vascular lesion involving the anterior vagina in the midline. The lesionwas about 2cm in length and 1.5 cm in width. There were no other lesions in the vagina. After informed consent was obtained, a sales representative printing supplies biopsy of the lesion was obtained. Silver nitrate applied. The patient tolerate the procedure well. Musculoskeletal: Right lower leg: No edema. Left lower leg: No edema. Skin: General: Skin is warm and dry. Coloration: Skin is not jaundiced or pale. Findings: No erythema. Neurological: General: No focal deficit present. Mental Status: She is alert. Motor: No weakness. Coordination: Coordination normal. Gait: Gait normal. Psychiatric: Mood and Affect: Mood normal. Behavior: Behavior normal. ASSESSMENT/PLAN: Diagnosis Plan 1. Endometrial cancer (CMS/HCC) (HCC) Tissue exam PET/CT skull base to mid thigh Biopsy vaginal 2. Vaginal lesion Tissue exam PET/CT skull base to mid thigh Biopsy vaginal 3. Recurrent carcinoma of endometrium (HCC) PET/CT skull base to mid thigh Biopsy vaginal 4. 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 with a history of stage Ia, FIGO grade 2, negative lymphovascular space invasion endometrioid endometrial adenocarcinoma. Patient did not need to high-intermediate risk of recurrence and therefore no adjuvant treatment was indicated. Unfortunately, history and physical exam today are concerning for recurrent disease. Biopsy obtained. Will need MMR protein testing. Will need imaging to assess for other sites of disease. PET scan. In the mean time, I would recommend surgical resection of the vaginal disease. Surgical debulking may help with decreasing the tumor burden for radiation. The risks of surgery were discussed including but not limited to bleeding, infection, damage to surrounding structures, need for further procedures, anesthesia risk, medical complications including pneumonia, blood clots, heart attack, stroke and . We discussed the risk of wound separation andwound infection. Patient is aware that if her wound becomes or infected it will need to heal by secondary intention increasing the length of her recovery. The patient had an opportunity to ask questions, all of which were answered to the best of my ability. She is in agreement with the above noted plan. I spent a total time of 60 minutes reviewing previous notes, test results, obtaining history, communicating results to the patient as well as counseling the patient, documenting clinical information in the patient's electronic medical record and coordinating care for the patient. Disclaimer: This note was dictated by speech recognition. I apologize for minor errors in director property which may be present. documented in this [facility]11-15-2021 NoteHNO ID: [id number] Author: RT Tunde(R) Service: ? Author Type: Technologist Type: Progress [...] PERIPHERAL IV DATA: Not applicable SIGNED BY: Julieth Khan RT(R) February 01, 2021 8:16 [facility] note* Diagnosis Onset Date Resolution Status Fatigue acute High cholesterol chronic Hypothyroid chronic [facility] Work Phone: Evaluation note* Diagnosis Onset Date Resolution Status Posterior right knee pain ch ronic [facility] Work Phone: Evaluation note* Diagnosis Onset Date Resolution Status Annual physical exam acute Eczema acute Nervous indigestion acute High cholesterol chronic Hypothyroid chronic [facility] Work Phone: Evaluation note* Diagnosis Onset Date Resolution Status Annual physical exam acute Eczema acute Nervous indigestion acute High cholesterol chronic Hypothyroid chronic Dyspnea on exertion acute Left arm pain acute [facility] Work Phone: Evaluation note* Diagnosis Endometrial cancer (CMS/HCC) (HCC)- Primary Malignant neoplasm of corpus uteri, except isthmus Vaginal lesion Other specified noninflammatory disorder of vagina Recurrent carcinoma of endometrium (HCC) 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) Malignant neoplasm of endometrium (HCC) Malignant neoplasm of corpus uteri, except isthmus [facility] Diagnosis Recurrent carcinoma of endometrium (HCC)- Primary [facility]* Diagnosis Recurrent carcinoma of endometrium (HCC)- Primary 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) [facility]* Diagnosis Postoperative state- Primary Other postprocedural status Recurrent carcinoma of endometrium (HCC) [facility]* Diagnosis 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 [facility]* Diagnosis Recurrent carcinoma of endometrium (HCC) 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) [facility]* Diagnosis Recurrent carcinoma of endometrium (HCC)- Primary [facility]* Diagnosis Endometrial sarcoma (CMS/HCC) (HCC) Malignant neoplasm of corpus uteri, except isthmus documented in this encounter [facility] note* Diagnosis Recurrent carcinoma of endometrium (HCC)- Primary documented in this encounter [facility] note* Diagnosis Recurrent carcinoma of endometrium (HCC)- Primary S/P radiation therapy Convalescence following radiotherapy documented in this encounter [facility] note* Diagnosis Recurrent carcinoma of endometrium (HCC)- Primary S/P radiation therapy Convalescence following radiotherapy 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) Dysuria Urinary incontinence, unspecified type documented in this encounter [facility] for referral (narrative)* Consultation (Routine) - Pending Review Specialty Diagnoses / Procedures Referred By Cain Referred To Contact Radiation Oncology Diagnoses Recurrent carcinoma of endometrium (HCC) 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) Procedures [place] OFFICE/OUTPATIENT NEW HIGH MDM 60 MINUTES Sravan Shine MD [address] [place] [address] [address] [facility] [place] [address] Referral ID Status Reason Start Date Expiration Date Visits Requested Visits Authorized [id number] Pending Review Specialty Services Required 05/26/2023 05/25/2024 1 1 [facility] for referral (narrative)No reason for referral information availablePease [employer] [facility] Work Phone: reason for visit Narrative* Consultation (Routine) - Pending Review Specialty Diagnoses / Procedures Referred By Cain uribe Referred To Contact Radiation Oncology Diagnoses Recurrent carcinoma of endometrium (HCC) 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) Procedures [place] OFFICE/OUTPATIENT NEW HIGH MDM 60 MINUTES Sravan Shine MD [address] [place] [address] [address] [facility] [place] [address] Referral ID Status Reason Start Date Expiration Date Visits Requested Visits Authorized [id number] Pending Review Specialty Services Required 05/26/2023 05/25/2024 1 1 [facility] Health Summary Purpose Family History Relationship Condition Age at Onset Recorded Date/T barbara father Arthritis Unknown Myocardial infarction Unknown Cardiac disease Unknown mother Myocardial infarction Unknown Osteoporosis Unknown brother Malignant neoplasm of colon Unknown sister Depression Unknown Attempted suicide Unknown grandmother Cerebrovascular accident (CVA) Unknown uncle Malignant melanoma Unknown Malignant neoplasm of lung Unknown Advance Directives Documents on File Type Date Recorded 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 Advance Directives and Living Will Power of Manager Architectural Latest Code Status on File Code Status Date Activated Date Inactivated Comments Full Code 05/21/2019 5:35 AM Advance Directive Response Recorded Date/ Time Living Will No May 18, 2020 4:50pm Power of Manager Architectural No May 18 4:50pm Advance Directive Response Recorded Date/ Time Living Will No May 18, 2020 3:50pm Power of Manager Architectural No May 18 3:50pm Latest Code Status on File Code Status Date Activated Date Inactivated Comments Full Code 05/23/2023 11:50 AM 05/23/2023 10:03 PM Latest Code Status on File Code Status Date Activated Date Inactivated Comments Full Code 05/23/2023 11:50 AM 05/23/2023 10:03 PM Date Activated Date Inactivated Comments 05/23/2023 11:50 AM 05/23/2023 10:03 PM Date Activated Date Inactivated Comments 05/23/2023 11:50 AM 05/23/2023 10:03 PM Advance Directive Response Recorded Date/ Time Living Will No May 18, 2020 4:50pm Do you have a Healthcare Power of Manager Architectural? No May 18, 2020 4:50pm Procedure Findings Note Operative Note ? Julieth Marley Date of : 1965 [id number] ? Pre-operative Diagnosis: Endometrial cancer, BMI >40 [...] care instructions given to you by your Glass Cut Off Tender Oncologist's office at your pre operative visit. [...] RN - 05/21/2019 9:46 AM EST Pts neelima pride documented in this encounter Assessments Diagnosis S/P hysterectomy- Primary Acquired absence of both cervix and uterus Chief Complaint and Reason for Visit Chief Complaint MEDS RENEWED Reason for Visit Fatigue High cholesterol Hypothyroid Chief Complaint R KNEE PAIN EORDER- RIGHT KNEE PAIN Reason for Visit Posterior right knee pain Chief Complaint 1 YR Reason for Visit Annual physical exam Eczema Nervous indigestion High cholesterol Hypothyroid Chief Complaint 1 YR PAIN IN L ARM ON AND OFF SCREENING Reason for Visit Annual physical exam Eczema Nervous indigestion High cholesterol Hypothyroid Dyspnea on exertion Left arm pain Chief Complaint 1 YR PAIN IN L ARM ON AND OFF SCREENING DYSPNEA DYSPNEA Reason for Visit Annual physical exam Eczema Nervous indigestion High cholesterol Hypothyroid Dyspnea on exertion Left arm pain Chief Complaint Admit Date DISCUSS ANXIETY May 22, 2024 4:15 pm 6 WK FU July 03, 2024 3:5 0pm INT LABS July 08, 2024 9:4 4am 6 MONTH F/U ENDOMETRIAL July 08, 2024 10:00am 6MO LABS July 08, 2024 10: 02am Blood in stool August 14, 2024 2:04p m eorders August 14, 2024 3:25p m Reason for Visit Admit Date Depression May 22, 2024 4:15 pm Dysuria May 22, 2024 4:15 pm Recurrent carcinoma of endometrium May 22, 2024 4:15pm Depression July 03, 2024 3:5 0pm Frequent loose stools July 03, 2024 3 :50pm Leg pain, posterior July 03, 2024 3:5 0pm Recurrent carcinoma of endometrium July 08, 2024 10:00am Recurrent carcinoma of endometrium July 08, 2024 10:02am Bright red blood per rectum August 14 2:04pm Diarrhea August 14, 2024 2:04p m Chief Complaint Admit Date DISCUSS ANXIETY May 22, 2024 4:15 pm 6 WK FU July 03, 2024 3:5 0pm INT LABS July 08, 2024 9:4 4am 6 MONTH F/U ENDOMETRIAL July 08, 2024 10:00am 6MO LABS July 08, 2024 10: 02am Blood in stool August 14, 2024 2:04p m eorders August 14, 2024 3:25p m E ORDER August 30, 2024 1:16 pm Reason for Referral Specialty Diagnoses / Procedures Referred By Conttori t Referred To Contact Radiology Diagnoses Endometrial cancer (CMS/HCC) (HCC) Vaginal lesion Recurrent carcinoma of endometrium (HCC) 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) Procedures PET/CT skull base to mid thigh Sravan Shine MD [address] [facility] [address] [place] [id number] Referral ID Status Reason Start Date Expiration Date V isits Requested Visits Authorized [id number] Pending Review 05/19/2023 05/18/2024 1 1 Specialty Diagnoses / Procedures Referred By Contac t Referred To Contact Radiology Diagnoses Recurrent carcinoma of endometrium (HCC) Procedures CT chest abdomen pelvis with contrast Sravan Shine MD [address] [facility] [address] [place] [address] Referral ID Status Reason Start Date Expiration Date V isits Requested Visits Authorized [id number] Pending Review 05/24/2023 05/23/2024 1 1 Specialty Diagnoses / Procedures Referred By Contac t Referred To Contact Radiation Oncology Diagnoses 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) Procedures Rad Onc Intent to Treat Awais Sampson MD [address] [place] [address] Referral ID Status Reason Start Date Expiration Date V isits Requested Visits Authorized [id number] Pending Review 06/14/2023 06/08/2024 1 1 Referral ID Status Reason Start Date Expiration Date Visits Re quested Visits Authorized [id number] Closed 05/24/2023 05/23/2024 1 1 Specialty Diagnoses / Procedures Referred By Contac t Referred To Contact Radiation Oncology Diagnoses Recurrent carcinoma of endometrium (HCC) 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) Procedures [place] OFFICE/OUTPATIENT NEW HIGH MDM 60 MINUTES Sravan Shine MD [address] [address] [address] [place] [phone] Referral ID Status Reason Start Date Expiration Date Visits Requested Visits Authorized [id number] Pending Review Specialty Services Required 05/26/2023 05/25/2024 1 1 Specialty Diagnoses / Procedures Referred By Contac t Referred To Contact Radiation Oncology Diagnoses Recurrent carcinoma of endometrium (HCC) Procedures Rad Onc Intent to Treat Beth Cox MD [address] [place] [address] Referral ID Status Reason Start Date Expiration Date V isits Requested Visits Authorized [id number] Pending Review 06/21/2023 06/15/2024 1 1 Specialty Diagnoses / Procedures Referred By Contac t Referred To Contact Radiology Diagnoses Endometrial sarcoma (CMS/HCC) (HCC) Procedures CT Sim WO Beth Cox MD [address] [place] [address] Referral ID Status Reason Start Date Expiration Date V isits Requested Visits Authorized [id number] Pending Review 08/17/2023 08/16/2024 1 1 Additional Source Comments INFORMATION SOURCE (unrecogn ized section and content) DATE CREATED AUTHOR 09/11/2017 [facility] ([place]) DATE CREATED AUTHOR AUTHOR'S ORGANIZ ATION 05/28/2019 [facility] DATE CREATED AUTHOR AUTHOR'S ORGANIZ ATION 10/07/2019 [facility] DATE CREATED AUTHOR AUTHOR'S ORGANIZ ATION 04/26/2021 [facility] DATE CREATED AUTHOR AUTHOR'S ORGANIZ ATION 04/08/2024 [facility] DATE CREATED AUTHOR AUTHOR'S ORGANIZ ATION 09/01/2024 [facility] Goals (unrecognized section and content) Goals may be documented in a n alternate sectionGoals may be documented in an alternate sectionGoals may be documented in an alternate sectionGoals may be documented in an alternate sectionGoals may be documented in an alternate sectionGoals may be documented in an alternate sectionGoals may be documented in an alternate sectionGoals may be documented in an alternate section Care Teams (unrecognized sec tion and content) Team Status: Active Member Role Status Dates Dr. Kristi Daigle , DO Family Provider Active Dr. Kristi Daigle , DO Primary Care Provider Active Team Status: Inactive Member Role Status Dates Dr. Kristi Daigle , DO Primary Care Pr ovider, Attending Provider, Referring Provider Active Team Status: Inactive Member Role Status Dates Dr. Kristi Daigle , DO Primary Care Provider, Attend ing Provider Active Team Status: Inactive Member Role Status Dates Dr. Kristi Daigle , DO Primary Care Provider, Referr ing Provider Active CAROLE Ariza Attending Provider Active Team Status: Active Member Role Status Dates Dr. Kristi Daigle , DO Primary Care Provider Active CAROLE Ariza Referring Provider, Other Provider Active Dr. Ariel Vivar MD Attending Provider Active Team Status: Inactive Member Role Status Dates Dr. Kristi Daigle , DO Primary Care Provider Active Linwood LAM, PA Attending Provider, Referring Prov ider Active Customer Service Advocate Relationship Specialty Start Date End Date Kristi Daigle [address] [place] [address] PCP - General 05/08/19 Sravan Shine MD [address] [place] [address] Consulting Physician Gynecologic Oncology 05/17/23 Customer Service Advocate Relationship Specialty Start Date End Date Kristi Daigle [address] [place] [address] PCP - General 05/08/19 Sravan Shine MD [address] [place] [address] Consulting Physician Gynecologic Oncology 05/17/23 Customer Service Advocate Relationship Specialty Start Date End Date Kristi Daigle [address] [place] [address] PCP - General 05/08/19 Sravan Shine MD [address] [place] [address] Consulting Physician Gynecologic Oncology 05/17/23 Customer Service Advocate Relationship Specialty Start Date End Date Kristi Daigle [address] [place] [address] PCP - General 05/08/19 Sravan Shine MD [address] [place] [address] Consulting Physician Gynecologic Oncology 05/17/23 Customer Service Advocate Relationship Specialty Start Date End Date Kristi Daigle [address] [place] [address] PCP - General 05/08/19 Sravan Shine MD [address] [place] [address] Consulting Physician Gynecologic Oncology 05/17/23 Customer Service Advocate Relationship Specialty Start Date End Date Kristi Daigle [address] [place] [address] PCP - General 05/08/19 Sravan Shine MD [address] [place] [address] Consulting Physician Gynecologic Oncology 05/17/23 Customer Service Advocate Relationship Specialty Start Date End Date Kristi Daigle [address] [place] [address] PCP - General 05/08/19 Sravan Shine MD [address] [place] [address] Consulting Physician Gynecologic Oncology 05/17/23 Customer Service Advocate Relationship Specialty Start Date End Date Kristi Daigle [address] [place] [address] PCP - General 05/08/19 Sravan Shine MD [address] [place] [address] Consulting Physician Gynecologic Oncology 05/17/23 Customer Service Advocate Relationship Specialty Start Date End Date Kristi Daigle [address] [place] [address] PCP - General 05/08/19 Sravan Shine MD [address] [facility] [address] [place] [address] Consulting Physician Gynecologic Oncology 05/17/23 Customer Service Advocate Relationship Specialty Start Date End Date Kristi Daigle [address] [place] [address] PCP - General 05/08/19 Sravan Shine MD [address] [facility] [address] [place] [address] Consulting Physician Gynecologic Oncology 05/17/23 Beth Cox MD [address] [place] [phone] Radiation Oncologist Radiation Oncology 06/21/23 Customer Service Advocate Relationship Specialty Start Date End Date Kristi Daigle [address] [place] [address] PCP - General 05/08/19 Sravan Shine MD [address] [facility] [address] [place] [address] Consulting Physician Gynecologic Oncology 05/17/23 Beth Cox MD [address] [place] [phone] Radiation Oncologist Radiation Oncology 06/21/23 Customer Service Advocate Relationship Specialty Start Date End Date Kristi Daigle [address] [place] [address] PCP - General 05/08/19 Sravan Shine MD [address] [place] [address] Consulting Physician Gynecologic Oncology 05/17/23 Beth Cox MD [address] [place] [id number] Radiation Oncologist Radiation Oncology 06/21/23 Customer Service Advocate Relationship Specialty Start Date End Date Kristi Daigle [address] [place] [address] PCP - General 05/08/19 Sravan Shine MD [address] [facility] [address] [place] [address] Consulting Physician Gynecologic Oncology 05/17/23 Beth Cox MD [address] [place] [phone] Radiation Oncologist Radiation Oncology 06/21/23 Customer Service Advocate Relationship Specialty Start Date End Date Kristi Daigle [address] [place] [address] PCP - General 05/08/19 Sravan Shine MD [address] [facility] [address] [place] [address] Consulting Physician Gynecologic Oncology 05/17/23 Beth Cox MD [address] [place] [phone] Radiation Oncologist Radiation Oncology 06/21/23 Customer Service Advocate Relationship Specialty Start Date End Date Kristi Daigle [address] [place] [address] PCP - General 05/08/19 Sravan Shine MD [address] [place] [address] Consulting Physician Gynecologic Oncology 05/17/23 Beth Cox MD [address] [place] [phone] Radiation Oncologist Radiation Oncology 06/21/23 Customer Service Advocate Relationship Specialty Start Date End Date Kristi Daigle [address] [place] [address] PCP - General 05/08/19 Sravan Shine MD [address] [facility] [address] [place] [address] Consulting Physician Gynecologic Oncology 05/17/23 Beth Cox MD [address] [place] [phone] Radiation Oncologist Radiation Oncology 06/21/23 Customer Service Advocate Relationship Specialty Start Date End Date Kristi Daigle [address] [place] [address] PCP - General 05/08/19 Sravan Shine MD [address] [place] [address] Consulting Physician Gynecologic Oncology 05/17/23 Beth Cox MD [address] [place] [phone] Radiation Oncologist Radiation Oncology 06/21/23 Customer Service Advocate Relationship Specialty Start Date End Date Kristi Daigle [address] [place] [address] PCP - General 05/08/19 Sravan Shine MD [address] [place] [address] Consulting Physician Gynecologic Oncology 05/17/23 Beth Cox MD [address] [place] [phone] Radiation Oncologist Radiation Oncology 06/21/23 Customer Service Advocate Relationship Specialty Start Date End Date Kristi Daigle [address] [place] [address] PCP - General 05/08/19 Sravan Shine MD [address] [facility] [address] [place] [address] Consulting Physician Gynecologic Oncology 05/17/23 Beth Cox MD [address] [place] [phone] Radiation Oncologist Radiation Oncology 06/21/23 Customer Service Advocate Relationship Specialty Start Date End Date Kristi Daigle [address] [place] [address] PCP - General 05/08/19 Sravan Shine MD [address] [place] [address] Consulting Physician Gynecologic Oncology 05/17/23 Beth Cox MD [address] [place] [phone] Radiation Oncologist Radiation Oncology 06/21/23 Customer Service Advocate Relationship Specialty Start Date End Date Kristi Daigle [address] [place] [address] PCP - General 05/08/19 Sravan Shine MD [address] [place] [address] Consulting Physician Gynecologic Oncology 05/17/23 Beth Cox MD [address] [place] [phone] Radiation Oncologist Radiation Oncology 06/21/23 Customer Service Advocate Relationship Specialty Start Date End Date Kristi Daigle [address] [place] [address] PCP - General 05/08/19 Sravan Shine MD [address] [place] [address] Consulting Physician Gynecologic Oncology 05/17/23 Beth Cox MD [address] [place] [phone] Radiation Oncologist Radiation Oncology 06/21/23 Customer Service Advocate Relationship Specialty Start Date End Date Kristi Daigle [address] [place] [address] PCP - General 05/08/19 Sravan Shine MD [address] [place] [address] Consulting Physician Gynecologic Oncology 05/17/23 Beth Cox MD [address] [place] [phone] Radiation Oncologist Radiation Oncology 06/21/23 Team Status: Active Member Role Status Dates Dr. Kristi Daigle DO Primary Care Provider Active Team Status: Inactive Member Role Status Dates Dr. Kristi Daigle DO Primary Care Provider Active Start: May 22, 2024 End: May 22, 2024 Dr. Kristi Daigle DO Attending Provider Active Start: May 22, 2024 End: May 22, 2024 Dr. Kristi Daigle DO Referring Provider Active Start: May 22, 2024 End: May 22, 2024 Team Status: Inactive Member Role Status Dates Dr. Kristi Daigle DO Primary Care Provider Active Start: July 03, 2024 End: July 03, 2024 Dr. Kristi Daigle DO Attending Provider Active Start: July 03, 2024 End: July 03, 2024 Dr. Kristi Daigle DO Referring Provider Active Start: July 03, 2024 End: July 03, 2024 Team Status: Inactive Member Role Status Dates Dr. Kristi Daigle DO Primary Care Provider Active Start: July 08, 2024 End: July 08, 2024 Magaly Case DIPLOMATIC OFFICER, DIPLOMATIC OFFICER-C Attending Provider Active Start: July 08, 2024 End: July 08, 2024 Magaly Evie DIPLOMATIC OFFICER, DIPLOMATIC OFFICER-C Referring Provider Active Start: July 08, 2024 End: July 08, 2024 Team Status: Inactive Member Role Status Dates Dr. Kristi Daigle DO Primary Care Provider Active Start: July 08, 2024 End: July 08, 2024 Dr. Best Maynard DO Attending Provider Active Start: July 08, 2024 End: July 08, 2024 Team Status: Inactive Member Role Status Dates Dr. Kristi Daigle DO Primary Care Provider Active Start: July 08, 2024 End: July 08, 2024 Dr. Kristi Daigle DO Referring Provider Active Start: July 08, 2024 End: July 08, 2024 Dr. Tyler Masters MD Attending Provider Active S tart: July 08, 2024 End: July 08, 2024 Team Status: Inactive Member Role Status Dates Dr. Kristi Daigle DO Primary Care Provider Active Start: August 14, 2024 End: August 14, 2024 Dr. Kristi Daigle DO Referring Provider Active Start: August 14, 2024 End: August 14, 2024 CAROLE Bruce Attending Provider Active Start: August 14, 2024 End: August 14, 2024 Team Status: Active Member Role Status Dates Dr. Kristi Daigle DO Primary Care Provider Active Start: August 14, 2024 CAROLE Bruce Attending Provider Active Start: August 14, 2024 CAROLE Bruce Referring Provider Active Start: August 14, 2024 Team Status: Inactive Member Role Status Dates Dr. Kristi Daigle DO Primary Care Provider Active Start: August 14, 2024 End: August 14, 2024 CAROLE Bruce Attending Provider Active Start: August 14, 2024 End: August 14, 2024 CAROLE Bruce Referring Provider Active Start: August 14, 2024 End: August 14, 2024 Team Status: Inactive Member Role Status Dates Dr. 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 Malignant neoplasm of endometrium (HCC) Procedures [place] OFFICE/OUTPATIENT [facility] 60 MINUTES Gege Amin [address] [place] [address] [facility] Branch Service Leader Onc [address] [facility] [address] [place] [address] Referral ID Status Reason Start Date Expiration Date Visits Re quested Visits Authorized [id number] Closed 05/17/2023 05/16/2024 1 1 Reason Onset Date Comments surgery scheduling 05/19/2023 Scheduled at [facility] Reason Comments Post-op Visit No concerns Reason Comments Consult Specialty Diagnoses / Procedures Referred By Contac t Referred To Contact Radiation Oncology Diagnoses Malignant neoplasm of endometrium (HCC) Procedures [place] OFFICE/OUTPATIENT NEW [facility] 60 MINUTES Cb Maynard [address] [place] [address] [facility] Rad Onc [address] [place] [address] Referral ID Status Reason Start Date Expiration Date V isits Requested Visits Authorized [id number] Pending Review 06/09/2023 06/08/2024 1 1 Reason Onset Date Comments Post-op Problem 06/08/2023 Specialty Diagnoses / Procedures Referred By Contac t Referred To Contact Radiology Diagnoses Endometrial sarcoma (CMS/HCC) (HCC) Procedures CT Sim WO Beth Cox MD [address] [place] [address] Referral ID Status Reason Start Date Expiration Date V isits Requested Visits Authorized [id number] Pending Review 08/17/2023 08/16/2024 1 1 Reason Comments Cylinder sizing and CT SIM Reason Comments Follow-up Reason Comments Follow-up Pt is having diarrhe a. Pt recently had COVID. Pt is taking pyridium due to painful urination. No vaginal concerns. Pt states she is sore down there, she has not been using the dilator. Reason Comments Endometrial Cancer Recurrent endometria l cancer -surveillance of disease. FOR RECORDS PERTAINING TO PATIENTS WHO ARE [...] BE BASED ON THE PRIMARY CLINICAL RECORDS. [employer] provides no warranty or guarantee of the accuracy or completeness of information in this document.
[2024-09-04 06:15] VITALS: BP 136/67; PULSE 66; RESP 18; TEMP 36.9; O2SAT 97; BMI 41.2
[2024-09-04] MEDS: Lactated Ringers 1,000 ML 15 ML IV (06:18)
--- NOTE | 2024-09-04 06:31 | PCM.PRE.AN2 ---
ASA Classification* ASA Classification ASA Classification: 3 Assessment & Plan Anesthesia* Anesthesia Assessment Anesthesia Assessment: Discussed sedation and/or anesthesia options, risks, benefits, and alternatives with patient/parents/legal guardian/POA. Questions invited. The patient/parents/legal guardian/POA seems to understand and agrees to proceed with anesthesia plan. Reviewed the physical assessment, medical history, allergy history and patient home medications list prior to surgery/procedure/anesthetic and documented any changes. Performed airway and anesthesia risk assessments. Anesthesia Type Anesthesia Type: MAC History Source History Obtained from:: Patient and Chart Anesthesia Focused Assessment* Temperature: 98.4 F Pulse Rate: 66 Blood Pressure: 136/67 Respiratory Rate: 18 Pulse Ox: 97 Oxygen Delivery Method: Room Air Airway Assessment Mouth opens: >3 cm Mallampati Score: III Teeth Condition: Intact Neck Range of motion (ROM): Full ROM Labs Anesthesia Preop lab: CBC WBC 6.0 K/mm3 (4.4-11.0) 08/14/24 15:08/14/24 RBC 4.02 M/mm3 (4.2-5.4) L 08/14/24 15:29 08/14/24 Hgb 12.7 g/dL (12.0-15.0) 08/14/24 15:29 08/14/24 Hct 38.4 % (37-47) 08/14/24 15:29 08/14/24 Plt Count 256 K/mm3 (150-450) 08/14/24 15:29 08/14/24 CHEMISTRY Potassium 4.1 mmol/L (3.3-5.1) 07/08/24 09:47 07/08/24 Sodium 142 mmol/L (133-145) 07/08/24 09:47 07/08/24 BUN 14 mg/dL (4-19) 07/08/24 09:47 07/08/24 Creatinine 0.74 mg/dL (0.70-1.20) 07/08/24 09:47 07/08/24 Glucose 105 mg/dL (70-99) H 07/08/24 09:47 07/08/24 TSH 2.330 uIU/mL (0.358-3.740) 02/27/24 15:29 02/27/24 COAG Urine Test Negative Negative 05/10/19 07:44 05/10/19 Pre-Assessment Diagnosis/Proposed Procedure Planned Operative Procedure(s): COLONOSCOPY Anesthesia History Anesthesia History - senior dot net developer: Anesthesia History - senior dot net developer Hx Hospitalization No 08/29/24 13:28 Any Problems With Anesthesia No 08/29/24 13:28 Cholinesterase deficiency No 08/29/24 13:28 You/Your Family Experience No 08/29/24 13:28 fever (hyperthermia) with Relationship Recent Exposure to Contagious No 09/04/24 06:15 Disease Does patient have nerve No 08/29/24 13:28 stimulator Patient instructed to have device shut off --Does patient have Pacemaker No 09/04/24 06:15 or ICD? When Was Last Pacemaker Check QUESTION #4 FULL TEXT: You/Your Family Experience fever (hyperthermia) with Anesthesia Last Oral Intake Last Oral intake: Last Oral Intake NPO since 05:00 09/04/24 06:15 Meds taken in AM with sips of Yes 09/04/24 06:15 water? Meds patient instructed to levothyroxine 09/04/24 06:15 take am of surgery Any additional information?: Yes NPO since: 04:15 (Patient finished prep at 4:15 AM.) Meds taken in AM with sips of water?: Yes PONV PONV - senior dot net developer: PONV - senior dot net developer Female Yes 08/29/24 13:28 HX of Motion Sickness No 08/29/24 13:28 HX of N/V After Surgery No 08/29/24 13:28 Non-Smoker Yes 08/29/24 13:28 Duration of Surgery greater No 08/29/24 13:28 than 60 minutes Number of Risk Factors 2 08/29/24 13:28 PONV Score Moderate Risk 08/29/24 13:28 Height & Weight Height & Weight: Anesthesia: Height & Weight Height 5 ft 4 in 09/04/24 06:15 Weight: 109 kg 09/04/24 06:15 Body Mass Index (BMI) 41.2 09/04/24 06:15 Respiratory Assessment Respiratory Assessment - senior dot net developer: Respiratory Tract Infection Hx - senior dot net developer Hx Respiratory Tract Infection No 08/29/24 13:28 STOP Sleep Apnea STOP Sleep Apnea - senior dot net developer: STOP Sleep Apnea - senior dot net developer Hx Hypertension No 08/29/24 13:28 Hx Sleep Apnea No 08/29/24 13:28 CPAP BIPAP Do you snore loudly (louder No 08/29/24 13:28 than talking or can be heard Do you often feel tired/ No 08/29/24 13:28 fatigued/ sleepy during daytime? Has anyone observed you stop No 08/29/24 13:28 breathing during sleep? STOP Results Negative 08/29/24 13:28 QUESTION #5 FULL TEXT : Do you snore loudly (louder than talking or can be heard through closed doors)? Tobacco Use History Tobacco Use History - senior dot net developer: Tobacco Use History - senior dot net developer Tobacco Use Smoking Status Never smoker 08/29/24 13:28 Hx Tobacco Use No 08/29/24 13:28 Years Smoking Packs Smoked per Day Smoking Cessation Date was within the last 15 years Hx Smoking Cessation Date Hx Smoking Cessation Counseling Hematologic Medial History Hematologic Hx - senior dot net developer: Hematologic Medical Hx - documentation lead Hx of Blood Transfusion No 08/29/24 13:28 Hx of Transfusion in last 3 No 08/29/24 13:28 Months Date of Last Transfusion (if within last 3 months) Ever experience any problems No 08/29/24 13:28 with transfusion(s)? Specify any problems Hx of Preganancy in last 3 No 08/29/24 13:28 Months Nurse Filling Out Transfusion VCHRISTIN 08/29/24 13:28 & Questions: Date: 08/29/24 08/29/24 13:28 Time: 13:29 08/29/24 13:28 Patient unable to answer at this time (ie. confused, unrespo /Reproduction History /Reproductive History - senior dot net developer: /Reproductive Hx- senior dot net developer Hx Now No 08/29/24 13:28 Gestational Age (in weeks): EDC: Hx Hx Para Hx Section SAB No 08/29/24 13:28 Active Medications Active Medications: Current Medications Generic Name Dose Route Start Last Admin Trade Name Freq PRN Reason Stop Dose Admin Lactated Ringer's 1,000 mls @ 15 mls/hr 09/04/24 06:00 09/04/24 06:18 IV 15 mls/hr .Q48H KEVIN Administration PFSH Medical History Wears glasses Post-menopausal Cancer Thyroid disease Arthritis Gastric reflux Non-smoker Shortness of breath on exertion Leg cramps History of pain when walking History of edema History of echocardiogram History of stress test Cardiology follow-up encounter Diarrhea Vagina neoplasm Dyspnea on exertion Left arm pain Eczema Posterior right knee pain Fatigue Urinary incontinence Endometrial cancer Thickened endometrium BV (bacterial vaginosis) Hypothyroid Gastritis High cholesterol Home Medications ?Medication ?Instructions ?Recorded ?Last Taken ?Type multivitamin 1 tab PO DAILY 01/18/18 Unknown History cholecalciferol (vitamin D3) 50 2,000 unit PO DAILY 04/03/19 Unknown History mcg (2,000 unit) tablet famotidine 20 mg tablet (Pepcid) 40 mg PO QHS 04/03/19 04/30/19 05:00 History mv-min-vit C-ascorb 1 tab PO DAILY 12/13/22 Unknown History Bd-Ssb-Xfc-herb #124 333 mg-1.7 mg chewable tablet (Airborne (ascorbate sodium)) levothyroxine 50 mcg tablet 50 mcg PO DAILY #90 tabs 05/17/24 09/04/24 05:00 Rx sertraline 50 mg tablet 50 mg PO QDAY #90 tabs 05/22/24 Unknown Rx vibegron 75 mg tablet (Gemtesa) 75 mg PO QDAY 07/03/24 Unknown History ezetimibe 10 mg tablet (Zetia) 10 mg PO QDAY #90 tabs 08/13/24 Unknown Rx acetaminophen 650 mg 650 mg PO Q12H PRN pain 08/29/24 Unknown History tablet,extended release (8 Hour Pain Reliever) coenzyme Q10 100 mg capsule 200 mg PO DAILY 08/29/24 Unknown History (CoQ-10) loperamide 2 mg capsule 4 mg PO DAILY 08/29/24 Unknown History (Anti-Diarrheal (loperamide)) phenazopyridine 200 mg tablet 200 mg PO TID PRN PRN bladder 08/29/24 Unknown History muscle dysfunction Allergy/AdvReac Type Severity Reaction Status Date / Time Penicillins Allergy Severe Unknown Verified 09/04/24 06:14 latex Allergy Intermediate Unknown Verified 09/04/24 06:14 Family History Father Arthritis Myocardial infarction Heart disease Mother Myocardial infarction Heart disease Osteoporosis Brother Colon cancer Sister Depression Suicide attempt Grandmother CVA (cerebral vascular accident) Uncle Melanoma Lung cancer Surgical History Hx of colonoscopy Status post complete hysterectomy History of bilateral oophorectomy History of LAVH History of tonsillectomy Social History Smoking Status: Never smoker alcohol intake: never substance use type: does not use caffeine: No what type of physical activity do you participate in: none seatbelt use: always do you feel safe at home: Yes additional social history: -Patient works at [employer] Review of Systems (Anesthesia) ROS Narrative System reviewed and no additional complaints, except as documented.
[2024-09-04 06:36] VITALS: BP 136/67; PULSE 66; RESP 18; TEMP 36.9; O2SAT 97
--- NOTE | 2024-09-04 06:53 | PCM.HP.STD ---
[facility] - General General Date of Admission: 09/04/24 Date of Service: 09/04/24 Chief Complaint: Lower GI bleeding HPI Narrative JULIETH MARLEY, is a 59 F who presents with the chief Complaint: BRBPR Pt has a PMHx of endometrial cancer s/p total hysterectomy and radiation. She is cancer free today. Pt endorsing BRPBR over the past few months. She at first thought it may have been hemorrhoids but it continued. She does not have blood with every bowel movement. When she does she will fill the bowel. She alternates between loose stools and constipation. SHe will have a bm daily but has to strain when she is constipated. She feels she may have IBS as she notices she can get loose stools when she is nervous. Of note she does recall having severe diarrhea and some bleeding during her treatment with radiation. Last colonoscopy in Apr 2019 after her diagnosis of endometrial cancer. [facility] Medical History Wears glasses Post-menopausal Cancer Thyroid disease Arthritis Gastric reflux Non-smoker Shortness of breath on exertion Leg cramps History of pain when walking History of edema History of echocardiogram History of stress test Cardiology follow-up encounter Diarrhea Vagina neoplasm Dyspnea on exertion Left arm pain Eczema Posterior right knee pain Fatigue Urinary incontinence Endometrial cancer Thickened endometrium BV (bacterial vaginosis) Hypothyroid Gastritis High cholesterol Home Medications ?Medication ?Instructions ?Recorded ?Last Taken ?Type multivitamin 1 tab PO DAILY 01/18/18 Unknown History cholecalciferol (vitamin D3) 50 2,000 unit PO DAILY 04/03/19 Unknown History mcg (2,000 unit) tablet famotidine 20 mg tablet (Pepcid) 40 mg PO QHS 04/03/19 04/30/19 05:00 History mv-min-vit C-ascorb 1 tab PO DAILY 12/13/22 Unknown History Gm-Etg-Owg-herb #124 333 mg-1.7 mg chewable tablet (Airborne (ascorbate sodium)) levothyroxine 50 mcg tablet 50 mcg PO DAILY #90 tabs 05/17/24 09/04/24 05:00 Rx sertraline 50 mg tablet 50 mg PO QDAY #90 tabs 05/22/24 Unknown Rx vibegron 75 mg tablet (Gemtesa) 75 mg PO QDAY 07/03/24 Unknown History ezetimibe 10 mg tablet (Zetia) 10 mg PO QDAY #90 tabs 08/13/24 Unknown Rx acetaminophen 650 mg 650 mg PO Q12H PRN pain 08/29/24 Unknown History tablet,extended release (8 Hour Pain Reliever) coenzyme Q10 100 mg capsule 200 mg PO DAILY 08/29/24 Unknown History (CoQ-10) loperamide 2 mg capsule 4 mg PO DAILY 08/29/24 Unknown History (Anti-Diarrheal (loperamide)) phenazopyridine 200 mg tablet 200 mg PO TID PRN PRN bladder 08/29/24 Unknown History muscle dysfunction Allergy/AdvReac Type Severity Reaction Status Date / Time Penicillins Allergy Severe Unknown Verified 09/04/24 06:14 latex Allergy Intermediate Unknown Verified 09/04/24 06:14 Family History Father Arthritis Myocardial infarction Heart disease Mother Myocardial infarction Heart disease Osteoporosis Brother Colon cancer Sister Depression Suicide attempt Grandmother CVA (cerebral vascular accident) Uncle Melanoma Lung cancer Surgical History Hx of colonoscopy Status post complete hysterectomy History of bilateral oophorectomy History of [facility] History of tonsillectomy Social History Smoking Status: Never smoker alcohol intake: never substance use type: does not use caffeine: No what type of physical activity do you participate in: none seatbelt use: always do you feel safe at home: Yes additional social history: -Patient works at [employer] Constitutional Constitutional: Denies fatigue, fever(s), poor appetite, weight gain or weight loss Gastrointestinal Gastrointestinal: Denies belching, bloating, change in bowel habits, change in stool character, chewing difficulty, coffee ground emesis, constipation, cramping, diarrhea, dyspepsia, dysphagia, early satiety, excessive flatus, fecal incontinence, heartburn, hematemesis, hematochezia, hemorrhoids, loose stools, melena, nausea, odynophagia, rectal bleeding, tenesmus, vomiting or weight changes Vital Signs Vital Signs Vital Signs: 09/04/24 06:15 09/04/24 06:15 06/18/25 06:36 Temperature 98.4 F 98.4 F Temperature Source Temporal Pulse Rate 66 66 Respiratory Rate 18 18 Respiratory Pattern Normal Blood Pressure 136/67 H 136/67 H Blood Pressure Mean 90 Blood Pressure Source Monitor Blood Pressure Position Sitting Blood Pressure Location Right Arm Pulse Ox 97 97 Oxygen Delivery Method Room Air Room Air Weight Weight: 240 lb 4.862 oz Body Mass Index (BMI) 41.2 Physical Exam Const alert, oriented x3, no apparent distress and healthy appearing General Appearance: cooperative GI normal to inspection, nondistended, normoactive bowel sounds, soft to palpation, non-tender and non-distended Percussion: normal to percussion Rectal Exam: deferred Assessment & Plan Assessment/Plan (1) Bright red blood per rectum: PLAN: Assessment and Plan Assessment and Plan (1) Bright red blood per rectum: Status: Acute (2) Diarrhea: Status: Acute Qualifiers: Diarrhea type: unspecified type Qualified Code(s): R19.7 - Diarrhea, unspecified Orders: Orders CBC W/Diff, Automated Today K62.5 - Hemorrhage of anus and rectum Calprotectin, Stool Today K62.5 - Hemorrhage of anus and rectum Patient Instructions: Julieth is a 58 yo female pt here today for evaluation of BRBPR x3 months. Pt also endorsing loose stools alternating with constipation. She has a hx of endometrial cancer s/p hysterectomy and internal and external radiation. Last radiation in july 2023. Due to her intermittent episodes of BRBPR I have concern for radiation proctitis, malignancy or hemorrhoids. Pt also with intermittent loose stools related to anxiety likely IBS. She will undergo colonoscopy to assess her lower GI tract. I will order CBC to monitor her hgb. I will also order stool testing to rule out inflammation in her colon. Pt agreeable to plan. -Colonoscopy -Calprotectin -CBC -F/u after procedure
--- NOTE | 2024-09-04 07:00 | COLBX_PTH ---
PATIENT: DEE MARLEY LOC: EN U#:[id number] AGE/SX: 59/F ROOM: RE09/04/[address]: Dr. Arley Pham DO : 1965 BED: DIS: 09/04/2024 SPEC #: [id number] RECD: 09/04/24 09:59 STATUS: LINH RERalph #: [id number] CONSUELO: 09/04/24 07:[address]: Arley Pham DEPT: SURGICAL PATHOLOGY RECD BY: Lj Ackerman ENTERED: 09/04/24 11:04 SP TYPE: COLON BX MATHEW DR: Dr. Avila Romo DO Tissues: A - Ascending colon Procedures: Surgery Specimen Level IV HEADER OPERATION: Colonoscopy with polypectomy and Argon Plasma Coagulation PRE-OP DIAGNOSIS: Bright red blood per rectum, diarrhea TISSUE SUBMITTED: A- Ascending colon polyp MICROSCOPIC DIAGNOSIS A. Ascending colon, polyp, biopsy: Tubular adenoma. MICROSCOPIC DESCRIPTION Slides are reviewed. GROSS DESCRIPTION A. Received in fixative is one container labeled with the patient's name and designated Ascending colon polyp. The specimen consists of three irregular fragments of light malik soft tissue that in aggregate measure <0.1 to 0.3 cm. The specimen is totally submitted in one cassette. YOBANI/ 09/04/2024 CPT:21588
[2024-09-04 07:50] VITALS: BP 125/67; BP 136/67; PULSE 70; RESP 16; TEMP 37.1; O2SAT 98
[2024-09-04 07:55] VITALS: BP 122/78; BP 125/67; BP 136/67; PULSE 70; PULSE 72; RESP 16; TEMP 37.1; O2SAT 97; O2SAT 98
--- NOTE | 2024-09-04 07:55 | PCM.POST.ANE ---
Anesthesia: Postop Eval I Current Vital Signs Temperature: 98.8 F Pulse Rate: 72 Blood Pressure: 125/67 Respiratory Rate: 16 Pulse Ox: 97 Oxygen Delivery Method: Room Air Assessment Airway patent: Yes Spontaneous unlabored respirations: Yes Mental status: Awake and Calm nausea: No Vomiting: No Anesthesia Complication: No Fluid Hydration Crystalloid volume administer (ml): 700 Total IV fluid infused: 700 Progress Note Anesthesia document: Postop Eval 1 completed: Yes
[2024-09-04 08:00] VITALS: BP 136/67; BP 145/86; PULSE 75; RESP 16; TEMP 36.6; O2SAT 98
--- NOTE | 2024-09-04 08:01 | OP.CCLET_ITS ---
09/04/2024 Avila Romo Re : Colonoscopy procedure for Julieth Alicia Dear Dr. Romo This procedure was performed on Wednesday, September 04, 2024. My impressions and recommendations are as follows: Impressions : - One 8 mm polyp in the ascending colon, removed with a cold snare. Resected and retrieved. - Multiple bleeding colonic angiodysplastic lesions. Treated with argon plasma coagulation (APC). Recommendations : - Discharge patient to home. - Resume previous diet. - Continue present medications. - Repeat colonoscopy in 5 years for surveillance. - Effectiveness: APC is often effective in controlling bleeding associated with radiation proctitis, sometimes after just one or two sessions. Multiple Sessions: Multiple sessions may be needed for adequate bleeding control, especially for severe cases. My findings are described in the full procedure note, which is enclosed. If I can be of further assistance, please feel free to contact me at . Sincerely, Arley Friend, 09/04/2024 8:01:00 AM This report has been signed electronically.
--- NOTE | 2024-09-04 08:01 | OP.COLON_ITS ---
Patient Name: Julieth Alicia Procedure Date: 09/04/2024 7:17 AM Date of : 1965 Age: 59 Procedure: Colonoscopy Indications: Hematochezia Providers: Arley Pham DO Referring MD: Avila Romo Medicines: Monitored Anesthesia Care Patient Profile: This is a 59 year old female. Refer to note in patient chart for documentation of history and physical. Last Colonoscopy: several years ago. Complications: No immediate complications. Procedure: Pre-Anesthesia Assessment: - Prior to the procedure, a History and Physical was performed, and patient medications and allergies were reviewed. The patient is competent. The risks and benefits of the procedure and the sedation options and risks were discussed with the patient. All questions were answered and informed consent was obtained. Patient identification and proposed procedure were verified by the physician in the pre-procedure area. Mental Status Examination: alert and oriented. Airway Examination: normal oropharyngeal airway and neck mobility. Respiratory Examination: clear to auscultation. CV Examination: normal. Prophylactic Antibiotics: The patient does not require prophylactic antibiotics. Prior Anticoagulants: The patient has taken no anticoagulant or antiplatelet agents except for NSAID medication. ASA Grade Assessment: II - A patient with mild systemic disease. After reviewing the risks and benefits, the patient was deemed in satisfactory condition to undergo the procedure. The anesthesia plan was to use monitored anesthesia care (MAC). Immediately prior to administration of medications, the patient was re-assessed for adequacy to receive sedatives. The heart rate, respiratory rate, oxygen saturations, blood pressure, adequacy of pulmonary ventilation, and response to care were monitored throughout the procedure. The physical status of the patient was re-assessed after the procedure. After I obtained informed consent, the scope was passed under direct vision. Throughout the procedure, the patient's blood pressure, pulse, and oxygen saturations were monitored continuously. The Colonoscope was introduced through the anus and advanced to the cecum, identified by appendiceal orifice and ileocecal valve. The colonoscopy was performed without difficulty. The patient tolerated the procedure well. The quality of the bowel preparation was adequate. The ileocecal valve, appendiceal orifice, and rectum were photographed. Scope In: 7:22:40 AM Scope Withdrawal Time 0 hours 14 minutes 33 seconds Scope Out: 7:44:13 AM Total Procedure Duration Time 0 hours 21 minutes 33 seconds Findings: The perianal and digital rectal examinations were normal. An 8 mm polyp was found in the ascending colon. The polyp was sessile. The polyp was removed with a cold snare. Resection and retrieval were complete. Verification of patient identification for the specimen was done. Estimated blood loss was minimal. Multiple large diffuse angiodysplastic lesions with bleeding were found at the anus and in the rectum. Coagulation for bleeding prevention using argon plasma at 0.5 liters/minute and 30 frank was successful. Estimated blood loss was minimal. Impression: - One 8 mm polyp in the ascending colon, removed with a cold snare. Resected and retrieved. - Multiple bleeding colonic angiodysplastic lesions. Treated with argon plasma coagulation (APC). Recommendation: - Discharge patient to home. - Resume previous diet. - Continue present medications. - Repeat colonoscopy in 5 years for surveillance. - Effectiveness: APC is often effective in controlling bleeding associated with radiation proctitis, sometimes after just one or two sessions. Multiple Sessions: Multiple sessions may be needed for adequate bleeding control, especially for severe cases. Procedure Code(s): --- Professional --- 81725, 59, Colonoscopy, flexible; with control of bleeding, any method 13597, Colonoscopy, flexible; with removal of tumor(s), polyp(s), or other lesion(s) by snare technique CPT copyright 2021 [employer]. All rights reserved. The codes documented in this report are preliminary and upon diamond assorter review may be revised to meet current compliance requirements. Arley Pham DO 09/04/2024 8:01:00 AM This report has been signed electronically. Number of Addenda: 0 Note Initiated On: 09/04/2024 7:17 AM
[2024-09-04 08:03] VITALS: BP 136/67
--- NOTE | 2024-09-04 10:10 | PCM.POSTANE2 ---
Anesthesia Postop Eval I Sum Postop Eval Completion status Anesthesia document: Postop Eval 1 completed: Yes Anesthesia Postop Eval I Summary Anesthesia Postop Eval I Summary: Anesthesia Postop Eval I: Assessment Summary Airway patent Yes 09/04/24 07:55 [email or web address] Spontaneous unlabored Yes 09/04/24 07:55 [email or web address] respirations Mental status Awake,Calm 09/04/24 07:55 [email or web address] nausea No 09/04/24 07:55 [email or web address] Vomiting No 09/04/24 07:55 [email or web address] Anesthesia Postop Eval I: Fluid Summary Crystalloid volume administer 700 09/04/24 07:55 [email or web address] (ml) Colloids volume administered ( ml) Blood Product volume administered (ml) Total IV fluid infused 700 09/04/24 07:55 [email or web address] Anesthesia Postop Eval I: Summary Notes Anesthesia Complication No 09/04/24 07:55 [email or web address] Anesthesia Complication Comment: Post-operative progress note Anesthesia: Postop Eval II Evaluation Mental status: Awake Pain Level: 0 nausea: No Vomiting: No
== END 2024-09-04 08:44 | disposition home or self-care (01) ==
LOC: EN 05:48 → AC 05:49
PROVIDERS: PCP Family Medicine; Referring Provider Family Medicine; Visit Provider Internal Medicine Gastroenterology
PROC: 0DJD8ZZ Inspection of Lower Intestinal Tract, Via Natural or Artificial Opening Endoscopic (ICD-10-PCS; CPT 45378; principal; 2024-09-04 06:55)
DX: K55.21 Angiodysplasia of colon with hemorrhage (principal); R19.7 Diarrhea, unspecified; K21.9 Gastro-esophageal reflux disease without esophagitis; E78.00 Pure hypercholesterolemia, unspecified; K63.5 Polyp of colon; Z90.710 Acquired absence of both cervix and uterus; Z85.89 Personal history of malignant neoplasm of other organs and systems; Z79.899 Other long term (current) drug therapy; E03.9 Hypothyroidism, unspecified; Z90.722 Acquired absence of ovaries, bilateral; Z92.3 Personal history of irradiation
CPT/HCPCS: 45385; 45382; 88305; C1889; J2405

== ENCOUNTER 2024-11-12 08:00 | Outpatient (RCR) | payer BC, SELFPAY ==
[2024-10-29 07:56] VITALS: BP 133/81; PULSE 69; RESP 16; TEMP 36.8; BMI 39.9
--- NOTE | 2024-10-29 09:40 | RAD_ITS ---
PROCEDURE: CHEST PA AND LATERAL 10/29/2024 REASON FOR EXAM: HBO THERAPY TECHNIQUE: CHEST PA AND LATERAL FINDINGS: The heart is normal in size. The lungs are clear. No acute osseous abnormalities. RAD/Chest PA and Lateral IMPRESSION: NO ACUTE FINDINGS. Reading Location: [id number]
[2024-10-29 10:29] LABS: Hematocrit 38.4 % (37-47); Hemoglobin 12.5 g/dL (12.0-15.0); Mean Corp Hgb Conc 32.6 g/dL (32-36); Mean Corpuscular Volume 93.0 fL (81-99); Mean Platelet Vol. 9.1 fl (6.2-12.0); Platelet Count 247 K/mm3 (150-450); RBC Distribution Width CV 13.2 % (11.6-14.6); RBC Distribution Width SD 45.2 fl (35.1-43.9); Red Blood Count 4.13 M/mm3 (4.2-5.4); White Blood Count 5.1 K/mm3 (4.4-11.0)
[2024-10-29 10:44] LABS: AST(SGOT) 17 U/L (<=31); Alanine Aminotransfer ALT/SGPT 16 U/L (<=34); Albumin, Serum 4.5 g/dL (3.5-5.0); Alkaline Phosphatase 102 U/L (35-104); Anion Gap 13 (5-15); BUN 13 mg/dL (4-19); BUN/Creat Ratio 18.9 RATIO (10-20); Calcium,Total 9.7 mg/dL (7.6-11.0); Carbon Dioxide 22.7 mmol/L (21.0-32.0); Chloride 105 mmol/L (98-108); Estimated Creatinine Clearance 105.12 ml/min (50-250); Globulin 2.8 g/dL (2.2-4.2); Glucose 90 mg/dL (70-99); Potassium 3.9 mmol/L (3.3-5.1)
[2024-10-30 08:09] LABS: Prealbumin 27 mg/dL (10-36)
--- NOTE | 2024-10-31 12:26 | PCM.WC.HP ---
History of Present Illness Date of Service: 10/29/24 Chief Complaint: Radiation proctitis History of Wound: This is a 59-year-old female with a history of recurrent endometrial cancer. Patient was diagnosed with endometrial cancer and underwent a total hysterectomy and bilateral salpingo-oophorectomy in May 2019. Upon experiencing several months of vaginal bleeding in 2023, the patient underwent a biopsy on May 19, 2023, which revealed recurrent endometrial adenocarcinoma. The patient underwent partial radical vaginectomy on May 23, 2023, the pathology of which confirmed recurrent, well-differentiated endometrial adenocarcinoma. A CT scan on June 15, 2023, showed a nodule posterior to the right lower abdominal rectus sheath, thought to represent a peritoneal tumor implant. The patient was treated with EBRT 4500 cGy in [address] Grimes from July 10, 2023, until August 11, 2023. She received adjuvant vaginal cylinder brachytherapy consisting of 30 [place] delivered over 5 fractions, twice weekly, utilizing a 3 cm cylinder to 10 cm length prescribed to surface. The patient received her final fraction on August 30, 2023. Recent [facility] evaluations have documented that the "Vagina is shortened and narrowed, consistent with her history of radiation. There are some radiation changes of the mucosa including around the left urethral meatus. No evidence of recurrent disease." Over the last several months prior to her presentation here, the patient has experienced bright red blood per rectum with every bowel movement. She has had frequent episodes of diarrhea with frequent loose stools, and relates poor control of her bowel movements. The patient underwent a colonoscopy by Dr. Arley Pham, [place], on September 04, 2024. Multiple bleeding colonic angiodysplastic lesions were identified, and treated with argon plasma coagulation. These lesions were suspected to be associated with a prior history of radiation resulting in radiation proctitis. [facility] Medical History Radiation proctitis Hyperlipidemia Wears glasses Post-menopausal Cancer Thyroid disease Arthritis Gastric reflux Non-smoker Shortness of breath on exertion Leg cramps History of pain when walking History of edema History of echocardiogram History of stress test Cardiology follow-up encounter Diarrhea Vagina neoplasm Dyspnea on exertion Left arm pain Eczema Posterior right knee pain Fatigue Urinary incontinence Endometrial cancer Thickened endometrium BV (bacterial vaginosis) Hypothyroid Gastritis High cholesterol Home Medications Medication Instructions Recorded Last Taken Type multivitamin 1 tab PO DAILY 01/18/18 Unknown History cholecalciferol (vitamin D3) 50 2,000 unit PO DAILY 04/03/19 Unknown History mcg (2,000 unit) tablet famotidine 20 mg tablet (Pepcid) 40 mg PO QHS 04/03/19 04/30/19 05:00 History levothyroxine 50 mcg tablet 50 mcg PO DAILY #90 tabs 05/17/24 09/04/24 05:00 Rx sertraline 50 mg tablet 50 mg PO QDAY #90 tabs 05/22/24 Unknown Rx vibegron 75 mg tablet (Gemtesa) 75 mg PO QDAY 07/03/24 Unknown History ezetimibe 10 mg tablet (Zetia) 10 mg PO QDAY #90 tabs 08/13/24 Unknown Rx acetaminophen 650 mg 650 mg PO Q12H PRN pain 08/29/24 Unknown History tablet,extended release (8 Hour Pain Reliever) phenazopyridine 200 mg tablet 200 mg PO TID PRN PRN bladder 08/29/24 Unknown History muscle dysfunction diphenoxylate-atropine 2.5 1 tab PO BID PRN diarrhea #90 tabs 09/24/24 Unknown Rx mg-0.025 mg tablet vitamin E (dl, acetate) 45 mg (100 45 mg PO QDAY 09/24/24 Unknown History unit) capsule Allergy/AdvReac Type Severity Reaction Status Date / Time Penicillins Allergy Severe Unknown Verified 10/29/24 08:12 latex Allergy Intermediate Rash Verified 10/29/24 08:12 Family History Father Arthritis Myocardial infarction Heart disease Mother Myocardial infarction Heart disease Osteoporosis Brother Colon cancer Sister Depression Suicide attempt Grandmother CVA (cerebral vascular accident) Uncle Melanoma Lung cancer Surgical History Status post complete hysterectomy Hx of colonoscopy History of bilateral oophorectomy History of LAV History of tonsillectomy Social History Smoking Status: Never smoker alcohol intake: never substance use type: does not use caffeine: No what type of physical activity do you participate in: none seatbelt use: always do you feel safe at home: Yes additional social history: -[facility] [employer] Vital Signs Vital Signs Vital Signs: Weight Weight: 233 lb Body Mass Index (BMI) 39.9 Physical Exam Const alert, oriented x3, no apparent distress, no limitations, healthy appearing and well nourished Constitutional Narrative: The patient's BMI is 40.0. General Appearance: cooperative, comfortable, well kempt and well developed Orientation / Consciousness: awake, oriented to person, oriented to place and oriented to time Exam Limitations: no limitations HEENT normocephalic and head/scalp atraumatic Head and Scalp: normal to inspection, normocephalic and atraumatic Face and Sinus: normal facial exam Nose: external nose normal External Ear: external ears normal External Auditory Canal: EAC's normal Tympanic Membrane: TM's normal bilaterally Mouth: lips normal Eyes EOMs intact bilaterally and conjunctivae normal General Eye: normal appearance of both eyes Neck full ROM General: normal visual inspection Chest inspection of chest normal Resp normal respiratory effort, normal air movement, no retractions, no use of accessory muscles and clear to auscultation bilaterally Effort and Inspection: able to speak in complete sentences and symmetric chest movement Auscultation: clear to auscultation bilaterally Cardio regular rate, regular rhythm, S1 normal heart sound, S2 normal heart sound and no murmurs Rate: regular rate Rhythm: regular rhythm Heart Sounds: S1 normal and S2 normal GI soft to palpation Rectal Exam: deferred Back/Spine no CVA tenderness Extremity normal to inspection, full ROM, no clubbing, cyanosis or edema and no calf tenderness General Extremity: Negative for clubbing or cyanosis Skin no rashes or lesions noted and no wounds Hair: normal Neuro oriented x3, CN's II-XII intact bilaterally, moves all extremities, no focal motor deficits and no sensory deficits noted Sensorium / Orientation: awake, alert, oriented to person, oriented to place and oriented to time Speech: speech normal Psych Appearance: grossly normal and appropriate Attitude: calm Activity / Motor Behavior: appropriate eye contact Speech: normal speech Mood & Affect: euthymic mood Thought Process: normal thought process Thought Content: normal thought content Attention / Concentration: attention grossly intact Debridement Note Debridement Note Post-Debridement Measurements and Additional Note: Post-Debridement Measurements/Treatment LEONILA - Nurse 1 - General Ulcer Assessment Start: 10/29/24 07:56 Freq: Status: Active Protocol: WC.LOWEXT Activity Type Activity Date Activity User E-sign Co-sign Detail Recorded Client Recorded Date Recorded By Document 10/29/24 07:56 [facility] [id number] 10/29/24 08:11 [facility] 10/29/24 07:56 - Today's Visit Information Type of service HBO Consult Arrival Mode Ambulatory Patient Identification Verified (Name & Yes ) Height and Weight Height 5 ft 4 in Weight 233 lb Weight in Pounds 233.0 lbs Weight Measurement Method Estimated by Patient Body Mass Index (BMI) 39.9 BMI Classification Obese Vital Signs Temperature (97.8 F-99.1 F) 98.3 F Temperature Source Temporal Pulse Rate (60-100) 69 Pulse Location Monitor Respiratory Rate (12-18) 16 Respiratory rate source Observation Oxygen Delivery Method Room Air Blood Pressure (90/60-120/80) 133/81 H Blood Pressure Mean 98 Source Monitor Position Sitting Blood Pressure Location Left Arm History Since Last Visit- (Skip if this is Patient's initial visit) Left Footwear Regular Shoe Right Footwear Regular Shoe Pain Scale: 0-10 Numeric Is Patient Pain Free? Yes - Nurse 2 - General Ulcer CM Notes Start: 10/29/24 07:56 Freq: Status: Active Protocol: Activity Type Activity Date Activity User E-sign Co-sign Detail Recorded Client Recorded Date Recorded By Document 10/29/24 08:28 [id number] 10/29/24 08:30 10/29/24 08:28 Is Patient Pain Free? Yes - Nurse 3 - General Ulcer D/C NN Start: 10/29/24 07:56 Freq: Status: Active Protocol: Activity Type Activity Date Activity User E-sign Co-sign Detail Recorded Client Recorded Date Recorded By Document 10/29/24 08:42 [id number] 10/29/24 08:43 10/29/24 08:42 Is Patient Pain Free? Yes - Visit Discharge Discharge Condition Stable Ambulatory Status Ambulatory Transportation Private Auto Medication Reconcilliation completed & Yes provided to patient/care provider Clinical Summary of Care Provided Yes Notes: hbot DISCUSSED AND ORDERS GIVEN FOR OUTPATIENT TESTING FOR CHEST XRAY, EKG AND LAB WORK. Lab / Micro Data Attestation: I reviewed the patient's lab results. Lab results narrative: Laboratory Tests 10/29/24 09:30 Calcium 9.7 Total Bilirubin 0.35 AST 17 ALT 16 Alkaline Phosphatase 102 Total Protein 7.3 Albumin 4.5 Globulin 2.8 Prealbumin 27 10/29/24 09:30 10/29/24 09:30 Charges/Coding Visit Charges Office Visits / Consults: [id number] OV L5 New 60min Assessment/Plan Assessment/Plan (1) Radiation proctitis: CODE(S): K62.7 - Radiation proctitis (2) Endometrial cancer: CODE(S): C54.1 - Malignant neoplasm of endometrium (3) Bright red blood per rectum: CODE(S): K62.5 - Hemorrhage of anus and rectum (4) Frequent loose stools: CODE(S): R19.7 - Diarrhea, unspecified (5) Recurrent carcinoma of endometrium: CODE(S): C54.1 - Malignant neoplasm of endometrium (6) Vagina neoplasm: CODE(S): D49.59 - Neoplasm of unspecified behavior of other genitourinary organ (7) Eczema: CODE(S): L30.9 - Dermatitis, unspecified QUALIFIERS: Eczema type: intrinsic Qualified Code(s): L20.84 - Intrinsic (allergic) eczema (8) Hypothyroid: CODE(S): E03.9 - Hypothyroidism, unspecified QUALIFIERS: Hypothyroidism type: acquired Qualified Code(s): E03.9 - Hypothyroidism, unspecified (9) Hyperlipidemia: CODE(S): E78.5 - Hyperlipidemia, unspecified (10) Status post complete hysterectomy: CODE(S): Z90.710 - Acquired absence of both cervix and uterus (11) History of bilateral oophorectomy: CODE(S): Z90.722 - Acquired absence of ovaries, bilateral (12) History of LAVH: CODE(S): Z90.710 - Acquired absence of both cervix and uterus (13) History of tonsillectomy: CODE(S): Z90.89 - Acquired absence of other organs PLAN: Plan This is a 59-year-old female with a history of endometrial cancer, for which she has undergone hysterectomy with bilateral salpingo-oophorectomy, as well as radical vaginectomy. The patient has also undergone radiation therapy as well as vaginal brachytherapy. As a result of her prior radiation treatments, the patient has developed symptoms and manifestations of radiation proctitis, with frequent diarrheal stools and hematochezia. A recent colonoscopy was performed on September 04, 2024, by Dr. Arley Pham, at which time multiple bleeding colonic angiodysplastic lesions were treated with argon plasma coagulation. With documentation of radiation proctitis, and symptoms which have adversely affected the patient's quality of life, the patient has been referred for evaluation and consideration of hyperbaric oxygen therapy. In review of the patient's history and manifestations, it appears as though the patient is a candidate for hyperbaric oxygen therapy. The indications and risks have been discussed with the patient in detail. The process of hyperbaric oxygen therapy has been thoroughly explained, and the patient has viewed the hyperbaric facility. The patient's questions have been answered. Based upon history and physical examination, there appear to be no contraindications to hyperbaric oxygen therapy. She has been carefully questioned regarding history of barotrauma, seizures, cancer, claustrophobia, etc., and no conditions have been identified which could represent contraindications to undergoing hyperbaric oxygen treatments. The patient's laboratory results (10/29/24) have been reviewed, with no significant abnormalities noted. A chest x-ray (10/29/24) reveals no acute findings or significant abnormalities. The patient had an echocardiogram in September 2023 which revealed normal left ventricular size and a left ventricular ejection fraction of 60%, with structurally normal valves. A chest x-ray is scheduled for 11/01/2024. It appears as though the patient is a candidate for hyperbaric oxygen therapy. Insurance preauthorization will proceed. It is anticipated that the patient will benefit from 30 sessions of hyperbaric oxygen therapy, at 100% oxygen at 2 sarahi with no air breaks. Total time: 75 minutes
[2024-11-12 08:12] VITALS: BP 132/79; PULSE 62; RESP 18; TEMP 36.4; BMI 39.9
--- NOTE | 2024-11-14 15:55 | HP.PCM_ITS ---
History of Present Illness Date of Service: 11/12/24 Chief Complaint: Radiation proctitis History of Wound: This is a 59-year-old female with a history of recurrent endometrial cancer. The patient was diagnosed with endometrial cancer and underwent a total hysterectomy and bilateral salpingo-oophorectomy in May 2019. Upon experiencing several months of vaginal bleeding in 2023, the patient underwent a biopsy on May 19, 2023, which revealed recurrent endometrial adenocarcinoma. The patient underwent partial radical vaginectomy on May 23, 2023, the pathology of which confirmed recurrent, well-differentiated endometrial adenocarcinoma. A CT scan on June 15, 2023, showed a nodule posterior to the right lower abdominal rectus sheath, thought to represent a peritoneal tumor implant. The patient was treated with EBRT 4500 cGy in [address] Grimes from July 10, 2023, until August 11, 2023. She received adjuvant vaginal cylinder brachytherapy consisting of 30 Stratton delivered over 5 fractions, twice weekly, utilizing a 3 cm cylinder to 10 cm length prescribed to surface. The patient received her final fraction on August 30, 2023. Recent COFFEE TASTER evaluations have documented that the "Vagina is shortened and narrowed, consistent with her history of radiation. There are some radiation changes of the mucosa including around the left urethral meatus. No evidence of recurrent disease." Over the last several months prior to her presentation here, the patient has experienced bright red blood per rectum with bowel movements. She has had frequent episodes of diarrhea with frequent loose stools, and relates poor control of her bowel movements. The patient underwent a colonoscopy by Dr. Arley Pham, Containers Sales Representative, on September 04, 2024. Multiple bleeding colonic angiodysplastic lesions were identified, and treated with argon plasma coagulation. These lesions were suspected to be associated with the patient's prior history of radiation, resulting in radiation proctitis. [facility] Medical History Radiation proctitis Hyperlipidemia Wears glasses Post-menopausal Cancer Thyroid disease Arthritis Gastric reflux Non-smoker Shortness of breath on exertion Leg cramps History of pain when walking History of edema History of echocardiogram History of stress test Cardiology follow-up encounter Diarrhea Vagina neoplasm Dyspnea on exertion Left arm pain Eczema Posterior right knee pain Fatigue Urinary incontinence Endometrial cancer Thickened endometrium BV (bacterial vaginosis) Hypothyroid Gastritis High cholesterol Home Medications Medication Instructions Recorded Last Taken Type multivitamin 1 tab PO DAILY 11/01/18 Unkn own History cholecalciferol (vitamin D3) 50 2,000 unit PO DAILY Unknown History mcg (2,000 unit) tablet famotidine 20 mg tablet (Pepcid) 40 mg PO QHS 04/03/19 04/30/19 05:00 History levothyroxine 50 mcg tablet 50 mcg PO DAILY #90 tabs 0 05/17/24 09/04/24 05:00 Rx sertraline 50 mg tablet 50 mg PO QDAY #90 tabs 05/22 Unknown Rx vibegron 75 mg tablet (Gemtesa) 75 mg PO QDAY 07/03/24 Unknown History ezetimibe 10 mg tablet (Zetia) 10 mg PO QDAY #90 tabs 08/13/24 Unknown Rx acetaminophen 650 mg 650 mg PO Q12H PRN pain 08/18 05/14 Unknown History tablet,extended release (8 Hour Pain Reliever) phenazopyridine 200 mg tablet 200 mg PO TID PRN PRN bl adder 08/29/24 Unknown History muscle dysfunction diphenoxylate-atropine 2.5 1 tab PO BID PRN diarrhea # 90 tabs 09/24/24 Unknown Rx mg-0.025 mg tablet vitamin E (dl, acetate) 45 mg (100 45 mg PO QDAY 09/24 Unknown History unit) capsule Allergy/AdvReac Type Severity Reaction Status Date / Time Penicillins Allergy Severe Unknown Verified 10/29/24 08:12 latex Allergy Intermediate Rash Verified 10/29/24 08:12 Family History Father Arthritis Myocardial infarction Heart disease Mother Myocardial infarction Heart disease Osteoporosis Brother Colon cancer Sister Depression Suicide attempt Grandmother CVA (cerebral vascular accident) Uncle Melanoma Lung cancer Surgical History Status post complete hysterectomy Hx of colonoscopy History of bilateral oophorectomy History of [facility] History of tonsillectomy Social History Smoking Status: Never smoker alcohol intake: never substance use type: does not use caffeine: No what type of physical activity do you participate in: none seatbelt use: always do you feel safe at home: Yes additional social history: -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 General Appearance: cooperative, comfortable, well kempt and well developed Orientation / Consciousness: awake, oriented to person, oriented to place and oriented to time Exam Limitations: no limitations HEENT normocephalic and head/scalp atraumatic Head and Scalp: normal to inspection, normocephalic and atraumatic Face and Sinus: normal facial exam Nose: external nose normal External Ear: external ears normal External Auditory Canal: EAC's normal Tympanic Membrane: TM's normal bilaterally Mouth: lips normal Eyes EOMs intact bilaterally and conjunctivae normal General Eye: normal appearance of both eyes Neck full ROM General: normal visual inspection Chest inspection of chest normal Resp normal respiratory effort, normal air movement, no retractions, no use of accessory muscles and clear to auscultation bilaterally Effort and Inspection: able to speak in complete sentences and symmetric chest movement Auscultation: clear to auscultation bilaterally Cardio regular rate, regular rhythm, S1 normal heart sound, S2 normal heart sound and no murmurs Rate: regular rate Rhythm: regular rhythm Heart Sounds: S1 normal and S2 normal GI soft to palpation Rectal Exam: deferred Back/Spine no CVA tenderness Extremity normal to inspection, full ROM, no clubbing, cyanosis or edema and no calf tenderness General Extremity: Negative for clubbing or cyanosis Skin no rashes or lesions noted and no wounds Hair: normal Neuro oriented x3, CN's II-XII intact bilaterally, moves all extremities, no focal motor deficits and no sensory deficits noted Sensorium / Orientation: awake, alert, oriented to person, oriented to place and oriented to time Speech: speech normal Psych Appearance: grossly normal and appropriate Attitude: calm Activity / Motor Behavior: appropriate eye contact Speech: normal speech Mood & Affect: euthymic mood Thought Process: normal thought process Thought Content: normal thought content Attention / Concentration: attention grossly intact Debridement Note Debridement Note Post-Debridement Measurements and Additional Note: Post-Debridement Measurements/Treatment WC - Nurse 1 - General Ulcer Assessment Start: 10/29/24 07:56 Freq: Status: Active Protocol: SARTHAK Activity Type Activity Date Activity User E-sign Co-sign Detail Recorded Client Recorded Date Recorded By Document 10/29/24 07:56 [facility] [id number] 10/29/24 08:11 [facility] Document 11/12/24 08:12 KW [id number] 11/12/24 08:13 KW 10/29/24 11/12/24 07:56 08:12 WC - Today's Visit Information Type of service HBO Consult Follow-up Visit (Physician/MINIATURE TRAIN DRIVER ) Arrival Mode Ambulatory Ambulatory Patient Identification Verified (Name & Yes Yes ) Height and Weight Height 5 ft 4 in Weight 233 lb Weight in Pounds 233.0 lbs Weight Measurement Method Estimated by Patient Body Mass Index (BMI) 39.9 39.9 BMI Classification Obese Obese Vital Signs Temperature (97.8 F-99.1 F) 98.3 F 97.5 F L Temperature Source Temporal Temporal Pulse Rate (60-100) 69 62 Pulse Location Monitor Monitor Respiratory Rate (12-18) 16 18 Respiratory rate source Observation Observation Oxygen Delivery Method Room Air Room Air Blood Pressure (90/60-120/80) 133/81 H 132/79 H Blood Pressure Mean 98 96 Source Monitor Monitor Position Sitting Sitting Blood Pressure Location Left Arm Left Arm History Since Last Visit- (Skip if this is Patient's initial visit) Have you changed medications since your No last visit? Any new allergies or adverse reactions No Had a fall/change in ADL's that may No increase risk of falls Signs or symptoms of abuse and/or No neglect since last visit Have you been in the hospital since your No last visit? Left Footwear Regular Shoe Regular Shoe Right Footwear Regular Shoe Regular Shoe Pain Scale: 0-10 Numeric Is Patient Pain Free? Yes Yes - Nurse 2 - General Ulcer CM Notes Start: 10/29/24 07:56 Freq: Status: Active Protocol: Activity Type Activity Date Activity User E-sign Co-sign Detail Recorded Client Recorded Date Recorded By Document 10/29/24 08:28 JF [id number] 10/29/24 08:30 SANTOS 10/29/24 08:28 Is Patient Pain Free? Yes - Nurse 3 - General Ulcer D/C NN Start: 10/29/24 07:56 Freq: Status: Active Protocol: Activity Type Activity Date Activity User E-sign Co-sign Detail Recorded Client Recorded Date Recorded By Document 10/29/24 08:42 JF [id number] 10/29/24 08:43 JF Document 11/12/24 08:37 DS [id number] 11/12/24 08:37 DS 10/29/24 11/12/24 08:42 08:37 Pain Scale: 0-10 Numeric Is Patient Pain Free? Yes Yes WC - Visit Discharge Discharge Condition Stable Stable Ambulatory Status Ambulatory Ambulatory Transportation Private Auto Private Auto Medication Reconcilliation completed & Yes provided to patient/care provider Clinical Summary of Care Provided Yes Notes: hbot DISCUSSED AND ORDERS GIVEN FOR OUTPATIENT TESTING FOR CHEST XRAY, EKG AND LAB WORK. Lab / Micro Data 10/29/24 09:30 10/29/24 09:30 Charges/Coding Visit Charges Office Visits / Consults: [id number] OV L3 Est 20min Assessment/Plan Assessment/Plan (1) Radiation proctitis: CODE(S): K62.7 - Radiation proctitis (2) Endometrial cancer: CODE(S): C54.1 - Malignant neoplasm of endometrium (3) Bright red blood per rectum: CODE(S): K62.5 - Hemorrhage of anus and rectum (4) Frequent loose stools: CODE(S): R19.7 - Diarrhea, unspecified QUALIFIERS: Diarrhea type: due to malabsorption Qualified Code(s): K90.9 - Intestinal malabsorption, unspecified; R19.7 - Diarrhea, unspecified (5) Recurrent carcinoma of endometrium: CODE(S): C54.1 - Malignant neoplasm of endometrium (6) Vagina neoplasm: CODE(S): D49.59 - Neoplasm of unspecified behavior of other genitourinary organ (7) Eczema: CODE(S): L30.9 - Dermatitis, unspecified QUALIFIERS: Eczema type: intrinsic Qualified Code(s): L20.84 - Intrinsic (allergic) eczema (8) Hypothyroid: CODE(S): E03.9 - Hypothyroidism, unspecified QUALIFIERS: Hypothyroidism type: acquired Qualified Code(s): E 03.9 - Hypothyroidism, unspecified (9) Hyperlipidemia: CODE(S): E78.5 - Hyperlipidemia, unspecified (10) Status post complete hysterectomy: CODE(S): Z90.710 - Acquired absence of both cervix and uterus (11) History of bilateral oophorectomy: CODE(S): Z90.722 - Acquired absence of ovaries, bilateral (12) History of LAVH: CODE(S): Z90.710 - Acquired absence of both cervix and uterus (13) History of tonsillectomy: CODE(S): Z90.89 - Acquired absence of other organs PLAN: Plan This is a 59-year-old female with a history of endometrial cancer, for which she has undergone hysterectomy with bilateral salpingo-oophorectomy, as well as radical vaginectomy. The patient has also undergone radiation therapy as well as vaginal brachytherapy. As a result of her prior radiation treatments, the patient has developed symptoms and manifestations of radiation proctitis, with frequent diarrheal stools and hematochezia. A recent colonoscopy was performed on September 04, 2024, by Dr. Arley Pham, at which time multiple bleeding colonic angiodysplastic lesions were treated with argon plasma coagulation. With documentation of radiation proctitis, and symptoms which have adversely affected the patient's quality of life, the patient has been referred for evaluation and consideration of hyperbaric oxygen therapy. In review of the patient's history and manifestations, it appears as though the patient is a candidate for hyperbaric oxygen therapy. The indications and risks have been discussed with the patient in detail. The process of hyperbaric oxygen therapy has been thoroughly explained, and the patient has viewed the hyperbaric facility. The patient's questions have been answered. Based upon history and physical examination, there appear to be no contraindications to hyperbaric oxygen therapy. She has been carefully questioned regarding history of barotrauma, seizures, cancer, claustrophobia, etc., and no conditions have been identified which could represent contraindications to undergoing hyperbaric oxygen treatments. The patient's laboratory results (10/29/24) have been reviewed, with no significant abnormalities noted. A chest x-ray (10/29/24) reveals no acute findings or significant abnormalities. The patient had an echocardiogram in September 2023 which revealed normal left ventricular size and a left ventricular ejection fraction of 60%, with structurally normal valves. A stress test in March 2023 revealed normal exercise myocardial perfusion at a low workload, and a preserved ejection fraction. It was also noted that "hypertensive response to exercise in the low workload may affect sensitivity for detection of ischemia." It appears as though the patient is a candidate for hyperbaric oxygen therapy. We are to seek cardiac clearance from the patient's Employee Relation Manager. Insurance preauthorization will proceed. It is anticipated that the patient will benefit from 30 sessions of hyperbaric oxygen therapy, at 100% oxygen at 2 sarahi with no air breaks. Total time: 24 minutes
== END 2024-11-17 23:59 | disposition home or self-care (01) ==
LOC: WC 08:00
PROVIDERS: PCP Family Medicine; Referring Provider Obstetrics & Gynecology; Visit Provider Surgery
DX: K62.7 Radiation proctitis (principal); K62.5 Hemorrhage of anus and rectum; L20.84 Intrinsic (allergic) eczema; E78.00 Pure hypercholesterolemia, unspecified; E03.9 Hypothyroidism, unspecified; R19.7 Diarrhea, unspecified; K21.9 Gastro-esophageal reflux disease without esophagitis; Z79.890 Hormone replacement therapy; Z79.899 Other long term (current) drug therapy; Z85.42 Personal history of malignant neoplasm of other parts of uterus; Z90.710 Acquired absence of both cervix and uterus; Z90.722 Acquired absence of ovaries, bilateral
CPT/HCPCS: 36415; 71046; 80053; 83036; 84134; 85027; 85652; 93005; 99213; 99214; G0463

== ENCOUNTER → 2024-12-02 | Outpatient (CLI) | payer BC, SELFPAY ==
[2024-12-02 16:14] LABS: Hematocrit 38.3 % (37-47); Hemoglobin 12.7 g/dL (12.0-15.0); Mean Corp Hgb Conc 33.2 g/dL (32-36); Mean Corpuscular Volume 92.1 fL (81-99); Mean Platelet Vol. 8.9 fl (6.2-12.0); Platelet Count 241 K/mm3 (150-450); RBC Distribution Width CV 13.2 % (11.6-14.6); RBC Distribution Width SD 44.4 fl (35.1-43.9); Red Blood Count 4.16 M/mm3 (4.2-5.4); White Blood Count 6.4 K/mm3 (4.4-11.0)
[2024-12-02 16:33] LABS: Anion Gap 11 (5-15); BUN 17 mg/dL (4-19); BUN/Creat Ratio 23.2 RATIO (10-20); Calcium,Total 9.6 mg/dL (7.6-11.0); Carbon Dioxide 27.0 mmol/L (21.0-32.0); Chloride 105 mmol/L (98-108); Glucose 98 mg/dL (70-99); Potassium 4.1 mmol/L (3.3-5.1)
== END | disposition home or self-care (01) ==
LOC: LAB 15:48
PROVIDERS: PCP Family Medicine; Referring Provider Otolaryngology; Visit Provider Otolaryngology
DX: Z01.812 Encounter for preprocedural laboratory examination (principal)
CPT/HCPCS: 36415; 80048; 85027

== ENCOUNTER 2024-12-17 09:30 | Outpatient (RCR) | payer BC, SELFPAY ==
[2024-11-27 11:30] VITALS: BP 111/55; BP 130/69; PULSE 62; PULSE 82; RESP 15; RESP 19; TEMP 36.1; TEMP 36.6
--- NOTE | 2024-11-27 12:52 | PCM.HBO.PN ---
History of Present Illness Date of Service: 11/27/24 Chief Complaint: Radiation proctitis History of Wound: This is a 59-year-old female with a history of recurrent endometrial cancer. The patient was diagnosed with endometrial cancer and underwent a total hysterectomy and bilateral salpingo-oophorectomy in May 2019. Upon experiencing several months of vaginal bleeding in 2023, the patient underwent a biopsy on May 19, 2023, which revealed recurrent endometrial adenocarcinoma. The patient underwent partial radical vaginectomy on May 23, 2023, the pathology of which confirmed recurrent, well-differentiated endometrial adenocarcinoma. A CT scan on June 15, 2023, showed a nodule posterior to the right lower abdominal rectus sheath, thought to represent a peritoneal tumor implant. The patient was treated with EBRT 4500 cGy in [address] Grimes from July 10, 2023, until August 11, 2023. She received adjuvant vaginal cylinder brachytherapy consisting of 30 Stratton delivered over 5 fractions, twice weekly, utilizing a 3 cm cylinder to 10 cm length prescribed to surface. The patient received her final fraction on August 30, 2023. Recent COMMUNICATION TECHNICIAN evaluations have documented that the "Vagina is shortened and narrowed, consistent with her history of radiation. There are some radiation changes of the mucosa including around the left urethral meatus. No evidence of recurrent disease." Over the last several months prior to her presentation here, the patient has experienced bright red blood per rectum with bowel movements. She has had frequent episodes of diarrhea with frequent loose stools, and relates poor control of her bowel movements. The patient underwent a colonoscopy by Dr. Arley Pham, Grating Machine Operator, on September 04, 2024. Multiple bleeding colonic angiodysplastic lesions were identified, and treated with argon plasma coagulation. These lesions were suspected to be associated with the patient's prior history of radiation, resulting in radiation proctitis. Progress of Wound: Patient was in the process of receiving #1 HBO treatment 2.0 LINDA and on descent developed ear pressure and pain and patient was brought back up. Patient ruptured her right eardrum and is going to be seen in ENT and will follow-up tomorrow. Subjective Subjective Patient did not tolerate the descend and developed a ruptured eardrum Objective Data Objective Data Patient was brought up slowly and made an appointment with ear nose throat. Vital Signs: Vital Signs Temp Pulse Resp BP 96.9 F L 82 15 130/69 H 11/27/24 11:30 11/27/24 11:30 11/27/24 11:30 11/27/24 11:30 Exam Physical Exam Const oriented x3 General Appearance: cooperative Exam Limitations: no limitations HEENT normocephalic Face and Sinus: normal facial exam External Ear: external ears normal Eyes PERRL General Eye: normal appearance of both eyes Neck full ROM General: normal visual inspection Resp normal respiratory effort Effort and Inspection: able to speak in complete sentences Auscultation: clear to auscultation bilaterally Cardio regular rate and regular rhythm Palpation: normal PMI Rate: regular rate Rhythm: regular rhythm GI Auscultation: normoactive bowel sounds Palpation: soft and no hepatosplenomegaly external exam normal Back/Spine Cervical Spine: cervical ROM normal Thoracic Spine / Upper Back: normal to inspection Lumbar Spine / Lower Back: normal to inspection Extremity normal to inspection General Extremity: normal exam except as noted Skin no rashes or lesions noted Neuro oriented x3 Psych Appearance: grossly normal Speech: normal speech Thought Content: normal thought content Judgement: judgement good Assessment/Plan Assessment/Plan (1) Radiation proctitis: CODE(S): K62.7 - Radiation proctitis PLAN: HBO was withheld today because of problems with her ears. (2) Gastric reflux: CODE(S): K21.9 - Gastro-esophageal reflux disease without esophagitis (3) Hypothyroid: CODE(S): E03.9 - Hypothyroidism, unspecified QUALIFIERS: Hypothyroidism type: acquired Qualified Code(s): E03.9 - Hypothyroidism, unspecified (4) Eardrum rupture, right: CODE(S): H72.91 - Unspecified perforation of tympanic membrane, right ear PLAN: Patient will be sent to ear nose throat for tubes in her right and left ear as he sees fit on exam. She has to follow-up again for HBO treatments tomorrow.
[2024-12-05 11:09] VITALS: BP 133/63; BP 140/70; PULSE 52; PULSE 73; RESP 14; TEMP 36.1
--- NOTE | 2024-12-05 12:18 | PCM.HBO.PN ---
History of Present Illness Date of Service: 12/05/24 Chief Complaint: Radiation proctitis History of Wound: This is a 59-year-old female with a history of recurrent endometrial cancer. The patient was diagnosed with endometrial cancer and underwent a total hysterectomy and bilateral salpingo-oophorectomy in May 2019. Upon experiencing several months of vaginal bleeding in 2023, the patient underwent a biopsy on May 19, 2023, which revealed recurrent endometrial adenocarcinoma. The patient underwent partial radical vaginectomy on May 23, 2023, the pathology of which confirmed recurrent, well-differentiated endometrial adenocarcinoma. A CT scan on June 15, 2023, showed a nodule posterior to the right lower abdominal rectus sheath, thought to represent a peritoneal tumor implant. The patient was treated with EBRT 4500 cGy in [address] Grimes from July 10, 2023, until August 11, 2023. She received adjuvant vaginal cylinder brachytherapy consisting of 30 Stratton delivered over 5 fractions, twice weekly, utilizing a 3 cm cylinder to 10 cm length prescribed to surface. The patient received her final fraction on August 30, 2023. Recent FORESTRY FIRE AIDE evaluations have documented that the "Vagina is shortened and narrowed, consistent with her history of radiation. There are some radiation changes of the mucosa including around the left urethral meatus. No evidence of recurrent disease." Over the last several months prior to her presentation here, the patient has experienced bright red blood per rectum with bowel movements. She has had frequent episodes of diarrhea with frequent loose stools, and relates poor control of her bowel movements. The patient underwent a colonoscopy by Dr. Arley Pahm, It Infrastructure Project Manager, on September 04, 2024. Multiple bleeding colonic angiodysplastic lesions were identified, and treated with argon plasma coagulation. These lesions were suspected to be associated with the patient's prior history of radiation, resulting in radiation proctitis. Progress of Wound: Progress: This represents the first session of 30 planned sessions for radiation proctitis Tolerance: Hyperbaric oxygen therapy was administered as per the facility protocol at 2 TOSHA for 90 minutes without air break. Patient tolerated hyperbaric oxygen therapy without any complications or complaints. Upon completion, vitals remained stable and she was discharged in stable condition. Objective Data Objective Data Vital Signs: Vital Signs Temp Pulse Resp BP 96.9 F L 82 15 130/69 H 11/27/24 11:30 11/27/24 11:30 11/27/24 11:30 11/27/24 11:30 Exam Physical Exam Const alert, oriented x3 and no apparent distress General Appearance: cooperative and comfortable HEENT normocephalic and head/scalp atraumatic Head and Scalp: normal to inspection and normocephalic Tympanic Membrane: other Other Details: Tympanostomy tubes noted bilaterally Eyes EOMs intact bilaterally General Eye: normal appearance of both eyes Neck full ROM General: normal visual inspection Resp normal respiratory effort and normal air movement Effort and Inspection: able to speak in complete sentences Neuro oriented x3, CN's II-XII intact bilaterally, moves all extremities and no focal motor deficits Psych mental status grossly normal, thought process normal, cooperative and affect normal Charges/Coding Wound Center CF Procedures HBO Supervision: [id number] Hyperbaric Oxygen; supervision Assessment/Plan Assessment/Plan (1) Radiation proctitis: CODE(S): K62.7 - Radiation proctitis PLAN: HBO was withheld today because of problems with her ears. (2) Eardrum rupture, right: CODE(S): H72.91 - Unspecified perforation of tympanic membrane, right ear PLAN: Tympanostomy tube in place PLAN: Plan Status post tympanostomy tubes to both ears following failed initial dive. Today, she tolerated hyperbaric oxygen therapy which will be continued per her medical plan. This note was generated with [employer] dictation software. It may contain incorrect words, spelling, and punctuation that were not noted in checking the note before signing.
[2024-12-06 11:08] VITALS: BP 114/57; BP 124/68; PULSE 62; PULSE 75; RESP 13; RESP 15; TEMP 35.8; TEMP 36.3
--- NOTE | 2024-12-06 15:30 | PCM.HBO.PN ---
History of Present Illness Date of Service: 12/06/24 Chief Complaint: Radiation proctitis History of Wound: This is a 59-year-old female with a history of recurrent endometrial cancer. The patient was diagnosed with endometrial cancer and underwent a total hysterectomy and bilateral salpingo-oophorectomy in May 2019. Upon experiencing several months of vaginal bleeding in 2023, the patient underwent a biopsy on May 19, 2023, which revealed recurrent endometrial adenocarcinoma. The patient underwent partial radical vaginectomy on May 23, 2023, the pathology of which confirmed recurrent, well-differentiated endometrial adenocarcinoma. A CT scan on June 15, 2023, showed a nodule posterior to the right lower abdominal rectus sheath, thought to represent a peritoneal tumor implant. The patient was treated with EBRT 4500 cGy in [address] Grimes from July 10, 2023, until August 11, 2023. She received adjuvant vaginal cylinder brachytherapy consisting of 30 Stratton delivered over 5 fractions, twice weekly, utilizing a 3 cm cylinder to 10 cm length prescribed to surface. The patient received her final fraction on August 30, 2023. Recent [facility] evaluations have documented that the "Vagina is shortened and narrowed, consistent with her history of radiation. There are some radiation changes of the mucosa including around the left urethral meatus. No evidence of recurrent disease." Over the last several months prior to her presentation here, the patient has experienced bright red blood per rectum with bowel movements. She has had frequent episodes of diarrhea with frequent loose stools, and relates poor control of her bowel movements. The patient underwent a colonoscopy by Dr. Arley Pham, Client Director, on September 04, 2024. Multiple bleeding colonic angiodysplastic lesions were identified, and treated with argon plasma coagulation. These lesions were suspected to be associated with the patient's prior history of radiation, resulting in radiation proctitis. Progress of Wound: Progress: This represents the 2nd session of 30 planned sessions for radiation proctitis Tolerance: Hyperbaric oxygen therapy was administered as per the facility protocol at 2 TOSHA for 90 minutes without air break. Patient tolerated hyperbaric oxygen therapy without any complications or complaints. Upon completion, vitals remained stable and she was discharged in stable condition. Objective Data Objective Data Vital Signs: Vital Signs Temp Pulse Resp BP 96.5 F L 75 15 114/57 L 12/06/24 11:08 12/06/24 11:08 12/06/24 11:08 12/06/24 11:08 Exam Physical Exam HEENT HEENT Narrative: tympanostomy tubes in place b/l Assessment/Plan Assessment/Plan (1) Radiation proctitis: CODE(S): K62.7 - Radiation proctitis (2) Eardrum rupture, right: CODE(S): H72.91 - Unspecified perforation of tympanic membrane, right ear PLAN: Plan The patient appears to be tolerating hyperbaric oxygen therapy well, which will be continued as per their medical treatment plan. This note was generated with [employer] dictation software. It may contain incorrect words, spelling, and punctuation that were not noted in checking the note before signing.
[2024-12-09 11:33] VITALS: BP 108/57; BP 124/61; PULSE 57; PULSE 76; RESP 14; TEMP 35.9; TEMP 36.2
--- NOTE | 2024-12-10 10:06 | PCM.HBO.PN ---
History of Present Illness Date of Service: 12/09/24 Chief Complaint: Radiation proctitis History of Wound: This is a 59-year-old female with a history of recurrent endometrial cancer with radiation damage to her perineum causing inflammation Progress of Wound: Progress: This represents the third session of 30 planned sessions for radiation proctitis Tolerance: Hyperbaric oxygen therapy was administered as per the facility protocol at 2 TOSHA for 90 minutes without air break. Patient tolerated hyperbaric oxygen therapy without any complications or complaints. Upon completion, vitals remained stable and she was discharged in stable condition. Objective Data Objective Data Vital Signs: Vital Signs Temp Pulse Resp BP 96.6 F L 76 14 124/61 H 12/09/24 11:33 12/09/24 11:33 12/09/24 11:33 12/09/24 11:33 Exam Physical Exam Const alert and oriented x3 HEENT normocephalic and EAC's normal HEENT Narrative: She has ET tubes in place Eyes EOMs intact bilaterally Resp normal respiratory effort, normal air movement and clear to auscultation bilaterally Cardio regular rate, regular rhythm, S1 normal heart sound, S2 normal heart sound, no murmurs, no rub, no gallops and no clicks Charges/Coding [facility] Procedures HBO Supervision: [id number] Hyperbaric Oxygen; supervision Assessment/Plan Assessment/Plan (1) Radiation proctitis: CODE(S): K62.7 - Radiation proctitis (2) Eardrum rupture, right: CODE(S): H72.91 - Unspecified perforation of tympanic membrane, right ear PLAN: Plan The patient appears to be tolerating hyperbaric oxygen therapy well, which will be continued as per their medical treatment plan.
[2024-12-10 11:23] VITALS: BP 112/56; BP 133/70; PULSE 63; PULSE 82; RESP 15; TEMP 35.8; TEMP 36.1
--- NOTE | 2024-12-10 12:22 | HBO.PN.PCM_ITS ---
History of Present Illness Date of Service: 12/10/24 Chief Complaint: Radiation proctitis History of Wound: This is a 59-year-old female with a history of recurrent endometrial cancer with radiation damage to her perineum causing inflammation Progress of Wound: Progress: This represents the 4th session of 30 planned sessions for radiation proctitis Tolerance: Hyperbaric oxygen therapy was administered as per the facility protocol at 2 TOSHA for 90 minutes without air break. Patient tolerated hyperbaric oxygen therapy without any complications or complaints. Upon completion, vitals remained stable and she was discharged in stable condition. Objective Data Objective Data Vital Signs: Vital Signs Temp Pulse Resp BP 96.5 F L 82 15 133/70 H 12/10/24 11:23 12/10/24 11:23 12/10/24 11:23 12/10/24 11:23 Exam Physical Exam Const alert, oriented x3 and no apparent distress HEENT normocephalic and head/scalp atraumatic HEENT Narrative: tympanostomy tubes in place b/l Resp normal respiratory effort and clear to auscultation bilaterally Effort and Inspection: able to speak in complete sentences Auscultation: clear to auscultation bilaterally Psych mental status grossly normal, thought process normal, cooperative, affect normal and speech normal Assessment/Plan Assessment/Plan (1) Radiation proctitis: CODE(S): K62.7 - Radiation proctitis (2) Eardrum rupture, right: CODE(S): H72.91 - Unspecified perforation of tympanic membrane, right ear PLAN: Plan The patient appears to be tolerating hyperbaric oxygen therapy well, which will be continued as per their medical treatment plan. This note was generated with [employer] dictation software. It may contain incorrect words, spelling, and punctuation that were not noted in checking the note before signing.
[2024-12-12 14:07] VITALS: BP 110/56; BP 111/50; PULSE 65; PULSE 73; RESP 14; RESP 16; TEMP 36.2
--- NOTE | 2024-12-12 16:29 | PCM.HBO.PN ---
History of Present Illness Date of Service: 12/12/24 Chief Complaint: Radiation proctitis History of Wound: This is a 59-year-old female with a history of recurrent endometrial cancer with radiation damage to her pelvic region causing inflammation and symptoms of radiation proctitis. Patient's medical record has been thoroughly reviewed and is recently documented elsewhere. Progress of Wound: Progress: This represents the 5th session of 30 planned sessions for radiation proctitis Tolerance: Hyperbaric oxygen therapy was administered as per the facility protocol at 2 TOSHA for 90 minutes without air breaks. The patient tolerated hyperbaric oxygen therapy without any complications or complaints. Upon emergence from the hyperbaric chamber, the patient's vital signs remained stable and she was discharged in good condition. Objective Data Objective Data Vital Signs: Vital Signs Temp Pulse Resp BP 97.1 F L 73 16 110/56 L 12/12/24 14:07 12/12/24 14:07 12/12/24 14:07 12/12/24 14:07 Exam Physical Exam Const alert, oriented x3, no apparent distress and well nourished General Appearance: cooperative and well developed HEENT normocephalic and EAC's normal Head and Scalp: atraumatic Eyes EOMs intact bilaterally Neck supple and no JVD General: trachea midline Resp normal respiratory effort and no use of accessory muscles Effort and Inspection: able to speak in complete sentences Psych affect normal Appearance: grossly normal and well kempt Speech: normal speech Charges/Coding [facility] CF Procedures HBO Supervision: [id number] Hyperbaric Oxygen; supervision Assessment/Plan Assessment/Plan (1) Radiation proctitis: CODE(S): K62.7 - Radiation proctitis (2) Bright red blood per rectum: CODE(S): K62.5 - Hemorrhage of anus and rectum (3) Frequent loose stools: CODE(S): R19.7 - Diarrhea, unspecified QUALIFIERS: Diarrhea type: due to malabsorption Qualified Code(s): K90.9 - Intestinal malabsorption, unspecified; R19.7 - Diarrhea, unspecified (4) Status post complete hysterectomy: CODE(S): Z90.710 - Acquired absence of both cervix and uterus (5) History of bilateral oophorectomy: CODE(S): Z90.722 - Acquired absence of ovaries, bilateral PLAN: Plan The patient appears to be tolerating hyperbaric oxygen therapy well, which will be continued as per the patient's medical treatment plan.
[2024-12-13 10:10] VITALS: BP 111/50; BP 125/63; PULSE 63; PULSE 73; RESP 13; RESP 15; TEMP 36.1; TEMP 36.2
--- NOTE | 2024-12-13 13:16 | PCM.HBO.PN ---
History of Present Illness Date of Service: 12/13/24 Chief Complaint: Radiation proctitis History of Wound: This is a 59-year-old female with a history of recurrent endometrial cancer with radiation damage to her pelvic region causing inflammation and symptoms of radiation proctitis. Patient's medical record has been thoroughly reviewed and is recently documented elsewhere. Progress of Wound: Progress: This represents the 6th session of 30 planned sessions for radiation proctitis Tolerance: Hyperbaric oxygen therapy was administered as per the facility protocol at 2 TOSHA for 90 minutes without air breaks. The patient tolerated hyperbaric oxygen therapy without any complications or complaints. Upon emergence from the hyperbaric chamber, the patient's vital signs remained stable and she was discharged in good condition. Objective Data Objective Data Vital Signs: Vital Signs Temp Pulse Resp BP 96.9 F L 73 15 125/63 H 12/13/24 10:10 12/13/24 10:10 12/13/24 10:10 12/13/24 10:10 Exam Physical Exam Const alert, oriented x3 and no apparent distress HEENT normocephalic and head/scalp atraumatic HEENT Narrative: tympanostomy tubes in place b/l Resp normal respiratory effort and clear to auscultation bilaterally Effort and Inspection: able to speak in complete sentences Auscultation: clear to auscultation bilaterally Psych mental status grossly normal, thought process normal, cooperative, affect normal and speech normal Assessment/Plan Assessment/Plan (1) Radiation proctitis: CODE(S): K62.7 - Radiation proctitis (2) Bright red blood per rectum: CODE(S): K62.5 - Hemorrhage of anus and rectum (3) Frequent loose stools: CODE(S): R19.7 - Diarrhea, unspecified QUALIFIERS: Diarrhea type: due to malabsorption Qualified Code(s): K90.9 - Intestinal malabsorption, unspecified; R19.7 - Diarrhea, unspecified (4) Status post complete hysterectomy: CODE(S): Z90.710 - Acquired absence of both cervix and uterus (5) History of bilateral oophorectomy: CODE(S): Z90.722 - Acquired absence of ovaries, bilateral PLAN: Plan The patient appears to be tolerating hyperbaric oxygen therapy well, which will be continued as per the patient's medical treatment plan.
[2024-12-16 10:50] VITALS: BP 107/52; BP 131/60; PULSE 65; PULSE 75; RESP 14; TEMP 35.9; TEMP 36
--- NOTE | 2024-12-16 11:16 | PCM.HBO.PN ---
History of Present Illness Date of Service: 12/16/24 Chief Complaint: Radiation proctitis History of Wound: This is a 59-year-old female with a history of recurrent endometrial cancer with radiation damage to her pelvic region causing inflammation and symptoms of radiation proctitis. Patient's medical record has been thoroughly reviewed and is recently documented elsewhere. Progress of Wound: Progress: This represents the 7th session of 30 planned sessions for radiation proctitis Tolerance: Hyperbaric oxygen therapy was administered as per the facility protocol at 2 TOSHA for 90 minutes without air breaks. The patient tolerated hyperbaric oxygen therapy without any complications or complaints. Upon emergence from the hyperbaric chamber, the patient's vital signs remained stable and she was discharged in good condition. Objective Data Objective Data Vital Signs: Vital Signs Temp Pulse Resp BP 96.8 F L 75 14 131/60 H 12/16/24 10:50 12/16/24 10:50 12/16/24 10:50 12/16/24 10:50 Exam Physical Exam Const alert and oriented x3 HEENT Tympanic Membrane: other Other Details: Tympanotomy tubes in place Resp normal respiratory effort Auscultation: clear to auscultation bilaterally Cardio regular rate, regular rhythm, S1 normal heart sound, S2 normal heart sound, no murmurs, no rub, no gallops and no clicks Assessment/Plan Assessment/Plan (1) Radiation proctitis: CODE(S): K62.7 - Radiation proctitis (2) Eardrum rupture, right: CODE(S): H72.91 - Unspecified perforation of tympanic membrane, right ear PLAN: Plan The patient appears to be tolerating hyperbaric oxygen therapy well, which will be continued as per their medical treatment plan.
[2024-12-17 11:08] VITALS: BP 115/65; BP 126/66; PULSE 63; PULSE 77; RESP 15; TEMP 35.9; TEMP 36.2
--- NOTE | 2024-12-18 16:51 | PCM.HBO.PN ---
History of Present Illness Date of Service: 12/17/24 Chief Complaint: Radiation proctitis History of Wound: This is a 59-year-old female with a history of recurrent endometrial cancer with radiation damage to her pelvic region causing inflammation and symptoms of radiation proctitis. The patient's medical record has been thoroughly reviewed and is recently documented elsewhere. Progress of Wound: Progress: This represents the 8th session of 30 planned sessions for radiation proctitis Tolerance: Hyperbaric oxygen therapy was administered as per the facility protocol at 2 TOSHA for 90 minutes without air breaks. The patient tolerated hyperbaric oxygen therapy without any complications or complaints. Upon emergence from the hyperbaric chamber, the patient's vital signs remained stable and she was discharged in good condition. She has previously undergone placement of myringotomy tubes bilaterally, and appears to be tolerating hyperbaric sessions without otic discomfort. Objective Data Objective Data Vital Signs: Vital Signs Temp Pulse Resp BP 97.1 F L 77 15 126/66 H 12/17/24 11:08 12/17/24 11:08 12/17/24 11:08 12/17/24 11:08 Exam Physical Exam Const alert, oriented x3, no apparent distress and well nourished General Appearance: cooperative and well developed HEENT normocephalic and EAC's normal Head and Scalp: atraumatic Eyes EOMs intact bilaterally Neck supple Resp normal respiratory effort and no use of accessory muscles Effort and Inspection: able to speak in complete sentences Psych affect normal Appearance: grossly normal and well kempt Speech: normal speech Charges/[facility] Procedures HBO Supervision: [id number] Hyperbaric Oxygen; supervision Assessment/Plan Assessment/Plan (1) Radiation proctitis: CODE(S): K62.7 - Radiation proctitis (2) Eardrum rupture, right: CODE(S): H72.91 - Unspecified perforation of tympanic membrane, right ear PLAN: Plan The patient appears to be tolerating hyperbaric oxygen therapy well, which will be continued as per the patient's medical treatment plan.
--- NOTE | 2024-12-18 16:56 | PCM.HBO.PN ---
History of Present Illness Date of Service: 12/18/24 Chief Complaint: Radiation proctitis History of Wound: This is a 59-year-old female with a history of recurrent endometrial cancer with radiation damage to her pelvic region causing inflammation and symptoms of radiation proctitis. The patient's medical record has been thoroughly reviewed and is recently documented elsewhere. Progress of Wound: Progress: This represents the 9th session of 30 planned sessions for radiation proctitis Tolerance: Hyperbaric oxygen therapy was administered as per the facility protocol at 2 TOSHA for 90 minutes without air breaks. The patient tolerated hyperbaric oxygen therapy without any complications or complaints. Upon emergence from the hyperbaric chamber, the patient's vital signs remained stable and she was discharged in good condition. She has previously undergone placement of myringotomy tubes bilaterally, and appears to be tolerating hyperbaric sessions without otic discomfort. Objective Data Objective Data Vital Signs: Vital Signs Temp Pulse Resp BP 97.1 F L 77 15 126/66 H 12/17/24 11:08 12/17/24 11:08 12/17/24 11:08 12/17/24 11:08 Exam Physical Exam Const alert, oriented x3, no apparent distress and well nourished General Appearance: cooperative and well developed HEENT normocephalic and EAC's normal Head and Scalp: atraumatic Eyes EOMs intact bilaterally Neck supple Resp normal respiratory effort and no use of accessory muscles Effort and Inspection: able to speak in complete sentences Psych affect normal Appearance: grossly normal and well kempt Speech: normal speech Charges/[facility] Procedures HBO Supervision: [id number] Hyperbaric Oxygen; supervision Assessment/Plan Assessment/Plan (1) Radiation proctitis: CODE(S): K62.7 - Radiation proctitis (2) Eardrum rupture, right: CODE(S): H72.91 - Unspecified perforation of tympanic membrane, right ear PLAN: Plan The patient appears to be tolerating hyperbaric oxygen therapy well, which will be continued as per the patient's medical treatment plan.
--- NOTE | 2024-12-25 15:55 | PCM.HBO.PN ---
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 The patient's medical record has been thoroughly reviewed and is recently documented elsewhere. Progress of Wound: Progress: This represents the 13th session of 30 planned sessions for radiation proctitis Tolerance: Hyperbaric oxygen therapy was administered as per the facility protocol at 2 TOSHA for 90 minutes without air breaks. The patient tolerated hyperbaric oxygen therapy without any complications or complaints. Upon emergence from the hyperbaric chamber, the patient's vital signs remained stable and she was discharged in good condition. She has previously undergone placement of myringotomy tubes bilaterally, and appears to be tolerating hyperbaric sessions without otic discomfort. Objective Data Objective Data Vital Signs: Vital Signs Temp Pulse Resp BP 97.1 F L 77 15 126/66 H 12/17/24 11:08 12/17/24 11:08 12/17/24 11:08 12/17/24 11:08 Exam Physical Exam Const alert, oriented x3, no apparent distress and well nourished General Appearance: cooperative and well developed HEENT normocephalic and EAC's normal Head and Scalp: atraumatic Tympanic Membrane: other Other Details: Tympanotomy tubes in place Eyes EOMs intact bilaterally Resp normal respiratory effort and no use of accessory muscles Effort and Inspection: able to speak in complete sentences Psych affect normal Appearance: grossly normal and well kempt Speech: normal speech Charges/Coding Wound Center [facility] Procedures HBO Supervision: [id number] Hyperbaric Oxygen; supervision Assessment/Plan Assessment/Plan (1) Radiation proctitis: CODE(S): K62.7 - Radiation proctitis (2) Eardrum rupture, right: CODE(S): H72.91 - Unspecified perforation of tympanic membrane, right ear PLAN: Plan The patient appears to be tolerating hyperbaric oxygen therapy well, which will be continued as per her medical treatment plan.
--- NOTE | 2024-12-25 16:00 | PCM.HBO.PN ---
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 The patient's medical record has been thoroughly reviewed and is recently documented elsewhere. Progress of Wound: Progress: This represents the 14th session of HBO therapy of 30 planned sessions for radiation proctitis. Tolerance: Hyperbaric oxygen therapy was administered as per the facility protocol at 2 TOSHA for 90 minutes without air breaks. The patient tolerated hyperbaric oxygen therapy without any complications or complaints. Upon emergence from the hyperbaric chamber, the patient's vital signs remained stable and she was discharged in good condition. She has previously undergone placement of myringotomy tubes bilaterally, and appears to be tolerating hyperbaric sessions without otic discomfort. Objective Data Objective Data Vital Signs: Vital Signs Temp Pulse Resp BP 97.1 F L 77 15 126/66 H 12/17/24 11:08 12/17/24 11:08 12/17/24 11:08 12/17/24 11:08 Exam Physical Exam Const alert, oriented x3, no apparent distress and well nourished General Appearance: cooperative and well developed HEENT normocephalic and EAC's normal Head and Scalp: atraumatic Tympanic Membrane: other Other Details: Tympanotomy tubes in place Eyes EOMs intact bilaterally Resp normal respiratory effort and no use of accessory muscles Effort and Inspection: able to speak in complete sentences Psych affect normal Appearance: grossly normal and well kempt Speech: normal speech Charges/Coding Wound [facility] Procedures HBO Supervision: [id number] Hyperbaric Oxygen; supervision Assessment/Plan Assessment/Plan (1) Radiation proctitis: CODE(S): K62.7 - Radiation proctitis (2) Eardrum rupture, right: CODE(S): H72.91 - Unspecified perforation of tympanic membrane, right ear PLAN: Plan The patient appears to be tolerating hyperbaric oxygen therapy well, which will be continued as per her medical treatment plan.
--- NOTE | 2025-01-01 17:01 | PCM.HBO.PN ---
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 The patient's medical record has been thoroughly reviewed and is recently documented elsewhere. Progress of Wound: Progress: This represents the 18th session of HBO therapy of 30 planned sessions for radiation proctitis. Tolerance: Hyperbaric oxygen therapy was administered as per the facility protocol at 2 TOSHA for 90 minutes without air breaks. The patient tolerated hyperbaric oxygen therapy without any complications or complaints. Upon emergence from the hyperbaric chamber, the patient's vital signs remained stable and she was discharged in good condition. She has previously undergone placement of myringotomy tubes bilaterally, and appears to be tolerating hyperbaric sessions without otic discomfort. Objective Data Objective Data Vital Signs: Vital Signs Temp Pulse Resp BP 97.1 F L 77 15 126/66 H 12/17/24 11:08 12/17/24 11:08 12/17/24 11:08 12/17/24 11:08 Exam Physical Exam Const alert, oriented x3, no apparent distress and well nourished General Appearance: cooperative and well developed HEENT normocephalic, EAC's normal, TM's normal bilaterally and moist oral mucous membranes Head and Scalp: atraumatic Tympanic Membrane: other Other Details: Tympanotomy tubes in place Eyes EOMs intact bilaterally Neck supple General: trachea midline Resp normal respiratory effort, no use of accessory muscles and clear to auscultation bilaterally Effort and Inspection: able to speak in complete sentences Auscultation: clear to auscultation bilaterally Cardio regular rate, regular rhythm, S1 normal heart sound and S2 normal heart sound Psych affect normal Appearance: grossly normal and well kempt Speech: normal speech Charges/Coding Wound [facility] Procedures HBO Supervision: [id number] Hyperbaric Oxygen; supervision Assessment/Plan Assessment/Plan (1) Radiation proctitis: CODE(S): K62.7 - Radiation proctitis (2) Eardrum rupture, right: CODE(S): H72.91 - Unspecified perforation of tympanic membrane, right ear PLAN: Plan The patient appears to be tolerating hyperbaric oxygen therapy well, which will be continued as per her medical treatment plan.
--- NOTE | 2025-01-13 10:24 | HBO.PN.PCM_ITS ---
History of Present Illness Date of Service: 01/13/25 Chief Complaint: Radiation proctitis History of Wound: Chief Complaint: Radiation proctitis History of Wound: This is a 59-year-old female with a history of recurrent endometrial cancer. The patient was diagnosed with endometrial cancer and underwent a total hysterectomy and bilateral salpingo-oophorectomy in May 2019. Upon experiencing several months of vaginal bleeding in 2023, the patient underwent a biopsy on May 19, 2023, which revealed recurrent endometrial adenocarcinoma. The patient underwent partial radical vaginectomy on May 23, 2023, the pathology of which confirmed recurrent, well-differentiated endometrial adenocarcinoma. A CT scan on June 15, 2023, showed a nodule posterior to the right lower abdominal rectus sheath, thought to represent a peritoneal tumor implant. The patient was treated with EBRT 4500 cGy in [address] Grimes from July 10, 2023, until August 11, 2023. She received adjuvant vaginal cylinder brachytherapy consisting of 30 Stratton delivered over 5 fractions, twice weekly, utilizing a 3 cm cylinder to 10 cm length prescribed to surface. The patient received her final fraction on August 30, 2023. Recent FIRE PREVENTION CAPTAIN evaluations have documented that the "Vagina is shortened and narrowed, consiste nt with her history of radiation. There are some radiation changes of the mucosa including around the left urethral meatus. No evidence of recurrent disease." Over the last several months prior to her presentation here, the patient has experienced bright red blood per rectum with every bowel movement. She has had frequent episodes of diarrhea with frequent loose stools, and relates poor control of her bowel movements. The patient underwent a colonoscopy by Dr. Arley Pham, Documentation Clerk, on September 04, 2024. Multiple bleeding colonic angiodysplastic lesions were identified, and treated with argon plasma coagulation. These lesions were suspected to be associated with a prior history of radiation resulting in radiation proctitis. Progress of Wound: Progress of Wound: Progress: This represents the 27th hyperbaric oxygen therapy session of 30 planned sessions initially. Tolerance: Hyperbaric oxygen therapy was administered as per the facility protocol at 2 TOSHA for 90 minutes without air breaks. The patient tolerated hyperbaric oxygen therapy without any complaints or complications. Upon emergence from the hyperbaric chamber, the patient's vital signs remained stable, and she was discharged in good condition. Objective Data Objective Data Vital Signs: Vital Signs Temp Pulse Resp BP 97.1 F L 77 15 126/66 H 12/17/24 11:08 12/17/24 11:08 12/17/24 11:08 12/17/24 11:08 Exam Physical Exam Const alert and oriented x3 HEENT Tympanic Membrane: other Other Details: Tympanotomy tubes in place Resp normal respiratory effort Auscultation: clear to auscultation bilaterally Cardio regular rate, regular rhythm, S1 normal heart sound, S2 normal heart sound, no murmurs, no rub, no gallops and no clicks Charges/Coding Wound [facility] Procedures HBO Supervision: [id number] Hyperbaric Oxygen; supervision Assessment/Plan Assessment/Plan (1) Radiation proctitis: CODE(S): K62.7 - Radiation proctitis (2) Bright red blood per rectum: CODE(S): K62.5 - Hemorrhage of anus and rectum (3) Frequent loose stools: CODE(S): R19.7 - Diarrhea, unspecified QUALIFIERS: Diarrhea type: due to malabsorption Qualified Code(s): K90.9 - Intestinal malabsorption, unspecified; R19.7 - Diarrhea, unspecified (4) Status post complete hysterectomy: CODE(S): Z90.710 - Acquired absence of both cervix and uterus (5) History of bilateral oophorectomy: CODE(S): Z90.722 - Acquired absence of ovaries, bilateral PLAN: Plan The patient appears to be tolerating hyperbaric oxygen therapy well, which will be continued as per the patient's medical treatment plan.
== END 2024-12-17 23:59 | disposition home or self-care (01) ==
LOC: WC 09:30
PROVIDERS: PCP Family Medicine; Referring Provider Obstetrics & Gynecology; Visit Provider Surgery
DX: K62.7 Radiation proctitis (principal); Y84.2 Radiological procedure and radiotherapy as the cause of abnormal reaction of the patient, or of later complication, without mention of misadventure at the time of the procedure; K62.5 Hemorrhage of anus and rectum; R19.7 Diarrhea, unspecified; E03.9 Hypothyroidism, unspecified; H72.91 Unspecified perforation of tympanic membrane, right ear; K21.9 Gastro-esophageal reflux disease without esophagitis; Z79.890 Hormone replacement therapy; Z79.899 Other long term (current) drug therapy; Z85.42 Personal history of malignant neoplasm of other parts of uterus; Z90.710 Acquired absence of both cervix and uterus; Z90.722 Acquired absence of ovaries, bilateral
CPT/HCPCS: 99183; G0277

== ENCOUNTER → 2024-12-31 | Outpatient (CLI) | payer BC, SELFPAY ==
[2024-12-31 12:51] LABS: Hematocrit 37.4 % (37-47); Hemoglobin 12.7 g/dL (12.0-15.0); Immature Granulocytes Count 0.050 X10^3/uL (0.0-0.0); Mean Corp Hgb Conc 34.0 g/dL (32-36); Mean Corpuscular Volume 91.4 fL (81-99); Mean Platelet Vol. 8.8 fl (6.2-12.0); NRBC Flagged by Analyzer 0 % (0-5); Platelet Count 237 K/mm3 (150-450); RBC Distribution Width CV 13.1 % (11.6-14.6); RBC Distribution Width SD 43.9 fl (35.1-43.9); Red Blood Count 4.09 M/mm3 (4.2-5.4); White Blood Count 5.0 K/mm3 (4.4-11.0)
[2024-12-31 14:19] LABS: AST(SGOT) 20 U/L (<=31); Alanine Aminotransfer ALT/SGPT 18 U/L (<=34); Albumin, Serum 4.0 g/dL (3.5-5.0); Alkaline Phosphatase 111 U/L (35-104); Anion Gap 11 (5-15); BUN 13 mg/dL (4-19); BUN/Creat Ratio 21.0 RATIO (10-20); Calcium,Total 9.4 mg/dL (7.6-11.0); Carbon Dioxide 25.0 mmol/L (21.0-32.0); Chloride 105 mmol/L (98-108); Globulin 2.6 g/dL (2.2-4.2); Glucose 97 mg/dL (70-99); Potassium 4.1 mmol/L (3.3-5.1)
[2024-12-31 14:20] LABS: LDH 182 U/L (84-246)
== END | disposition home or self-care (01) ==
LOC: LAB 11:58
PROVIDERS: PCP Family Medicine; Referring Provider Internal Medicine Medical Oncology; Visit Provider Internal Medicine Medical Oncology
DX: C54.1 Malignant neoplasm of endometrium (principal)
CPT/HCPCS: 36415; 80053; 83615; 85025; 86304

== ENCOUNTER → 2025-01-01 | Outpatient (CLI) | payer BC, SELFPAY ==
[2025-01-01 10:57] LABS: Cholesterol 260 mg/dL (<=200); Low Density Lipoprotein Calc. 139 mg/dL; Triglycerides 305 mg/dL; Very Low Density Lipoprotein 61 mg/dL (5-40); cholesterol:hdl ratio screen 4.30
== END | disposition home or self-care (01) ==
LOC: MTLAB 09:28
PROVIDERS: PCP Family Medicine; Referring Provider Family Medicine; Visit Provider Family Medicine
DX: E03.9 Hypothyroidism, unspecified (principal); C54.1 Malignant neoplasm of endometrium; E78.00 Pure hypercholesterolemia, unspecified; F32.A Depression, unspecified
CPT/HCPCS: 36415; 80061; 84443

== ENCOUNTER 2025-01-17 09:30 | Outpatient (RCR) | payer BC, SELFPAY ==
[2024-12-18 14:16] VITALS: BP 113/48; BP 128/69; PULSE 63; PULSE 70; RESP 14; TEMP 35.8; TEMP 36.3
--- NOTE | 2024-12-19 11:01 | PCM.HBO.PN ---
History of Present Illness Date of Service: 12/19/24 Chief Complaint: Radiation proctitis History of Wound: This is a 59-year-old female with a history of recurrent endometrial cancer with radiation damage to her pelvic region causing inflammation and symptoms of radiation proctitis. The patient's medical record has been thoroughly reviewed and is recently documented elsewhere. Progress of Wound: Progress: This represents the 10th of 30 planned sessions. Tolerance: Hyperbaric oxygen therapy was administered as per the facility protocol at 2 TOSHA for 90 minutes without air break. Hyperbaric oxygen therapy was tolerated without any complications or complaints. Vitals remained stable on completion and she was discharged in stable condition. Objective Data Objective Data Vital Signs: Vital Signs Temp Pulse Resp BP 97.3 F L 70 14 128/69 H 12/18/24 14:16 12/18/24 14:16 12/18/24 14:16 12/18/24 14:16 Exam Physical Exam Const alert, oriented x3 and no apparent distress General Appearance: cooperative and comfortable HEENT normocephalic and head/scalp atraumatic Head and Scalp: normal to inspection and normocephalic Tympanic Membrane: other Other Details: Tympanostomy tubes noted bilaterally Eyes EOMs intact bilaterally General Eye: normal appearance of both eyes Neck full ROM General: normal visual inspection Resp normal respiratory effort and normal air movement Effort and Inspection: able to speak in complete sentences Neuro oriented x3, CN's II-XII intact bilaterally, moves all extremities and no focal motor deficits Psych mental status grossly normal, thought process normal, cooperative and affect normal Charges/[facility] Procedures HBO Supervision: [id number] Hyperbaric Oxygen; supervision Assessment/Plan Assessment/Plan (1) Radiation proctitis: CODE(S): K62.7 - Radiation proctitis (2) Eardrum rupture, right: CODE(S): H72.91 - Unspecified perforation of tympanic membrane, right ear PLAN: Tympanostomy tube in place PLAN: Plan Julieth tolerated hyperbaric oxygen therapy well which will be continued per her medical plan. This note was generated with [employer] dictation software. It may contain incorrect words, spelling, and punctuation that were not noted in checking the note before signing.
[2024-12-19 11:57] VITALS: BP 114/71; BP 125/55; PULSE 63; PULSE 74; RESP 14; RESP 16; TEMP 36.4
[2024-12-20 10:06] VITALS: BP 118/61; BP 128/60; PULSE 63; PULSE 82; RESP 14; RESP 15; TEMP 36; TEMP 36.2
--- NOTE | 2024-12-20 14:29 | PCM.HBO.PN ---
History of Present Illness Date of Service: 12/20/24 Chief Complaint: Radiation proctitis History of Wound: This is a 59-year-old female with a history of recurrent endometrial cancer with radiation damage to her pelvic region causing inflammation and symptoms of radiation proctitis. The patient's medical record has been thoroughly reviewed and is recently documented elsewhere. Progress of Wound: Progress: This represents the 11th of 30 planned sessions. Tolerance: Hyperbaric oxygen therapy was administered as per the facility protocol at 2 TOSHA for 90 minutes without air break. Hyperbaric oxygen therapy was tolerated without any complications or complaints. Vitals remained stable on completion and she was discharged in stable condition. Objective Data Objective Data Vital Signs: Vital Signs Temp Pulse Resp BP 97.2 F L 82 15 128/60 H 12/20/24 10:06 12/20/24 10:06 12/20/24 10:06 12/20/24 10:06 Exam Physical Exam Const alert, oriented x3 and no apparent distress HEENT normocephalic and head/scalp atraumatic HEENT Narrative: tympanostomy tubes in place b/l Resp normal respiratory effort and clear to auscultation bilaterally Effort and Inspection: able to speak in complete sentences Auscultation: clear to auscultation bilaterally Psych mental status grossly normal, thought process normal, cooperative, affect normal and speech normal Assessment/Plan Assessment/Plan (1) Radiation proctitis: CODE(S): K62.7 - Radiation proctitis (2) Eardrum rupture, right: CODE(S): H72.91 - Unspecified perforation of tympanic membrane, right ear PLAN: Tympanostomy tube in place PLAN: Plan Julieth tolerated hyperbaric oxygen therapy well which will be continued per her medical plan. This note was generated with [employer] dictation software. It may contain incorrect words, spelling, and punctuation that were not noted in checking the note before signing.
[2024-12-23 09:42] VITALS: BP 110/53; BP 131/52; PULSE 68; PULSE 75; RESP 15; TEMP 36.2
--- NOTE | 2024-12-23 09:55 | PCM.HBO.PN ---
History of Present Illness Date of Service: 12/23/24 Chief Complaint: Radiation proctitis History of Wound: This is a 59-year-old female with a history of recurrent endometrial cancer with radiation damage to her pelvic region causing inflammation and symptoms of radiation proctitis. The patient's medical record has been thoroughly reviewed and is recently documented elsewhere. Progress of Wound: Progress: This represents the 12th of 30 planned sessions. Tolerance: Hyperbaric oxygen therapy was administered as per the facility protocol at 2 TOSHA for 90 minutes without air break. Hyperbaric oxygen therapy was tolerated without any complications or complaints. Vitals remained stable on completion and she was discharged in stable condition. Objective Data Objective Data Vital Signs: Vital Signs Temp Pulse Resp BP 97.2 F L 82 15 128/60 H 12/20/24 10:06 12/20/24 10:06 12/20/24 10:12/20/24 10:06 Exam Physical Exam Const alert and oriented x3 HEENT Tympanic Membrane: other Other Details: Tympanotomy tubes in place Resp normal respiratory effort Auscultation: clear to auscultation bilaterally Cardio regular rate, regular rhythm, S1 normal heart sound, S2 normal heart sound, no murmurs, no rub, no gallops and no clicks Charges/[facility]oding [facility] CF Procedures HBO Supervision: [id number] Hyperbaric Oxygen; supervision Assessment/Plan Assessment/Plan (1) Radiation proctitis: CODE(S): K62.7 - Radiation proctitis (2) Eardrum rupture, right: CODE(S): H72.91 - Unspecified perforation of tympanic membrane, right ear PLAN: Plan The patient appears to be tolerating hyperbaric oxygen therapy well, which will be continued as per their medical treatment plan.
[2024-12-24 11:43] VITALS: BP 123/59; BP 127/57; PULSE 63; PULSE 77; RESP 14; TEMP 35.9
[2024-12-25 13:35] VITALS: BP 112/60; BP 119/60; PULSE 67; PULSE 74; RESP 13; RESP 15; TEMP 35.5; TEMP 36.7
--- NOTE | 2024-12-26 10:25 | HBO.PN.PCM_ITS ---
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 The patient's medical record has been thoroughly reviewed and is recently documented elsewhere. Progress of Wound: Progress: This represents the 13th of 30 planned sessions. Tolerance: Hyperbaric oxygen therapy was administered as per the facility protocol at 2 TOSHA for 90 minutes without air break. Hyperbaric oxygen therapy was tolerated without any complications or complaints. Vitals remained stable upon completion and she was discharged in stable condition. Objective Data Objective Data Vital Signs: Vital Signs Temp Pulse Resp BP 98.0 F 74 13 119/60 12/25/24 13:35 12/25/24 13:35 12/25/24 13:35 12/25/24 13:35 Exam Physical Exam Const alert, oriented x3 and no apparent distress General Appearance: cooperative and comfortable HEENT normocephalic and head/scalp atraumatic Head and Scalp: normal to inspection and normocephalic Tympanic Membrane: other Other Details: Tympanostomy tubes noted bilaterally Eyes EOMs intact bilaterally General Eye: normal appearance of both eyes Neck full ROM General: normal visual inspection Resp normal respiratory effort and normal air movement Effort and Inspection: able to speak in complete sentences Neuro oriented x3, CN's II-XII intact bilaterally, moves all extremities and no focal motor deficits Psych mental status grossly normal, thought process normal, cooperative and affect normal Charges/Coding Wound [facility] Procedures HBO Supervision: [id number] Hyperbaric Oxygen; supervision Assessment/Plan Assessment/Plan (1) Radiation proctitis: CODE(S): K62.7 - Radiation proctitis (2) Eardrum rupture, right: CODE(S): H72.91 - Unspecified perforation of tympanic membrane, right ear PLAN: Tympanostomy tube in place PLAN: Plan Julieth tolerated hyperbaric oxygen therapy well which will be continued per her medical plan. This note was generated with [employer] dictation software. It may contain incorrect words, spelling, and punctuation that were not noted in checking the note before signing.
[2024-12-26 10:45] VITALS: BP 123/63; BP 126/60; PULSE 62; PULSE 69; RESP 14; TEMP 35.8; TEMP 36.1
[2024-12-27 09:58] VITALS: BP 107/54; BP 123/71; PULSE 62; PULSE 80; RESP 15; TEMP 35.2; TEMP 36.2
--- NOTE | 2024-12-27 14:47 | PCM.HBO.PN ---
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 The patient's medical record has been thoroughly reviewed and is recently documented elsewhere. Progress of Wound: Progress: This represents the 16th of 30 planned sessions. Tolerance: Hyperbaric oxygen therapy was administered as per the facility protocol at 2 TOSHA for 90 minutes without air break. Hyperbaric oxygen therapy was tolerated without any complications or complaints. Vitals remained stable upon completion and she was discharged in stable condition. Objective Data Objective Data Vital Signs: Vital Signs Temp Pulse Resp BP 95.4 F L 80 15 123/71 H 12/27/24 09:58 12/27/24 09:58 12/27/24 09:58 12/27/24 09:58 Exam Physical Exam Const alert, oriented x3 and no apparent distress HEENT normocephalic and head/scalp atraumatic HEENT Narrative: tympanostomy tubes in place b/l Resp normal respiratory effort and clear to auscultation bilaterally Effort and Inspection: able to speak in complete sentences Auscultation: clear to auscultation bilaterally Psych mental status grossly normal, thought process normal, cooperative, affect normal and speech normal Assessment/Plan Assessment/Plan (1) Radiation proctitis: CODE(S): K62.7 - Radiation proctitis (2) Eardrum rupture, right: CODE(S): H72.91 - Unspecified perforation of tympanic membrane, right ear PLAN: Tympanostomy tube in place PLAN: Plan Julieth tolerated hyperbaric oxygen therapy well which will be continued per her medical plan. This note was generated with [employer] dictation software. It may contain incorrect words, spelling, and punctuation that were not noted in checking the note before signing.
--- NOTE | 2024-12-30 10:08 | PCM.HBO.PN ---
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 The patient's medical record has been thoroughly reviewed and is recently documented elsewhere. Progress of Wound: Progress: This represents the 17th of 30 planned sessions. Tolerance: Hyperbaric oxygen therapy was administered as per the facility protocol at 2 TOSHA for 90 minutes without air break. Hyperbaric oxygen therapy was tolerated without any complications or complaints. Vitals remained stable upon completion and she was discharged in stable condition. Objective Data Objective Data Vital Signs: Vital Signs Temp Pulse Resp BP 95.4 F L 80 15 123/71 H 12/27/24 09:58 12/27/24 09:58 12/27/24 09:58 12/27/24 09:58 Exam Physical Exam Const alert and oriented x3 HEENT Tympanic Membrane: other Other Details: Tympanotomy tubes in place Resp normal respiratory effort Auscultation: clear to auscultation bilaterally Cardio regular rate, regular rhythm, S1 normal heart sound, S2 normal heart sound, no murmurs, no rub, no gallops and no clicks Assessment/Plan Assessment/Plan (1) Radiation proctitis: CODE(S): K62.7 - Radiation proctitis (2) Eardrum rupture, right: CODE(S): H72.91 - Unspecified perforation of tympanic membrane, right ear PLAN: Plan The patient appears to be tolerating hyperbaric oxygen therapy well, which will be continued as per their medical treatment plan.
[2024-12-30 10:12] VITALS: BP 118/61; BP 133/61; PULSE 64; PULSE 73; RESP 14; RESP 15; TEMP 36.7; TEMP 36.8
[2024-12-31 08:57] VITALS: BP 115/69; PULSE 87; RESP 18; TEMP 36.6
[2024-12-31 11:48] VITALS: BP 115/69; BP 131/65; PULSE 68; PULSE 87; RESP 16; RESP 18; TEMP 36.6
--- NOTE | 2024-12-31 16:23 | WC ---
no wound. pt escorted over to HBO
[2025-01-01 15:04] VITALS: BP 144/63; PULSE 74; RESP 16; TEMP 36.4
--- NOTE | 2025-01-01 17:06 | PCM.HBO.PN ---
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 The patient's medical record has been thoroughly reviewed and is recently documented elsewhere. Progress of Wound: Progress: This represents the 19th of 30 planned sessions. Tolerance: Hyperbaric oxygen therapy was administered as per the facility protocol at 2 TOSHA for 90 minutes without air breaks. The patient tolerated hyperbaric oxygen therapy without any complaints or complications. Upon emergence from the hyperbaric chamber, the patient's vital signs remained stable, and she was discharged in good condition. She has previously undergone placement of myringotomy tubes bilaterally, and appears to be tolerating hyperbaric sessions without otic discomfort. Objective Data Objective Data Vital Signs: Vital Signs Temp Pulse Resp BP 97.6 F L 74 16 144/63 H 01/01/25 15:04 01/01/25 15:04 01/01/25 15:04 01/01/25 15:04 Exam Physical Exam Const alert, oriented x3, no apparent distress and well nourished General Appearance: cooperative and well developed HEENT normocephalic, EAC's normal, TM's normal bilaterally and moist oral mucous membranes Head and Scalp: atraumatic Tympanic Membrane: other Other Details: Tympanotomy tubes in place Eyes EOMs intact bilaterally Neck supple General: trachea midline Resp normal respiratory effort, no use of accessory muscles and clear to auscultation bilaterally Effort and Inspection: able to speak in complete sentences Auscultation: clear to auscultation bilaterally Cardio regular rate, regular rhythm, S1 normal heart sound and S2 normal heart sound Psych affect normal Appearance: grossly normal and well kempt Speech: normal speech Nursing Assessment and Debridement Post-Debridement Measurements and Additional Note: Post-Debridement Measurements/Treatment - Nurse 1 - General Ulcer Assessment Start: 12/18/24 14:16 Freq: Status: Active Protocol: SARTHAK Activity Type Activity Date Activity User E-sign Co-sign Detail Recorded Client Recorded Date Recorded By Document 12/31/24 08:57 RB [id number] 12/31/24 08:59 RB 12/31/24 08:57 LEONILA - Today's Visit Information Type of service Follow-up Visit (Physician/RESTAURANT MANAGER ) Arrival Mode Ambulatory Transfer Assistance None Patient Identification Verified (Name & Yes ) Patient Requires Transmission-Based No Precautions Vital Signs Temperature (97.8 F-99.1 F) 97.9 F Temperature Source Temporal Pulse Rate (60-100) 87 Pulse Location Monitor Respiratory Rate (12-18) 18 Respiratory rate source Observation Blood Pressure (90/60-120/80) 115/69 Blood Pressure Mean (mm Hg) 84 Source Monitor Position Semi-Fowlers Blood Pressure Location Left Arm History Since Last Visit- (Skip if this is Patient's initial visit) Have you changed medications since your No last visit? Any new allergies or adverse reactions No Had a fall/change in ADL's that may No increase risk of falls Signs or symptoms of abuse and/or No neglect since last visit Have you been in the hospital since your No last visit? Has dressing in place as prescribed No Has compression in place as prescribed N/A Has offloadiing in place as prescribed N/A Experienced any changes in pain level or No management Pain Scale: 0-10 Numeric Is Patient Pain Free? Yes WC - Nurse 3 - General Ulcer D/C NN Start: 12/18/24 14:16 Freq: Status: Active Protocol: Activity Type Activity Date Activity User E-sign Co-sign Detail Recorded Client Recorded Date Recorded By Document 12/31/24 09:13 DS [id number] 12/31/24 16:23 DS 12/31/24 09:13 Is Patient Pain Free? Yes 12/31/24 16:23 Wound Center by Shamika Cheatham no wound. pt escorted over to HBO Initialized on 12/31/24 16:23 - END OF NOTE Charges/Coding Wound Center CF Procedures HBO Supervision: [id number] Hyperbaric Oxygen; supervision Assessment/Plan Assessment/Plan (1) Radiation proctitis: CODE(S): K62.7 - Radiation proctitis (2) Eardrum rupture, right: CODE(S): H72.91 - Unspecified perforation of tympanic membrane, right ear PLAN: Plan The patient appears to be tolerating hyperbaric oxygen therapy well, which will be continued as per her medical treatment plan.
--- NOTE | 2025-01-01 17:17 | HP.PCM_ITS ---
History of Present Illness Date of Service: 12/31/24 Chief Complaint: Radiation proctitis History of Wound: This is a 59-year-old female with a history of recurrent endometrial cancer. The patient was diagnosed with endometrial cancer and underwent a total hysterectomy and bilateral salpingo-oophorectomy in May 2019. Upon experiencing several months of vaginal bleeding in 2023, the patient underwent a biopsy on May 19, 2023, which revealed recurrent endometrial adenocarcinoma. The patient underwent partial radical vaginectomy on May 23, 2023, the pathology of which confirmed recurrent, well-differentiated endometrial adenocarcinoma. A CT scan on June 15, 2023, showed a nodule posterior to the right lower abdominal rectus sheath, thought to represent a peritoneal tumor implant. The patient was treated with EBRT 4500 cGy in [address] Grimes from July 10, 2023, until August 11, 2023. She received adjuvant vaginal cylinder brachytherapy consisting of 30 Stratton delivered over 5 fractions, twice weekly, utilizing a 3 cm cylinder to 10 cm length prescribed to surface. The patient received her final fraction on August 30, 2023. Recent FACILITY COORDINATOR evaluations have documented that the "Vagina is shortened and narrowed, consistent with her history of radiation. There are some radiation changes of the mucosa including around the left urethral meatus. No evidence of recurrent disease." Over the last several months prior to her presentation here, the patient has experienced bright red blood per rectum with every bowel movement. She has had frequent episodes of diarrhea with frequent loose stools, and relates poor control of her bowel movements. The patient underwent a colon oscopy by Dr. Arley Pham, Firmware Test Engineer, on September 04, 2024. Multiple bleeding colonic angiodysplastic lesions were identified, and treated with argon plasma coagulation. These lesions were suspected to be associated with a prior history of radiation resulting in radiation proctitis. Progress of Wound: As of this clinic visit, the patient has undergone 18 sessions of hyperbaric oxygen therapy. She appears to be tolerating hyperbaric oxygen therapy well, without complaints or complications. Early in her course, however, the patient experienced otic pain, and subsequently underwent placement of bilateral myringotomy tubes. Since that time, the patient has experienced no further otic pain, and is tolerating her hyperbaric treatments well. In reviewing the patient's symptoms, the patient indicates that the hematochezia (bright red blood per rectum) has nearly subsided, indicating improvement in her condition. She does, however, indicates that she continues to have some degree of fecal incontinence. [facility] Medical History (Updated 01/01/25 @ 17:[address] Judah Elaine MD) History of radiation therapy Radiation proctitis Hyperlipidemia Wears glasses Post-menopausal Cancer Thyroid disease Arthritis Gastric reflux Non-smoker Shortness of breath on exertion Leg cramps History of pain when walking History of edema History of echocardiogram History of stress test Cardiology follow-up encounter Diarrhea Vagina neoplasm Dyspnea on exertion Left arm pain Eczema Posterior right knee pain Fatigue Urinary incontinence Endometrial cancer Thickened endometrium BV (bacterial vaginosis) Hypothyroid Gastritis High cholesterol Home Medications Medication Instructions Recorded Last Taken Type multivitamin 1 tab PO DAILY 01/18/18 Unkn own History cholecalciferol (vitamin D3) 50 2,000 unit PO DAILY Unknown History mcg (2,000 unit) tablet famotidine 20 mg tablet (Pepcid) 40 mg PO QHS 04/03/19 04/30/19 05:00 History levothyroxine 50 mcg tablet 50 mcg PO DAILY #90 tabs 0 05/17/24 09/04/24 05:00 Rx vibegron 75 mg tablet (Gemtesa) 75 mg PO QDAY 07/03/24 Unknown History ezetimibe 10 mg tablet (Zetia) 10 mg PO QDAY #90 tabs 08/13/24 Unknown Rx acetaminophen 650 mg 650 mg PO Q12H PRN pain 08/18 05/14 Unknown History tablet,extended release (8 Hour Pain Reliever) vitamin E (dl, acetate) 45 mg (100 45 mg PO QDAY 09/24 Unknown History unit) capsule sertraline 25 mg tablet 25 mg PO QDAY #90 tabs 01/01 Unknown Rx Allergy/AdvReac Type Severity Reaction Status Date / Time Penicillins Allergy Severe Unknown Verified 01/01/25 08:36 latex Allergy Intermediate Rash Verified 01/01/25 08:36 Family History Father Arthritis Myocardial infarction Heart disease Mother Myocardial infarction Heart disease Osteoporosis Brother Colon cancer Sister Depression Suicide attempt Grandmother CVA (cerebral vascular accident) Uncle Melanoma Lung cancer Surgical History Status post complete hysterectomy Hx of colonoscopy History of bilateral oophorectomy History of LAVH History of tonsillectomy Social History Smoking Status: Never smoker alcohol intake: never substance use type: does not use caffeine: No what type of physical activity do you participate in: none seatbelt use: always do you feel safe at home: Yes additional social history: -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 General Appearance: cooperative, comfortable, well kempt and well developed Orientation / Consciousness: awake, oriented to person, oriented to place and oriented to time Exam Limitations: no limitations HEENT normocephalic, head/scalp atraumatic, EAC's normal, TM's normal bilaterally and moist oral mucous membranes Head and Scalp: normal to inspection, normocephalic and atraumatic Face and Sinus: normal facial exam Nose: external nose normal External Ear: external ears normal External Auditory Canal: EAC's normal Tympanic Membrane: TM's normal bilaterally and other Other Details: Tympanotomy tubes in place bilaterally Mouth: oral and palatal mucosa normal Eyes EOMs intact bilaterally General Eye: normal appearance of both eyes Alignment: alignment normal Neck full ROM and supple General: trachea midline Resp normal respiratory effort, normal air movement, no retractions, no use of accessory muscles and clear to auscultation bilaterally Effort and Inspection: able to speak in complete sentences Auscultation: clear to auscultation bilaterally Cardio regular rate, regular rhythm, S1 normal heart sound and S2 normal heart sound Extremity normal to inspection Skin Hair: normal Neuro oriented x3, CN's II-XII intact bilaterally, moves all extremities, no focal motor deficits and no sensory deficits noted Sensorium / Orientation: awake, alert, oriented to person, oriented to place and oriented to time Speech: speech normal Psych affect normal Appearance: grossly normal and well kempt Attitude: calm Activity / Motor Behavior: appropriate eye contact Speech: normal speech Mood & Affect: euthymic mood Attention / Concentration: attention grossly intact Debridement Note Debridement Note Post-Debridement Measurements and Additional Note: Post-Debridement Measurements/Treatment LEONILA - Nurse 1 - General Ulcer Assessment Start: 12/18/24 14:16 Freq: Status: Active Protocol: SARTHAK Activity Type Activity Date Activity User E-sign Co-sign Detail Recorded Client Recorded Date Recorded By Document 12/19/24 13:12 ML [id number] 12/19/24 13:13 ML Undo 12/19/24 13:12 ML wrong pt [id number] 12/20/24 13:01 ML Document 12/31/24 08:57 RB [id number] 12/31/24 08:59 RB 12/31/24 08:57 WC - Today's Visit Information Type of service Follow-up Visit (Physician/ISOTOPE TECHNOLOGIST ) Arrival Mode Ambulatory Transfer Assistance None Patient Identification Verified (Name & Yes ) Patient Requires Transmission-Based No Precautions Vital Signs Temperature (97.8 F-99.1 F) 97.9 F Temperature Source Temporal Pulse Rate (60-100) 87 Pulse Location Monitor Respiratory Rate (12-18) 18 Respiratory rate source Observation Blood Pressure (90/60-120/80) 115/69 Blood Pressure Mean 84 Source Monitor Position Semi-Fowlers Blood Pressure Location Left Arm History Since Last Visit- (Skip if this is Patient's initial visit) Have you changed medications since your No last visit? Any new allergies or adverse reactions No Had a fall/change in ADL's that may No increase risk of falls Signs or symptoms of abuse and/or No neglect since last visit Have you been in the hospital since your No last visit? Has dressing in place as prescribed No Has compression in place as prescribed N/A Has offloadiing in place as prescribed N/A Experienced any changes in pain level or No management Pain Scale: 0-10 Numeric Is Patient Pain Free? Yes LEONILA - Nurse 3 - General Ulcer D/C NN Start: 12/18/24 14:16 Freq: Status: Active Protocol: Activity Type Activity Date Activity User E-sign Co-sign Detail Recorded Client Recorded Date Recorded By Document 12/31/24 09:13 DS [id number] 12/31/24 16:23 DS 12/31/24 09:13 Is Patient Pain Free? Yes 12/31/24 16:23 Wound Center by Shamika Cheatham no wound. pt escorted over to HBO Initialized on 12/31/24 16:23 - END OF NOTE Charges/Coding Visit Charges Office Visits / Consults: [id number] OV L3 Est 20min Assessment/Plan Assessment/Plan (1) Radiation proctitis: CODE(S): K62.7 - Radiation proctitis (2) Bright red blood per rectum: CODE(S): K62.5 - Hemorrhage of anus and rectum (3) Frequent loose stools: CODE(S): R19.7 - Diarrhea, unspecified QUALIFIERS: Diarrhea type: due to malabsorption Qualified Code(s): K90.9 - Intestinal malabsorption, unspecified; R19.7 - Diarrhea, unspecified (4) History of radiation therapy: CODE(S): Z92.3 - Personal history of irradiation (5) Endometrial cancer: CODE(S): C54.1 - Malignant neoplasm of endometrium (6) Recurrent carcinoma of endometrium: CODE(S): C54.1 - Malignant neoplasm of endometrium (7) History of LAVH: CODE(S): Z90.710 - Acquired absence of both cervix and uterus (8) Status post complete hysterectomy: CODE(S): Z90.710 - Acquired absence of both cervix and uterus (9) History of bilateral oophorectomy: CODE(S): Z90.722 - Acquired absence of ovaries, bilateral (10) Vagina neoplasm: CODE(S): D49.59 - Neoplasm of unspecified behavior of other genitourinary organ (11) Eardrum rupture, right: CODE(S): H72.91 - Unspecified perforation of tympanic membrane, right ear (12) Gastric reflux: CODE(S): K21.9 - Gastro-esophageal reflux disease without esophagitis (13) History of tonsillectomy: CODE(S): Z90.89 - Acquired absence of other organs (14) Hyperlipidemia: CODE(S): E78.5 - Hyperlipidemia, unspecified (15) Hypothyroid: CODE(S): E03.9 - Hypothyroidism, unspecified QUALIFIERS: Hypothyroidism type: acquired Qualified Code(s): E03.9 - Hypothyroidism, unspecified PLAN: Plan This is a 59-year-old female with a history of endometrial cancer, for which she has undergone hysterectomy with bilateral salpingo-oophorectomy, as well as radical vaginectomy. The patient has also undergone radiation therapy as well as vaginal brachytherapy. As a result of her prior radiation treatments, the patient has developed symptoms and manifestations of radiation proctitis, with frequent diarrheal stools and hematochezia. A recent colonoscopy was performed on September 04, 2024, by Dr. Arley Pham, at which time multiple bleeding colonic angiodysplastic lesions were treated with argon plasma coagulation. With documentation of radiation proctitis, and symptoms which have adversely affected the patient's quality of life, the patient was referred for evaluation and consideration of hyperbaric oxygen therapy. In review of the patient's history and manifestations, it appeared as though the patient was a candidate for hyperbaric oxygen therapy. The indications and risks were discussed with the patient in detail. The patient has now undergone a total of 18 sessions of hype rbaric oxygen therapy. She has tolerated them well, but for otic discomfort which occurred early in her course of hyperbaric treatments. Tympanotomy tubes were placed bilaterally, following which the patient has tolerated subsequent hyperbaric oxygen therapy sessions without otic pain or discomfort. Patient is doing well, and her symptoms of hematochezia appear to be diminishing. We have discussed that she would likely benefit from additional treatments beyond the 30 which were initially planned. It has been recommended that we continue an additional 30 such sessions following the completion of her current course of 30 sessions. Sessions of 100% oxygen at 2 sarahi with no air breaks will be continued. Preauthorization from the patient's insurance company will be sought. The patient has indicated her desire to proceed. Total time: 28 minutes
[2025-01-02 11:03] VITALS: BP 106/60; BP 126/67; PULSE 67; PULSE 94; RESP 14; TEMP 35.6; TEMP 36.3
--- NOTE | 2025-01-02 18:09 | HBO.PN.PCM_ITS ---
History of Present Illness Date of Service: 01/02/25 Chief Complaint: Radiation proctitis History of Wound: This is a 59-year-old female with a history of recurrent endometrial cancer. The patient was diagnosed with endometrial cancer and underwent a total hysterectomy and bilateral salpingo-oophorectomy in May 2019. Upon experiencing several months of vaginal bleeding in 2023, the patient underwent a biopsy on May 19, 2023, which revealed recurrent endometrial adenocarcinoma. The patient underwent partial radical vaginectomy on May 23, 2023, the pathology of which confirmed recurrent, well-differentiated endometrial adenocarcinoma. A CT scan on June 15, 2023, showed a nodule posterior to the right lower abdominal rectus sheath, thought to represent a peritoneal tumor implant. The patient was treated with EBRT 4500 cGy in [address] Grimes from July 10, 2023, until August 11, 2023. She received adjuvant vaginal cylinder brachytherapy consisting of 30 Stratton delivered over 5 fractions, twice weekly, utilizing a 3 cm cylinder to 10 cm length prescribed to surface. The patient received her final fraction on August 30, 2023. Recent CHEMICAL INSPECTOR evaluations have documented that the "Vagina is shortened and narrowed, consistent with her history of radiation. There are some radiation changes of the mucosa including around the left urethral meatus. No evidence of recurrent disease." Over the last several months prior to her presentation here, the patient has experienced bright red blood per rectum with every bowel movement. She has had frequent episodes of diarrhea with frequent loose stools, and relates poor control of her bowel movements. The patient underwent a colon oscopy by Dr. Arley Pham, Diamond Die Driller, on September 04, 2024. Multiple bleeding colonic angiodysplastic lesions were identified, and treated with argon plasma coagulation. These lesions were suspected to be associated with a prior history of radiation resulting in radiation proctitis. Progress of Wound: Progress: This represents the 20th of 30 planned sessions initially. Tolerance: Hyperbaric oxygen therapy was administered as per the facility protocol at 2 TOSHA for 90 minutes without air breaks. The patient tolerated hyperbaric oxygen therapy without any complaints or complications. Upon emergence from the hyperbaric chamber, the patient's vital signs remained stable, and she was discharged in good condition. She has previously undergone placement of myringotomy tubes bilaterally, and appears to be tolerating hyperbaric sessions without otic discomfort. Objective Data Objective Data Vital Signs: Vital Signs Temp Pulse Resp BP 97.3 F L 94 14 106/60 01/02/25 11:03 01/02/25 11:03 01/02/25 11:03 01/02/25 11:03 Exam Physical Exam Const alert, oriented x3, no apparent distress and well nourished General Appearance: cooperative and well developed HEENT normocephalic and EAC's normal Head and Scalp: atraumatic Eyes EOMs intact bilaterally Neck supple Resp normal respiratory effort and no use of accessory muscles Effort and Inspection: able to speak in complete sentences Psych affect normal Appearance: grossly normal and well kempt Speech: normal speech Nursing Assessment and Debridement Post-Debridement Measurements and Additional Note: Post-Debridement Measurements/Treatment LEONILA - Nurse 1 - General Ulcer Assessment Start: 12/18/24 14:16 Freq: Status: Active Protocol: SARTHAK Activity Type Activity Date Activity User E-sign Co-sign Detail Recorded Client Recorded Date Recorded By Document 12/31/24 08:57 SHIV [id number] 12/31/24 08:59 SHIV 12/31/24 08:57 LEONILA - Today's Visit Information Type of service Follow-up Visit (Physician/MACHINE BURRER ) Arrival Mode Ambulatory Transfer Assistance None Patient Identification Verified (Name & Yes ) Patient Requires Transmission-Based No Precautions Vital Signs Temperature (97.8 F-99.1 F) 97.9 F Temperature Source Temporal Pulse Rate (60-100) 87 Pulse Location Monitor Respiratory Rate (12-18) 18 Respiratory rate source Observation Blood Pressure (90/60-120/80) 115/69 Blood Pressure Mean (mm Hg) 84 Source Monitor Position Semi-Fowlers Blood Pressure Location Left Arm History Since Last Visit- (Skip if this is Patient's initial visit) Have you changed medications since your No last visit? Any new allergies or adverse reactions No Had a fall/change in ADL's that may No increase risk of falls Signs or symptoms of abuse and/or No neglect since last visit Have you been in the hospital since your No last visit? Has dressing in place as prescribed No Has compression in place as prescribed N/A Has offloadiing in place as prescribed N/A Experienced any changes in pain level or No management Pain Scale: 0-10 Numeric Is Patient Pain Free? Yes LEONILA - Nurse 3 - General Ulcer D/C NN Start: 12/18/24 14:16 Freq: Status: Active Protocol: Activity Type Activity Date Activity User E-sign Co-sign Detail Recorded Client Recorded Date Recorded By Document 12/31/24 09:13 DS [id number] 12/31/24 16:23 DS 12/31/24 09:13 Is Patient Pain Free? Yes 12/31/24 16:23 Wound Center by Shamika Cheatham no wound. pt escorted over to HBO Initialized on 12/31/24 16:23 - END OF NOTE Charges/Coding Wound Center CF Procedures HBO Supervision: [id number] Hyperbaric Oxygen; supervision Assessment/Plan Assessment/Plan (1) Radiation proctitis: CODE(S): K62.7 - Radiation proctitis (2) History of radiation therapy: CODE(S): Z92.3 - Personal history of irradiation (3) Recurrent carcinoma of endometrium: CODE(S): C54.1 - Malignant neoplasm of endometrium (4) Endometrial cancer: CODE(S): C54.1 - Malignant neoplasm of endometrium (5) Vagina neoplasm: CODE(S): D49.59 - Neoplasm of unspecified behavior of other genitourinary organ (6) Status post complete hysterectomy: CODE(S): Z90.710 - Acquired absence of both cervix and uterus (7) History of bilateral oophorectomy: CODE(S): Z90.722 - Acquired absence of ovaries, bilateral (8) History of LAVH: CODE(S): Z90.710 - Acquired absence of both cervix and uterus PLAN: Plan The patient appears to be tolerating hyperbaric oxygen therapy well, which will be continued as per her medical treatment plan.
[2025-01-03 10:37] VITALS: BP 120/61; BP 128/62; PULSE 67; PULSE 79; RESP 13; RESP 15; TEMP 35.9; TEMP 36.7
--- NOTE | 2025-01-03 14:02 | PN.PCM_ITS ---
History of Present Illness Date of Service: 01/03/25 Chief Complaint: Radiation proctitis History of Wound: This is a 59-year-old female with a history of recurrent endometrial cancer. The patient was diagnosed with endometrial cancer and underwent a total hysterectomy and bilateral salpingo-oophorectomy in May 2019. Upon experiencing several months of vaginal bleeding in 2023, the patient underwent a biopsy on May 19, 2023, which revealed recurrent endometrial adenocarcinoma. The patient underwent partial radical vaginectomy on May 23, 2023, the pathology of which confirmed recurrent, well-differentiated endometrial adenocarcinoma. A CT scan on June 15, 2023, showed a nodule posterior to the right lower abdominal rectus sheath, thought to represent a peritoneal tumor implant. The patient was treated with EBRT 4500 cGy in [address] Grimes from July 10, 2023, until August 11, 2023. She received adjuvant vaginal cylinder brachytherapy consisting of 30 Stratton delivered over 5 fractions, twice weekly, utilizing a 3 cm cylinder to 10 cm length prescribed to surface. The patient received her final fraction on August 30, 2023. Recent BREASTFEEDING PROGRAM COORDINATOR evaluations have documented that the "Vagina is shortened and narrowed, consistent with her history of radiation. There are some radiation changes of the mucosa including around the left urethral meatus. No evidence of recurrent disease." Over the last several months prior to her presentation here, the patient has experienced bright red blood per rectum with every bowel movement. She has had frequent episodes of diarrhea with frequent loose stools, and relates poor control of her bowel movements. The patient underwent a colon oscopy by Dr. Arley Pham, Net Developer [employer], on September 04, 2024. Multiple bleeding colonic angiodysplastic lesions were identified, and treated with argon plasma coagulation. These lesions were suspected to be associated with a prior history of radiation resulting in radiation proctitis. Progress of Wound: Progress: This represents the 27th of 30 planned sessions initially. Tolerance: Hyperbaric oxygen therapy was administered as per the facility protocol at 2 TOSHA for 90 minutes without air breaks. The patient tolerated hyperbaric oxygen therapy without any complaints or complications. Upon emergence from the hyperbaric chamber, the patient's vital signs remained stable, and she was discharged in good condition. She has previously undergone placement of myringotomy tubes bilaterally, and appears to be tolerating hyperbaric sessions without otic discomfort. Objective Data Objective Data Vital Signs: Vital Signs Temp Pulse Resp BP 96.6 F L 79 13 120/61 01/03/25 10:37 01/03/25 10:37 01/03/25 10:37 01/03/25 10:37 Physical Exam Const alert, oriented x3 and no apparent distress HEENT normocephalic and head/scalp atraumatic HEENT Narrative: tympanostomy tubes in place b/l Resp normal respiratory effort and clear to auscultation bilaterally Effort and Inspection: able to speak in complete sentences Auscultation: clear to auscultation bilaterally Psych mental status grossly normal, thought process normal, cooperative, affect normal and speech normal Debridement Note Debridement Note Post-Debridement Measurements and Additional Note: Post-Debridement Measurements/Treatment WC - Nurse 1 - General Ulcer Assessment Start: 12/18/24 14:16 Freq: Status: Active Protocol: SARTHAK Activity Type Activity Date Activity User E-sign Co-sign Detail Recorded Client Recorded Date Recorded By Document 12/19/24 13:12 ML [id number] 12/19/24 13:13 ML Undo 12/19/24 13:12 ML wrong pt [id number] 12/20/24 13:01 ML Document 12/31/24 08:57 RB [id number] 12/31/24 08:59 RB 12/31/24 08:57 - Today's Visit Information Type of service Follow-up Visit (Physician/FISHING BOAT CAPTAIN ) Arrival Mode Ambulatory Transfer Assistance None Patient Identification Verified (Name & Yes ) Patient Requires Transmission-Based No Precautions Vital Signs Temperature (97.8 F-99.1 F) 97.9 F Temperature Source Temporal Pulse Rate (60-100) 87 Pulse Location Monitor Respiratory Rate (12-18) 18 Respiratory rate source Observation Blood Pressure (90/60-120/80) 115/69 Blood Pressure Mean (mm Hg) 84 Source Monitor Position Semi-Fowlers Blood Pressure Location Left Arm History Since Last Visit- (Skip if this is Patient's initial visit) Have you changed medications since your No last visit? Any new allergies or adverse reactions No Had a fall/change in ADL's that may No increase risk of falls Signs or symptoms of abuse and/or No neglect since last visit Have you been in the hospital since your No last visit? Has dressing in place as prescribed No Has compression in place as prescribed N/A Has offloadiing in place as prescribed N/A Experienced any changes in pain level or No management Pain Scale: 0-10 Numeric Is Patient Pain Free? Yes WC - Nurse 3 - General Ulcer D/C NN Start: 12/18/24 14:16 Freq: Status: Active Protocol: Activity Type Activity Date Activity User E-sign Co-sign Detail Recorded Client Recorded Date Recorded By Document 12/31/24 09:13 DS [id number] 12/31/24 16:23 DS 12/31/24 09:13 Is Patient Pain Free? Yes 12/31/24 16:23 Wound Center by Shamika Cheatham no wound. pt escorted over to HBO Initialized on 12/31/24 16:23 - END OF NOTE Assessment/Plan Assessment/Plan (1) Radiation proctitis: CODE(S): K62.7 - Radiation proctitis (2) Bright red blood per rectum: CODE(S): K62.5 - Hemorrhage of anus and rectum (3) Frequent loose stools: CODE(S): R19.7 - Diarrhea, unspecified QUALIFIERS: Diarrhea type: due to malabsorption Qualified Code(s): K90.9 - Intestinal malabsorption, unspecified; R19.7 - Diarrhea, unspecified (4) Status post complete hysterectomy: CODE(S): Z90.710 - Acquired absence of both cervix and uterus (5) History of bilateral oophorectomy: CODE(S): Z90.722 - Acquired absence of ovaries, bilateral PLAN: Plan The patient appears to be tolerating hyperbaric oxygen therapy well, which will be continued as per the patient's medical treatment plan.
[2025-01-06 11:04] VITALS: BP 110/50; BP 111/61; PULSE 58; PULSE 75; RESP 14; RESP 15; TEMP 36.1
--- NOTE | 2025-01-06 13:08 | HBO.PN.PCM_ITS ---
History of Present Illness Date of Service: 01/06/25 Chief Complaint: Radiation proctitis History of Wound: This is a 59-year-old female with a history of recurrent endometrial cancer. The patient was diagnosed with endometrial cancer and underwent a total hysterectomy and bilateral salpingo-oophorectomy in May 2019. Upon experiencing several months of vaginal bleeding in 2023, the patient underwent a biopsy on May 19, 2023, which revealed recurrent endometrial adenocarcinoma. The patient underwent partial radical vaginectomy on May 23, 2023, the pathology of which confirmed recurrent, well-differentiated endometrial adenocarcinoma. A CT scan on June 15, 2023, showed a nodule posterior to the right lower abdominal rectus sheath, thought to represent a peritoneal tumor implant. The patient was treated with EBRT 4500 cGy in [address] Grimes from July 10, 2023, until August 11, 2023. She received adjuvant vaginal cylinder brachytherapy consisting of 30 Stratton delivered over 5 fractions, twice weekly, utilizing a 3 cm cylinder to 10 cm length prescribed to surface. The patient received her final fraction on August 30, 2023. Recent PROTECTIVE SERVICES CASE WORKER evaluations have documented that the "Vagina is shortened and narrowed, consistent with her history of radiation. There are some radiation changes of the mucosa including around the left urethral meatus. No evidence of recurrent disease." Over the last several months prior to her presentation here, the patient has experienced bright red blood per rectum with every bowel movement. She has had frequent episodes of diarrhea with frequent loose stools, and relates poor control of her bowel movements. The patient underwent a colon oscopy by Dr. Arley Pham, Skip Tender, on September 04, 2024. Multiple bleeding colonic angiodysplastic lesions were identified, and treated with argon plasma coagulation. These lesions were suspected to be associated with a prior history of radiation resulting in radiation proctitis. Progress of Wound: Progress: This represents the 22nd of 30 planned sessions initially. Tolerance: Hyperbaric oxygen therapy was administered as per the facility protocol at 2 TOSHA for 90 minutes without air breaks. The patient tolerated hyperbaric oxygen therapy without any complaints or complications. Upon emergence from the hyperbaric chamber, the patient's vital signs remained stable, and she was discharged in good condition. She has previously undergone placement of myringotomy tubes bilaterally, and appears to be tolerating hyperbaric sessions without otic discomfort. Objective Data Objective Data Vital Signs: Vital Signs Temp Pulse Resp BP 96.9 F L 75 14 111/61 01/06/25 11:04 01/06/25 11:04 01/06/25 11:04 01/06/25 11:04 Exam Physical Exam Const alert, oriented x3, no apparent distress and well nourished General Appearance: cooperative and well developed HEENT normocephalic and head/scalp atraumatic HEENT Narrative: tympanostomy tubes in place b/l Head and Scalp: atraumatic Eyes EOMs intact bilaterally Resp normal respiratory effort and no use of accessory muscles Effort and Inspection: able to speak in complete sentences Psych mental status grossly normal, thought process normal, cooperative, affect normal and speech normal Appearance: grossly normal Speech: normal speech Charges/Coding Wound Center CF Procedures HBO Supervision: [id number] Hyperbaric Oxygen; supervision Assessment/Plan Assessment/Plan (1) Radiation proctitis: CODE(S): K62.7 - Radiation proctitis (2) History of radiation therapy: CODE(S): Z92.3 - Personal history of irradiation (3) Bright red blood per rectum: CODE(S): K62.5 - Hemorrhage of anus and rectum (4) Frequent loose stools: CODE(S): R19.7 - Diarrhea, unspecified QUALIFIERS: Diarrhea type: due to malabsorption Qualified Code(s): K90.9 - Intestinal malabsorption, unspecified; R19.7 - Diarrhea, unspecified (5) Recurrent carcinoma of endometrium: CODE(S): C54.1 - Malignant neoplasm of endometrium (6) Endometrial cancer: CODE(S): C54.1 - Malignant neoplasm of endometrium (7) Vagina neoplasm: CODE(S): D49.59 - Neoplasm of unspecified behavior of other genitourinary organ (8) Status post complete hysterectomy: CODE(S): Z90.710 - Acquired absence of both cervix and uterus (9) History of bilateral oophorectomy: CODE(S): Z90.722 - Acquired absence of ovaries, bilateral (10) History of LAVH: CODE(S): Z90.710 - Acquired absence of both cervix and uterus PLAN: Plan The patient appears to be tolerating hyperbaric oxygen therapy well, which will be continued as per the patient's medical treatment plan.
[2025-01-07 15:09] VITALS: BP 110/58; BP 117/50; PULSE 66; PULSE 69; RESP 14; RESP 15; TEMP 36.1; TEMP 36.3
--- NOTE | 2025-01-08 10:09 | HBO.PN.PCM_ITS ---
History of Present Illness Date of Service: 01/07/25 Chief Complaint: Radiation proctitis History of Wound: This is a 59-year-old female with a history of recurrent endometrial cancer. The patient was diagnosed with endometrial cancer and underwent a total hysterectomy and bilateral salpingo-oophorectomy in May 2019. Upon experiencing several months of vaginal bleeding in 2023, the patient underwent a biopsy on May 19, 2023, which revealed recurrent endometrial adenocarcinoma. The patient underwent partial radical vaginectomy on May 23, 2023, the pathology of which confirmed recurrent, well-differentiated endometrial adenocarcinoma. A CT scan on June 15, 2023, showed a nodule posterior to the right lower abdominal rectus sheath, thought to represent a peritoneal tumor implant. The patient was treated with EBRT 4500 cGy in [address] Grimes from July 10, 2023, until August 11, 2023. She received adjuvant vaginal cylinder brachytherapy consisting of 30 Stratton delivered over 5 fractions, twice weekly, utilizing a 3 cm cylinder to 10 cm length prescribed to surface. The patient received her final fraction on August 30, 2023. Recent FREIGHT AND PASSENGER AGENT evaluations have documented that the "Vagina is shortened and narrowed, consistent with her history of radiation. There are some radiation changes of the mucosa including around the left urethral meatus. No evidence of recurrent disease." Over the last several months prior to her presentation here, the patient has experienced bright red blood per rectum with every bowel movement. She has had frequent episodes of diarrhea with frequent loose stools, and relates poor control of her bowel movements. The patient underwent a colon oscopy by Dr. Arley Pham, Legislative Correspondent, on September 04, 2024. Multiple bleeding colonic angiodysplastic lesions were identified, and treated with argon plasma coagulation. These lesions were suspected to be associated with a prior history of radiation resulting in radiation proctitis. Progress of Wound: Progress: This represents the 23rd of 30 planned sessions initially. Tolerance: Hyperbaric oxygen therapy was administered as per the facility protocol at 2 TOSHA for 90 minutes without air breaks. The patient tolerated hyperbaric oxygen therapy without any complaints or complications. Upon emergence from the hyperbaric chamber, the patient's vital signs remained stable, and she was discharged in good condition. She has previously undergone placement of myringotomy tubes bilaterally, and appears to be tolerating hyperbaric sessions without otic discomfort. Objective Data Objective Data Vital Signs: Vital Signs Temp Pulse Resp BP 97.3 F L 69 15 117/50 L 01/07/25 15:09 01/07/25 15:09 01/07/25 15:09 01/07/25 15:09 Exam Physical Exam Const alert, oriented x3 and no apparent distress General Appearance: cooperative and well developed HEENT normocephalic Head and Scalp: atraumatic Eyes EOMs intact bilaterally Resp normal respiratory effort and no use of accessory muscles Effort and Inspection: able to speak in complete sentences GI Inspection: central obesity Extremity no clubbing, cyanosis or edema Skin no rashes or lesions noted Neuro oriented x3, CN's II-XII intact bilaterally and moves all extremities Speech: speech normal Psych mental status grossly normal and affect normal Appearance: grossly normal Speech: normal speech Charges/Coding Wound Center CF Procedures HBO Supervision: [id number] Hyperbaric Oxygen; supervision Assessment/Plan Assessment/Plan (1) Radiation proctitis: CODE(S): K62.7 - Radiation proctitis (2) History of radiation therapy: CODE(S): Z92.3 - Personal history of irradiation (3) Bright red blood per rectum: CODE(S): K62.5 - Hemorrhage of anus and rectum (4) Frequent loose stools: CODE(S): R19.7 - Diarrhea, unspecified QUALIFIERS: Diarrhea type: due to malabsorption Qualified Code(s): K90.9 - Intestinal malabsorption, unspecified; R19.7 - Diarrhea, unspecified (5) Recurrent carcinoma of endometrium: CODE(S): C54.1 - Malignant neoplasm of endometrium (6) Endometrial cancer: CODE(S): C54.1 - Malignant neoplasm of endometrium (7) Vagina neoplasm: CODE(S): D49.59 - Neoplasm of unspecified behavior of other genitourinary organ (8) Status post complete hysterectomy: CODE(S): Z90.710 - Acquired absence of both cervix and uterus (9) History of bilateral oophorectomy: CODE(S): Z90.722 - Acquired absence of ovaries, bilateral (10) History of LAVH: CODE(S): Z90.710 - Acquired absence of both cervix and uterus PLAN: Plan The patient appears to be tolerating hyperbaric oxygen therapy well, which will be continued as per the patient's medical treatment plan.
[2025-01-08 11:38] VITALS: BP 123/49; BP 139/75; PULSE 61; PULSE 80; RESP 14; RESP 15; TEMP 36.1; TEMP 36.2
--- NOTE | 2025-01-08 13:23 | PCM.HBO.PN ---
History of Present Illness Date of Service: 01/08/25 Chief Complaint: Radiation proctitis History of Wound: This is a 59-year-old female with a history of recurrent endometrial cancer. The patient was diagnosed with endometrial cancer and underwent a total hysterectomy and bilateral salpingo-oophorectomy in May 2019. Upon experiencing several months of vaginal bleeding in 2023, the patient underwent a biopsy on May 19, 2023, which revealed recurrent endometrial adenocarcinoma. The patient underwent partial radical vaginectomy on May 23, 2023, the pathology of which confirmed recurrent, well-differentiated endometrial adenocarcinoma. A CT scan on June 15, 2023, showed a nodule posterior to the right lower abdominal rectus sheath, thought to represent a peritoneal tumor implant. The patient was treated with EBRT 4500 cGy in [address] Grimes from July 10, 2023, until August 11, 2023. She received adjuvant vaginal cylinder brachytherapy consisting of 30 Stratton delivered over 5 fractions, twice weekly, utilizing a 3 cm cylinder to 10 cm length prescribed to surface. The patient received her final fraction on August 30, 2023. Recent BRAND RECORDER evaluations have documented that the "Vagina is shortened and narrowed, consistent with her history of radiation. There are some radiation changes of the mucosa including around the left urethral meatus. No evidence of recurrent disease." Over the last several months prior to her presentation here, the patient has experienced bright red blood per rectum with every bowel movement. She has had frequent episodes of diarrhea with frequent loose stools, and relates poor control of her bowel movements. The patient underwent a colonoscopy by Dr. Arley Pham, Policy Services Representative, on September 04, 2024. Multiple bleeding colonic angiodysplastic lesions were identified, and treated with argon plasma coagulation. These lesions were suspected to be associated with a prior history of radiation resulting in radiation proctitis. Progress of Wound: Progress: This represents the 24th hyperbaric oxygen therapy session of 30 planned sessions initially. Tolerance: Hyperbaric oxygen therapy was administered as per the facility protocol at 2 TOSHA for 90 minutes without air breaks. The patient tolerated hyperbaric oxygen therapy without any complaints or complications. Upon emergence from the hyperbaric chamber, the patient's vital signs remained stable, and she was discharged in good condition. She has previously undergone placement of myringotomy tubes bilaterally, and appears to be tolerating hyperbaric sessions without otic discomfort. Objective Data Objective Data Vital Signs: Vital Signs Temp Pulse Resp BP 96.9 F L 80 14 139/75 H 01/08/25 11:38 01/08/25 11:38 01/08/25 11:38 01/08/25 11:38 Exam Physical Exam Const alert, oriented x3 and no apparent distress General Appearance: cooperative and well developed HEENT normocephalic Head and Scalp: atraumatic Eyes EOMs intact bilaterally Resp normal respiratory effort and no use of accessory muscles Effort and Inspection: able to speak in complete sentences GI Inspection: central obesity Extremity no clubbing, cyanosis or edema Skin no rashes or lesions noted Neuro oriented x3, CN's II-XII intact bilaterally and moves all extremities Speech: speech normal Psych mental status grossly normal and affect normal Appearance: grossly normal Speech: normal speech Charges/Coding Wound Center CF Procedures HBO Supervision: [id number] Hyperbaric Oxygen; supervision Assessment/Plan Assessment/Plan (1) Radiation proctitis: CODE(S): K62.7 - Radiation proctitis (2) History of radiation therapy: CODE(S): Z92.3 - Personal history of irradiation (3) Bright red blood per rectum: CODE(S): K62.5 - Hemorrhage of anus and rectum (4) Frequent loose stools: CODE(S): R19.7 - Diarrhea, unspecified QUALIFIERS: Diarrhea type: due to malabsorption Qualified Code(s): K90.9 - Intestinal malabsorption, unspecified; R19.7 - Diarrhea, unspecified (5) Recurrent carcinoma of endometrium: CODE(S): C54.1 - Malignant neoplasm of endometrium (6) Endometrial cancer: CODE(S): C54.1 - Malignant neoplasm of endometrium (7) Vagina neoplasm: CODE(S): D49.59 - Neoplasm of unspecified behavior of other genitourinary organ (8) Status post complete hysterectomy: CODE(S): Z90.710 - Acquired absence of both cervix and uterus (9) History of bilateral oophorectomy: CODE(S): Z90.722 - Acquired absence of ovaries, bilateral (10) History of LAVH: CODE(S): Z90.710 - Acquired absence of both cervix and uterus PLAN: Plan The patient appears to be tolerating hyperbaric oxygen therapy well, which will be continued as per the patient's medical treatment plan.
--- NOTE | 2025-01-09 09:52 | PCM.HBO.PN ---
History of Present Illness Date of Service: 01/09/25 Chief Complaint: Radiation proctitis History of Wound: This is a 59-year-old female with a history of recurrent endometrial cancer. The patient was diagnosed with endometrial cancer and underwent a total hysterectomy and bilateral salpingo-oophorectomy in May 2019. Upon experiencing several months of vaginal bleeding in 2023, the patient underwent a biopsy on May 19, 2023, which revealed recurrent endometrial adenocarcinoma. The patient underwent partial radical vaginectomy on May 23, 2023, the pathology of which confirmed recurrent, well-differentiated endometrial adenocarcinoma. A CT scan on June 15, 2023, showed a nodule posterior to the right lower abdominal rectus sheath, thought to represent a peritoneal tumor implant. The patient was treated with EBRT 4500 cGy in [address] Grimes from July 10, 2023, until August 11, 2023. She received adjuvant vaginal cylinder brachytherapy consisting of 30 Stratton delivered over 5 fractions, twice weekly, utilizing a 3 cm cylinder to 10 cm length prescribed to surface. The patient received her final fraction on August 30, 2023. Recent PHOTOVOLTAIC TECHNICIAN evaluations have documented that the "Vagina is shortened and narrowed, consistent with her history of radiation. There are some radiation changes of the mucosa including around the left urethral meatus. No evidence of recurrent disease." Over the last several months prior to her presentation here, the patient has experienced bright red blood per rectum with every bowel movement. She has had frequent episodes of diarrhea with frequent loose stools, and relates poor control of her bowel movements. The patient underwent a colonoscopy by Dr. Arley Pham, Child Development Instructor, on September 04, 2024. Multiple bleeding colonic angiodysplastic lesions were identified, and treated with argon plasma coagulation. These lesions were suspected to be associated with a prior history of radiation resulting in radiation proctitis. Progress of Wound: Progress: This represents the 25th hyperbaric oxygen therapy session of 30 planned sessions initially. Tolerance: Hyperbaric oxygen therapy was administered as per the facility protocol at 2 TOSHA for 90 minutes without air breaks. The patient tolerated hyperbaric oxygen therapy without any complaints or complications. Upon emergence from the hyperbaric chamber, the patient's vital signs remained stable, and she was discharged in good condition. Objective Data Objective Data Vital Signs: Vital Signs Temp Pulse Resp BP 96.9 F L 80 14 139/75 H 01/08/25 11:38 01/08/25 11:38 01/08/25 11:38 01/08/25 11:38 Exam Physical Exam Const alert, oriented x3 and no apparent distress General Appearance: cooperative and comfortable HEENT normocephalic and head/scalp atraumatic Head and Scalp: normal to inspection and normocephalic Tympanic Membrane: other Other Details: Tympanostomy tubes noted bilaterally Eyes EOMs intact bilaterally General Eye: normal appearance of both eyes Neck full ROM General: normal visual inspection Resp normal respiratory effort and normal air movement Effort and Inspection: able to speak in complete sentences Neuro oriented x3, CN's II-XII intact bilaterally, moves all extremities and no focal motor deficits Psych mental status grossly normal, thought process normal, cooperative and affect normal Charges/Coding Wound Center CF Procedures HBO Supervision: [id number] Hyperbaric Oxygen; supervision Assessment/Plan Assessment/Plan (1) Radiation proctitis: CODE(S): K62.7 - Radiation proctitis (2) Eardrum rupture, right: CODE(S): H72.91 - Unspecified perforation of tympanic membrane, right ear PLAN: Tympanostomy tube in place PLAN: Plan Julieth tolerated hyperbaric oxygen therapy well which will be continued per her medical plan.
[2025-01-09 10:08] VITALS: BP 116/58; BP 122/51; PULSE 60; PULSE 77; RESP 16; TEMP 35.4; TEMP 36.5
[2025-01-10 10:32] VITALS: BP 122/64; BP 129/68; PULSE 63; PULSE 79; RESP 15; TEMP 35.8; TEMP 36.3
--- NOTE | 2025-01-10 14:58 | HBO.PN.PCM_ITS ---
History of Present Illness Date of Service: 01/10/25 Chief Complaint: Radiation proctitis History of Wound: This is a 59-year-old female with a history of recurrent endometrial cancer. The patient was diagnosed with endometrial cancer and underwent a total hysterectomy and bilateral salpingo-oophorectomy in May 2019. Upon experiencing several months of vaginal bleeding in 2023, the patient underwent a biopsy on May 19, 2023, which revealed recurrent endometrial adenocarcinoma. The patient underwent partial radical vaginectomy on May 23, 2023, the pathology of which confirmed recurrent, well-differentiated endometrial adenocarcinoma. A CT scan on June 15, 2023, showed a nodule posterior to the right lower abdominal rectus sheath, thought to represent a peritoneal tumor implant. The patient was treated with EBRT 4500 cGy in [address] Grimes from July 10, 2023, until August 11, 2023. She received adjuvant vaginal cylinder brachytherapy consisting of 30 Stratton delivered over 5 fractions, twice weekly, utilizing a 3 cm cylinder to 10 cm length prescribed to surface. The patient received her final fraction on August 30, 2023. Recent PROMOTIONAL DEMONSTRATOR evaluations have documented that the "Vagina is shortened and narrowed, consistent with her history of radiation. There are some radiation changes of the mucosa including around the left urethral meatus. No evidence of recurrent disease." Over the last several months prior to her presentation here, the patient has experienced bright red blood per rectum with every bowel movement. She has had frequent episodes of diarrhea with frequent loose stools, and relates poor control of her bowel movements. The patient underwent a colon oscopy by Dr. Arley Pham, Lbd Teacher, on September 04, 2024. Multiple bleeding colonic angiodysplastic lesions were identified, and treated with argon plasma coagulation. These lesions were suspected to be associated with a prior history of radiation resulting in radiation proctitis. Progress of Wound: Progress: This represents the 26th hyperbaric oxygen therapy session of 30 planned sessions initially. Tolerance: Hyperbaric oxygen therapy was administered as per the facility protocol at 2 TOSHA for 90 minutes without air breaks. The patient tolerated hyperbaric oxygen therapy without any complaints or complications. Upon emergence from the hyperbaric chamber, the patient's vital signs remained stable, and she was discharged in good condition. Objective Data Objective Data Vital Signs: Vital Signs Temp Pulse Resp BP 96.5 F L 79 15 129/68 H 01/10/25 10:32 01/10/25 10:32 01/10/25 10:32 01/10/25 10:32 Exam Physical Exam Const alert, oriented x3 and no apparent distress General Appearance: cooperative and comfortable HEENT normocephalic and head/scalp atraumatic Head and Scalp: normal to inspection and normocephalic Tympanic Membrane: other Other Details: Tympanostomy tubes noted bilaterally Eyes EOMs intact bilaterally General Eye: normal appearance of both eyes Neck full ROM General: normal visual inspection Resp normal respiratory effort and normal air movement Effort and Inspection: able to speak in complete sentences Auscultation: clear to auscultation bilaterally Neuro oriented x3, CN's II-XII intact bilaterally, moves all extremities and no focal motor deficits Psych mental status grossly normal, thought process normal, cooperative and affect normal Assessment/Plan Assessment/Plan (1) Radiation proctitis: CODE(S): K62.7 - Radiation proctitis (2) Bright red blood per rectum: CODE(S): K62.5 - Hemorrhage of anus and rectum (3) Frequent loose stools: CODE(S): R19.7 - Diarrhea, unspecified QUALIFIERS: Diarrhea type: due to malabsorption Qualified Code(s): K90.9 - Intestinal malabsorption, unspecified; R19.7 - Diarrhea, unspecified (4) Status post complete hysterectomy: CODE(S): Z90.710 - Acquired absence of both cervix and uterus (5) History of bilateral oophorectomy: CODE(S): Z90.722 - Acquired absence of ovaries, bilateral PLAN: Plan The patient appears to be tolerating hyperbaric oxygen therapy well, which will be continued as per the patient's medical treatment plan.
[2025-01-13 10:27] VITALS: BP 110/52; BP 137/61; PULSE 67; PULSE 85; RESP 15; TEMP 35.9; TEMP 36.1
--- NOTE | 2025-01-13 12:08 | PCM.HBO.PN ---
History of Present Illness Date of Service: 01/13/25 Chief Complaint: Radiation proctitis History of Wound: Chief Complaint: Radiation proctitis History of Wound: This is a 59-year-old female with a history of recurrent endometrial cancer. The patient was diagnosed with endometrial cancer and underwent a total hysterectomy and bilateral salpingo-oophorectomy in May 2019. Upon experiencing several months of vaginal bleeding in 2023, the patient underwent a biopsy on May 19, 2023, which revealed recurrent endometrial adenocarcinoma. The patient underwent partial radical vaginectomy on May 23, 2023, the pathology of which confirmed recurrent, well-differentiated endometrial adenocarcinoma. A CT scan on June 15, 2023, showed a nodule posterior to the right lower abdominal rectus sheath, thought to represent a peritoneal tumor implant. The patient was treated with EBRT 4500 cGy in [address] Grimes from July 10, 2023, until August 11, 2023. She received adjuvant vaginal cylinder brachytherapy consisting of 30 Stratton delivered over 5 fractions, twice weekly, utilizing a 3 cm cylinder to 10 cm length prescribed to surface. The patient received her final fraction on August 30, 2023. Recent INSTRUMENT MAKER AND REPAIRER evaluations have documented that the "Vagina is shortened and narrowed, consistent with her history of radiation. There are some radiation changes of the mucosa including around the left urethral meatus. No evidence of recurrent disease." Over the last several months prior to her presentation here, the patient has experienced bright red blood per rectum with every bowel movement. She has had frequent episodes of diarrhea with frequent loose stools, and relates poor control of her bowel movements. The patient underwent a colonoscopy by Dr. Arley Pham, Community Education Specialist, on September 04, 2024. Multiple bleeding colonic angiodysplastic lesions were identified, and treated with argon plasma coagulation. These lesions were suspected to be associated with a prior history of radiation resulting in radiation proctitis. Progress of Wound: Progress of Wound: Progress: This represents the 27th hyperbaric oxygen therapy session of 30 planned sessions initially. Tolerance: Hyperbaric oxygen therapy was administered as per the facility protocol at 2 TOSHA for 90 minutes without air breaks. The patient tolerated hyperbaric oxygen therapy without any complaints or complications. Upon emergence from the hyperbaric chamber, the patient's vital signs remained stable, and she was discharged in good condition. Objective Data Objective Data Vital Signs: Vital Signs Temp Pulse Resp BP 97.0 F L 85 15 137/61 H 01/13/25 10:27 01/13/25 10:27 01/13/25 10:27 01/13/25 10:27 Exam Physical Exam Const alert and oriented x3 HEENT Tympanic Membrane: other Other Details: Tympanotomy tubes in place Resp normal respiratory effort Auscultation: clear to auscultation bilaterally Cardio regular rate, regular rhythm, S1 normal heart sound, S2 normal heart sound, no murmurs, no rub, no gallops and no clicks Charges/C[facility] Procedures HBO Supervision: [id number] Hyperbaric Oxygen; supervision Assessment/Plan Assessment/Plan (1) Radiation proctitis: CODE(S): K62.7 - Radiation proctitis (2) Bright red blood per rectum: CODE(S): K62.5 - Hemorrhage of anus and rectum (3) Frequent loose stools: CODE(S): R19.7 - Diarrhea, unspecified QUALIFIERS: Diarrhea type: due to malabsorption Qualified Code(s): K90.9 - Intestinal malabsorption, unspecified; R19.7 - Diarrhea, unspecified (4) Status post complete hysterectomy: CODE(S): Z90.710 - Acquired absence of both cervix and uterus (5) History of bilateral oophorectomy: CODE(S): Z90.722 - Acquired absence of ovaries, bilateral PLAN: Plan The patient appears to be tolerating hyperbaric oxygen therapy well, which will be continued as per the patient's medical treatment plan.
[2025-01-14 10:25] VITALS: BP 128/67; BP 151/57; PULSE 65; PULSE 82; RESP 14; TEMP 36.3
--- NOTE | 2025-01-14 12:57 | HBO.PN.PCM_ITS ---
History of Present Illness Date of Service: 01/14/25 Chief Complaint: Radiation proctitis History of Wound: This is a 59-year-old female with a history of recurrent endometrial cancer. The patient was diagnosed with endometrial cancer and underwent a total hysterectomy and bilateral salpingo-oophorectomy in May 2019. Upon experiencing several months of vaginal bleeding in 2023, the patient underwent a biopsy on May 19, 2023, which revealed recurrent endometrial adenocarcinoma. The patient underwent partial radical vaginectomy on May 23, 2023, the pathology of which confirmed recurrent, well-differentiated endometrial adenocarcinoma. A CT scan on June 15, 2023, showed a nodule posterior to the right lower abdominal rectus sheath, thought to represent a peritoneal tumor implant. The patient was treated with EBRT 4500 cGy in [address] Grimes from July 10, 2023, until August 11, 2023. She received adjuvant vaginal cylinder brachytherapy consisting of 30 Stratton delivered over 5 fractions, twice weekly, utilizing a 3 cm cylinder to 10 cm length prescribed to surface. The patient received her final fraction on August 30, 2023. Recent PHYSICIAN VICE PRESIDENT evaluations have documented that the "Vagina is shortened and narrowed, consistent with her history of radiation. There are some radiation changes of the mucosa including around the left urethral meatus. No evidence of recurrent disease." Over the last several months prior to her presentation here, the patient has experienced bright red blood per rectum with every bowel movement. She has had frequent episodes of diarrhea with frequent loose stools, and relates poor control of her bowel movements. The patient underwent a colon oscopy by Dr. Arley Pham, Director Food Safety, on September 04, 2024. Multiple bleeding colonic angiodysplastic lesions were identified, and treated with argon plasma coagulation. These lesions were suspected to be associated with a prior history of radiation resulting in radiation proctitis. Progress of Wound: Progress: This represents the 28th hyperbaric oxygen therapy session of 60 planned sessions. Tolerance: Hyperbaric oxygen therapy was administered as per the facility protocol at 2 TOSHA for 90 minutes without air breaks. The patient tolerated hype rbaric oxygen therapy without any complaints or complications. Upon emergence from the hyperbaric chamber, the patient's vital signs remained stable, and she was discharged in good condition. Objective Data Objective Data Vital Signs: Vital Signs Temp Pulse Resp BP 97.3 F L 82 14 151/57 H 01/14/25 10:25 01/14/25 10:25 01/14/25 10:25 01/14/25 10:25 Exam Physical Exam Const alert, oriented x3, no apparent distress and well nourished General Appearance: cooperative and well developed Exam Limitations: no limitations HEENT normocephalic Head and Scalp: atraumatic Face and Sinus: normal facial exam External Ear: external ears normal Eyes EOMs intact bilaterally General Eye: normal appearance of both eyes Neck full ROM General: normal visual inspection Resp normal respiratory effort and no use of accessory muscles Effort and Inspection: able to speak in complete sentences GI Palpation: soft Extremity normal to inspection, no clubbing, cyanosis or edema and no calf tenderness Skin no rashes or lesions noted Neuro oriented x3 and CN's II-XII intact bilaterally Speech: speech normal Gait (Neuro): normal gait Psych affect normal Appearance: grossly normal and well kempt Speech: normal speech Thought Content: normal thought content Judgement: judgement good Charges/Coding Wound [facility] Procedures HBO Supervision: [id number] Hyperbaric Oxygen; supervision Assessment/Plan Assessment/Plan (1) Radiation proctitis: CODE(S): K62.7 - Radiation proctitis (2) History of radiation therapy: CODE(S): Z92.3 - Personal history of irradiation (3) Bright red blood per rectum: CODE(S): K62.5 - Hemorrhage of anus and rectum (4) Frequent loose stools: CODE(S): R19.7 - Diarrhea, unspecified QUALIFIERS: Diarrhea type: due to malabsorption Qualified Code(s): K90.9 - Intestinal malabsorption, unspecified; R19.7 - Diarrhea, unspecified (5) Status post complete hysterectomy: CODE(S): Z90.710 - Acquired absence of both cervix and uterus (6) History of bilateral oophorectomy: CODE(S): Z90.722 - Acquired absence of ovaries, bilateral (7) Recurrent carcinoma of endometrium: CODE(S): C54.1 - Malignant neoplasm of endometrium (8) Endometrial cancer: CODE(S): C54.1 - Malignant neoplasm of endometrium (9) History of LAVH: CODE(S): Z90.710 - Acquired absence of both cervix and uterus PLAN: Plan The patient appears to be tolerating hyperbaric oxygen therapy well, which will be continued as per the patient's medical treatment plan.
[2025-01-15 10:42] VITALS: BP 117/59; BP 124/64; PULSE 68; PULSE 88; RESP 15; RESP 17; TEMP 36.1; TEMP 36.4
--- NOTE | 2025-01-15 13:12 | PCM.HBO.PN ---
History of Present Illness Date of Service: 01/15/25 Chief Complaint: Radiation proctitis History of Wound: Chief Complaint: Radiation proctitis History of Wound: This is a 59-year-old female with a history of recurrent endometrial cancer. The patient was diagnosed with endometrial cancer and underwent a total hysterectomy and bilateral salpingo-oophorectomy in May 2019. Upon experiencing several months of vaginal bleeding in 2023, the patient underwent a biopsy on May 19, 2023, which revealed recurrent endometrial adenocarcinoma. The patient underwent partial radical vaginectomy on May 23, 2023, the pathology of which confirmed recurrent, well-differentiated endometrial adenocarcinoma. A CT scan on June 15, 2023, showed a nodule posterior to the right lower abdominal rectus sheath, thought to represent a peritoneal tumor implant. The patient was treated with EBRT 4500 cGy in [address] Grimes from July 10, 2023, until August 11, 2023. She received adjuvant vaginal cylinder brachytherapy consisting of 30 Stratton delivered over 5 fractions, twice weekly, utilizing a 3 cm cylinder to 10 cm length prescribed to surface. The patient received her final fraction on August 30, 2023. Recent WOMEN'S MINISTRY DIRECTOR evaluations have documented that the "Vagina is shortened and narrowed, consistent with her history of radiation. There are some radiation changes of the mucosa including around the left urethral meatus. No evidence of recurrent disease." Over the last several months prior to her presentation here, the patient has experienced bright red blood per rectum with every bowel movement. She has had frequent episodes of diarrhea with frequent loose stools, and relates poor control of her bowel movements. The patient underwent a colonoscopy by Dr. Arley Pham, Glue Line Operator, on September 04, 2024. Multiple bleeding colonic angiodysplastic lesions were identified, and treated with argon plasma coagulation. These lesions were suspected to be associated with a prior history of radiation resulting in radiation proctitis. Progress of Wound: Progress of Wound: Progress: This represents the 29th hyperbaric oxygen therapy session of 30 planned sessions initially. Tolerance: Hyperbaric oxygen therapy was administered as per the facility protocol at 2 TOSHA for 90 minutes without air breaks. The patient tolerated hyperbaric oxygen therapy without any complaints or complications. Upon emergence from the hyperbaric chamber, the patient's vital signs remained stable, and she was discharged in good condition. Subjective Subjective Patient has no concerns Objective Data Objective Data Patient is stable on admission and discharge Vital Signs: Vital Signs Temp Pulse Resp BP 97.6 F L 88 15 124/64 H 01/15/25 10:42 01/15/25 10:42 01/15/25 10:42 01/15/25 10:42 Exam Physical Exam Const oriented x3 General Appearance: cooperative Exam Limitations: no limitations HEENT normocephalic Face and Sinus: normal facial exam External Ear: external ears normal Eyes PERRL General Eye: normal appearance of both eyes Neck full ROM General: normal visual inspection Resp normal respiratory effort Effort and Inspection: able to speak in complete sentences Auscultation: clear to auscultation bilaterally Cardio regular rate and regular rhythm Palpation: normal PMI Rate: regular rate Rhythm: regular rhythm GI Auscultation: normoactive bowel sounds Palpation: soft and no hepatosplenomegaly external exam normal Back/Spine Cervical Spine: cervical ROM normal Thoracic Spine / Upper Back: normal to inspection Lumbar Spine / Lower Back: normal to inspection Extremity normal to inspection General Extremity: normal exam except as noted Skin no rashes or lesions noted Neuro oriented x3 Psych Appearance: grossly normal Speech: normal speech Thought Content: normal thought content Judgement: judgement good Assessment/Plan Assessment/Plan (1) Radiation proctitis: CODE(S): K62.7 - Radiation proctitis (2) Bright red blood per rectum: CODE(S): K62.5 - Hemorrhage of anus and rectum (3) Frequent loose stools: CODE(S): R19.7 - Diarrhea, unspecified QUALIFIERS: Diarrhea type: due to malabsorption Qualified Code(s): K90.9 - Intestinal malabsorption, unspecified; R19.7 - Diarrhea, unspecified (4) Status post complete hysterectomy: CODE(S): Z90.710 - Acquired absence of both cervix and uterus (5) History of bilateral oophorectomy: CODE(S): Z90.722 - Acquired absence of ovaries, bilateral PLAN: Plan The patient appears to be tolerating hyperbaric oxygen therapy well, which will be continued as per the patient's medical treatment plan.
--- NOTE | 2025-01-16 10:10 | PCM.HBO.PN ---
History of Present Illness Date of Service: 01/16/25 Chief Complaint: Radiation proctitis History of Wound: This is a 59-year-old female with a history of recurrent endometrial cancer. The patient was diagnosed with endometrial cancer and underwent a total hysterectomy and bilateral salpingo-oophorectomy in May 2019. Upon experiencing several months of vaginal bleeding in 2023, the patient underwent a biopsy on May 19, 2023, which revealed recurrent endometrial adenocarcinoma. The patient underwent partial radical vaginectomy on May 23, 2023, the pathology of which confirmed recurrent, well-differentiated endometrial adenocarcinoma. A CT scan on June 15, 2023, showed a nodule posterior to the right lower abdominal rectus sheath, thought to represent a peritoneal tumor implant. The patient was treated with EBRT 4500 cGy in [address] Grimes from July 10, 2023, until August 11, 2023. She received adjuvant vaginal cylinder brachytherapy consisting of 30 Stratton delivered over 5 fractions, twice weekly, utilizing a 3 cm cylinder to 10 cm length prescribed to surface. The patient received her final fraction on August 30, 2023. Recent DIRECT SERVICE PROFESSIONAL evaluations have documented that the "Vagina is shortened and narrowed, consistent with her history of radiation. There are some radiation changes of the mucosa including around the left urethral meatus. No evidence of recurrent disease." Over the last several months prior to her presentation here, the patient has experienced bright red blood per rectum with every bowel movement. She has had frequent episodes of diarrhea with frequent loose stools, and relates poor control of her bowel movements. The patient underwent a colonoscopy by Dr. Arley Pham, Drop Wire Stringer, on September 04, 2024. Multiple bleeding colonic angiodysplastic lesions were identified, and treated with argon plasma coagulation. These lesions were suspected to be associated with a prior history of radiation resulting in radiation proctitis. Progress of Wound: Progress: This represents the 30th hyperbaric oxygen therapy session of 60 planned sessions. Tolerance: Hyperbaric oxygen therapy was administered as per the facility protocol at 2 TOSHA for 90 minutes without air breaks. The patient tolerated hyperbaric oxygen therapy without any complaints or complications. Upon emergence from the hyperbaric chamber, the patient's vital signs remained stable, and she was discharged in good condition. Objective Data Objective Data Vital Signs: Vital Signs Temp Pulse Resp BP 97.6 F L 88 15 124/64 H 01/15/25 10:42 01/15/25 10:42 01/15/25 10:42 01/15/25 10:42 Exam Physical Exam Const alert, oriented x3 and no apparent distress General Appearance: cooperative and comfortable HEENT normocephalic and head/scalp atraumatic Head and Scalp: normal to inspection and normocephalic Tympanic Membrane: other Other Details: Tympanostomy tubes noted bilaterally Eyes EOMs intact bilaterally General Eye: normal appearance of both eyes Neck full ROM General: normal visual inspection Resp normal respiratory effort Effort and Inspection: able to speak in complete sentences Neuro oriented x3, CN's II-XII intact bilaterally, moves all extremities and no focal motor deficits Psych mental status grossly normal, thought process normal, cooperative and affect normal Charges/Coding Wound Center CF Procedures HBO Supervision: [id number] Hyperbaric Oxygen; supervision Assessment/Plan Assessment/Plan (1) Radiation proctitis: CODE(S): K62.7 - Radiation proctitis (2) Eardrum rupture, right: CODE(S): H72.91 - Unspecified perforation of tympanic membrane, right ear PLAN: Tympanostomy tube in place PLAN: Plan Julieth tolerated hyperbaric oxygen therapy well which will be continued per her medical plan.
[2025-01-16 12:33] VITALS: BP 105/57; BP 123/56; PULSE 65; PULSE 82; RESP 14; RESP 16; TEMP 36.2; TEMP 36.7
[2025-01-17 07:30] VITALS: BP 120/59; BP 123/70; PULSE 68; PULSE 79; RESP 15; TEMP 36.1; TEMP 36.2
--- NOTE | 2025-01-17 13:53 | PCM.HBO.PN ---
History of Present Illness Date of Service: 01/17/25 Chief Complaint: Radiation proctitis History of Wound: This is a 59-year-old female with a history of recurrent endometrial cancer. The patient was diagnosed with endometrial cancer and underwent a total hysterectomy and bilateral salpingo-oophorectomy in May 2019. Upon experiencing several months of vaginal bleeding in 2023, the patient underwent a biopsy on May 19, 2023, which revealed recurrent endometrial adenocarcinoma. The patient underwent partial radical vaginectomy on May 23, 2023, the pathology of which confirmed recurrent, well-differentiated endometrial adenocarcinoma. A CT scan on June 15, 2023, showed a nodule posterior to the right lower abdominal rectus sheath, thought to represent a peritoneal tumor implant. The patient was treated with EBRT 4500 cGy in [address] Grimes from July 10, 2023, until August 11, 2023. She received adjuvant vaginal cylinder brachytherapy consisting of 30 Stratton delivered over 5 fractions, twice weekly, utilizing a 3 cm cylinder to 10 cm length prescribed to surface. The patient received her final fraction on August 30, 2023. Recent FLOWER POT PRESS OPERATOR evaluations have documented that the "Vagina is shortened and narrowed, consistent with her history of radiation. There are some radiation changes of the mucosa including around the left urethral meatus. No evidence of recurrent disease." Over the last several months prior to her presentation here, the patient has experienced bright red blood per rectum with every bowel movement. She has had frequent episodes of diarrhea with frequent loose stools, and relates poor control of her bowel movements. The patient underwent a colonoscopy by Dr. Arley Pham, Commercial Stripper, on September 04, 2024. Multiple bleeding colonic angiodysplastic lesions were identified, and treated with argon plasma coagulation. These lesions were suspected to be associated with a prior history of radiation resulting in radiation proctitis. Progress of Wound: Progress: This represents the 31st hyperbaric oxygen therapy session of 60 planned sessions. Tolerance: Hyperbaric oxygen therapy was administered as per the facility protocol at 2 TOSHA for 90 minutes without air breaks. The patient tolerated hyperbaric oxygen therapy without any complaints or complications. Upon emergence from the hyperbaric chamber, the patient's vital signs remained stable, and she was discharged in good condition. Objective Data Objective Data Vital Signs: Vital Signs Temp Pulse Resp BP 96.9 F L 79 15 123/70 H 01/17/25 07:30 01/17/25 07:30 01/17/25 07:30 01/17/25 07:30 Exam Physical Exam Const alert, oriented x3 and no apparent distress General Appearance: cooperative and comfortable HEENT normocephalic and head/scalp atraumatic Head and Scalp: normal to inspection and normocephalic Tympanic Membrane: other Other Details: Tympanostomy tubes noted bilaterally Eyes EOMs intact bilaterally General Eye: normal appearance of both eyes Neck full ROM General: normal visual inspection Resp normal respiratory effort and normal air movement Effort and Inspection: able to speak in complete sentences Auscultation: clear to auscultation bilaterally Neuro oriented x3, CN's II-XII intact bilaterally, moves all extremities and no focal motor deficits Psych mental status grossly normal, thought process normal, cooperative and affect normal Assessment/Plan Assessment/Plan (1) Radiation proctitis: CODE(S): K62.7 - Radiation proctitis (2) Eardrum rupture, right: CODE(S): H72.91 - Unspecified perforation of tympanic membrane, right ear PLAN: Tympanostomy tube in place (3) Bright red blood per rectum: CODE(S): K62.5 - Hemorrhage of anus and rectum (4) Frequent loose stools: CODE(S): R19.7 - Diarrhea, unspecified QUALIFIERS: Diarrhea type: due to malabsorption Qualified Code(s): K90.9 - Intestinal malabsorption, unspecified; R19.7 - Diarrhea, unspecified (5) Status post complete hysterectomy: CODE(S): Z90.710 - Acquired absence of both cervix and uterus (6) History of bilateral oophorectomy: CODE(S): Z90.722 - Acquired absence of ovaries, bilateral PLAN: Plan Julieth tolerated hyperbaric oxygen therapy well which will be continued per her medical plan.
--- NOTE | 2025-01-20 12:22 | PCM.HBO.PN ---
History of Present Illness Date of Service: 01/20/25 Chief Complaint: Radiation proctitis History of Wound: This is a 59-year-old female with a history of recurrent endometrial cancer. The patient was diagnosed with endometrial cancer and underwent a total hysterectomy and bilateral salpingo-oophorectomy in May 2019. Upon experiencing several months of vaginal bleeding in 2023, the patient underwent a biopsy on May 19, 2023, which revealed recurrent endometrial adenocarcinoma. The patient underwent partial radical vaginectomy on May 23, 2023, the pathology of which confirmed recurrent, well-differentiated endometrial adenocarcinoma. A CT scan on June 15, 2023, showed a nodule posterior to the right lower abdominal rectus sheath, thought to represent a peritoneal tumor implant. The patient was treated with EBRT 4500 cGy in [address] Grimes from July 10, 2023, until August 11, 2023. She received adjuvant vaginal cylinder brachytherapy consisting of 30 Stratton delivered over 5 fractions, twice weekly, utilizing a 3 cm cylinder to 10 cm length prescribed to surface. The patient received her final fraction on August 30, 2023. Recent B2B SALES MANAGER evaluations have documented that the "Vagina is shortened and narrowed, consistent with her history of radiation. There are some radiation changes of the mucosa including around the left urethral meatus. No evidence of recurrent disease." Over the last several months prior to her presentation here, the patient has experienced bright red blood per rectum with every bowel movement. She has had frequent episodes of diarrhea with frequent loose stools, and relates poor control of her bowel movements. The patient underwent a colonoscopy by Dr. Arley Pham, Insurance Legal Assistant, on September 04, 2024. Multiple bleeding colonic angiodysplastic lesions were identified, and treated with argon plasma coagulation. These lesions were suspected to be associated with a prior history of radiation resulting in radiation proctitis. Progress of Wound: Progress: This represents the 32nd hyperbaric oxygen therapy session of 60 planned sessions. Tolerance: Hyperbaric oxygen therapy was administered as per the facility protocol at 2 TOSHA for 90 minutes without air breaks. The patient tolerated hyperbaric oxygen therapy without any complaints or complications. Upon emergence from the hyperbaric chamber, the patient's vital signs remained stable, and she was discharged in good condition. Objective Data Objective Data Vital Signs: Vital Signs Temp Pulse Resp BP 96.9 F L 79 15 123/70 H 01/17/25 07:30 01/17/25 07:30 01/17/25 07:30 01/17/25 07:30 Exam Physical Exam Const alert, oriented x3, no apparent distress and well nourished General Appearance: cooperative, comfortable and well developed HEENT normocephalic and head/scalp atraumatic Head and Scalp: normal to inspection, normocephalic and atraumatic Eyes EOMs intact bilaterally General Eye: normal appearance of both eyes Neck full ROM General: normal visual inspection Resp normal respiratory effort, normal air movement and no use of accessory muscles Effort and Inspection: able to speak in complete sentences Neuro oriented x3, CN's II-XII intact bilaterally, moves all extremities and no focal motor deficits Speech: speech normal Psych mental status grossly normal, thought process normal, cooperative and affect normal Appearance: grossly normal Speech: normal speech Charges/Coding Wound Center CF Procedures HBO Supervision: [id number] Hyperbaric Oxygen; supervision Assessment/Plan Assessment/Plan (1) Radiation proctitis: CODE(S): K62.7 - Radiation proctitis (2) History of radiation therapy: CODE(S): Z92.3 - Personal history of irradiation (3) Bright red blood per rectum: CODE(S): K62.5 - Hemorrhage of anus and rectum (4) Frequent loose stools: CODE(S): R19.7 - Diarrhea, unspecified QUALIFIERS: Diarrhea type: due to malabsorption Qualified Code(s): K90.9 - Intestinal malabsorption, unspecified; R19.7 - Diarrhea, unspecified (5) Status post complete hysterectomy: CODE(S): Z90.710 - Acquired absence of both cervix and uterus (6) History of bilateral oophorectomy: CODE(S): Z90.722 - Acquired absence of ovaries, bilateral (7) Recurrent carcinoma of endometrium: CODE(S): C54.1 - Malignant neoplasm of endometrium (8) Endometrial cancer: CODE(S): C54.1 - Malignant neoplasm of endometrium (9) History of LAVH: CODE(S): Z90.710 - Acquired absence of both cervix and uterus (10) Eardrum rupture, right: CODE(S): H72.91 - Unspecified perforation of tympanic membrane, right ear PLAN: Tympanostomy tube in place PLAN: Plan The patient appears to be tolerating hyperbaric oxygen therapy well, which will be continued as per the patient's medical treatment plan.
== END 2025-01-17 23:59 | disposition home or self-care (01) ==
LOC: WC 09:30
PROVIDERS: PCP Family Medicine; Referring Provider Obstetrics & Gynecology; Visit Provider Surgery
DX: K62.7 Radiation proctitis (principal); C54.1 Malignant neoplasm of endometrium; Z90.722 Acquired absence of ovaries, bilateral; Z79.890 Hormone replacement therapy; E78.5 Hyperlipidemia, unspecified; K21.9 Gastro-esophageal reflux disease without esophagitis; Z90.710 Acquired absence of both cervix and uterus; E03.9 Hypothyroidism, unspecified; Y84.2 Radiological procedure and radiotherapy as the cause of abnormal reaction of the patient, or of later complication, without mention of misadventure at the time of the procedure; H72.91 Unspecified perforation of tympanic membrane, right ear; R19.7 Diarrhea, unspecified; K90.9 Intestinal malabsorption, unspecified; K62.5 Hemorrhage of anus and rectum
CPT/HCPCS: 99183; 99212; G0277; G0463

== ENCOUNTER 2025-02-12 08:00 | Outpatient (RCR) | payer BC, SELFPAY ==
[2025-01-20 10:14] VITALS: BP 120/57; BP 130/64; PULSE 64; PULSE 75; RESP 14; RESP 15; TEMP 36; TEMP 36.6
--- NOTE | 2025-01-21 10:18 | HBO.PN.PCM_ITS ---
History of Present Illness Date of Service: 01/21/25 Chief Complaint: Radiation proctitis History of Wound: This is a 59-year-old female with a history of recurrent endometrial cancer. The patient was diagnosed with endometrial cancer and underwent a total hysterectomy and bilateral salpingo-oophorectomy in May 2019. Upon experiencing several months of vaginal bleeding in 2023, the patient underwent a biopsy on May 19, 2023, which revealed recurrent endometrial adenocarcinoma. The patient underwent partial radical vaginectomy on May 23, 2023, the pathology of which confirmed recurrent, well-differentiated endometrial adenocarcinoma. A CT scan on June 15, 2023, showed a nodule posterior to the right lower abdominal rectus sheath, thought to represent a peritoneal tumor implant. The patient was treated with EBRT 4500 cGy in [address] Grimes from July 10, 2023, until August 11, 2023. She received adjuvant vaginal cylinder brachytherapy consisting of 30 Stratton delivered over 5 fractions, twice weekly, utilizing a 3 cm cylinder to 10 cm length prescribed to surface. The patient received her final fraction on August 30, 2023. Recent EMPLOYEE DEVELOPMENT DIRECTOR evaluations have documented that the Vagina is shortened and narrowed, consistent with her history of radiation. There are some radiation changes of the mucosa including around the left urethral meatus. No evidence of recurrent disease. Over the last several months prior to her presentation here, the patient has experienced bright red blood per rectum with every bowel movement. She has had frequent episodes of diarrhea with frequent loose stools, and relates poor control of her bowel movements. The patient underwent a colon oscopy by Dr. Arley Pham, Group Therapy Counselor, on September 04, 2024. Multiple bleeding colonic angiodysplastic lesions were identified, and treated with argon plasma coagulation. These lesions were suspected to be associated with a prior history of radiation resulting in radiation proctitis. Progress of Wound: This represents the 33rd hyperbaric oxygen therapy session of a planned 60 such sessions. Tolerance: Hyperbaric oxygen therapy was administered as per the facility protocol at 2 sarahi for 90 minutes without air breaks. The patient tolerated hyperbaric oxygen therapy well, without any complaints or complications. Upon emergence from the hyperbaric chamber, patient's vital signs remained stable, and she was discharged in good condition. Objective Data Objective Data Vital Signs: Vital Signs Temp Pulse Resp BP 96.8 F L 75 14 120/57 L 01/20/25 10:14 01/20/25 10:14 01/20/25 10:14 01/20/25 10:14 Exam Physical Exam Const alert, oriented x3, no apparent distress and well nourished General Appearance: cooperative, comfortable and well developed HEENT normocephalic and head/scalp atraumatic Head and Scalp: normal to inspection, normocephalic and atraumatic Eyes EOMs intact bilaterally General Eye: normal appearance of both eyes Neck full ROM General: normal visual inspection Resp normal respiratory effort, normal air movement and no use of accessory muscles Effort and Inspection: able to speak in complete sentences Neuro oriented x3, CN's II-XII intact bilaterally, moves all extremities and no focal motor deficits Speech: speech normal Psych mental status grossly normal, thought process normal, cooperative and affect nor mal Appearance: grossly normal Speech: normal speech Charges/Coding Wound Center CF Procedures HBO Supervision: [id number] Hyperbaric Oxygen; supervision Assessment/Plan Assessment/Plan (1) Radiation proctitis: CODE(S): K62.7 - Radiation proctitis (2) History of radiation therapy: CODE(S): Z92.3 - Personal history of irradiation (3) Bright red blood per rectum: CODE(S): K62.5 - Hemorrhage of anus and rectum (4) Frequent loose stools: CODE(S): R19.7 - Diarrhea, unspecified QUALIFIERS: Diarrhea type: due to malabsorption Qualified Code(s): K90.9 - Intestinal malabsorption, unspecified; R19.7 - Diarrhea, unspecified (5) Status post complete hysterectomy: CODE(S): Z90.710 - Acquired absence of both cervix and uterus (6) History of bilateral oophorectomy: CODE(S): Z90.722 - Acquired absence of ovaries, bilateral (7) Recurrent carcinoma of endometrium: CODE(S): C54.1 - Malignant neoplasm of endometrium (8) Endometrial cancer: CODE(S): C54.1 - Malignant neoplasm of endometrium (9) History of LAVH: CODE(S): Z90.710 - Acquired absence of both cervix and uterus (10) Eardrum rupture, right: CODE(S): H72.91 - Unspecified perforation of tympanic membrane, right ear PLAN: Tympanostomy tube in place PLAN: Plan The patient appears to be tolerating hyperbaric oxygen therapy well, which will be continued as per the patient's medical treatment plan.
[2025-01-21 10:38] VITALS: BP 105/62; BP 127/70; PULSE 65; PULSE 79; RESP 16; TEMP 36.1; TEMP 36.2
[2025-01-22 08:42] VITALS: BP 132/65; BP 135/80; PULSE 73; PULSE 99; RESP 15; RESP 17; TEMP 36; TEMP 36.3
--- NOTE | 2025-01-22 15:26 | HBO.PN.PCM_ITS ---
History of Present Illness Date of Service: 01/22/25 Chief Complaint: Radiation proctitis History of Wound: This is a 59-year-old female with a history of recurrent endometrial cancer. The patient was diagnosed with endometrial cancer and underwent a total hysterectomy and bilateral salpingo-oophorectomy in May 2019. Upon experiencing several months of vaginal bleeding in 2023, the patient underwent a biopsy on May 19, 2023, which revealed recurrent endometrial adenocarcinoma. The patient underwent partial radical vaginectomy on May 23, 2023, the pathology of which confirmed recurrent, well-differentiated endometrial adenocarcinoma. A CT scan on June 15, 2023, showed a nodule posterior to the right lower abdominal rectus sheath, thought to represent a peritoneal tumor implant. The patient was treated with EBRT 4500 cGy in [address] Grimes from July 10, 2023, until August 11, 2023. She received adjuvant vaginal cylinder brachytherapy consisting of 30 Stratton delivered over 5 fractions, twice weekly, utilizing a 3 cm cylinder to 10 cm length prescribed to surface. The patient received her final fraction on August 30, 2023. Recent EDGE WORKER evaluations have documented that the Vagina is shortened and narrowed, consistent with her history of radiation. There are some radiation changes of the mucosa including around the left urethral meatus. No evidence of recurrent disease. Over the last several months prior to her presentation here, the patient has experienced bright red blood per rectum with every bowel movement. She has had frequent episodes of diarrhea with frequent loose stools, and relates poor control of her bowel movements. The patient underwent a colon oscopy by Dr. Arley Pham, Environmental Services Technician, on September 04, 2024. Multiple bleeding colonic angiodysplastic lesions were identified, and treated with argon plasma coagulation. These lesions were suspected to be associated with a prior history of radiation resulting in radiation proctitis. Progress of Wound: This represents the 34th hyperbaric oxygen therapy session of a planned 60 such sessions. Tolerance: Hyperbaric oxygen therapy was administered as per the facility protocol at 2 sarahi for 90 minutes without air breaks. The patient tolerated hyperbaric oxygen therapy well, without any complaints or complications. Upon emergence from the hyperbaric chamber, the patient's vital signs remained stable, and she was discharged in good condition. Objective Data Objective Data Vital Signs: Vital Signs Temp Pulse Resp BP 96.8 F L 99 15 135/80 H 01/22/25 08:42 01/22/25 08:42 01/22/25 08:42 01/22/25 08:42 Exam Physical Exam Const alert, oriented x3, no apparent distress and well nourished General Appearance: cooperative, comfortable and well developed HEENT normocephalic and head/scalp atraumatic Head and Scalp: normal to inspection, normocephalic and atraumatic Eyes EOMs intact bilaterally General Eye: normal appearance of both eyes Neck full ROM General: normal visual inspection Resp normal respiratory effort, normal air movement and no use of accessory muscles Effort and Inspection: able to speak in complete sentences Neuro oriented x3, CN's II-XII intact bilaterally, moves all extremities and no focal motor deficits Speech: speech normal Psych mental status grossly normal, thought process normal, cooperative and affect normal Appearance: grossly normal Speech: normal speech Assessment/Plan Assessment/Plan (1) Radiation proctitis: CODE(S): K62.7 - Radiation proctitis (2) History of radiation therapy: CODE(S): Z92.3 - Personal history of irradiation (3) Bright red blood per rectum: CODE(S): K62.5 - Hemorrhage of anus and rectum (4) Frequent loose stools: CODE(S): R19.7 - Diarrhea, unspecified QUALIFIERS: Diarrhea type: due to malabsorption Qualified Code(s): K90.9 - Intestinal malabsorption, unspecified; R19.7 - Diarrhea, unspecified (5) Status post complete hysterectomy: CODE(S): Z90.710 - Acquired absence of both cervix and uterus (6) History of bilateral oophorectomy: CODE(S): Z90.722 - Acquired absence of ovaries, bilateral (7) Recurrent carcinoma of endometrium: CODE(S): C54.1 - Malignant neoplasm of endometrium (8) Endometrial cancer: CODE(S): C54.1 - Malignant neoplasm of endometrium (9) History of LAVH: CODE(S): Z90.710 - Acquired absence of both cervix and uterus (10) Eardrum rupture, right: CODE(S): H72.91 - Unspecified perforation of tympanic membrane, right ear PLAN: Tympanostomy tube in place PLAN: Plan The patient appears to be tolerating hyperbaric oxygen therapy well, which will be continued as per the patient's medical treatment plan.
[2025-01-23 09:11] VITALS: BP 109/60; BP 145/67; PULSE 67; PULSE 89; RESP 14; RESP 15; TEMP 36.1; TEMP 36.4
--- NOTE | 2025-01-23 10:37 | PCM.HBO.PN ---
History of Present Illness Date of Service: 01/23/25 Chief Complaint: Radiation proctitis History of Wound: This is a 59-year-old female with a history of recurrent endometrial cancer. The patient was diagnosed with endometrial cancer and underwent a total hysterectomy and bilateral salpingo-oophorectomy in May 2019. Upon experiencing several months of vaginal bleeding in 2023, the patient underwent a biopsy on May 19, 2023, which revealed recurrent endometrial adenocarcinoma. The patient underwent partial radical vaginectomy on May 23, 2023, the pathology of which confirmed recurrent, well-differentiated endometrial adenocarcinoma. A CT scan on June 15, 2023, showed a nodule posterior to the right lower abdominal rectus sheath, thought to represent a peritoneal tumor implant. The patient was treated with EBRT 4500 cGy in [address] Grimes from July 10, 2023, until August 11, 2023. She received adjuvant vaginal cylinder brachytherapy consisting of 30 Stratton delivered over 5 fractions, twice weekly, utilizing a 3 cm cylinder to 10 cm length prescribed to surface. The patient received her final fraction on August 30, 2023. Recent CONTROLS PROJECT ENGINEER evaluations have documented that the Vagina is shortened and narrowed, consistent with her history of radiation. There are some radiation changes of the mucosa including around the left urethral meatus. No evidence of recurrent disease. Over the last several months prior to her presentation here, the patient has experienced bright red blood per rectum with every bowel movement. She has had frequent episodes of diarrhea with frequent loose stools, and relates poor control of her bowel movements. The patient underwent a colonoscopy by Dr. Arley Pham, Fixed Income Portfolio Manager, on September 04, 2024. Multiple bleeding colonic angiodysplastic lesions were identified, and treated with argon plasma coagulation. These lesions were suspected to be associated with a prior history of radiation resulting in radiation proctitis. Progress of Wound: This represents the 35th hyperbaric oxygen therapy session of a planned 60 sessions. Tolerance: Hyperbaric oxygen therapy was administered as per the facility protocol at 2 sarahi for 90 minutes without air breaks. The patient tolerated hyperbaric oxygen therapy well, without any complaints or complications. Upon emergence from the hyperbaric chamber, the patient's vital signs remained stable, and she was discharged in stable condition. Objective Data Objective Data Vital Signs: Vital Signs Temp Pulse Resp BP 97.5 F L 89 14 145/67 H 01/23/25 09:11 01/23/25 09:11 01/23/25 09:11 01/23/25 09:11 Exam Physical Exam Const alert, oriented x3 and no apparent distress General Appearance: cooperative and comfortable HEENT normocephalic and head/scalp atraumatic Head and Scalp: normal to inspection and normocephalic Tympanic Membrane: other Other Details: Tympanostomy tubes noted bilaterally Eyes EOMs intact bilaterally General Eye: normal appearance of both eyes Neck full ROM General: normal visual inspection Resp normal respiratory effort Effort and Inspection: able to speak in complete sentences Neuro oriented x3, CN's II-XII intact bilaterally, moves all extremities and no focal motor deficits Psych mental status grossly normal, thought process normal, cooperative and affect normal Charges/Coding Wound Center CF Procedures HBO Supervision: [id number] Hyperbaric Oxygen; supervision Assessment/Plan Assessment/Plan (1) Radiation proctitis: CODE(S): K62.7 - Radiation proctitis (2) Eardrum rupture, right: CODE(S): H72.91 - Unspecified perforation of tympanic membrane, right ear PLAN: Tympanostomy tube in place PLAN: Plan Julieth tolerated hyperbaric oxygen therapy well which will be continued per her medical plan.
[2025-01-24 09:28] VITALS: BP 118/50; BP 147/59; PULSE 62; PULSE 96; RESP 14; RESP 15; TEMP 36.1
--- NOTE | 2025-01-24 13:32 | HBO.PN.PCM_ITS ---
History of Present Illness Date of Service: 01/24/25 Chief Complaint: Radiation proctitis History of Wound: This is a 59-year-old female with a history of recurrent endometrial cancer. The patient was diagnosed with endometrial cancer and underwent a total hysterectomy and bilateral salpingo-oophorectomy in May 2019. Upon experiencing several months of vaginal bleeding in 2023, the patient underwent a biopsy on May 19, 2023, which revealed recurrent endometrial adenocarcinoma. The patient underwent partial radical vaginectomy on May 23, 2023, the pathology of which confirmed recurrent, well-differentiated endometrial adenocarcinoma. A CT scan on June 15, 2023, showed a nodule posterior to the right lower abdominal rectus sheath, thought to represent a peritoneal tumor implant. The patient was treated with EBRT 4500 cGy in [address] Grimes from July 10, 2023, until August 11, 2023. She received adjuvant vaginal cylinder brachytherapy consisting of 30 Stratton delivered over 5 fractions, twice weekly, utilizing a 3 cm cylinder to 10 cm length prescribed to surface. The patient received her final fraction on August 30, 2023. Recent TUBE CLEANING OPERATOR evaluations have documented that the Vagina is shortened and narrowed, consistent with her history of radiation. There are some radiation changes of the mucosa including around the left urethral meatus. No evidence of recurrent disease. Over the last several months prior to her presentation here, the patient has experienced bright red blood per rectum with every bowel movement. She has had frequent episodes of diarrhea with frequent loose stools, and relates poor control of her bowel movements. The patient underwent a colon oscopy by Dr. Arley Pham, American History Professor, on September 04, 2024. Multiple bleeding colonic angiodysplastic lesions were identified, and treated with argon plasma coagulation. These lesions were suspected to be associated with a prior history of radiation resulting in radiation proctitis. Progress of Wound: This represents the 36th hyperbaric oxygen therapy session of a planned 60 sessions. Tolerance: Hyperbaric oxygen therapy was administered as per the facility protocol at 2 sarahi for 90 minutes without air breaks. The patient tolerated hyperbaric oxygen therapy well, without any complaints or complications. Upon emergence from the hyperbaric chamber, the patient's vital signs remained stable, and she was discharged in stable condition. Objective Data Objective Data Vital Signs: Vital Signs Temp Pulse Resp BP 97.0 F L 96 15 147/59 H 01/24/25 09:28 01/24/25 09:28 01/24/25 09:28 01/24/25 09:28 Exam Physical Exam Const alert, oriented x3 and no apparent distress General Appearance: cooperative and comfortable HEENT normocephalic and head/scalp atraumatic Head and Scalp: normal to inspection and normocephalic Tympanic Membrane: other Other Details: Tympanostomy tubes noted bilaterally Eyes EOMs intact bilaterally General Eye: normal appearance of both eyes Neck full ROM General: normal visual inspection Resp normal respiratory effort Effort and Inspection: able to speak in complete sentences Neuro oriented x3, CN's II-XII intact bilaterally, moves all extremities and no focal motor deficits Psych mental status grossly normal, thought process normal, cooperative and affect normal Assessment/Plan Assessment/Plan (1) Radiation proctitis: CODE(S): K62.7 - Radiation proctitis (2) Eardrum rupture, right: CODE(S): H72.91 - Unspecified perforation of tympanic membrane, right ear PLAN: Tympanostomy tubes in place (3) Bright red blood per rectum: CODE(S): K62.5 - Hemorrhage of anus and rectum (4) Frequent loose stools: CODE(S): R19.7 - Diarrhea, unspecified QUALIFIERS: Diarrhea type: due to malabsorption Qualified Code(s): K90.9 - Intestinal malabsorption, unspecified; R19.7 - Diarrhea, unspecified (5) Status post complete hysterectomy: CODE(S): Z90.710 - Acquired absence of both cervix and uterus (6) History of bilateral oophorectomy: CODE(S): Z90.722 - Acquired absence of ovaries, bilateral PLAN: Plan Julieth tolerated hyperbaric oxygen therapy well which will be continued per her medical plan.
--- NOTE | 2025-01-27 08:24 | HBO.PN.PCM_ITS ---
History of Present Illness Date of Service: 01/27/25 Chief Complaint: Radiation proctitis History of Wound: This is a 59-year-old female with a history of recurrent endometrial cancer. The patient was diagnosed with endometrial cancer and underwent a total hysterectomy and bilateral salpingo-oophorectomy in May 2019. Upon experiencing several months of vaginal bleeding in 2023, the patient underwent a biopsy on May 19, 2023, which revealed recurrent endometrial adenocarcinoma. The patient underwent partial radical vaginectomy on May 23, 2023, the pathology of which confirmed recurrent, well-differentiated endometrial adenocarcinoma. A CT scan on June 15, 2023, showed a nodule posterior to the right lower abdominal rectus sheath, thought to represent a peritoneal tumor implant. The patient was treated with EBRT 4500 cGy in [address] Grimes from July 10, 2023, until August 11, 2023. She received adjuvant vaginal cylinder brachytherapy consisting of 30 Stratton delivered over 5 fractions, twice weekly, utilizing a 3 cm cylinder to 10 cm length prescribed to surface. The patient received her final fraction on August 30, 2023. Recent FBI SPECIAL AGENT evaluations have documented that the Vagina is shortened and narrowed, consistent with her history of radiation. There are some radiation changes of the mucosa including around the left urethral meatus. No evidence of recurrent disease. Over the last several months prior to her presentation here, the patient has experienced bright red blood per rectum with every bowel movement. She has had frequent episodes of diarrhea with frequent loose stools, and relates poor control of her bowel movements. The patient underwent a colon oscopy by Dr. Arley Pham, Hybrid Derivatives Trader, on September 04, 2024. Multiple bleeding colonic angiodysplastic lesions were identified, and treated with argon plasma coagulation. These lesions were suspected to be associated with a prior history of radiation resulting in radiation proctitis. Progress of Wound: This represents the 37th hyperbaric oxygen therapy session of a planned 60 sessions. Tolerance: Hyperbaric oxygen therapy was administered as per the facility protocol at 2 sarahi for 90 minutes without air breaks. The patient tolerated hyperbaric oxygen therapy well, without any complaints or complications. Upon emergence from the hyperbaric chamber, the patient's vital signs remained stable, and she was discharged in stable condition. Objective Data Objective Data Vital Signs: Vital Signs Temp Pulse Resp BP 97.0 F L 96 15 147/59 H 01/24/25 09:28 01/24/25 09:28 01/24/25 09:28 01/24/25 09:28 Exam Physical Exam Const alert and oriented x3 HEENT Tympanic Membrane: other Other Details: Tympanotomy tubes in place Resp normal respiratory effort Auscultation: clear to auscultation bilaterally Cardio regular rate, regular rhythm, S1 normal heart sound, S2 normal heart sound, no murmurs, no rub, no gallops and no clicks Assessment/Plan Assessment/Plan (1) Radiation proctitis: CODE(S): K62.7 - Radiation proctitis (2) Bright red blood per rectum: CODE(S): K62.5 - Hemorrhage of anus and rectum (3) Frequent loose stools: CODE(S): R19.7 - Diarrhea, unspecified QUALIFIERS: Diarrhea type: due to malabsorption Qualified Code(s): K90.9 - Intestinal malabsorption, unspecified; R19.7 - Diarrhea, unspecified (4) Status post complete hysterectomy: CODE(S): Z90.710 - Acquired absence of both cervix and uterus (5) History of bilateral oophorectomy: CODE(S): Z90.722 - Acquired absence of ovaries, bilateral PLAN: Plan The patient appears to be tolerating hyperbaric oxygen therapy well, which will be continued as per the patient's medical treatment plan.
[2025-01-27 09:35] VITALS: BP 112/62; BP 131/75; PULSE 63; PULSE 81; RESP 15; TEMP 36.1; TEMP 36.3
[2025-01-28 08:43] VITALS: BP 132/70; BP 146/63; PULSE 61; PULSE 93; RESP 14; TEMP 35.9; TEMP 36.1
--- NOTE | 2025-01-28 15:50 | PCM.HBO.PN ---
History of Present Illness Date of Service: 01/28/25 Chief Complaint: Radiation proctitis History of Wound: This is a 59-year-old female with a history of recurrent endometrial cancer. The patient was diagnosed with endometrial cancer and underwent a total hysterectomy and bilateral salpingo-oophorectomy in May 2019. Upon experiencing several months of vaginal bleeding in 2023, the patient underwent a biopsy on May 19, 2023, which revealed recurrent endometrial adenocarcinoma. The patient underwent partial radical vaginectomy on May 23, 2023, the pathology of which confirmed recurrent, well-differentiated endometrial adenocarcinoma. A CT scan on June 15, 2023, showed a nodule posterior to the right lower abdominal rectus sheath, thought to represent a peritoneal tumor implant. The patient was treated with EBRT 4500 cGy in [address] Grimes from July 10, 2023, until August 11, 2023. She received adjuvant vaginal cylinder brachytherapy consisting of 30 Stratton delivered over 5 fractions, twice weekly, utilizing a 3 cm cylinder to 10 cm length prescribed to surface. The patient received her final fraction on August 30, 2023. Recent RIGHT OF WAY WORKER evaluations have documented that the Vagina is shortened and narrowed, consistent with her history of radiation. There are some radiation changes of the mucosa including around the left urethral meatus. No evidence of recurrent disease. Over the last several months prior to her presentation here, the patient has experienced bright red blood per rectum with every bowel movement. She has had frequent episodes of diarrhea with frequent loose stools, and relates poor control of her bowel movements. The patient underwent a colonoscopy by Dr. Arley Pham, Motors Assembler, on September 04, 2024. Multiple bleeding colonic angiodysplastic lesions were identified, and treated with argon plasma coagulation. These lesions were suspected to be associated with a prior history of radiation resulting in radiation proctitis. Progress of Wound: This represents the 38th hyperbaric oxygen therapy session of a planned 60 sessions. Tolerance: Hyperbaric oxygen therapy was administered as per the facility protocol at 2 sarahi for 90 minutes without air breaks. The patient tolerated hyperbaric oxygen therapy well, without any complaints or complications. Upon emergence from the hyperbaric chamber, the patient's vital signs remained stable, and she was discharged in stable condition. Objective Data Objective Data Vital Signs: Vital Signs Temp Pulse Resp BP 96.9 F L 93 14 146/63 H 01/28/25 08:43 01/28/25 08:43 01/28/25 08:43 01/28/25 08:43 Exam Physical Exam Const alert, oriented x3, no apparent distress and well nourished General Appearance: cooperative and well developed Exam Limitations: no limitations HEENT normocephalic Head and Scalp: atraumatic Face and Sinus: normal facial exam External Ear: external ears normal Eyes EOMs intact bilaterally General Eye: normal appearance of both eyes Neck full ROM General: normal visual inspection Resp normal respiratory effort and no use of accessory muscles Effort and Inspection: able to speak in complete sentences Extremity normal to inspection General Extremity: normal exam except as noted Skin no rashes or lesions noted Neuro oriented x3 and CN's II-XII intact bilaterally Speech: speech normal Psych affect normal Appearance: grossly normal Speech: normal speech Thought Content: normal thought content Charges/Coding Wound Center CF Procedures HBO Supervision: [id number] Hyperbaric Oxygen; supervision Assessment/Plan Assessment/Plan (1) Radiation proctitis: CODE(S): K62.7 - Radiation proctitis (2) History of radiation therapy: CODE(S): Z92.3 - Personal history of irradiation (3) Bright red blood per rectum: CODE(S): K62.5 - Hemorrhage of anus and rectum (4) Frequent loose stools: CODE(S): R19.7 - Diarrhea, unspecified QUALIFIERS: Diarrhea type: due to malabsorption Qualified Code(s): K90.9 - Intestinal malabsorption, unspecified; R19.7 - Diarrhea, unspecified (5) Status post complete hysterectomy: CODE(S): Z90.710 - Acquired absence of both cervix and uterus (6) History of bilateral oophorectomy: CODE(S): Z90.722 - Acquired absence of ovaries, bilateral (7) Recurrent carcinoma of endometrium: CODE(S): C54.1 - Malignant neoplasm of endometrium (8) History of LAVH: CODE(S): Z90.710 - Acquired absence of both cervix and uterus PLAN: Plan The patient appears to be tolerating hyperbaric oxygen therapy well, which will be continued as per the patient's medical treatment plan.
[2025-01-29 08:34] VITALS: BP 113/58; BP 127/70; PULSE 68; PULSE 91; RESP 15; TEMP 35.8
--- NOTE | 2025-01-29 10:31 | HBO.PN.PCM_ITS ---
History of Present Illness Date of Service: 01/29/25 Chief Complaint: Radiation proctitis History of Wound: This is a 59-year-old female with a history of recurrent endometrial cancer. The patient was diagnosed with endometrial cancer and underwent a total hysterectomy and bilateral salpingo-oophorectomy in May 2019. Upon experiencing several months of vaginal bleeding in 2023, the patient underwent a biopsy on May 19, 2023, which revealed recurrent endometrial adenocarcinoma. The patient underwent partial radical vaginectomy on May 23, 2023, the pathology of which confirmed recurrent, well-differentiated endometrial adenocarcinoma. A CT scan on June 15, 2023, showed a nodule posterior to the right lower abdominal rectus sheath, thought to represent a peritoneal tumor implant. The patient was treated with EBRT 4500 cGy in [address] Grimes from July 10, 2023, until August 11, 2023. She received adjuvant vaginal cylinder brachytherapy consisting of 30 Stratton delivered over 5 fractions, twice weekly, utilizing a 3 cm cylinder to 10 cm length prescribed to surface. The patient received her final fraction on August 30, 2023. Recent FOUNDATION DIRECTOR evaluations have documented that the Vagina is shortened and narrowed, consistent with her history of radiation. There are some radiation changes of the mucosa including around the left urethral meatus. No evidence of recurrent disease. Over the last several months prior to her presentation here, the patient has experienced bright red blood per rectum with every bowel movement. She has had frequent episodes of diarrhea with frequent loose stools, and relates poor control of her bowel movements. The patient underwent a colon oscopy by Dr. Arley Pham, Hotbed Lever Operator, on September 04, 2024. Multiple bleeding colonic angiodysplastic lesions were identified, and treated with argon plasma coagulation. These lesions were suspected to be associated with a prior history of radiation resulting in radiation proctitis. Progress of Wound: This represents the 39th hyperbaric oxygen therapy session of a planned 60 sessions. Tolerance: Hyperbaric oxygen therapy was administered as per the facility protocol at 2 sarahi for 90 minutes without air breaks. The patient tolerated hyperbaric oxygen therapy well, without any complaints or complications. Upon emergence from the hyperbaric chamber, the patient's vital signs remained stable, and she was discharged in stable condition. Subjective Subjective Patient has no concerns Objective Data Objective Data Vital signs stable on admission and discharge. Patient tolerated treatment well Vital Signs: Vital Signs Temp Pulse Resp BP 96.5 F L 91 15 127/70 H 01/29/25 08:34 01/29/25 08:34 01/29/25 08:34 01/29/25 08:34 Exam Physical Exam Const oriented x3 General Appearance: cooperative Exam Limitations: no limitations HEENT normocephalic Face and Sinus: normal facial exam External Ear: external ears normal Eyes PERRL General Eye: normal appearance of both eyes Neck full ROM General: normal visual inspection Resp normal respiratory effort Effort and Inspection: able to speak in complete sentences Auscultation: clear to auscultation bilaterally Cardio regular rate and regular rhythm Palpation: normal PMI Rate: regular rate Rhythm: regular rhythm GI Auscultation: normoactive bowel sounds Palpation: soft and no hepatosplenomegaly external exam normal Back/Spine Cervical Spine: cervical ROM normal Thoracic Spine / Upper Back: normal to inspection Lumbar Spine / Lower Back: normal to inspection Extremity normal to inspection General Extremity: normal exam except as noted Skin no rashes or lesions noted Neuro oriented x3 Psych Appearance: grossly normal Speech: normal speech Thought Content: normal thought content Judgement: judgement good Assessment/Plan Assessment/Plan (1) Radiation proctitis: CODE(S): K62.7 - Radiation proctitis (2) Bright red blood per rectum: CODE(S): K62.5 - Hemorrhage of anus and rectum (3) Frequent loose stools: CODE(S): R19.7 - Diarrhea, unspecified QUALIFIERS: Diarrhea type: due to malabsorption Qualified Code(s): K90.9 - Intestinal malabsorption, unspecified; R19.7 - Diarrhea, unspecified (4) Status post complete hysterectomy: CODE(S): Z90.710 - Acquired absence of both cervix and uterus (5) History of bilateral oophorectomy: CODE(S): Z90.722 - Acquired absence of ovaries, bilateral PLAN: Plan The patient appears to be tolerating hyperbaric oxygen therapy well, which will be continued as per the patient's medical treatment plan.
--- NOTE | 2025-01-30 08:54 | PCM.HBO.PN ---
History of Present Illness Date of Service: 01/30/25 Chief Complaint: Radiation proctitis History of Wound: This is a 59-year-old female with a history of recurrent endometrial cancer. The patient was diagnosed with endometrial cancer and underwent a total hysterectomy and bilateral salpingo-oophorectomy in May 2019. Upon experiencing several months of vaginal bleeding in 2023, the patient underwent a biopsy on May 19, 2023, which revealed recurrent endometrial adenocarcinoma. The patient underwent partial radical vaginectomy on May 23, 2023, the pathology of which confirmed recurrent, well-differentiated endometrial adenocarcinoma. A CT scan on June 15, 2023, showed a nodule posterior to the right lower abdominal rectus sheath, thought to represent a peritoneal tumor implant. The patient was treated with EBRT 4500 cGy in [address] Grimes from July 10, 2023, until August 11, 2023. She received adjuvant vaginal cylinder brachytherapy consisting of 30 Stratton delivered over 5 fractions, twice weekly, utilizing a 3 cm cylinder to 10 cm length prescribed to surface. The patient received her final fraction on August 30, 2023. Recent FOOD CONCESSION MANAGER evaluations have documented that the Vagina is shortened and narrowed, consistent with her history of radiation. There are some radiation changes of the mucosa including around the left urethral meatus. No evidence of recurrent disease. Over the last several months prior to her presentation here, the patient has experienced bright red blood per rectum with every bowel movement. She has had frequent episodes of diarrhea with frequent loose stools, and relates poor control of her bowel movements. The patient underwent a colonoscopy by Dr. Arley Pham, Kettle Loader, on September 04, 2024. Multiple bleeding colonic angiodysplastic lesions were identified, and treated with argon plasma coagulation. These lesions were suspected to be associated with a prior history of radiation resulting in radiation proctitis. Progress of Wound: This represents the 40th hyperbaric oxygen therapy session of a planned 60 sessions. Tolerance: Hyperbaric oxygen therapy was administered as per the facility protocol at 2 sarahi for 90 minutes without air breaks. The patient tolerated hyperbaric oxygen therapy well, without any complaints or complications. Upon emergence from the hyperbaric chamber, the patient's vital signs remained stable, and she was discharged in stable condition. Objective Data Objective Data Vital Signs: Vital Signs Temp Pulse Resp BP 96.5 F L 91 15 127/70 H 01/29/25 08:34 01/29/25 08:34 01/29/25 08:34 01/29/25 08:34 Exam Physical Exam Const alert, oriented x3 and no apparent distress General Appearance: cooperative and comfortable HEENT normocephalic and head/scalp atraumatic Head and Scalp: normal to inspection and normocephalic Tympanic Membrane: other Other Details: Tympanostomy tubes noted bilaterally Eyes EOMs intact bilaterally General Eye: normal appearance of both eyes Neck full ROM General: normal visual inspection Resp normal respiratory effort Effort and Inspection: able to speak in complete sentences Neuro oriented x3, CN's II-XII intact bilaterally, moves all extremities and no focal motor deficits Psych mental status grossly normal, thought process normal, cooperative and affect normal Charges/Coding Wound [facility] Procedures HBO Supervision: [id number] Hyperbaric Oxygen; supervision Assessment/Plan Assessment/Plan (1) Radiation proctitis: CODE(S): K62.7 - Radiation proctitis (2) Eardrum rupture, right: CODE(S): H72.91 - Unspecified perforation of tympanic membrane, right ear PLAN: Tympanostomy tube in place PLAN: Plan Julieth tolerated hyperbaric oxygen therapy well which will be continued per her medical plan.
[2025-01-30 08:57] VITALS: BP 113/79; BP 131/74; PULSE 62; PULSE 92; RESP 14; TEMP 35.8; TEMP 35.9
[2025-01-31 09:23] VITALS: BP 107/57; BP 122/51; PULSE 66; PULSE 74; RESP 15; TEMP 36.1
--- NOTE | 2025-01-31 13:08 | PCM.HBO.PN ---
History of Present Illness Date of Service: 01/31/25 Chief Complaint: Radiation proctitis History of Wound: This is a 59-year-old female with a history of recurrent endometrial cancer. The patient was diagnosed with endometrial cancer and underwent a total hysterectomy and bilateral salpingo-oophorectomy in May 2019. Upon experiencing several months of vaginal bleeding in 2023, the patient underwent a biopsy on May 19, 2023, which revealed recurrent endometrial adenocarcinoma. The patient underwent partial radical vaginectomy on May 23, 2023, the pathology of which confirmed recurrent, well-differentiated endometrial adenocarcinoma. A CT scan on June 15, 2023, showed a nodule posterior to the right lower abdominal rectus sheath, thought to represent a peritoneal tumor implant. The patient was treated with EBRT 4500 cGy in [address] Grimes from July 10, 2023, until August 11, 2023. She received adjuvant vaginal cylinder brachytherapy consisting of 30 Stratton delivered over 5 fractions, twice weekly, utilizing a 3 cm cylinder to 10 cm length prescribed to surface. The patient received her final fraction on August 30, 2023. Recent MEDICAL IMAGING TECHNOLOGIST evaluations have documented that the Vagina is shortened and narrowed, consistent with her history of radiation. There are some radiation changes of the mucosa including around the left urethral meatus. No evidence of recurrent disease. Over the last several months prior to her presentation here, the patient has experienced bright red blood per rectum with every bowel movement. She has had frequent episodes of diarrhea with frequent loose stools, and relates poor control of her bowel movements. The patient underwent a colonoscopy by Dr. Arley Pham, Aircraft Machinist Helper, on September 04, 2024. Multiple bleeding colonic angiodysplastic lesions were identified, and treated with argon plasma coagulation. These lesions were suspected to be associated with a prior history of radiation resulting in radiation proctitis. Progress of Wound: This represents the 41st hyperbaric oxygen therapy session of a planned 60 sessions. Tolerance: Hyperbaric oxygen therapy was administered as per the facility protocol at 2 sarahi for 90 minutes without air breaks. The patient tolerated hyperbaric oxygen therapy well, without any complaints or complications. Upon emergence from the hyperbaric chamber, the patient's vital signs remained stable, and she was discharged in stable condition. Objective Data Objective Data Vital Signs: Vital Signs Temp Pulse Resp BP 97.0 F L 74 15 122/51 H 01/31/25 09:23 01/31/25 09:23 01/31/25 09:23 01/31/25 09:23 Exam Physical Exam Const alert, oriented x3 and no apparent distress General Appearance: cooperative and comfortable HEENT normocephalic and head/scalp atraumatic Head and Scalp: normal to inspection and normocephalic Tympanic Membrane: other Other Details: Tympanostomy tubes noted bilaterally Eyes EOMs intact bilaterally General Eye: normal appearance of both eyes Neck full ROM General: normal visual inspection Resp normal respiratory effort Effort and Inspection: able to speak in complete sentences Neuro oriented x3, CN's II-XII intact bilaterally, moves all extremities and no focal motor deficits Psych mental status grossly normal, thought process normal, cooperative and affect normal Assessment/Plan Assessment/Plan (1) Radiation proctitis: CODE(S): K62.7 - Radiation proctitis (2) Eardrum rupture, right: CODE(S): H72.91 - Unspecified perforation of tympanic membrane, right ear PLAN: Tympanostomy tubes in place (3) Bright red blood per rectum: CODE(S): K62.5 - Hemorrhage of anus and rectum (4) Frequent loose stools: CODE(S): R19.7 - Diarrhea, unspecified QUALIFIERS: Diarrhea type: due to malabsorption Qualified Code(s): K90.9 - Intestinal malabsorption, unspecified; R19.7 - Diarrhea, unspecified (5) Status post complete hysterectomy: CODE(S): Z90.710 - Acquired absence of both cervix and uterus (6) History of bilateral oophorectomy: CODE(S): Z90.722 - Acquired absence of ovaries, bilateral PLAN: Plan Julieth tolerated hyperbaric oxygen therapy well which will be continued per her medical plan.
[2025-02-03 08:24] VITALS: BP 136/69; BP 139/75; PULSE 83; RESP 14; RESP 15; TEMP 35.9; TEMP 36.3
--- NOTE | 2025-02-03 10:23 | PCM.HBO.PN ---
History of Present Illness Date of Service: 02/03/25 Chief Complaint: Radiation proctitis History of Wound: This is a 59-year-old female with a history of recurrent endometrial cancer. The patient was diagnosed with endometrial cancer and underwent a total hysterectomy and bilateral salpingo-oophorectomy in May 2019. Upon experiencing several months of vaginal bleeding in 2023, the patient underwent a biopsy on May 19, 2023, which revealed recurrent endometrial adenocarcinoma. The patient underwent partial radical vaginectomy on May 23, 2023, the pathology of which confirmed recurrent, well-differentiated endometrial adenocarcinoma. A CT scan on June 15, 2023, showed a nodule posterior to the right lower abdominal rectus sheath, thought to represent a peritoneal tumor implant. The patient was treated with EBRT 4500 cGy in [address] Grimes from July 10, 2023, until August 11, 2023. She received adjuvant vaginal cylinder brachytherapy consisting of 30 Stratton delivered over 5 fractions, twice weekly, utilizing a 3 cm cylinder to 10 cm length prescribed to surface. The patient received her final fraction on August 30, 2023. Recent MANAGER SUPPLIER evaluations have documented that the Vagina is shortened and narrowed, consistent with her history of radiation. There are some radiation changes of the mucosa including around the left urethral meatus. No evidence of recurrent disease. Over the last several months prior to her presentation here, the patient has experienced bright red blood per rectum with every bowel movement. She has had frequent episodes of diarrhea with frequent loose stools, and relates poor control of her bowel movements. The patient underwent a colonoscopy by Dr. Arley Pham, Outdoor Education Teacher, on September 04, 2024. Multiple bleeding colonic angiodysplastic lesions were identified, and treated with argon plasma coagulation. These lesions were suspected to be associated with a prior history of radiation resulting in radiation proctitis. Progress of Wound: This represents the 42nd hyperbaric oxygen therapy session of a planned 60 sessions. Tolerance: Hyperbaric oxygen therapy was administered as per the facility protocol at 2 sarahi for 90 minutes without air breaks. The patient tolerated hyperbaric oxygen therapy well, without any complaints or complications. Upon emergence from the hyperbaric chamber, the patient's vital signs remained stable, and she was discharged in stable condition. Objective Data Objective Data Vital Signs: Vital Signs Temp Pulse Resp BP 96.7 F L 83 15 136/69 H 02/03/25 08:24 02/03/25 08:24 02/03/25 08:24 02/03/25 08:24 Exam Physical Exam Const alert and oriented x3 HEENT Tympanic Membrane: other Other Details: Tympanotomy tubes in place Resp normal respiratory effort Auscultation: clear to auscultation bilaterally Cardio regular rate, regular rhythm, S1 normal heart sound, S2 normal heart sound, no murmurs, no rub, no gallops and no clicks Charges/Coding Wound Center CF Procedures HBO Supervision: [id number] Hyperbaric Oxygen; supervision Assessment/Plan Assessment/Plan (1) Radiation proctitis: CODE(S): K62.7 - Radiation proctitis (2) Bright red blood per rectum: CODE(S): K62.5 - Hemorrhage of anus and rectum (3) Frequent loose stools: CODE(S): R19.7 - Diarrhea, unspecified QUALIFIERS: Diarrhea type: due to malabsorption Qualified Code(s): K90.9 - Intestinal malabsorption, unspecified; R19.7 - Diarrhea, unspecified (4) Status post complete hysterectomy: CODE(S): Z90.710 - Acquired absence of both cervix and uterus (5) History of bilateral oophorectomy: CODE(S): Z90.722 - Acquired absence of ovaries, bilateral PLAN: Plan The patient appears to be tolerating hyperbaric oxygen therapy well, which will be continued as per the patient's medical treatment plan.
[2025-02-04 11:37] VITALS: BP 113/47; BP 145/80; PULSE 60; PULSE 81; RESP 15; RESP 16; TEMP 36.1; TEMP 36.4
--- NOTE | 2025-02-04 19:43 | HBO.PN.PCM_ITS ---
History of Present Illness Date of Service: 02/04/25 Chief Complaint: Radiation proctitis History of Wound: This is a 59-year-old female with a history of recurrent endometrial cancer. The patient was diagnosed with endometrial cancer and underwent a total hysterectomy and bilateral salpingo-oophorectomy in May 2019. Upon experiencing several months of vaginal bleeding in 2023, the patient underwent a biopsy on May 19, 2023, which revealed recurrent endometrial adenocarcinoma. The patient underwent partial radical vaginectomy on May 23, 2023, the pathology of which confirmed recurrent, well-differentiated endometrial adenocarcinoma. A CT scan on June 15, 2023, showed a nodule posterior to the right lower abdominal rectus sheath, thought to represent a peritoneal tumor implant. The patient was treated with EBRT 4500 cGy in [address] Grimes from July 10, 2023, until August 11, 2023. She received adjuvant vaginal cylinder brachytherapy consisting of 30 Stratton delivered over 5 fractions, twice weekly, utilizing a 3 cm cylinder to 10 cm length prescribed to surface. The patient received her final fraction on August 30, 2023. Recent ASSISTANT ACCOUNT MANAGER evaluations have documented that the Vagina is shortened and narrowed, consistent with her history of radiation. There are some radiation changes of the mucosa including around the left urethral meatus. No evidence of recurrent disease. Over the last several months prior to her presentation here, the patient has experienced bright red blood per rectum with every bowel movement. She has had frequent episodes of diarrhea with frequent loose stools, and relates poor control of her bowel movements. The patient underwent a colon oscopy by Dr. Arley Pham, Shoe Lining Fitter, on September 04, 2024. Multiple bleeding colonic angiodysplastic lesions were identified, and treated with argon plasma coagulation. These lesions were suspected to be associated with a prior history of radiation resulting in radiation proctitis. Progress of Wound: This represents the 43rd hyperbaric oxygen therapy session of a planned 60 sessions. Tolerance: Hyperbaric oxygen therapy was administered as per the facility protocol at 2 sarahi for 90 minutes without air breaks. The patient tolerated hyperbaric oxygen therapy well, without any complaints or complications. Upon emergence from the hyperbaric chamber, the patient's vital signs remained stable, and she was discharged in stable condition. Objective Data Objective Data Vital Signs: Vital Signs Temp Pulse Resp BP 96.9 F L 81 16 145/80 H 02/04/25 11:37 02/04/25 11:37 02/04/25 11:37 02/04/25 11:37 Exam Physical Exam Const alert, oriented x3, no apparent distress and well nourished General Appearance: cooperative and well developed HEENT normocephalic Head and Scalp: atraumatic Eyes EOMs intact bilaterally Neck supple and no JVD Resp normal respiratory effort and no use of accessory muscles Effort and Inspection: able to speak in complete sentences Psych affect normal Appearance: grossly normal and well kempt Speech: normal speech Charges/Coding Wound [facility] CF Procedures HBO Supervision: [id number] Hyperbaric Oxygen; supervision Assessment/Plan Assessment/Plan (1) Radiation proctitis: CODE(S): K62.7 - Radiation proctitis (2) History of radiation therapy: CODE(S): Z92.3 - Personal history of irradiation (3) Bright red blood per rectum: CODE(S): K62.5 - Hemorrhage of anus and rectum (4) Frequent loose stools: CODE(S): R19.7 - Diarrhea, unspecified QUALIFIERS: Diarrhea type: due to malabsorption Qualified Code(s): K90.9 - Intestinal malabsorption, unspecified; R19.7 - Diarrhea, unspecified (5) Status post complete hysterectomy: CODE(S): Z90.710 - Acquired absence of both cervix and uterus (6) History of bilateral oophorectomy: CODE(S): Z90.722 - Acquired absence of ovaries, bilateral (7) Recurrent carcinoma of endometrium: CODE(S): C54.1 - Malignant neoplasm of endometrium (8) History of LAVH: CODE(S): Z90.710 - Acquired absence of both cervix and uterus PLAN: Plan The patient appears to be tolerating hyperbaric oxygen therapy well, which will be continued as per the patient's medical treatment plan.
[2025-02-06 09:25] VITALS: BP 115/69; BP 125/64; PULSE 73; PULSE 83; RESP 14; TEMP 35.9; TEMP 36.6
--- NOTE | 2025-02-06 09:42 | HBO.PN.PCM_ITS ---
History of Present Illness Date of Service: 02/06/25 Chief Complaint: Radiation proctitis History of Wound: This is a 59-year-old female with a history of recurrent endometrial cancer. The patient was diagnosed with endometrial cancer and underwent a total hysterectomy and bilateral salpingo-oophorectomy in May 2019. Upon experiencing several months of vaginal bleeding in 2023, the patient underwent a biopsy on May 19, 2023, which revealed recurrent endometrial adenocarcinoma. The patient underwent partial radical vaginectomy on May 23, 2023, the pathology of which confirmed recurrent, well-differentiated endometrial adenocarcinoma. A CT scan on June 15, 2023, showed a nodule posterior to the right lower abdominal rectus sheath, thought to represent a peritoneal tumor implant. The patient was treated with EBRT 4500 cGy in [address] Grimes from July 10, 2023, until August 11, 2023. She received adjuvant vaginal cylinder brachytherapy consisting of 30 Stratton delivered over 5 fractions, twice weekly, utilizing a 3 cm cylinder to 10 cm length prescribed to surface. The patient received her final fraction on August 30, 2023. Recent RADIO ANTENNA INSTALLER evaluations have documented that the Vagina is shortened and narrowed, consistent with her history of radiation. There are some radiation changes of the mucosa including around the left urethral meatus. No evidence of recurrent disease. Over the last several months prior to her presentation here, the patient has experienced bright red blood per rectum with every bowel movement. She has had frequent episodes of diarrhea with frequent loose stools, and relates poor control of her bowel movements. The patient underwent a colon oscopy by Dr. Arley Pham, Carpentry Specialist, on September 04, 2024. Multiple bleeding colonic angiodysplastic lesions were identified, and treated with argon plasma coagulation. These lesions were suspected to be associated with a prior history of radiation resulting in radiation proctitis. Progress of Wound: Progress: This represents the 44th hyperbaric oxygen therapy session of a planned 60 sessions. Tolerance: Hyperbaric oxygen therapy was administered as per the facility protocol at 2 sarahi for 90 minutes without air breaks. The patient tolerated h yperbaric oxygen therapy well, without any complaints or complications. Upon emergence from the hyperbaric chamber, the patient's vital signs remained stable, and she was discharged in stable condition. Objective Data Objective Data Vital Signs: Vital Signs Temp Pulse Resp BP 97.9 F 83 14 125/64 H 02/06/25 09:25 02/06/25 09:25 02/06/25 09:25 02/06/25 09:25 Exam Physical Exam Const alert, oriented x3 and no apparent distress General Appearance: cooperative and comfortable HEENT normocephalic and head/scalp atraumatic Head and Scalp: normal to inspection and normocephalic Tympanic Membrane: other Other Details: Tympanostomy tubes noted bilaterally Eyes EOMs intact bilaterally General Eye: normal appearance of both eyes Neck full ROM General: normal visual inspection Resp normal respiratory effort Effort and Inspection: able to speak in complete sentences Neuro oriented x3, CN's II-XII intact bilaterally, moves all extremities and no focal motor deficits Psych mental status grossly normal, thought process normal, cooperative and affect normal Charges/Coding Wound [facility] CF Procedures HBO Supervision: [id number] Hyperbaric Oxygen; supervision Assessment/Plan Assessment/Plan (1) Radiation proctitis: CODE(S): K62.7 - Radiation proctitis (2) Eardrum rupture, right: CODE(S): H72.91 - Unspecified perforation of tympanic membrane, right ear PLAN: Tympanostomy tube in place PLAN: Plan Julieth tolerated hyperbaric oxygen therapy well which will be continued per her medical plan.
[2025-02-07 09:20] VITALS: BP 130/67; BP 140/79; PULSE 67; PULSE 86; RESP 13; RESP 15; TEMP 36.2; TEMP 36.3
--- NOTE | 2025-02-07 15:29 | PCM.HBO.PN ---
History of Present Illness Date of Service: 02/07/25 Chief Complaint: Radiation proctitis History of Wound: This is a 59-year-old female with a history of recurrent endometrial cancer. The patient was diagnosed with endometrial cancer and underwent a total hysterectomy and bilateral salpingo-oophorectomy in May 2019. Upon experiencing several months of vaginal bleeding in 2023, the patient underwent a biopsy on May 19, 2023, which revealed recurrent endometrial adenocarcinoma. The patient underwent partial radical vaginectomy on May 23, 2023, the pathology of which confirmed recurrent, well-differentiated endometrial adenocarcinoma. A CT scan on June 15, 2023, showed a nodule posterior to the right lower abdominal rectus sheath, thought to represent a peritoneal tumor implant. The patient was treated with EBRT 4500 cGy in [address] Grimes from July 10, 2023, until August 11, 2023. She received adjuvant vaginal cylinder brachytherapy consisting of 30 Stratton delivered over 5 fractions, twice weekly, utilizing a 3 cm cylinder to 10 cm length prescribed to surface. The patient received her final fraction on August 30, 2023. Recent REALTIME COURT REPORTER evaluations have documented that the Vagina is shortened and narrowed, consistent with her history of radiation. There are some radiation changes of the mucosa including around the left urethral meatus. No evidence of recurrent disease. Over the last several months prior to her presentation here, the patient has experienced bright red blood per rectum with every bowel movement. She has had frequent episodes of diarrhea with frequent loose stools, and relates poor control of her bowel movements. The patient underwent a colonoscopy by Dr. Arley Pham, Criminal Intelligence Specialist, on September 04, 2024. Multiple bleeding colonic angiodysplastic lesions were identified, and treated with argon plasma coagulation. These lesions were suspected to be associated with a prior history of radiation resulting in radiation proctitis. Progress of Wound: Progress: This represents the 45th hyperbaric oxygen therapy session of a planned 60 sessions. Tolerance: Hyperbaric oxygen therapy was administered as per the facility protocol at 2 sarahi for 90 minutes without air breaks. The patient tolerated hyperbaric oxygen therapy well, without any complaints or complications. Upon emergence from the hyperbaric chamber, the patient's vital signs remained stable, and she was discharged in stable condition. Objective Data Objective Data Vital Signs: Vital Signs Temp Pulse Resp BP 97.1 F L 86 15 140/79 H 02/07/25 09:20 02/07/25 09:20 02/07/25 09:20 02/07/25 09:20 Exam Physical Exam Const alert, oriented x3 and no apparent distress General Appearance: cooperative and comfortable HEENT normocephalic and head/scalp atraumatic Head and Scalp: normal to inspection and normocephalic Tympanic Membrane: other Other Details: Tympanostomy tubes noted bilaterally Eyes EOMs intact bilaterally General Eye: normal appearance of both eyes Neck full ROM General: normal visual inspection Resp normal respiratory effort Effort and Inspection: able to speak in complete sentences Neuro oriented x3, CN's II-XII intact bilaterally, moves all extremities and no focal motor deficits Psych mental status grossly normal, thought process normal, cooperative and affect normal Assessment/Plan Assessment/Plan (1) Radiation proctitis: CODE(S): K62.7 - Radiation proctitis (2) Eardrum rupture, right: CODE(S): H72.91 - Unspecified perforation of tympanic membrane, right ear PLAN: Tympanostomy tubes in place (3) Bright red blood per rectum: CODE(S): K62.5 - Hemorrhage of anus and rectum (4) Frequent loose stools: CODE(S): R19.7 - Diarrhea, unspecified QUALIFIERS: Diarrhea type: due to malabsorption Qualified Code(s): K90.9 - Intestinal malabsorption, unspecified; R19.7 - Diarrhea, unspecified (5) Status post complete hysterectomy: CODE(S): Z90.710 - Acquired absence of both cervix and uterus (6) History of bilateral oophorectomy: CODE(S): Z90.722 - Acquired absence of ovaries, bilateral PLAN: Plan Julieth tolerated hyperbaric oxygen therapy well which will be continued per her medical plan.
--- NOTE | 2025-02-10 08:45 | HBO.PN.PCM_ITS ---
History of Present Illness Date of Service: 02/10/25 Chief Complaint: Radiation proctitis History of Wound: This is a 59-year-old female with a history of recurrent endometrial cancer. The patient was diagnosed with endometrial cancer and underwent a total hysterectomy and bilateral salpingo-oophorectomy in May 2019. Upon experiencing several months of vaginal bleeding in 2023, the patient underwent a biopsy on May 19, 2023, which revealed recurrent endometrial adenocarcinoma. The patient underwent partial radical vaginectomy on May 23, 2023, the pathology of which confirmed recurrent, well-differentiated endometrial adenocarcinoma. A CT scan on June 15, 2023, showed a nodule posterior to the right lower abdominal rectus sheath, thought to represent a peritoneal tumor implant. The patient was treated with EBRT 4500 cGy in [address] Grimes from July 10, 2023, until August 11, 2023. She received adjuvant vaginal cylinder brachytherapy consisting of 30 Stratton delivered over 5 fractions, twice weekly, utilizing a 3 cm cylinder to 10 cm length prescribed to surface. The patient received her final fraction on August 30, 2023. Recent TRAFFIC SIGNAL SUPERVISOR MAINTENANCE evaluations have documented that the Vagina is shortened and narrowed, consistent with her history of radiation. There are some radiation changes of the mucosa including around the left urethral meatus. No evidence of recurrent disease. Over the last several months prior to her presentation here, the patient has experienced bright red blood per rectum with every bowel movement. She has had frequent episodes of diarrhea with frequent loose stools, and relates poor control of her bowel movements. The patient underwent a colon oscopy by Dr. Arley Pham, Sintering Press Operator, on September 04, 2024. Multiple bleeding colonic angiodysplastic lesions were identified, and treated with argon plasma coagulation. These lesions were suspected to be associated with a prior history of radiation resulting in radiation proctitis. Progress of Wound: Progress: This represents the 46th hyperbaric oxygen therapy session of a planned 60 sessions. Tolerance: Hyperbaric oxygen therapy was administered as per the facility protocol at 2 sarahi for 90 minutes without air breaks. The patient tolerated h yperbaric oxygen therapy well, without any complaints or complications. Upon emergence from the hyperbaric chamber, the patient's vital signs remained stable, and she was discharged in stable condition. Subjective Subjective Doing well, voices no concerns. Objective Data Objective Data VSS Vital Signs: Vital Signs Temp Pulse Resp BP 97.1 F L 86 15 140/79 H 02/07/25 09:20 02/07/25 09:20 02/07/25 09:20 02/07/25 09:20 Exam Physical Exam Const alert, oriented x3 and no apparent distress HEENT normocephalic HEENT Narrative: Eustachian tubes present bilaterally, no purulence or drainage. Nonerythema Eyes EOMs intact bilaterally Neck supple General: trachea midline Resp normal respiratory effort and clear to auscultation bilaterally Cardio regular rate, regular rhythm, no murmurs, no rub and no gallops Psych affect normal Charges/Coding Wound [facility] CF Procedures HBO Supervision: [id number] Hyperbaric Oxygen; supervision Assessment/Plan Assessment/Plan (1) Radiation proctitis: CODE(S): K62.7 - Radiation proctitis (2) Eardrum rupture, right: CODE(S): H72.91 - Unspecified perforation of tympanic membrane, right ear PLAN: Tympanostomy tubes in place (3) Bright red blood per rectum: CODE(S): K62.5 - Hemorrhage of anus and rectum (4) Frequent loose stools: CODE(S): R19.7 - Diarrhea, unspecified QUALIFIERS: Diarrhea type: due to malabsorption Qualified Code(s): K90.9 - Intestinal malabsorption, unspecified; R19.7 - Diarrhea, unspecified (5) Status post complete hysterectomy: CODE(S): Z90.710 - Acquired absence of both cervix and uterus (6) History of bilateral oophorectomy: CODE(S): Z90.722 - Acquired absence of ovaries, bilateral PLAN: Plan Julieth tolerated hyperbaric oxygen therapy well which will be continued per her medical plan.
[2025-02-10 09:16] VITALS: BP 118/54; BP 133/61; PULSE 68; PULSE 74; RESP 15; TEMP 36.1; TEMP 36.2
[2025-02-11 09:19] VITALS: BP 119/60; BP 122/53; PULSE 67; PULSE 87; RESP 14; TEMP 36.3; TEMP 36.5
--- NOTE | 2025-02-11 19:24 | HBO.PN.PCM_ITS ---
History of Present Illness Date of Service: 02/11/25 Chief Complaint: Radiation proctitis History of Wound: This is a 59-year-old female with a history of recurrent endometrial cancer. The patient was diagnosed with endometrial cancer and underwent a total hysterectomy and bilateral salpingo-oophorectomy in May 2019. Upon experiencing several months of vaginal bleeding in 2023, the patient underwent a biopsy on May 19, 2023, which revealed recurrent endometrial adenocarcinoma. The patient underwent partial radical vaginectomy on May 23, 2023, the pathology of which confirmed recurrent, well-differentiated endometrial adenocarcinoma. A CT scan on June 15, 2023, showed a nodule posterior to the right lower abdominal rectus sheath, thought to represent a peritoneal tumor implant. The patient was treated with EBRT 4500 cGy in [address] Grimes from July 10, 2023, until August 11, 2023. She received adjuvant vaginal cylinder brachytherapy consisting of 30 Stratton delivered over 5 fractions, twice weekly, utilizing a 3 cm cylinder to 10 cm length prescribed to surface. The patient received her final fraction on August 30, 2023. Recent MANAGER NURSING evaluations have documented that the Vagina is shortened and narrowed, consistent with her history of radiation. There are some radiation changes of the mucosa including around the left urethral meatus. No evidence of recurrent disease. Over the last several months prior to her presentation here, the patient has experienced bright red blood per rectum with every bowel movement. She has had frequent episodes of diarrhea with frequent loose stools, and relates poor control of her bowel movements. The patient underwent a colon oscopy by Dr. Arley Pham, T[employer] Ch[employer], on September 04, 2024. Multiple bleeding colonic angiodysplastic lesions were identified, and treated with argon plasma coagulation. These lesions were suspected to be associated with a prior history of radiation resulting in radiation proctitis. Progress of Wound: Progress: This represents the 47th hyperbaric oxygen therapy session of a planned 60 sessions. Tolerance: Hyperbaric oxygen therapy was administered as per the facility protocol at 2 sarahi for 90 minutes without air breaks. The patient tolerated h yperbaric oxygen therapy well, without any complaints or complications. Upon emergence from the hyperbaric chamber, the patient's vital signs remained stable, and she was discharged in stable condition. Objective Data Objective Data Vital Signs: Vital Signs Temp Pulse Resp BP 97.7 F L 87 14 122/53 H 02/11/25 09:19 11/25/25 09:19 02/11/25 09:19 02/11/25 09:19 Exam Physical Exam Const alert, oriented x3, no apparent distress and well nourished General Appearance: cooperative and well developed Exam Limitations: no limitations HEENT normocephalic Head and Scalp: atraumatic Face and Sinus: normal facial exam External Ear: external ears normal Eyes EOMs intact bilaterally General Eye: normal appearance of both eyes Neck full ROM and no JVD General: normal visual inspection Resp normal respiratory effort and no use of accessory muscles Effort and Inspection: able to speak in complete sentences Extremity normal to inspection General Extremity: normal exam except as noted Skin no rashes or lesions noted Neuro oriented x3 and CN's II-XII intact bilaterally Speech: speech normal Psych affect normal Appearance: grossly normal and well kempt Speech: normal speech Charges/Coding Wound [facility] CF Procedures HBO Supervision: [id number] Hyperbaric Oxygen; supervision Assessment/Plan Assessment/Plan (1) Radiation proctitis: CODE(S): K62.7 - Radiation proctitis (2) History of radiation therapy: CODE(S): Z92.3 - Personal history of irradiation (3) Bright red blood per rectum: CODE(S): K62.5 - Hemorrhage of anus and rectum (4) Frequent loose stools: CODE(S): R19.7 - Diarrhea, unspecified QUALIFIERS: Diarrhea type: due to malabsorption Qualified Code(s): K90.9 - Intestinal malabsorption, unspecified; R19.7 - Diarrhea, unspecified (5) Status post complete hysterectomy: CODE(S): Z90.710 - Acquired absence of both cervix and uterus (6) History of bilateral oophorectomy: CODE(S): Z90.722 - Acquired absence of ovaries, bilateral (7) Recurrent carcinoma of endometrium: CODE(S): C54.1 - Malignant neoplasm of endometrium (8) Endometrial cancer: CODE(S): C54.1 - Malignant neoplasm of endometrium (9) History of LAVH: CODE(S): Z90.710 - Acquired absence of both cervix and uterus PLAN: Plan The patient is tolerating hyperbaric oxygen therapy well, which will be con tinued as per the patient's medical treatment plan.
[2025-02-12 09:01] VITALS: BP 111/61; BP 136/63; PULSE 61; PULSE 91; RESP 14; RESP 15; TEMP 35.9; TEMP 36.3
--- NOTE | 2025-02-12 11:09 | HBO.PN.PCM_ITS ---
History of Present Illness Date of Service: 02/12/25 Chief Complaint: Radiation proctitis History of Wound: This is a 59-year-old female with a history of recurrent endometrial cancer. The patient was diagnosed with endometrial cancer and underwent a total hysterectomy and bilateral salpingo-oophorectomy in May 2019. Upon experiencing several months of vaginal bleeding in 2023, the patient underwent a biopsy on May 19, 2023, which revealed recurrent endometrial adenocarcinoma. The patient underwent partial radical vaginectomy on May 23, 2023, the pathology of which confirmed recurrent, well-differentiated endometrial adenocarcinoma. A CT scan on June 15, 2023, showed a nodule posterior to the right lower abdominal rectus sheath, thought to represent a peritoneal tumor implant. The patient was treated with EBRT 4500 cGy in [address] Grimes from July 10, 2023, until August 11, 2023. She received adjuvant vaginal cylinder brachytherapy consisting of 30 Stratton delivered over 5 fractions, twice weekly, utilizing a 3 cm cylinder to 10 cm length prescribed to surface. The patient received her final fraction on August 30, 2023. Recent RIGGING LOFT REPAIRER evaluations have documented that the Vagina is shortened and narrowed, consistent with her history of radiation. There are some radiation changes of the mucosa including around the left urethral meatus. No evidence of recurrent disease. Over the last several months prior to her presentation here, the patient has experienced bright red blood per rectum with every bowel movement. She has had frequent episodes of diarrhea with frequent loose stools, and relates poor control of her bowel movements. The patient underwent a colon oscopy by Dr. Arley Pham, Production Machine Tender, on September 04, 2024. Multiple bleeding colonic angiodysplastic lesions were identified, and treated with argon plasma coagulation. These lesions were suspected to be associated with a prior history of radiation resulting in radiation proctitis. Progress of Wound: Progress: This represents the 48th hyperbaric oxygen therapy session of a planned 60 sessions. Tolerance: Hyperbaric oxygen therapy was administered as per the facility protocol at 2 sarahi for 90 minutes without air breaks. The patient tolerated h yperbaric oxygen therapy well, without any complaints or complications. Upon emergence from the hyperbaric chamber, the patient's vital signs remained stable, and she was discharged in stable condition. Subjective Subjective Patient has no concerns Objective Data Objective Data Patient was admitted and discharged with good vital signs and stable Vital Signs: Vital Signs Temp Pulse Resp BP 96.7 F L 91 14 136/63 H 02/12/25 09:01 02/12/25 09:01 02/12/25 09:01 02/12/25 09:01 Exam Physical Exam Const oriented x3 General Appearance: cooperative Exam Limitations: no limitations HEENT normocephalic Face and Sinus: normal facial exam External Ear: external ears normal Eyes PERRL General Eye: normal appearance of both eyes Neck full ROM General: normal visual inspection Resp normal respiratory effort Effort and Inspection: able to speak in complete sentences Auscultation: clear to auscultation bilaterally Cardio regular rate and regular rhythm Palpation: normal PMI Rate: regular rate Rhythm: regular rhythm GI Auscultation: normoactive bowel sounds Palpation: soft and no hepatosplenomegaly external exam normal Back/Spine Cervical Spine: cervical ROM normal Thoracic Spine / Upper Back: normal to inspection Lumbar Spine / Lower Back: normal to inspection Extremity normal to inspection General Extremity: normal exam except as noted Skin no rashes or lesions noted Neuro oriented x3 Psych Appearance: grossly normal Speech: normal speech Thought Content: normal thought content Judgement: judgement good Assessment/Plan Assessment/Plan (1) Radiation proctitis: CODE(S): K62.7 - Radiation proctitis (2) Eardrum rupture, right: CODE(S): H72.91 - Unspecified perforation of tympanic membrane, right ear PLAN: Tympanostomy tubes in place (3) Bright red blood per rectum: CODE(S): K62.5 - Hemorrhage of anus and rectum (4) Frequent loose stools: CODE(S): R19.7 - Diarrhea, unspecified QUALIFIERS: Diarrhea type: due to malabsorption Qualified Code(s): K90.9 - Intestinal malabsorption, unspecified; R19.7 - Diarrhea, unspecified (5) Status post complete hysterectomy: CODE(S): Z90.710 - Acquired absence of both cervix and uterus (6) History of bilateral oophorectomy: CODE(S): Z90.722 - Acquired absence of ovaries, bilateral PLAN: Plan Julieth tolerated hyperbaric oxygen therapy well which will be continued per her medical plan.
== END 2025-02-16 23:59 | disposition home or self-care (01) ==
LOC: WC 08:00
PROVIDERS: PCP Family Medicine; Referring Provider Obstetrics & Gynecology; Visit Provider Surgery
DX: K62.7 Radiation proctitis (principal); C54.1 Malignant neoplasm of endometrium; Z90.722 Acquired absence of ovaries, bilateral; Z90.710 Acquired absence of both cervix and uterus; H72.91 Unspecified perforation of tympanic membrane, right ear
CPT/HCPCS: 99183; G0277